=== PATIENT | female | born 1960 | race American Indian/Alaskan Native ===

== ENCOUNTER 2018-05-06 21:07 | Emergency (ER) | payer MEDICARE, OTHER ==
[2018-05-06 21:39] VITALS: BP 133/97
--- NOTE | 2018-05-06 21:40 | Emergency Department Report ---
Blank Doc - Documentation Documentation: 57 y.o. female presents with flu like symptoms for 3 days. She reports cough, fever, an myalgia. She was unable to work x 3 days and requesting a doctor note. Fast Track for evaluation
[2018-05-07] MEDS ORDERED: TORADOL IM ONE (00:35)
--- NOTE | 2018-05-07 00:35 | Emergency Department Report ---
Minor Respiratory - HPI Chief Complaint: Upper Respiratory Infection Stated Complaint: BODY PAIN/HEADACHE Time Seen by Provider: 05/06/18 21:36 Duration: 3 Days Pain Location: Nose Severity: mild Minor Respiratory: Yes Rhinorrhea, Yes Able to Tolerate Fluids, Yes Cough, Yes Sick Contacts, Yes Fever, No Sore Throat, No Ear Pain, No Hemoptysis, No Chest Pain, No Shortness of Breath Other History: This is a 57-year-old female presents with flulike symptoms for the past 3 days. Patient reports fever, chills, headache, and myalgia. States several people at work are sick. She is currently taken DayQuil, NyQuil, and NSAIDs with no improvement of symptoms. Patient states she feel like this before. She denies chest pain, shortness of breath, wheezing, sore throat. ED Review of Systems ROS: Stated complaint: BODY PAIN/HEADACHE Other details as noted in HPI Constitutional: chills, fever ENT: throat pain, congestion. denies: ear pain, dental pain, hearing loss, epistaxis Respiratory: cough. denies: shortness of breath, wheezing Cardiovascular: denies: chest pain, palpitations Gastrointestinal: denies: abdominal pain, nausea, diarrhea Musculoskeletal: myalgia. denies: back pain, joint swelling, arthralgia Skin: denies: rash, lesions Neurological: headache. denies: weakness, paresthesias Psychiatric: denies: anxiety, depression ED Past Medical Hx - Past Medical History Additional medical history: double mastectomy 2006 - Surgical History Hx Cholecystectomy: Yes Additional Surgical History: 3 - Social History Smoking Status: Never Smoker Substance Use Type: None - Medications Home Medications: Home Medications Medication Instructions Recorded Confirmed Last Taken Type Benzonatate [Tessalon Perles] 100 mg PO Q8HR PRN #30 capsule 05/07/18 Unknown Rx Cetirizine HCl [Zyrtec] 10 mg PO DAILY #30 tablet 05/07/18 Unknown Rx Fluticasone [Flonase] 1 spray NS QDAY #1 bottle 05/07/18 Unknown Rx Ibuprofen [Motrin 800 MG tab] 800 mg PO Q8HR PRN #15 tablet 05/07/18 Unknown Rx Minor Respiratory Exam - Exam General: Vital signs noted. No distress. Alert and acting appropriately. HEENT: Yes Pharyngeal Erythema (erythematous posterior flare names, uvula midline), Yes Moist Mucous Membranes, Yes Rhinorrhea (extremities mildly congested with clear discharge), No Pharyngeal Exudates, No Conjuctival Injecti on, No Frontal Tenderness, No Maxillary Tenderness Ear: Neither TM Bulge, Neither TM Erythema, Neither EAC Pain, Neither EAC Discharge Neck: Yes Supple, No Adenopathy Lungs: Yes Good Air Exchange, Yes Cough, No Wheezes, No Ronchi, No Stridor, No Labored Respirations, No Retractions, No Use of Accessory Muscles, No Other Abn ormal Lung Sounds Heart: Yes Regular, No Murmur Abdomen: Yes Normal Bowel Sounds, No Tenderness, No Peritoneal Signs Skin: No Rash, No Edema Neurologic: Alert and oriented, no deficits. Musculoskeletal: Unremarkable. ED Course Vital Signs 05/06/18 21:19 Temperature 99.7 F H Pulse Rate 102 H Respiratory 18 Rate Blood Pressure 133/97 O2 Sat by Pulse 96 Oximetry ED Medical Decision Making - Medical Decision Making 57 y.o. female that presents with flu-like symptoms. Patient examined by me and stable. No distress noted. Vitals normal. Given Toradol 30 mg IM while in ER for headache. Discharged home stable. Educated on care for viral syndrome. Symptoms are susceptible of viral syndrome. Start flonase, Tessalon Perles, cetirizine, and ibuprofen. She is instructed to take Tylenol or ibuprofen for aches and pains, to drink a lot of liquids to stay home and wrists. She was given a note to return to work in 3 days. Follow up with Primary Care Provider in 2-3 days. She will return to the emergency room if she does not get better as discussed. Critical care attestation.: If time is entered above; I have spent that time in minutes in the direct care of this critically ill patient, excluding procedure time. ED Disposition Clinical Impression: Acute viral syndrome, Flu-like symptoms Disposition: DC-01 TO HOME OR SELFCARE Is pt being admited?: No Does the pt Need Aspirin: No Condition: Stable Instructions: Viral Syndrome (ED), Upper Respiratory Infection (ED) Additional Instructions: Symptoms are most likely coming from for infection. These infections typically do not give antibiotics. He is to take ibuprofen every 6 hours alternated with saline intravenously over 4 hours pain. You may not feel like eating which is to be expected. Try eating a bland diet as tolerated. Wash hands frequently. F/U with Primary Care Provider. Return to ER if fever, SOB, or difficulty breathing after 48 hours of supportive care. Prescriptions: Benzonatate [Tessalon Perles] 100 mg PO Q8HR PRN #30 capsule PRN Reason: Cough Cetirizine HCl [Zyrtec] 10 mg PO DAILY #30 tablet Fluticasone [Flonase] 1 spray NS QDAY #1 bottle Ibuprofen [Motrin 800 MG tab] 800 mg PO Q8HR PRN #15 tablet PRN Reason: Pain , Severe (7-10) Referrals: ELI PARRISH MD [Primary Care Provider] - 3-5 Days [facility] [Outside] - 3-5 Days [facility] [Outside] - 3-5 Days [facility] [Outside] - 3-5 Days Forms: Work/School Release Form(ED) Time of Disposition: 00:51
== END 2018-05-07 01:15 | disposition home or self-care (01) ==
LOC: ED 21:07
DX: B34.9 Viral infection, unspecified (principal); Z90.49 Acquired absence of other specified parts of digestive tract
CPT/HCPCS: 96372; 99282; J1885

== ENCOUNTER 2019-05-12 10:59 | Emergency (ER) | payer SELFPAY ==
[2019-05-12] MEDS ORDERED: dexAMETHasone 20 MG/5 ML VIAL IM ONE (11:32)
[2019-05-12] MEDS ORDERED: ACETAMINOPHEN 325 MG TAB PO ONE (11:33)
[2019-05-12] MEDS ORDERED: KETOROLAC 30 MG/1 ML INJ IM ONE (11:33)
--- NOTE | 2019-05-12 11:34 | Emergency Department Report ---
- General Chief Complaint: Upper Respiratory Infection Stated Complaint: CHILLS/SWEATS/FLU SYM Time Seen by Provider: 05/12/19 11:25 Source: patient Mode of arrival: Ambulatory Limitations: No Limitations - History of Present Illness Initial Comments: 58-year-old female with no significant past medical history presents to the ER today complaining of flulike symptoms. Patient reports generalized body aches, productive cough, subjective fever intermittently, chills, and sore throat for the past 5 days. She denies any wheezing, chest pain or shortness of breath. She denies any GI or symptoms. [place] but nothing obvious. She has been taking NyQuil and DayQuil with not much relief of her symptoms. MD Complaint: fever, cough, other ("I think I have the flu") -: days(s) (5) - Related Data Previous Rx's Medication Instructions Recorded Last Taken Type Benzonatate [Tessalon Perles] 100 mg PO Q8HR PRN #30 capsule 05/07/18 Unknown Rx Cetirizine HCl [Zyrtec 10mg tab] 10 mg PO DAILY #30 tablet 05/12/19 Unknown Rx Fluticasone [Flonase] 1 spray NS QDAY #1 bottle 05/12/19 Unknown Rx Ibuprofen [Motrin 800 MG tab] 800 mg PO Q8HR PRN #15 tablet 05/12/19 Unknown Rx guaiFENesin/CODEINE [Robitussin AC] 5 ml PO Q6HR PRN #120 ml 05/12/19 Unknown Rx Allergies Allergy/AdvReac Type Severity Reaction Status Date / Time No Known Allergies Allergy Unverified 05/06/18 21:38 ED Review of Systems ROS: Stated complaint: CHILLS/SWEATS/FLU SYM Other details as noted in HPI Constitutional: chills, fever Respiratory: cough. denies: shortness of breath, SOB with exertion, SOB at rest, stridor, wheezing Cardiovascular: denies: chest pain Gastrointestinal: denies: nausea, vomiting, diarrhea Musculoskeletal: arthralgia, myalgia. denies: back pain Skin: denies: rash Neurological: headache ED Past Medical Hx - Past Medical History Previous Medical History?: Yes Additional medical history: Breast CA - Surgical History Past Surgical History?: Yes Hx Cholecystectomy: Yes Additional Surgical History: 3 , double mastectomy, parathyroidectomy - Social History Smoking Status: Never Smoker Substance Use Type: None - Medications Home Medications: Home Medications Medication Instructions Recorded Confirmed Last Taken Type Benzonatate [Tessalon Perles] 100 mg PO Q8HR PRN #30 capsule 05/07/18 Unknown Rx Cetirizine HCl [Zyrtec 10mg tab] 10 mg PO DAILY #30 tablet 05/12/19 Unknown Rx Fluticasone [Flonase] 1 spray NS QDAY #1 bottle 05/12/19 Unknown Rx Ibuprofen [Motrin 800 MG tab] 800 mg PO Q8HR PRN #15 tablet 05/12/19 Unknown Rx guaiFENesin/CODEINE [Robitussin AC] 5 ml PO Q6HR PRN #120 ml 05/12/19 Unknown Rx ED Physical Exam - General Limitations: No Limitations General appearance: alert, in no apparent distress, other (mildly ill appearing but not toxic ) - Head Head exam: Present: atraumatic, normocephalic, normal inspection - Eye Eye exam: Present: normal appearance, PERRL, EOMI Pupils: Present: normal accommodation - ENT ENT exam: Present: normal exam, normal orophraynx, mucous membranes moist - Expanded ENT Exam Expanded TM/Canal exam: Effusion: Right TM, Left TM - Neck Neck exam: Present: normal inspection, full ROM. Absent: meningismus - Respiratory Respiratory exam: Present: normal lung sounds bilaterally - Cardiovascular Cardiovascular Exam: Present: regular rate, normal rhythm, normal heart sounds - GI/Abdominal GI/Abdominal exam: Present: soft. Absent: distended, tenderness - Neurological Exam Neurological exam: Present: alert, oriented X3, CN II-XII intact - Psychiatric Psychiatric exam: Present: normal affect, normal mood - Skin Skin exam: Present: intact ED Course Vital Signs 05/12/19 11:03 Temperature 97.7 F Pulse Rate 73 Respiratory 18 Rate Blood Pressure 190/115 O2 Sat by Pulse 97 Oximetry ED Medical Decision Making - Radiology Data Ordering Physician: MORGAN GALICIA Date of Service: 05/12/19 Procedure(s): XR chest routine 2V Accession Number(s): [id number] cc: MORGAN GALICIA Fluoro Time In Minutes: CHEST 2 VIEWS INDICATION: cough. COMPARISON: None FINDINGS: Support devices: None. Heart: Within normal limits. Pulmonary vasculature:Normal Lungs/pleura: No acute air space or interstitial disease. No pneumothorax. Additional findings: Degenerative changes in the spine. Numerous surgical sutures in the anterior chest wall and upper abdomen. IMPRESSION: 1. No acute findings. Signer Name: Pablo Madsen MD Signed: 05/12/2019 11:59 AM Workstation Name: [id number] Transcribed By: REF Dictated By: PABLO MADSEN MD Electronically Authenticated By: PABLO MADSEN MD Signed Date/Time: 05/12/19 1159 DD/ 1157 TD/TT: - Medical Decision Making 58 year old female presents c/o 5 days hx of flu like symptoms. Patient mildly ill appearing but overall not toxic, well hydrated and no acute pain nor respiratory distress. She is afebrile, not hypoxic nor tachpneic nor tachycardic. I suspect clinically has flu but informed patient that at this point it will have to run its course but we will give meds to help with symptomatic relief and recommend that she drinks lots of fluids and rest. Her history, exam, diagnostic testing and current condition does not demonstrate an infectious process such has meningitis, severe pneumonia, retropharyngeal abscess, epiglottis, sepsis or other serious bacterial infection requiring further testing, treatment, consultation or admission at this time. Discusses suspected dx and treatment plan with patient. Recommend close f/u with PCP. Pt stable at time of discharge. Critical care attestation.: If time is entered above; I have spent that time in minutes in the direct care of this critically ill patient, excluding procedure time. ED Disposition Clinical Impression: Flu-like symptoms, Viral syndrome Disposition: DC-01 TO HOME OR SELFCARE Is pt being admited?: No Does the pt Need Aspirin: No Condition: Stable Instructions: Viral Syndrome (ED), Influenza (ED) Additional Instructions: Recommend rest, and lots of fluids. Take medications as prescribed. Recommend close follow up with PCP. Return to ED if worse. Prescriptions: Fluticasone [Flonase] 1 spray NS QDAY #1 bottle Ibuprofen [Motrin 800 MG tab] 800 mg PO Q8HR PRN #15 tablet PRN Reason: Pain , Severe (7-10) guaiFENesin/CODEINE [Robitussin AC] 5 ml PO Q6HR PRN #120 ml PRN Reason: Cough Cetirizine HCl [Zyrtec 10mg tab] 10 mg PO DAILY #30 tablet Referrals: BROOKLYN BECERRA MD [Staff Physician] - 3-5 Days Forms: Work/School Release Form(ED) Time of Disposition: 12:12
--- NOTE | 2019-05-12 12:03 | XRay Report ---
CHEST 2 VIEWS INDICATION: cough. COMPARISON: None FINDINGS: Support devices: None. Heart: Within normal limits. Pulmonary vasculature:Normal Lungs/pleura: No acute air space or interstitial disease. No pneumothorax. Additional findings: Degenerative changes in the spine. Numerous surgical sutures in the anterior chest wall and upper abdomen. IMPRESSION: 1. No acute findings. Signer Name: Pablo Amaya MD Signed: 05/12/2019 11:59 AM Workstation Name: [id number]
[2019-05-12 12:27] VITALS: BP 174/106
== END 2019-05-12 12:26 | disposition home or self-care (01) ==
LOC: ED 10:59
DX: J11.1 Influenza due to unidentified influenza virus with other respiratory manifestations (principal); B34.9 Viral infection, unspecified; Z90.49 Acquired absence of other specified parts of digestive tract; Z90.89 Acquired absence of other organs; Z79.899 Other long term (current) drug therapy
CPT/HCPCS: 71046; 96372; 99283; J1100; J1885

== ENCOUNTER 2020-02-12 16:27 | Inpatient (IN) | payer OTHER ==
[2020-02-12] MEDS ORDERED: ONDANSETRON 4 MG/2 ML INJ IV ONE ×2 (16:35→18:49)
[2020-02-12] MEDS ORDERED: SODIUM CHLORIDE 0.9% 1000 ML 1,000 ML IV ONE (16:35)
[2020-02-12] MEDS ORDERED: HYDROmorphone 1 MG/1 ML INJ IV ONE (16:35)
--- NOTE | 2020-02-12 16:39 | Emergency Department Report ---
ED Abdominal Pain HPI - General Stated Complaint: ABD PAIN PUI?: No Time Seen by Provider: 02/12/20 16:35 Source: patient, EMS, old records reviewed Mode of arrival: Stretcher Limitations: No Limitations - History of Present Illness Initial Comments: Chief complaint: Abdominal pain HPI: This is a 59-year-old female with history of hypertension, breast cancer and kidney stones who presents via EMS with severe left lower quadrant dull abdominal pain for the past 3 days. She feels a dull pain. She has vomiting. She denies diarrhea. She denies hematuria. She denies fever or chills. She recently started vaginal bleeding. She has been menopausal. Gradual onset of symptoms. The pain is intermittent. Pain is worse when she eats. No radiation . MD Complaint: abdominal pain -: Gradual, days(s) (3) Location: LLQ Radiation: none Severity: severe Severity scale (0 -10): 8 Quality: dull Consistency: intermittent Improves With: nothing Worsens With: eating Context: other (History of kidney stones, new onset vaginal bleeding) Associated Symptoms: nausea, vomiting, other (Vaginal bleeding) - Related Data Previous Rx's Medication Instructions Recorded Last Taken Type Benzonatate [Tessalon Perles] 100 mg PO Q8HR PRN #30 capsule 05/07/18 Unknown Rx Cetirizine HCl [Zyrtec 10mg tab] 10 mg PO DAILY #30 tablet 05/12/19 Unknown Rx Fluticasone [Flonase] 1 spray NS QDAY #1 bottle 05/12/19 Unknown Rx Ibuprofen [Motrin 800 MG tab] 800 mg PO Q8HR PRN #15 tablet 05/12/19 Unknown Rx guaiFENesin/CODEINE [Robitussin AC] 5 ml PO Q6HR PRN #120 ml 05/12/19 Unknown Rx Allergies Allergy/AdvReac Type Severity Reaction Status Date / Time acetaminophen [From Percocet] AdvReac Headache Verified 02/12/20 18:28 hydromorphone [From Dilaudid] AdvReac Headache Verified 02/12/20 18:28 oxycodone [From Percocet] AdvReac Headache Verified 02/12/20 18:28 ED Review of Systems ROS: Stated complaint: ABD PAIN Other details as noted in HPI Comment: All other systems reviewed and negative Constitutional: denies: fever, malaise Respiratory: denies: cough, shortness of breath Gastrointestinal: abdominal pain, nausea, vomiting Genitourinary: abnormal menses ED Past Medical Hx - Past Medical History Previous Medical History?: Yes Hx Hypertension: Yes Hx Kidney Stones: Yes Additional medical history: Breast CA - Surgical History Hx Cholecystectomy: Yes Additional Surgical History: 3 , double mastectomy, parathyroidectomy - Social History Smoking Status: Never Smoker Substance Use Type: None - Medications Home Medications: Home Medications Medication Instructions Recorded Confirmed Last Taken Type Benzonatate [Tessalon Perles] 100 mg PO Q8HR PRN #30 capsule 05/07/18 Unknown Rx Cetirizine HCl [Zyrtec 10mg tab] 10 mg PO DAILY #30 tablet 05/12/19 Unknown Rx Fluticasone [Flonase] 1 spray NS QDAY #1 bottle 05/12/19 Unknown Rx Ibuprofen [Motrin 800 MG tab] 800 mg PO Q8HR PRN #15 tablet 05/12/19 Unknown Rx guaiFENesin/CODEINE [Robitussin AC] 5 ml PO Q6HR PRN #120 ml 05/12/19 Unknown Rx ED Physical Exam - General General appearance: alert, in no apparent distress, other (Tearful, rubbing abdomen, appears uncomfortable) - Head Head exam: Present: atraumatic, normocephalic - Eye Eye exam: Present: normal appearance - ENT ENT exam: Present: mucous membranes moist - Neck Neck exam: Present: normal inspection - Respiratory Respiratory exam: Present: normal lung sounds bilaterally. Absent: respiratory distress, wheezes, rales, rhonchi - Cardiovascular Cardiovascular Exam: Present: regular rate, normal rhythm, normal heart sounds. Absent: systolic murmur, diastolic murmur, rubs, gallop - GI/Abdominal GI/Abdominal exam: Present: soft, normal bowel sounds. Absent: distended, tenderness, guarding - Extremities Exam Extremities exam: Present: normal inspection - Neurological Exam Neurological exam: Present: alert, oriented X3 - Psychiatric Psychiatric exam: Present: normal affect - Skin Skin exam: Present: warm, dry, intact, normal color. Absent: rash ED Course Vital Signs 02/12/20 02/12/20 16:30 18:49 Temperature 97.7 F Pulse Rate 72 Respiratory 14 Rate Blood Pressure 180/96 200/110 O2 Sat by Pulse 98 99 Oximetry - Reevaluation(s) Reevaluation #1: 02/12/20 17:04 I came to the bedside. Patient was anxious and restless. I suspect that she had an adverse effect to hydromorphone. Patient received Benadryl for anxiolysis. ED Medical Decision Making - Lab Data Result diagrams: 02/12/20 16:43 02/12/20 16:43 - Radiology Data Radiology results: report reviewed CT ABDOMEN AND PELVIS WITHOUT CONTRAST INDICATION / CLINICAL INFORMATION: MAIN. TECHNIQUE: Axial CT images were obtained through the abdomen and pelvis without IV contrast. All CT scans at this location are performed using CT dose reduction for ALARA by means of automated exposure control. COMPARISON: None available. FINDINGS: LOWER CHEST: 5 mm pulmonary nodule adjacent to the pleural margin in the left lower lobe (axial series 2 image 18). HEPATOBILIARY: No significant abnormality. PANCREAS: No significant abnormality. SPLEEN: No significant abnormality. ADRENALS: No significant abnormality. GENITOURINARY: 9 mm nonobstructing nephrolith in the right kidney and 8 mm nonobstructing nephrolith in the left kidney few additional punctate nonobstructing nephroliths. No evidence of obstructive uropathy. GASTROINTESTINAL/MESENTERY: Postoperative change of bowel resection and gastric bypass. There is a 5 x 3 centimeter mass in the proximal sigmoid colon. No evidence of obstruction. There is metastatic lymphadenopathy versus direct extension from the posterior wall of this lesion. Small amount of associated inflammatory change. RETROPERITONEUM: No significant adenopathy. REPRODUCTIVE ORGANS: No significant abnormality. VASCULAR: Mild atherosclerotic calcification without acute abnormality. SKELETAL SYSTEM: No significant abnormality. ADDITIONAL FINDINGS: No significant abnormality. IMPRESSION: 1. 5 cm mass in the proximal sigmoid colon with direct peritoneal extension versus adjacent localized static lymphadenopathy. Small amount of associated inflammatory change in this region. 2. 5 mm pulmonary nodule can be further evaluated on expected staging scan versus oncologic surveillance. 3. Bilateral nonobstructing nephrolithiasis. - Medical Decision Making 1. LLQ pain: 5 cm sigmoid colon mass with lymphadenopathy, suspect malignancy. Dr. Gonzalez, Gastroenterology consult recommended admission for further investigation 2. Hypertensive Urgency without end organcy damage Admitted to hospitalist service Critical care attestation.: If time is entered above; I have spent that time in minutes in the direct care of this critically ill patient, excluding procedure time. ED Disposition Clinical Impression: Colonic mass, Hypertensive urgency Disposition: DC-09 OP ADMIT IP TO THIS HOSP Is pt being admited?: Yes Does the pt Need Aspirin: No Condition: Stable
[2020-02-12] MEDS: KETOROLAC 30 MG/1 ML INJ IV ONE ×2 (16:52→17:06)
[2020-02-12] MEDS ORDERED: diphenhydrAMINE 50 MG/ML VIAL ONE (16:58)
[2020-02-12 17:00] LABS: Basophils % (Auto) 0.2 % (0.0-1.8); Eosinophils # (Auto) 0.1 K/mm3 (0.0-0.4); Eosinophils % (Auto) 1.9 % (0.0-4.3); Hematocrit 39.1 % (30.3-42.9); Hemoglobin 13.3 gm/dl (10.1-14.3); Lymphocytes # (Auto) 2.1 K/mm3 (1.2-5.4); Lymphocytes % (Auto) 26.5 % (13.4-35.0); Mean Corpuscular HGB Conc 34 % (30-34); Mean Corpuscular Volume 87 fl (79-97); Monocytes # (Auto) 0.5 K/mm3 (0.0-0.8); Monocytes % (Auto) 6.9 % (0.0-7.3); Platelet Count 313 K/mm3 (140-440); Red Blood Count 4.47 M/mm3 (3.65-5.03); Red Cell Distribution Width 12.6 % (13.2-15.2)
[2020-02-12] MEDS ORDERED: diphenhydrAMINE 50 MG/ML VIAL IV ONE (17:04)
[2020-02-12 17:14] LABS: BUN/Creatinine Ratio 20; Blood Urea Nitrogen 18 mg/dL (7-17); Calcium 8.4 mg/dL (8.4-10.2); Hemolysis Index 13
[2020-02-12] MEDS ORDERED: KETOROLAC 30 MG/1 ML INJ IV ONE (18:49)
[2020-02-12] MEDS ORDERED: KETOROLAC 30 MG/1 ML INJ IM ONE (18:49)
--- NOTE | 2020-02-12 19:00 | Cat Scan Report ---
CT ABDOMEN AND PELVIS WITHOUT CONTRAST INDICATION / CLINICAL INFORMATION: MAIN. TECHNIQUE: Axial CT images were obtained through the abdomen and pelvis without IV contrast. All CT scans at [facility] location are performed using CT dose reduction for ALARA by means of automated exposure control. COMPARISON: None available. FINDINGS: LOWER CHEST: 5 mm pulmonary nodule adjacent to the pleural margin in the left lower lobe (axial serie s 2 image 18). HEPATOBILIARY: No significant abnormality. PANCREAS: No significant abnormality. SPLEEN: No significant abnormality. ADRENALS: No significant abnormality. GENITOURINARY: 9 mm nonobstructing nephrolith in the right kidney and 8 mm nonobstructing nephrolith in the left kidney few additional punctate nonobstructing nephroliths. No evidence of obstructive uro laith. GASTROINTESTINAL/MESENTERY: Postoperative change of bowel resection and gastric bypass. There is a 5 x 3 centimeter mass in the proximal sigmoid colon. No evidence of obstruction. There is metastatic ly mphadenopathy versus direct extension from the posterior wall of this lesion. Small amount of associa bigg inflammatory change. RETROPERITONEUM: No significant adenopathy. REPRODUCTIVE ORGANS: No significant abnormality. VASCULAR: Mild atherosclerotic calcification without acute abnormality. SKELETAL SYSTEM: No significant abnormality. ADDITIONAL FINDINGS: No significant abnormality. IMPRESSION: 1. 5 cm mass in the proximal sigmoid colon with direct peritoneal extension versus adjacent localized static lymphadenopathy. Small amount of associated inflammatory change in this region. 2. 5 mm pulmonary nodule can be further evaluated on expected staging scan versus oncologic surveilla nce. 3. Bilateral nonobstructing nephrolithiasis. Signer Name: Morgan Felder MD Signed: 02/12/2020 6:55 PM Workstation Name: [id number]
[2020-02-12 19:22] LABS: Bilirubin,Urine NEG (Negative); Blood,Urine NEG (Negative); Color,Urine Colorless (Yellow); Protein,Urine <15 mg/dL mg/dL (Negative); Urobilinogen,Urine < 2.0 mg/dL (<2.0); WBC,Urine < 1.0 /HPF (0.0-6.0)
--- NOTE | 2020-02-12 19:42 | History and Physical Report ---
History of Present Illness Chief complaint: My stomach hurts, and I cannot keep anything down History of present illness: 59 YO Female with HTN, BrCA presents to ED for evaluation. Patient states that she has experienced abdominal pain over the past 3 days with persistent symptoms over the same timeframe. Patient also acknowledges nausea, multiple episodes of vomiting, as well as inability to tolerate oral intake. Patient states that pain is 810/10, the pain was initially intermittent but has become more const ant. Patient also acknowledges new onset vaginal bleeding over the past 3 days. Pain is worse with movement and eating. And relieved somewhat with nonmovement. EMS was notified and upon arrival the patient was found to be in distress and subsequently transported to [facility] for further care and evaluation. Patient seen and evaluated in the emergency department. All lab and imaging studies reviewed. Patient underwent CT scan of the abdomen and pelvis and was found to have a sigmoid colonic mass suspicious for malignancy with direct peritoneal extension. Patient placed in observation status and admitted to surgical floor due to increased risk of worsening symptoms, colonic complications, as well as bowel perforation. Patient denies fever, chills, chest pain, palpitation, productive cough, skin rash, recent ill contacts, or known exposure to COVID-19. No prior admission for review. All medication listed at time of admission has been reconciled. GI team consulted in ED. HUMAN RESOURCES SUPPORT SPECIALIST service consulted in ED for vaginal bleeding. Advanced care planning conducted in ED. Past History Past Medical History: cancer, hypertension Past Surgical History: cholecystectomy, , mastectomy (Thus the plan), bowel surgery Social history: single. denies: smoking, alcohol abuse Family history: hypertension Medications and Allergies Allergies Allergy/AdvReac Type Severity Reaction Status Date / Time acetaminophen [From Percocet] AdvReac Headache Verified 02/12/20 18:28 hydromorphone [From Dilaudid] AdvReac Headache Verified 02/12/20 18:28 oxycodone [From Percocet] AdvReac Headache Verified 02/12/20 18:28 Home Medications Medication Instructions Recorded Confirmed Last Taken Type Ascorbic Acid [Vitamin C] 1,000 mg PO DAILY 02/12/20 02/12/20 02/12/20 History Cholecalciferol (Vitamin D3) 5,000 unit PO DAILY 02/12/20 02/12/20 02/12/20 History [Vitamin D3] Cyanocobalamin (Vitamin B-12) 1,000 mcg PO DAILY 02/12/20 02/12/20 02/12/20 History [Vitamin B-12] Magnesium Amino Acid Chelate 100 mg PO DAILY 02/12/20 02/12/20 02/12/20 History [Magnesium] Pyridoxine HCl (Vitamin B6) 250 mg PO DAILY 02/12/20 02/12/20 02/12/20 History [Vitamin B-6] Review of Systems Constitutional: no weight loss, no weight gain, no fever, no chills Ears, nose, mouth and throat: no ear pain, no ear discharge, no tinnitis, no decreased hearing, no nose pain Breasts: no change in shape, no swelling, no mass Cardiovascular: no chest pain, no orthopnea, no rapid/irregular heart beat, no edema, no syncope Respiratory: no cough, no cough with sputum, no excessive sputum, no hemoptysis Gastrointestinal: abdominal pain, nausea, vomiting, no BRBPR, no melena, no hematochezia Genitourinary Female: other (vaginal bleeding), no post void dribbling, no incomplete emptying, no urge incontinence Rectal: no pain, no incontinence Musculoskeletal: no neck stiffness, no neck pain, no arm numbness/tingling, no shooting leg pain, no leg numbness/tingling Integumentary: no rash, no pruritis, no redness, no sores, no wounds Neurological: no transient paralysis, no weakness, no parathesias, no syncope Psychiatric: no anxiety, no sleep disturbances, no hypersomnia, no change in appetite, no suicidal ideation Endocrine: no cold intolerance, no heat intolerance, no excessive thirst, no polyuria Hematologic/Lymphatic: no easy bruising, no easy bleeding Allergic/Immunologic: no urticaria, no allergic rhinitis, no persistent infections, no anaphylaxis Exam - Constitutional Vitals: Temp Pulse Resp BP Pulse Ox 97.7 F 72 14 200/110 99 02/12/20 16:30 02/12/20 16:30 02/12/20 16:30 02/12/20 18:49 02/12/20 18:49 General appearance: Present: mild distress - EENT Eyes: Present: PERRL ENT: hearing intact, clear oral mucosa - Neck Neck: Present: supple, normal ROM - Respiratory Respiratory effort: normal Respiratory: bilateral: CTA - Cardiovascular Heart Sounds: Present: S1 & S2. Absent: rub, click - Extremities Extremities: pulses symmetrical, No edema Peripheral Pulses: within normal limits - Abdominal General gastrointestinal: Present: soft, tender, non-distended, normal bowel sounds Female genitourinary: Present: normal - Integumentary Integumentary: Present: clear, warm, dry - Musculoskeletal Musculoskeletal: gait normal, strength equal bilaterally - Psychiatric Psychiatric: appropriate mood/affect, intact judgment & insight - Neurologic Neurologic: CNII-XII intact, moves all extremities Results - Labs CBC & Chem 7: 02/12/20 16:43 02/12/20 16:43 Labs: Abnormal lab results 02/12/20 02/12/20 Range/Units 16:43 16:43 RDW 12.6 L (13.2-15.2) % Potassium 3.2 L (3.6-5.0) mmol/L BUN 18 H (7-17) mg/dL Glucose 116 H (65-100) mg/dL Assessment and Plan - Patient Problems (1) Intractable nausea and vomiting Current Visit: Yes Status: Acute Plan to address problem: Bowel rest, IV fluid resuscitation therapy, supportive care. Antiemetic therapy. (2) Abnormal vaginal bleeding in postmenopausal patient Current Visit: Yes Status: Acute Plan to address problem: HUMAN RESOURCES SUPPORT SPECIALIST consulted for postmenopausal bleeding, supportive care. No transfusion indicated at this time. (3) Colonic mass Current Visit: Yes Status: Acute Plan to address problem: Suspicious for malignancy with peritoneal extension. GI team consulted in ED. Patient pending endoscopy in a.m. as per GI team. (4) Hypertensive urgency Current Visit: Yes Status: Acute Plan to address problem: Monitor blood pressure every shift, IV hydralazine every 6 hours as needed for systolic blood pressure greater than 155 mmHg. (5) DVT prophylaxis Current Visit: Yes Status: Acute Plan to address problem: SCD to bilateral lower extremities while in bed, hold anticoagulation due to active bleeding.
[2020-02-12] MEDS ORDERED: ONDANSETRON 4 MG/2 ML INJ IV PRN (19:43)
[2020-02-12] MEDS ORDERED: hydrALAZINE 20 MG/1 ML INJ ONE (20:12)
[2020-02-12] MEDS: hydrALAZINE 20 MG/1 ML INJ IV PRN (20:13)
[2020-02-12] MEDS ORDERED: SODIUM CHLORIDE 0.9% 1000 ML 1,000 ML ONE (22:05)
[2020-02-12] MEDS: SODIUM CHLORIDE 0.9% 1000 ML 1,000 ML IV SCH (22:07)
[2020-02-13] MEDS: ACETAMINOPHEN 325 MG TAB PO PRN ×3 (01:10→22:12)
[2020-02-13] MEDS ORDERED: HYDROmorphone 1 MG/1 ML INJ IV PRN (08:57)
[2020-02-13] MEDS: SODIUM CHLORIDE 0.9% 1000 ML 1,000 ML IV SCH ×2 (09:14→17:55)
--- NOTE | 2020-02-13 12:26 | Ultrasound Report ---
US transvaginal, US pelvic complete INDICATION / CLINICAL INFORMATION: AUB. TECHNIQUE: Transabdominal and Transvaginal. Duplex Color Doppler used: Yes. COMPARISON: None available FINDINGS: UTERUS: Retroverted uterus measures 6.2 x 3.1 x 1.5 cm. Uterus is slightly heterogeneous. -Endometrial stripe but it does appear slightly thickened and heterogeneous. - Mass lesions: None. RIGHT ADNEXA: No significant ovarian cyst or mass. Normal color Doppler blood flow. LEFT ADNEXA: Left ovary is not visualized secondary to patient's positioning. URINARY BLADDER: No significant abnormality. FREE FLUID: None. ADDITIONAL FINDINGS: None. IMPRESSION: 1. Examination was suboptimal secondary to patient's sedation and positioning. The uterus appears het erogeneous. The endometrial stripe was not well visualized but does appear slightly thickened. Gyneco logical ultrasound is recommended. Reference: The Society for Vascular Surgery practice guidelines on the care of patients with an abdom inal aortic aneurysm. SVS guidelines on AAA can be found online: [email or web address]/fulltext p vahid Signer Name: Jimmy Trevizo MD Signed: 02/13/2020 12:21 PM Workstation Name: [id number]
--- NOTE | 2020-02-13 12:26 | Ultrasound Report ---
US transvaginal, US pelvic complete INDICATION / CLINICAL INFORMATION: AUB. TECHNIQUE: Transabdominal and Transvaginal. Duplex Color Doppler used: Yes. COMPARISON: None available FINDINGS: UTERUS: Retroverted uterus measures 6.2 x 3.1 x 1.5 cm. Uterus is slightly heterogeneous. -Endometrial stripe but it does appear slightly thickened and heterogeneous. - Mass lesions: None. RIGHT ADNEXA: No significant ovarian cyst or mass. Normal color Doppler blood flow. LEFT ADNEXA: Left ovary is not visualized secondary to patient's positioning. URINARY BLADDER: No significant abnormality. FREE FLUID: None. ADDITIONAL FINDINGS: None. IMPRESSION: 1. Examination was suboptimal secondary to patient's sedation and positioning. The uterus appears het erogeneous. The endometrial stripe was not well visualized but does appear slightly thickened. Gyneco logical ultrasound is recommended. Reference: The Society for Vascular Surgery practice guidelines on the care of patients with an abdom inal aortic aneurysm. SVS guidelines on AAA can be found online: [email or web address]/fulltext p vahid Signer Name: Jimmy Trevizo MD Signed: 02/13/2020 12:21 PM Workstation Name: [id number]
--- NOTE | 2020-02-13 13:24 | Progress Note ---
Assessment and Plan Assessment and plan: 59 YO Female with HTN, BrCA presents to ED for evaluation. Patient states that she has experienced abdominal pain over the past 3 days with persistent symptoms over the same timeframe. Patient also acknowledges nausea, multiple episodes of vomiting, as well as inability to tolerate oral intake. Patient states that pain is 810/10, the pain was initially intermittent but has become more constant. Patient also acknowledges new onset vaginal bleeding over the past 3 days. Pain is worse with movement and eating. And relieved somewhat with nonmovement. Patient denies fever, chills, chest pain, palpitation, productive cough, skin rash, recent ill contacts, or known exposure to COVID-19. EMS was notified and upon arrival the patient was found to be in distress and subsequently transported to [facility] for further care and evaluation. Patient seen and evaluated in the emergency department. CT scan of the abdomen and pelvis; a sigmoid colonic mass suspicious for malignancy with direct peritoneal extension. Patient placed in observation status and admitted to surgical floor due to increased risk of worsening symptoms, colonic complications, as well as bowel perforation. Intractable nausea and vomiting Colonic mass Hypertensive Urgency Hypokalemia ? Abnormal uterine bleed in a postmenopausal woman Plan Replace electrolyte Supportive care Pelvic ultrasound and transvaginal ultrasound Patient received a dose of Dilaudid and had reaction almost like of zoning out but no syncope or loss of consciousness. Will discontinue Dilaudid to use Toradol. Monitor renal function Antiemetic medications Clear liquid diet today until seen by surgeon. [employer] and GI also consulted DVT and GI prophylaxis Plan of care discussed with nursing staff and patient at bedside History Interval history: Patient seen and examined, reports symptoms bleeding-vaginal bleeding for a few months now but did not have insurance Hospitalist Physical - Physical exam Narrative exam: VITAL SIGNS: Reviewed. GENERAL: The patient appears normally developed, Vital signs as documented. HEAD: No signs of head trauma. EYES: Pupils are equal. Extraocular motions intact. EARS: Hearing grossly intact. MOUTH: Oropharynx is normal. NECK: No adenopathy, no JVD. CHEST: Chest with clear breath sounds bilaterally. No wheezes, rales, or rhonchi. CARDIAC: Regular rate and rhythm. S1 and S2, without murmurs, gallops, or rubs. VASCULAR: No Edema. Peripheral pulses normal and equal in all extremities. ABDOMEN: Soft, uncomfortable on palpation but multifocal tenderness and non distended. Surgical healed lesion from from noted. No rebound or guarding, and no masses palpated. Bowel Sounds normal. MUSCULOSKELETAL: Good range of motion of all major joints. Extremities without clubbing, cyanosis or edema. NEUROLOGIC EXAM: Alert and oriented x 3 No focal sensory or strength deficits. Speech normal. Follows commands. PSYCHIATRIC: Mood normal. SKIN: detail exam as documented in skin assessment - Constitutional Vitals: Temp Pulse Resp BP Pulse Ox 98.2 F 68 18 153/91 94 02/13/20 10:52 02/13/20 10:52 02/13/20 10:52 02/13/20 10:52 02/13/20 10:52 General appearance: Present: mild distress Results - Labs CBC & Chem 7: 02/12/20 16:43 02/12/20 16:43 Labs: Laboratory Last Values WBC 7.8 K/mm3 (4.5-11.0) 02/12/20 16:43 RBC 4.47 M/mm3 (3.65-5.03) 02/12/20 16:43 Hgb 13.3 gm/dl (10.1-14.3) 02/12/20 16:43 Hct 39.1 % (30.3-42.9) 02/12/20 16:43 MCV 87 fl (79-97) 02/12/20 16:43 MCH 30 pg (28-32) 02/12/20 16:43 MCHC 34 % (30-34) 02/12/20 16:43 RDW 12.6 % (13.2-15.2) L 02/12/20 16:43 Plt Count 313 K/mm3 (140-440) 02/12/20 16:43 Lymph % (Auto) 26.5 % (13.4-35.0) 02/12/20 16:43 [place] % (Auto) 6.9 % (0.0-7.3) 02/12/20 16:43 Eos % (Auto) 1.9 % (0.0-4.3) 02/12/20 16:43 Baso % (Auto) 0.2 % (0.0-1.8) 02/12/20 16:43 Lymph # (Auto) 2.1 K/mm3 (1.2-5.4) 02/12/20 16:43 [place] # (Auto) 0.5 K/mm3 (0.0-0.8) 02/12/20 16:43 Eos # (Auto) 0.1 K/mm3 (0.0-0.4) 02/12/20 16:43 Baso # (Auto) 0.0 K/mm3 (0.0-0.1) 02/12/20 16:43 Seg Neutrophils % 64.5 % (40.0-70.0) 02/12/20 16:43 Seg Neutrophils # 5.0 K/mm3 (1.8-7.7) 02/12/20 16:43 Sodium 138 mmol/L (137-145) 02/12/20 16:43 Potassium 3.2 mmol/L (3.6-5.0) L 02/12/20 16:43 Chloride 104.3 mmol/L (98-107) 02/12/20 16:43 Carbon Dioxide 23 mmol/L (22-30) 02/12/20 16:43 Anion Gap 14 mmol/L 02/12/20 16:43 BUN 18 mg/dL (7-17) H 02/12/20 16:43 Creatinine 0.9 mg/dL (0.6-1.2) 02/12/20 16:43 Estimated GFR > 60 ml/min 02/12/20 16:43 BUN/Creatinine Ratio 20 % 02/12/20 16:43 Glucose 116 mg/dL (65-100) H 02/12/20 16:43 Calcium 8.4 mg/dL (8.4-10.2) 02/12/20 16:43 Lipase 16 units/L (13-60) 02/12/20 16:43 Urine Color Colorless (Yellow) 02/12/20 18:40 Urine Turbidity Clear (Clear) 02/12/20 18:40 Urine pH 6.0 (5.0-7.0) 02/12/20 18:40 Ur Specific [place] 1.006 (1.003-1.030) 02/12/20 18:40 Urine Protein <15 mg/dl mg/dL (Negative) 02/12/20 18:40 Urine Glucose (UA) Neg mg/dL (Negative) 02/12/20 18:40 Urine Ketones Neg mg/dL (Negative) 02/12/20 18:40 Urine Blood Neg (Negative) 02/12/20 18:40 Urine Nitrite Neg (Negative) 02/12/20 18:40 Urine Bilirubin Neg (Negative) 02/12/20 18:40 Urine Urobilinogen < 2.0 mg/dL (<2.0) 02/12/20 18:40 Ur Leukocyte Esterase Neg (Negative) 02/12/20 18:40 Urine WBC (Auto) < 1.0 /HPF (0.0-6.0) 02/12/20 18:40 Urine RBC (Auto) 1.0 /HPF (0.0-6.0) 02/12/20 18:40 U Epithel Cells (Auto) < 1.0 /HPF (0-13.0) 02/12/20 18:40 Brown/IV: Voiding Method Toilet IV Catheter Type [Left Hand] Peripheral IV Active Medications - Current Medications Current Medications: Generic Name Dose Route Start Last Admin Trade Name Freq PRN Reason Stop Dose Admin Acetaminophen 650 mg 02/12/20 19:43 02/13/20 05:08 Tylenol PO 650 mg Q4H PRN Administration Pain MILD(1-3)/Fever >100.5/PETE Hydralazine HCl 10 mg 02/12/20 19:48 02/12/20 20:13 Apresoline IV 10 mg Q6HR PRN Administration Hypertension Sodium Chloride 1,000 mls @ 125 mls/hr 02/12/20 19:45 02/13/20 09:14 Nacl 0.9% 1000 Ml IV 125 mls/hr DIRECT NATALIO Administration Ketorolac Tromethamine 30 mg 02/13/20 09:07 Toradol IV 02/18/20 09:06 Q6H PRN Pain, Moderate (4-6) Ondansetron HCl 4 mg 02/12/20 19:43 Zofran IV Q8H PRN Nausea And Vomiting Sodium Chloride 10 ml 02/12/20 22:00 02/13/20 10:33 Sodium Chloride Flush Syringe 10 Ml IV Not Given BID NATALIO Sodium Chloride 10 ml 02/12/20 19:43 Sodium Chloride Flush Syringe 10 Ml IV PRN PRN LINE FLUSH
[2020-02-13] MEDS: KETOROLAC 30 MG/1 ML INJ IV PRN ×2 (13:26→19:12)
--- NOTE | 2020-02-13 14:46 | Consultation ---
History of Present Illness Consult date: 02/13/20 Reason for consult: other (Postmenopausal bleeding) History of present illness: This is a 59-year-old female G3, P3 LMP 2007 who presented to the emergency department by EMS complaining of severe abdominal pain for the last 3 days associated with vomiting. Her evaluation for the abdominal pain revealed a sigmoid mass. Patient states she has experienced vaginal bleeding for the last 2 months mostly noted when she wipes after exertion or lifting something heavy. She denies heavy vaginal bleeding or saturating a pad an hour. Patient states she had her last Pap smear and pelvic exam approximately 11 years ago. Consult requested to evaluate patient with postmenopausal bleeding. Assessment/plan: Postmenopausal bleeding. She will require cervical cancer screening as well as an endometrial biopsy to evaluate the endometrial cavity for malignancy. Will consider D&C if she goes to surgery for resection of the sigmoid mass that is present. Otherwise we will have her follow-up in the office for the evaluation. Plan of care discussed with patient. She voiced she voiced understanding and agreed with plan of care. 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 denies: smoking, alcohol abuse, prescription drug abuse, IV drug use Medications and Allergies Allergies Allergy/AdvReac Type Severity Reaction Status Date / Time acetaminophen [From Percocet] AdvReac Headache Verified 02/12/20 18:28 hydromorphone [From Dilaudid] AdvReac Headache Verified 02/12/20 18:28 oxycodone [From Percocet] AdvReac Headache Verified 02/12/20 18:28 Home Medications Medication Instructions Recorded Confirmed Last Taken Type Ascorbic Acid [Vitamin C] 1,000 mg PO DAILY 02/12/20 02/12/20 02/12/20 History Cholecalciferol (Vitamin D3) 5,000 unit PO DAILY 02/12/20 02/12/20 02/12/20 History [Vitamin D3] Cyanocobalamin (Vitamin B-12) 1,000 mcg PO DAILY 02/12/20 02/12/20 02/12/20 History [Vitamin B-12] Magnesium Amino Acid Chelate 100 mg PO DAILY 02/12/20 02/12/20 02/12/20 History [Magnesium] Pyridoxine HCl (Vitamin B6) 250 mg PO DAILY 02/12/20 02/12/20 02/12/20 History [Vitamin B-6] Active Meds: Active Medications Acetaminophen (Tylenol) 650 mg PO Q4H PRN PRN Reason: Pain MILD(1-3)/Fever >100.5/PETE Last Admin: 02/13/20 05:08 Dose: 650 mg Documented by: Hydralazine HCl (Apresoline) 10 mg IV Q6HR PRN PRN Reason: Hypertension Last Admin: 02/12/20 20:13 Dose: 10 mg Documented by: Sodium Chloride (Nacl 0.9% 1000 Ml) 1,000 mls @ 125 mls/hr IV DIRECT NATALIO Last Admin: 02/13/20 09:14 Dose: 125 mls/hr Documented by: Ketorolac Tromethamine (Toradol) 30 mg IV Q6H PRN PRN Reason: Pain, Moderate (4-6) Stop: 02/18/20 09:06 Last Admin: 02/13/20 13:26 Dose: 30 mg Documented by: Ondansetron HCl (Zofran) 4 mg IV Q4H PRN PRN Reason: Nausea And Vomiting Sodium Chloride (Sodium Chloride Flush Syringe 10 Ml) 10 ml IV BID NATALIO Last Admin: 02/13/20 10:33 Dose: Not Given Documented by: Sodium Chloride (Sodium Chloride Flush Syringe 10 Ml) 10 ml IV PRN PRN PRN Reason: LINE FLUSH - Vital Signs Vital signs: Vital Signs Temp Pulse Resp BP Pulse Ox 97.7 F 72 14 180/96 98 02/12/20 16:30 02/12/20 16:30 02/12/20 16:30 02/12/20 16:30 02/12/20 16:30 Temp Pulse Resp BP Pulse Ox 98.2 F 68 18 153/91 94 02/13/20 10:52 02/13/20 10:52 02/13/20 10:52 02/13/20 10:52 02/13/20 10:52 - Physical Exam Breasts: Positive: deferred Abdomen: Positive: soft, other (Multiple healed incisions.) Genitourinary (Female): Positive: normal external genitalia, normal perenium Vulva: both: normal Vagina: Positive: other (Small amount of dark blood noted in the vagina. Patient was unable to tolerate speculum exam.) Cervix: Positive: other (Unable to visualize patient was unable to tolerate exam) Uterus: Positive: other (Unable to palpate due to guarding.) Anus/Rectum: Positive: normal perianal skin Results Result Diagrams: 02/12/20 16:43 02/12/20 16:43 Abnormal lab results 02/12/20 02/12/20 Range/Units 16:43 16:43 RDW 12.6 L (13.2-15.2) % Potassium 3.2 L (3.6-5.0) mmol/L BUN 18 H (7-17) mg/dL Glucose 116 H (65-100) mg/dL All other labs normal. Ultrasound: report reviewed, image reviewed CT scan - abdomen: report reviewed CT scan - pelvis: report reviewed Assessment and Plan We will continue to follow with you. - Patient Problems (1) Abnormal vaginal bleeding in postmenopausal patient Current Visit: Yes Status: Acute (2) Colonic mass Current Visit: Yes Status: Acute (3) Hypertensive urgency Current Visit: Yes Status: Chronic (4) Intractable nausea and vomiting Current Visit: Yes Status: Acute (5) Hypokalemia Current Visit: Yes Status: Acute
[2020-02-13] MEDS ORDERED: POLYETHYLENE GLYCOL/ELECT SOLN 4000 ML PO SCH (15:02)
--- NOTE | 2020-02-13 15:10 | Gastroenterology Consultation ---
History of Present Illness - Reason for Consult Consult date: 02/13/20 sigmoid mass Requesting physician: ALEX PORTILLO - History of Present Illness This is a 59 yo female with pmh of HTN, diverticulitis admitted overnight with symptoms of LLQ abdominal pain, nausea/vomiting, and constipation. Found to have a 5 cm sigmoid mass on CT. GI consulted for evaluation of colon mass. Patient reports having LLQ pain for past 3 months or so. Thought it was due to constipation or diverticulitis and changed her diet but no relief. She recently took mag citrate and developed nausea/vomiting and severe diffuse abdominal pain. EMS called and brought to the ED. CT a/p without IV contrast showed a 5 cm sigmoid mass with possible metastatic lymphadenopathy vs direct peritoneal extension and no signs of obstruction. Reports having diverticulitis in 2017 in [place]. Last colonoscopy [place] [address] [place] and normal per patient. H/o gastric bypass for weight loss in 2008. She also has been having postmenopausal vaginal bleeding and RIDING INSTRUCTOR has been consulted. Medication list reviewed. Past History Past Medical History: cancer, hypertension Past Surgical History: cholecystectomy, , mastectomy (Thus the plan), bowel surgery Social history: single. denies: smoking, alcohol abuse, prescription drug abuse, IV drug use Family history: hypertension Medications and Allergies Allergies Allergy/AdvReac Type Severity Reaction Status Date / Time acetaminophen [From Percocet] AdvReac Headache Verified 02/12/20 18:28 hydromorphone [From Dilaudid] AdvReac Headache Verified 02/12/20 18:28 oxycodone [From Percocet] AdvReac Headache Verified 02/12/20 18:28 Home Medications Medication Instructions Recorded Confirmed Last Taken Type Ascorbic Acid [Vitamin C] 1,000 mg PO DAILY 02/12/20 02/12/20 02/12/20 History Cholecalciferol (Vitamin D3) 5,000 unit PO DAILY 02/12/20 02/12/20 02/12/20 History [Vitamin D3] Cyanocobalamin (Vitamin B-12) 1,000 mcg PO DAILY 02/12/20 02/12/20 02/12/20 History [Vitamin B-12] Magnesium Amino Acid Chelate 100 mg PO DAILY 02/12/20 02/12/20 02/12/20 History [Magnesium] Pyridoxine HCl (Vitamin B6) 250 mg PO DAILY 11/02/12/20 02/12/20 History [Vitamin B-6] Active Meds: Active Medications Acetaminophen (Tylenol) 650 mg PO Q4H PRN PRN Reason: Pain MILD(1-3)/Fever >100.5/PETE Last Admin: 02/13/20 05:08 Dose: 650 mg Documented by: Hydralazine HCl (Apresoline) 10 mg IV Q6HR PRN PRN Reason: Hypertension Last Admin: 02/12/20 20:13 Dose: 10 mg Documented by: Sodium Chloride (Nacl 0.9% 1000 Ml) 1,000 mls @ 125 mls/hr IV DIRECT NATALIO Last Admin: 02/13/20 09:14 Dose: 125 mls/hr Documented by: Ketorolac Tromethamine (Toradol) 30 mg IV Q6H PRN PRN Reason: Pain, Moderate (4-6) Stop: 02/18/20 09:06 Last Admin: 02/13/20 13:26 Dose: 30 mg Documented by: Ondansetron HCl (Zofran) 4 mg IV Q4H PRN PRN Reason: Nausea And Vomiting Polyethylene Glycol/Electrolytes (Golytely) 4,000 ml PO ONCE NATALIO Stop: 02/13/20 23:00 Sodium Chloride (Sodium Chloride Flush Syringe 10 Ml) 10 ml IV BID [facility] Last Admin: 02/13/20 10:33 Dose: Not Given Documented by: Sodium Chloride (Sodium Chloride Flush Syringe 10 Ml) 10 ml IV PRN PRN PRN Reason: LINE FLUSH Review of Systems - Review of Systems All systems: negative Constitutional: no weight loss, no weight gain Cardiovascular: no chest pain Respiratory: no shortness of breath Gastrointestinal: abdominal pain, nausea, vomiting, constipation, no BRBPR, no melena Female Genitourinary: other (vaginal bleeding) Integumentary: no rash Psychiatric: anxiety Exam - Constitutional Vital Signs: Temp Pulse Resp BP Pulse Ox 98.2 F 68 18 153/91 94 02/13/20 10:52 02/13/20 10:52 02/13/20 10:52 02/13/20 10:52 02/13/20 10:52 General appearance: no acute distress - EENT Eyes: EOM intact ENT: hearing intact - Neck Neck: supple - Respiratory Respiratory effort: normal - Cardiovascular Rhythm: regular Heart Sounds: Present: S1 & S2 - Gastrointestinal General gastrointestinal: Present: soft, tender, non-distended, normal bowel sounds - Integumentary Integumentary: Present: clear, warm - Neurologic Neurological: alert and oriented x3 - Psychiatric Psychiatric: appropriate mood/affect - Labs CBC & Chem 7: 02/12/20 16:43 02/12/20 16:43 Lab Results: Laboratory Results - last 24 hr 02/12/20 02/12/20 02/12/20 16:43 16:43 18:40 WBC 7.8 RBC 4.47 Hgb 13.3 Hct 39.1 MCV 87 MCH 30 MCHC 34 RDW 12.6 L Plt Count 313 Lymph % (Auto) 26.5 [place] % (Auto) 6.9 Eos % (Auto) 1.9 Baso % (Auto) 0.2 Lymph # (Auto) 2.1 [place] # (Auto) 0.5 Eos # (Auto) 0.1 Baso # (Auto) 0.0 Seg Neutrophils % 64.5 Seg Neutrophils # 5.0 Sodium 138 Potassium 3.2 L Chloride 104.3 Carbon Dioxide 23 Anion Gap 14 BUN 18 H Creatinine 0.9 Estimated GFR > 60 BUN/Creatinine Ratio 20 Glucose 116 H Calcium 8.4 Lipase 16 Urine Color Colorless Urine Turbidity Clear Urine pH 6.0 Ur Specific [place] 1.006 Urine Protein <15 mg/dl Urine Glucose (UA) Neg Urine Ketones Neg Urine Blood Neg Urine Nitrite Neg Urine Bilirubin Neg Urine Urobilinogen < 2.0 Ur Leukocyte Esterase Neg Urine WBC (Auto) < 1.0 Urine RBC (Auto) 1.0 U Epithel Cells (Auto) < 1.0 - Imaging CT Scan: report reviewed Assessment and Plan # Sigmoid mass - CT a/p without IV contrast showing 5 cm sigmoid colon mass with peritoneal extension. no signs of obstruction. - [place]. Rec - will plan for colonoscopy tomorrow - clear liquids and NPO MN. - Golytely prep. - discussed case with surgery, Dr. Hinds.
--- NOTE | 2020-02-13 17:11 | Consultation ---
History of Present Illness Consult date: 02/13/20 Reason for consult: abdominal pain Chief complaint: abdominal pain - History of present illness History of present illness: 59 yo F with hx of breast ca s/p b/l mastectomy with reconstruction with TRAM fl ap (R) and lat dorsi flap (L) and chemo/rads who presents to hospital with LLQ abdominal pain. Pain has been ongoing for the last 2-3 months but has become more severe. It started off dull and now is sharp. It does not radiate. She has had pain like this in the past and she was told it was likely diverticulitis. She states during that episode, she was told to take OTC laxative and this resolved the pain. This time, she tried mag citrate and started to vomit and pain became worse. No f/c, cp, sob. She does not know if her BMs have changed. She is having intermittent vaginal bleeding especially after lifting heavy objects. Patient's last cscope was >5 years ago. She states she had genetic test ing when she was undergoing treatment for breast cancer and was not found to have a gene mutation. Past History Past Medical History: cancer (Breast), hypertension Past Surgical History: cholecystectomy, , mastectomy (Thus the plan), bowel surgery (Gastric bypass), Other (Panniculectomy, breast reconstruction with TRAM flap on right and latissimus dorsi flap on left) Social history: single. denies: smoking, alcohol abuse, prescription drug abuse, IV drug use Family history: hypertension Medications and Allergies Allergies Allergy/AdvReac Type Severity Reaction Status Date / Time acetaminophen [From Percocet] AdvReac Headache Verified 02/12/20 18:28 hydromorphone [From Dilaudid] AdvReac Headache Verified 02/12/20 18:28 oxycodone [From Percocet] AdvReac Headache Verified 02/12/20 18:28 Home Medications Medication Instructions Recorded Confirmed Last Taken Type Ascorbic Acid [Vitamin C] 1,000 mg PO DAILY 02/12/20 02/12/20 02/12/20 History Cholecalciferol (Vitamin D3) 5,000 unit PO DAILY 02/12/20 02/12/20 02/12/20 History [Vitamin D3] Cyanocobalamin (Vitamin B-12) 1,000 mcg PO DAILY 02/12/20 02/12/20 02/12/20 History [Vitamin B-12] Magnesium Amino Acid Chelate 100 mg PO DAILY 02/12/20 02/12/20 02/12/20 History [Magnesium] Pyridoxine HCl (Vitamin B6) 250 mg PO DAILY 02/12/20 02/12/20 02/12/20 History [Vitamin B-6] Active Meds: Active Medications Acetaminophen (Tylenol) 650 mg PO Q4H PRN PRN Reason: Pain MILD(1-3)/Fever >100.5/PETE Last Admin: 02/13/20 05:08 Dose: 650 mg Documented by: Hydralazine HCl (Apresoline) 10 mg IV Q6HR PRN PRN Reason: Hypertension Last Admin: 02/12/20 20:13 Dose: 10 mg Documented by: Sodium Chloride (Nacl 0.9% 1000 Ml) 1,000 mls @ 125 mls/hr IV DIRECT NATALIO Last Admin: 02/13/20 09:14 Dose: 125 mls/hr Documented by: Ketorolac Tromethamine (Toradol) 30 mg IV Q6H PRN PRN Reason: Pain, Moderate (4-6) Stop: 02/18/20 09:06 Last Admin: 02/13/20 13:26 Dose: 30 mg Documented by: Ondansetron HCl (Zofran) 4 mg IV Q4H PRN PRN Reason: Nausea And Vomiting Polyethylene Glycol/Electrolytes (Golytely) 4,000 ml PO ONCE NATALIO Stop: 02/13/20 23:00 Sodium Chloride (Sodium Chloride Flush Syringe 10 Ml) 10 ml IV BID NATALIO Last Admin: 02/13/20 10:33 Dose: Not Given Documented by: Sodium Chloride (Sodium Chloride Flush Syringe 10 Ml) 10 ml IV PRN PRN PRN Reason: LINE FLUSH Review of Systems All systems: negative (10 point ROS performed and negative except for that listed in HPI) Exam Vital Signs Temp Pulse Resp BP Pulse Ox 97.7 F 72 14 180/96 98 02/12/20 16:30 02/12/20 16:30 02/12/20 16:30 02/12/20 16:30 02/12/20 16:30 Narrative exam: Gen.: Awake, alert, oriented 3. No apparent distress ENT: Trachea midline. No lymphadenopathy. No scleral icterus or conjunctival pallor CV: S1, S2 present Respiratory: No audible wheezes Abdomen: Soft, nondistended, point tenderness to palpation in left lower quadrant with fullness in this region. Positive voluntary guarding. No rebound, rigidity. Well-healed surgical scars Extremities: No clubbing, cyanosis, edema Results - Labs 02/12/20 16:43 02/12/20 16:43 Abnormal lab results 02/12/20 Range/Units 16:43 Potassium 3.2 L (3.6-5.0) mmol/L BUN 18 H (7-17) mg/dL Glucose 116 H (65-100) mg/dL Diabetes panel 02/12/20 Range/Units 16:43 Sodium 138 (137-145) mmol/L Potassium 3.2 L (3.6-5.0) mmol/L Chloride 104.3 (98-107) mmol/L Carbon Dioxide 23 (22-30) mmol/L BUN 18 H (7-17) mg/dL Creatinine 0.9 (0.6-1.2) mg/dL Glucose 116 H (65-100) mg/dL Calcium 8.4 (8.4-10.2) mg/dL Calcium panel 02/12/20 Range/Units 16:43 Calcium 8.4 (8.4-10.2) mg/dL Pituitary panel 02/12/20 Range/Units 16:43 Sodium 138 (137-145) mmol/L Potassium 3.2 L (3.6-5.0) mmol/L Chloride 104.3 (98-107) mmol/L Carbon Dioxide 23 (22-30) mmol/L BUN 18 H (7-17) mg/dL Creatinine 0.9 (0.6-1.2) mg/dL Glucose 116 H (65-100) mg/dL Calcium 8.4 (8.4-10.2) mg/dL Adrenal panel 02/12/20 Range/Units 16:43 Sodium 138 (137-145) mmol/L Potassium 3.2 L (3.6-5.0) mmol/L Chloride 104.3 (98-107) mmol/L Carbon Dioxide 23 (22-30) mmol/L BUN 18 H (7-17) mg/dL Creatinine 0.9 (0.6-1.2) mg/dL Glucose 116 H (65-100) mg/dL Calcium 8.4 (8.4-10.2) mg/dL - Imaging CT scan - abdomen: report reviewed, image reviewed CT scan - pelvis: report reviewed, image reviewed Assessment and Plan 59 yo F with 1. sigmoid colon mass 2. hx of breast cancer Plan: 1. NPO p MN, IVF 2. cscope planned for tomorrow - discussed with Dr. Gonzalez 3. obtain CXR 4. CEA 5. prn pain control 6. COVID testing ordered 7. DVT ppx 8. Further surgical recs pending cscope results Thank you, please call with questions. Patient asked me to call her friend Rowena [phone] who is to be her point of contact and gave me permission to discuss all details of her medical care. Rowena updated. Evaluation and treatment of this patient was during the time of the national and state emergency arising from COVID19 coronavirus pandemic. Treatment and procedures performed meet the current and available best practice and guidelines for patient during the COVID pandemic.
[2020-02-13] MEDS: hydrALAZINE 20 MG/1 ML INJ IV PRN (18:00)
--- NOTE | 2020-02-13 21:03 | Cat Scan Report ---
CT HEAD WITHOUT CONTRAST INDICATION / CLINICAL INFORMATION: severe headache. TECHNIQUE: All CT scans at this location are performed using CT dose reduction for ALARA by means of automated e xposure control. COMPARISON: None available. FINDINGS: HEMORRHAGE: No evidence of intracranial hemorrhage or extra-axial fluid collection. EXTRA-AXIAL SPACES: Cortical sulci, sylvian fissures and basilar cisterns have an unremarkable appear ance. VENTRICULAR SYSTEM: The ventricular system is of normal size and configuration. CEREBRAL PARENCHYMA: White matter lucencies noted in a bilateral periventricular distribution with fr ontal lobe predominance. This is likely a manifestation of microvascular ischemic change. No addition al of abnormal brain parenchymal attenuation are identified. There is no indication of recent infarct ion. MIDLINE SHIFT OR HERNIATION: There is no mass effect. CEREBELLUM / BRAINSTEM: Brainstem and cerebellum have an unremarkable appearance. MIDLINE STRUCTURES:No abnormalities of the pituitary gland or pineal region are identified. INTRACRANIAL VESSELS:No abnormalities are identified on this noncontrast head CT. ORBITS: visualized portions of the orbits have an unremarkable appearance. SOFT TISSUES of HEAD: No significant abnormality. CALVARIUM: Evaluation of bone windows reveals no abnormalities. PARANASAL SINUSES / MASTOID AIR CELLS: Paranasal sinuses are free from inflammatory mucosal disease. Mastoid air cells are normally pneumatized. IMPRESSION: 1. No acute intracranial abnormality. Signer Name: Americo Gill MD Signed: 02/13/2020 8:58 PM Workstation Name: [id number][id number]
[2020-02-13] MEDS: HEPARIN 5,000 UNIT/1 ML VIAL SUB-Q SCH (22:14)
[2020-02-14] MEDS: HEPARIN 5,000 UNIT/1 ML VIAL SUB-Q SCH ×4 (06:30→23:27)
[2020-02-14] MEDS: ACETAMINOPHEN 325 MG TAB PO PRN (06:43)
[2020-02-14] MEDS: hydrALAZINE 20 MG/1 ML INJ IV PRN ×2 (07:46→16:00)
[2020-02-14] MEDS: KETOROLAC 30 MG/1 ML INJ IV PRN ×3 (08:05→22:50)
--- NOTE | 2020-02-14 09:29 | XRay Report ---
CHEST 1 VIEW INDICATION: colon mass, r/o mets. COMPARISON: 05/12/2019 FINDINGS: Support devices: None. Heart: Within normal limits. Lungs/Pleura: No acute air space or interstitial disease. No pulmonary mass is detected. Additional findings: None. IMPRESSION: Unremarkable AP chest. No acute process or evidence for metastatic disease. Signer Name: Rickie Torres Jr, MD Signed: 02/14/2020 9:24 AM Workstation Name: [id number]
[2020-02-14] MEDS ORDERED: SODIUM CHLORIDE 0.9% 1000 ML 1,000 ML ONE (10:42)
[2020-02-14] MEDS ORDERED: WATER FOR IRRIG STERILE 250 ML BOTTLE IR ONE (10:42)
[2020-02-14] MEDS ORDERED: WATER FOR IRRIG STERILE 1,000 ML BOTTLE ONE (10:42)
--- NOTE | 2020-02-14 10:51 | Anesthesia Consultation ---
Anesthesia Consult and Med Hx Date of service: 02/14/20 - Airway Anesthetic Teeth Evaluation: Good ROM Head & Neck: Adequate Mental/Hyoid Distance: Adequate Mallampati Class: Class II Intubation Access Assessment: Probably Good - Pre-Operative Health Status ASA Pre-Surgery Classification: ASA3 Proposed Anesthetic Plan: MAC - Pulmonary Hx Asthma: No COPD: No Hx Pneumonia: No - Cardiovascular System Hx Hypertension: Yes - Central Nervous System Hx Seizures: No (headaches) - Gastrointestinal Hx Gastroesophageal Reflux Disease: Yes (newly diagnozed colon mass, N/V, abdominal pain) - Other Systems Hx Alcohol Use: No Hx Cancer: Yes (h/o breast CA, s/p bilateral mastectomy with reconstruction)
--- NOTE | 2020-02-14 10:51 | Anesthesia Day of Surgery ---
Anesthesia Day of Surgery - Day of Surgery Patient Examined: Yes Patient H&P Reviewed: Yes Patient is NPO: Yes
[2020-02-14] MEDS ORDERED: fentaNYL 100 MCG/2 ML INJ ONE (10:52)
[2020-02-14] MEDS ORDERED: propofoL 200 MG/20 ML VIAL IV ONE ×2 (10:57→11:12)
--- NOTE | 2020-02-14 11:08 | Progress Note ---
Assessment and Plan Assessment and plan: 59 YO Female with HTN, BrCA presents to ED for evaluation. Patient states that she has experienced abdominal pain over the past 3 days with persistent symptoms over the same timeframe. Patient also acknowledges nausea, multiple episodes of vomiting, as well as inability to tolerate oral intake. Patient states that pain is 810/10, the pain was initially intermittent but has become more constant. Patient also acknowledges new onset vaginal bleeding over the past 3 days. Pain is worse with movement and eating. And relieved somewhat with nonmovement. Patient denies fever, chills, chest pain, palpitation, productive cough, skin rash, recent ill contacts, or known exposure to COVID-19. EMS was notified and upon arrival the patient was found to be in distress and subsequently transported to [facility] for further care and evaluation. Patient seen and evaluated in the emergency department. CT scan of the abdomen and pelvis; a sigmoid colonic mass suspicious for malignancy with direct peritoneal extension. Patient placed in observation status and admitted to surgical floor due to increased risk of worsening symptoms, colonic complications, as well as bowel perforation. Intractable nausea and vomiting Headache Colonic mass Hypertensive Urgency Hypokalemia Abnormal uterine bleed in a postmenopausal woman- Post menupausaal bleeding Hx of breast cancer Syncope-VASOVEGAL Plan Replace electrolyte We will obtain cardiology evaluation for perioperative assessment secondary to syncopal episode. Patient is for colonoscopy today. Surgery input is noted. We will start the patient on valsartan in addition to the as needed hydralazine. If blood pressure is not resolving patient will benefit from clonidine PER WATCH BAND ASSEMBLER "Postmenopausal bleeding. She will require cervical cancer screening as well as an endometrial biopsy to evaluate the endometrial cavity for malignancy. Will consider D&C if she goes to surgery for resection of the sigmoid mass that is present. Otherwise we will have her follow-up in the office for the evaluation. Plan of care discussed with patient. She voiced she voiced understanding and agreed with plan of care." Supportive care Pelvic ultrasound and transvaginal ultrasound Patient received a dose of Dilaudid and had reaction almost like of zoning out but no syncope or loss of consciousness. Will discontinue Dilaudid to use Toradol. Monitor renal function Antiemetic medications Clear liquid diet today until seen by surgeon. WATCH BAND ASSEMBLER and GI also consulted DVT and GI prophylaxis Plan of care discussed with nursing staff and patient at bedside History Interval history: Patient seen and examined, patient experienced a syncopal episode while using the rest room last night, reports symptoms bleeding-vaginal bleeding for a few months now but did not have insurance Hospitalist Physical - Physical exam Narrative exam: VITAL SIGNS: Reviewed. GENERAL: The patient appears normally developed, Vital signs as documented. HEAD: No signs of head trauma. EYES: Pupils are equal. Extraocular motions intact. EARS: Hearing grossly intact. MOUTH: Oropharynx is normal. NECK: No adenopathy, no JVD. CHEST: Chest with clear breath sounds bilaterally. No wheezes, rales, or rhonchi. CARDIAC: Regular rate and rhythm. S1 and S2, without murmurs, gallops, or rubs. VASCULAR: No Edema. Peripheral pulses normal and equal in all extremities. ABDOMEN: Soft, uncomfortable on palpation but multifocal tenderness and non distended. Surgical healed lesion from from noted. No rebound or guarding, and no masses palpated. Bowel Sounds normal. MUSCULOSKELETAL: Good range of motion of all major joints. Extremities without clubbing, cyanosis or edema. NEUROLOGIC EXAM: Alert and oriented x 3 No focal sensory or strength deficits. Speech normal. Follows commands. PSYCHIATRIC: Mood normal. SKIN: detail exam as documented in skin assessment - Constitutional Vitals: Temp Pulse Resp BP Pulse Ox 98.3 F 109 H 16 177/103 98 02/14/20 07:32 02/14/20 09:58 02/14/20 07:32 02/14/20 09:58 02/14/20 09:58 General appearance: Present: mild distress Results - Labs CBC & Chem 7: 02/12/20 16:43 02/12/20 16:43 Labs: Laboratory Last Values WBC 7.8 K/mm3 (4.5-11.0) 02/12/20 16:43 RBC 4.47 M/mm3 (3.65-5.03) 02/12/20 16:43 Hgb 13.3 gm/dl (10.1-14.3) 02/12/20 16:43 Hct 39.1 % (30.3-42.9) 02/12/20 16:43 MCV 87 fl (79-97) 02/12/20 16:43 MCH 30 pg (28-32) 02/12/20 16:43 MCHC 34 % (30-34) 02/12/20 16:43 RDW 12.6 % (13.2-15.2) L 02/12/20 16:43 Plt Count 313 K/mm3 (140-440) 02/12/20 16:43 Lymph % (Auto) 26.5 % (13.4-35.0) 02/12/20 16:43 [place] % (Auto) 6.9 % (0.0-7.3) 02/12/20 16:43 Eos % (Auto) 1.9 % (0.0-4.3) 02/12/20 16:43 Baso % (Auto) 0.2 % (0.0-1.8) 02/12/20 16:43 Lymph # (Auto) 2.1 K/mm3 (1.2-5.4) 02/12/20 16:43 [place] # (Auto) 0.5 K/mm3 (0.0-0.8) 02/12/20 16:43 Eos # (Auto) 0.1 K/mm3 (0.0-0.4) 02/12/20 16:43 Baso # (Auto) 0.0 K/mm3 (0.0-0.1) 02/12/20 16:43 Seg Neutrophils % 64.5 % (40.0-70.0) 02/12/20 16:43 Seg Neutrophils # 5.0 K/mm3 (1.8-7.7) 02/12/20 16:43 Sodium 138 mmol/L (137-145) 02/12/20 16:43 Potassium 3.2 mmol/L (3.6-5.0) L 02/12/20 16:43 Chloride 104.3 mmol/L (98-107) 02/12/20 16:43 Carbon Dioxide 23 mmol/L (22-30) 02/12/20 16:43 Anion Gap 14 mmol/L 02/12/20 16:43 BUN 18 mg/dL (7-17) H 02/12/20 16:43 Creatinine 0.9 mg/dL (0.6-1.2) 02/12/20 16:43 Estimated GFR > 60 ml/min 02/12/20 16:43 BUN/Creatinine Ratio 20 % 02/12/20 16:43 Glucose 116 mg/dL (65-100) H 02/12/20 16:43 Calcium 8.4 mg/dL (8.4-10.2) 02/12/20 16:43 Lipase 16 units/L (13-60) 02/12/20 16:43 Urine Color Colorless (Yellow) 02/12/20 18:40 Urine Turbidity Clear (Clear) 02/12/20 18:40 Urine pH 6.0 (5.0-7.0) 02/12/20 18:40 Ur Specific [place] 1.006 (1.003-1.030) 02/12/20 18:40 Urine Protein <15 mg/dl mg/dL (Negative) 02/12/20 18:40 Urine Glucose (UA) Neg mg/dL (Negative) 02/12/20 18:40 Urine Ketones Neg mg/dL (Negative) 02/12/20 18:40 Urine Blood Neg (Negative) 02/12/20 18:40 Urine Nitrite Neg (Negative) 02/12/20 18:40 Urine Bilirubin Neg (Negative) 02/12/20 18:40 Urine Urobilinogen < 2.0 mg/dL (<2.0) 02/12/20 18:40 Ur Leukocyte Esterase Neg (Negative) 02/12/20 18:40 Urine WBC (Auto) < 1.0 /HPF (0.0-6.0) 02/12/20 18:40 Urine RBC (Auto) 1.0 /HPF (0.0-6.0) 02/12/20 18:40 U Epithel Cells (Auto) < 1.0 /HPF (0-13.0) 02/12/20 18:40 Brown/IV: Voiding Method Toilet IV Catheter Type [Left Hand] Peripheral IV Active Medications - Current Medications Current Medications: Generic Name Dose Route Start Last Admin Trade Name Freq PRN Reason Stop Dose Admin Acetaminophen 650 mg 02/12/20 19:43 02/14/20 06:43 Tylenol PO 650 mg Q4H PRN Administration Pain MILD(1-3)/Fever >100.5/PETE Cholecalciferol 5,000 unit 02/15/20 10:00 Vitamin D3 PO DAILY [facility] Cyanocobalamin 1,000 mcg 02/15/20 10:00 Vitamin B-12 PO DAILY [facility] Heparin Sodium (Porcine) 5,000 unit 02/13/20 22:00 02/14/20 06:30 Heparin SUB-Q 5,000 unit Q8HR NATALIO Administration Hydralazine HCl 10 mg 02/12/20 19:48 02/14/20 07:46 Apresoline IV 10 mg Q6HR PRN Administration Hypertension Sodium Chloride 1,000 mls @ 125 mls/hr 02/12/20 19:45 02/13/20 17:55 Nacl 0.9% 1000 Ml IV 125 mls/hr DIRECT NATALIO Administration Ketorolac Tromethamine 30 mg 02/13/20 09:07 02/14/20 08:05 Toradol IV 02/18/20 09:06 30 mg Q6H PRN Administration Pain, Moderate (4-6) Miscellaneous Medication 250 mg 02/15/20 10:00 Pyridoxine Hcl (Vitamin B6) [Vitamin B-6] PO DAILY [facility] Miscellaneous Medication 100 mg 02/15/20 10:00 Magnesium Amino Acid Chelate [Magnesium] PO DAILY [facility] Miscellaneous Medication 1,000 mg 02/15/20 10:00 Ascorbic Acid [Vitamin C] PO DAILY [facility] Ondansetron HCl 4 mg 02/13/20 13:25 Zofran IV Q4H PRN Nausea And Vomiting Sodium Chloride 10 ml 02/12/20 22:00 02/13/20 22:14 Sodium Chloride Flush Syringe 10 Ml IV 10 ml BID NATALIO Administration Sodium Chloride 10 ml 02/12/20 19:43 Sodium Chloride Flush Syringe 10 Ml IV PRN PRN LINE FLUSH Valsartan 160 mg 02/14/20 12:00 Diovan PO BID NATALIO
--- NOTE | 2020-02-14 11:36 | Operative Report ---
Operative Report Operative Report: Colonoscopy: Procedure: Colonoscopy Endoscopist: Dileep Gonzalez MD Pre-operative Diagnosis/Indications:sigmoid colon mass seen on CT, abdominal pain Post-operative Diagnosis:sigmoid colon mass, fair prep History:See consult note Sedation:MAC Procedure Details: Indications, risks, and benefits were explained and consent was obtained. Pt was placed in the left lateral decubitus position and sedated. Video colonoscope was inserted thru the anus after digital exam, and advanced to the cecum withoutdifficulty. Scope was then gradually withdrawn with close inspection of the mucosa. Prep was fair. Findings: 1. There was a large about 5 cm friable ulcerated mass in the sigmoid colon without obstruction. Multiple biopsies obtained. Tattooed proximal and distal to the mass. 2. No other large lesions noted but small lesions may have been missed due to fair prep quality. Specimens:sigmoid colon mass Complications:None; patient tolerated the procedure well. Disposition:Recover in GI unit and transfer to the floor. Impression: 1. Fair prep quality. 2. A large sigmoid colon mass, malignant appearing. Bx obtained and tattooed proximal and distal to the mass. 3. No other large lesions noted but small lesions may have been missed. Recommendations: 1. Resume diet. 2. Follow up pathology. 3. Surgical management per surgery service. Spoke with Dr. Hinds. 4. Will sign off. Dileep Gonzalez MD (Jenny) [facility]
--- NOTE | 2020-02-14 11:40 | Post Anesthesia Evaluation ---
- Post Anesthesia Evaluation Patient Participated: Yes Airway Patent: Yes Stable Respiratory Function: Yes Nausea/Vomiting: No Temp > 96.8F: Yes Pain Manageable: Yes Adequeate Hydration: Yes Anesthesia Complications: No Block Receding Appropriately: Not Applicable Patient on Ventilator: No
--- NOTE | 2020-02-14 13:04 | Consultation ---
History of Present Illness Consult date: 02/14/20 Consult reason: syncope History of present illness: This is a 59-year old woman with a history of hypertension, breast cancer and prior gastric bypass surgery. No prior cardiac history and she had no prior cardiac workup. Patient was admitted 2 days ago with abdominal pain. Workup with an abdominal CT scan revealed a colon mass. She is currently undergoing further evaluation by GI. Yesterday, a CODE was called for syncope. It is reported the patient was sitting in the toilet when she suddenly pass out. Patient describes feeling weak and overwhelmed when she came to herself. She denies chest pain, denies unusual shortness of breath and denies palpitations. Head CT scan showed no acute intracranial abnormality and a chest x-ray was negative. ECG is pending for review. Past History Past Medical History: cancer (Breast), hypertension Past Surgical History: cholecystectomy, , mastectomy, bowel surgery (Gastric bypass), Other (Panniculectomy, breast reconstruction with TRAM flap on right and latissimus dorsi flap on left) Social history: single. denies: smoking, alcohol abuse, prescription drug abuse, IV drug use Family history: hypertension Medications and Allergies Allergies Allergy/AdvReac Type Severity Reaction Status Date / Time acetaminophen [From Percocet] AdvReac Headache Verified 02/12/20 18:28 hydromorphone [From Dilaudid] AdvReac Headache Verified 02/12/20 18:28 oxycodone [From Percocet] AdvReac Headache Verified 02/12/20 18:28 Home Medications Medication Instructions Recorded Confirmed Last Taken Type Ascorbic Acid [Vitamin C] 1,000 mg PO DAILY 02/12/20 02/12/20 02/12/20 History Cholecalciferol (Vitamin D3) 5,000 unit PO DAILY 02/12/20 02/12/20 02/12/20 History [Vitamin D3] Cyanocobalamin (Vitamin B-12) 1,000 mcg PO DAILY 02/12/20 02/12/20 02/12/20 History [Vitamin B-12] Magnesium Amino Acid Chelate 100 mg PO DAILY 02/12/20 02/12/20 02/12/20 History [Magnesium] Pyridoxine HCl (Vitamin B6) 250 mg PO DAILY 02/12/20 02/12/20 02/12/20 History [Vitamin B-6] Active Meds: Active Medications Acetaminophen (Tylenol) 650 mg PO Q4H PRN PRN Reason: Pain MILD(1-3)/Fever >100.5/PETE Last Admin: 02/14/20 06:43 Dose: 650 mg Documented by: Cholecalciferol (Vitamin D3) 5,000 unit PO DAILY [facility] Cyanocobalamin (Vitamin B-12) 1,000 mcg PO DAILY [facility] Heparin Sodium (Porcine) (Heparin) 5,000 unit SUB-Q Q8HR [facility] Last Admin: 02/14/20 06:30 Dose: 5,000 unit Documented by: Hydralazine HCl (Apresoline) 10 mg IV Q6HR PRN PRN Reason: Hypertension Last Admin: 02/14/20 07:46 Dose: 10 mg Documented by: Sodium Chloride (Nacl 0.9% 1000 Ml) 1,000 mls @ 125 mls/hr IV DIRECT [facility] Last Admin: 02/13/20 17:55 Dose: 125 mls/hr Documented by: Ketorolac Tromethamine (Toradol) 30 mg IV Q6H PRN PRN Reason: Pain, Moderate (4-6) Stop: 02/18/20 09:06 Last Admin: 02/14/20 08:05 Dose: 30 mg Documented by: Miscellaneous Medication (Pyridoxine Hcl (Vitamin B6) [Vitamin B-6]) 250 mg PO DAILY [facility] Miscellaneous Medication (Magnesium Amino Acid Chelate [Magnesium]) 100 mg PO DAILY [facility] Miscellaneous Medication (Ascorbic Acid [Vitamin C]) 1,000 mg PO DAILY [facility] Ondansetron HCl (Zofran) 4 mg IV Q4H PRN PRN Reason: Nausea And Vomiting Sodium Chloride (Sodium Chloride Flush Syringe 10 Ml) 10 ml IV BID [facility] Last Admin: 02/13/20 22:14 Dose: 10 ml Documented by: Sodium Chloride (Sodium Chloride Flush Syringe 10 Ml) 10 ml IV PRN PRN PRN Reason: LINE FLUSH Valsartan (Diovan) 160 mg PO BID [facility] Physical Examination Vital Signs Temp Pulse Resp BP Pulse Ox 97.7 F 72 14 180/96 98 02/12/20 16:30 02/12/20 16:30 02/12/20 16:30 02/12/20 16:30 02/12/20 16:30 General appearance: no acute distress HEENT: Positive: PERRL Neck: Positive: trachea midline Cardiac: Positive: Reg Rate and Rhythm Lungs: Positive: Decreased Breath Sounds Neuro: Positive: Grossly Intact Extremities: Absent: edema Results 02/12/20 16:43 02/12/20 16:43 Assessment and Plan Syncope, likely vasovagal Abdominal pain Abdominal CT reports a sigmoid mass GI workup is in progress Hypertension Gastric bypass surgery in 2008 Hx of breast cancer Obtain a 12 lead ECG for cardiac review.
[2020-02-14] MEDS: VALSARTAN 160MG TAB PO SCH ×2 (14:28→23:29)
[2020-02-14] MEDS: CYANOCOBALAMIN (VIT B-12) 1000 MCG TAB PO SCH (14:29)
[2020-02-14] MEDS: ONDANSETRON 4 MG/2 ML INJ IV PRN (14:36)
[2020-02-14 14:38] LABS: Hematocrit 45.1 % (30.3-42.9); Hemoglobin 15.4 gm/dl (10.1-14.3); Mean Corpuscular HGB Conc 34 % (30-34); Mean Corpuscular Volume 86 fl (79-97); Platelet Count 357 K/mm3 (140-440); Red Blood Count 5.23 M/mm3 (3.65-5.03); Red Cell Distribution Width 12.4 % (13.2-15.2)
[2020-02-14] MEDS ORDERED: D5W/0.45% NACL 1,000 ML IV SCH (16:00)
--- NOTE | 2020-02-14 16:11 | Progress Note ---
Assessment and Plan 59 yo F with 1. sigmoid colon mass 2. hx of breast cancer cscope 02/14/20 - large, 5 cm friable ulcerated mass in the sigmoid colon with out obstruction. Biopsied. Tattooed proximal and distal to the mass. - discussed results with Dr. Gonzalez CXR - no evidence of metastatic disease Plan: 1. NPO p MN tonight, IVF 2. CEA pending 3. Milk of mag x2 tonight 4. prn pain control 5. DVT ppx 6. obtain type and screen 7. cards recs appreciated 8. Recommend sigmoidectomy. Discussed findings of cscope with patient and explained that she will need a resection of the area of colon containing mass. Discussed all risks, benefits, alternatives to surgery with patient and questions answered. Consent obtained for lap sigmoidectomy, possible open, p ossible ostomy. Thank you, please call with questions. Patient asked me to call her friend Rowena [phone] who is to be her point of contact and gave me permission to discuss all details of her medical care. Rowena updated. Evaluation and treatment of this patient was during the time of the national and state emergency arising from COVID19 coronavirus pandemic. Treatment and proce dures performed meet the current and available best practice and guidelines for patient during the COVID pandemic. Subjective Date of service: 02/14/20 Narrative: Pt seen and examined. c/o nausea and LLQ pain after drinking half of colonoscopy prep yesterday. Also c/o headache. No f/c, cp, sob. Objective Vital Signs - 12hr 02/14/20 02/14/20 02/14/20 05:27 07:32 07:34 Temperature 98.4 F 98.3 F Pulse Rate 77 90 89 Respiratory 18 16 Rate Blood Pressure Blood Pressure 156/98 169/106 192/113 [Right] O2 Sat by Pulse 95 98 Oximetry 02/14/20 02/14/20 02/14/20 07:46 09:58 10:52 Temperature 98.3 F Pulse Rate 89 109 H 111 H Respiratory 15 Rate Blood Pressure 192/113 177/103 193/118 Blood Pressure [Right] O2 Sat by Pulse 98 98 Oximetry 02/14/20 02/14/20 02/14/20 11:23 11:38 11:52 Temperature Pulse Rate 94 H 93 H 98 H Respiratory 16 24 23 Rate Blood Pressure 125/79 128/89 142/94 Blood Pressure [Right] O2 Sat by Pulse 98 98 99 Oximetry 02/14/20 02/14/20 14:28 16:00 Temperature Pulse Rate 102 H 112 H Respiratory Rate Blood Pressure 175/97 176/100 Blood Pressure [Right] O2 Sat by Pulse Oximetry - General physical appearance Narrative Exam: Gen: AAOx3. NAD CV: s1, S2+ Resp: even and unlabored Abd: soft, ND, LLQ TTP. no r/r/g Ext: no c/c/e - Labs 02/14/20 14:15 02/12/20 16:43
[2020-02-14 16:30] LABS: BUN/Creatinine Ratio 10; Blood Urea Nitrogen 7 mg/dL (7-17); Calcium 8.7 mg/dL (8.4-10.2); Hemolysis Index 38
[2020-02-14] MEDS: MAGNESIUM HYDROXIDE (MOM) ORAL LIQD UDC PO SCH ×2 (22:44→23:39)
[2020-02-14] MEDS ORDERED: MAGNESIUM HYDROXIDE (MOM) ORAL LIQD UDC ONE (23:32)
[2020-02-15] MEDS: HEPARIN 5,000 UNIT/1 ML VIAL SUB-Q SCH (06:37)
[2020-02-15] MEDS: KETOROLAC 30 MG/1 ML INJ IV PRN ×3 (06:42→22:58)
--- NOTE | 2020-02-15 08:06 | Progress Note ---
Assessment and Plan - Patient Problems (1) Abnormal vaginal bleeding in postmenopausal patient Current Visit: Yes Status: Acute Plan to address problem: She desires to proceed with h'scopy D&C. Questions encouraged and answered. Consents reviewed and signed. (2) Colonic mass Current Visit: Yes Status: Acute (3) Hypertensive urgency Current Visit: Yes Status: Chronic (4) Intractable nausea and vomiting Current Visit: Yes Status: Acute (5) Hypokalemia Current Visit: Yes Status: Acute Subjective - Subjective Date of service: 02/15/20 Principal diagnosis: Postmenopausal bleeding, colon mass Objective - Vital Signs Latest vital signs: Vital Signs Temp Pulse Resp BP Pulse Ox 02/15/20 07:30 98.3 F 79 18 136/94 97 02/15/20 05:58 98.4 F 89 18 122/77 97 02/14/20 23:29 99 H 132/79 02/14/20 22:50 97.7 F 96 H 18 134/77 96 02/14/20 19:31 98.4 F 99 H 18 132/79 93 02/14/20 16:00 112 H 176/100 02/14/20 15:52 98.7 F 114 H 20 176/100 94 02/14/20 14:28 102 H 175/97 02/14/20 12:14 100 H 18 175/97 96 02/14/20 12:00 96 02/14/20 11:52 98 H 23 142/94 99 02/14/20 11:38 93 H 24 128/89 98 02/14/20 11:23 94 H 16 125/79 98 02/14/20 10:52 98.3 F 111 H 15 193/118 98 02/14/20 09:58 109 H 177/103 98 Intake and Output 02/14/20 02/15/20 02/15/20 22:59 06:59 14:59 Intake Total 10 1050 Output Total 350 Balance 10 700 Intake: IV 10 Left Hand 10 Oral 400 Other 650 Output: Urine 350 Void 350 Other: Total, Intake Amount 1050 Total, Output Amount 350 Voiding Method Toilet # Voids Void 1 Weight 79.5 kg Patient Weight 02/16/20 06:59 Weight 79.5 kg - Labs Labs: Abnormal lab results 02/14/20 02/14/20 Range/Units 14:15 14:15 RBC 5.23 H (3.65-5.03) M/mm3 Hgb 15.4 H (10.1-14.3) gm/dl Hct 45.1 H D (30.3-42.9) % RDW 12.4 L (13.2-15.2) % Carbon Dioxide 13 L D (22-30) mmol/L
--- NOTE | 2020-02-15 09:59 | Progress Note ---
Assessment and Plan Syncope, likely vasovagal Pre-operative cardiac assessment Abdominal pain Abdominal CT reports a sigmoid mass Hypertension Gastric bypass surgery in 2008 Hx of breast cancer Subjective Date of service: 02/15/20 Principal diagnosis: Postmenopausal bleeding, colon mass Interval history: Patient is resting in bed comfortably. No cardiac complaints. ECG done today has been reviewed. 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 No prior ECG available for comparison. Objective Vital Signs Temp Pulse Resp BP Pulse Ox 02/15/20 08:37 95 02/15/20 07:30 98.3 F 79 18 136/94 97 02/15/20 05:58 98.4 F 89 18 122/77 97 02/14/20 23:29 99 H 132/79 02/14/20 22:50 97.7 F 96 H 18 134/77 96 02/14/20 19:31 98.4 F 99 H 18 132/79 93 02/14/20 16:00 112 H 176/100 02/14/20 15:52 98.7 F 114 H 20 176/100 94 02/14/20 14:28 102 H 175/97 02/14/20 12:14 100 H 18 175/97 96 02/14/20 12:00 96 02/14/20 11:52 98 H 23 142/94 99 02/14/20 11:38 93 H 24 128/89 98 02/14/20 11:23 94 H 16 125/79 98 02/14/20 10:52 98.3 F 111 H 15 193/118 98 - Physical Examination HEENT: Positive: PERRL Neck: Positive: trachea midline Neuro: Positive: Grossly Intact Extremities: Absent: edema - Labs and Meds CBC 02/14/20 Range/Units 14:15 WBC 7.2 (4.5-11.0) K/mm3 RBC 5.23 H (3.65-5.03) M/mm3 Hgb 15.4 H (10.1-14.3) gm/dl Hct 45.1 H D (30.3-42.9) % Plt Count 357 (140-440) K/mm3 Comprehensive Metabolic Panel 02/14/20 Range/Units 14:15 Sodium 139 (137-145) mmol/L Potassium 3.8 (3.6-5.0) mmol/L Chloride 104.4 (98-107) mmol/L Carbon Dioxide 13 L D (22-30) mmol/L BUN 7 (7-17) mg/dL Creatinine 0.7 (0.6-1.2) mg/dL Glucose 93 (65-100) mg/dL Calcium 8.7 (8.4-10.2) mg/dL
[2020-02-15] MEDS ORDERED: MAGNESIUM AMINO ACID CHELATE PO SCH (10:00)
[2020-02-15] MEDS ORDERED: NON-FORMULARY EACH (Ascorbic Acid [Vitamin C] 1,000 MG) PO SCH (10:00)
[2020-02-15] MEDS: CYANOCOBALAMIN (VIT B-12) 1000 MCG TAB PO SCH (10:32)
[2020-02-15] MEDS: PYRIDOXINE 50 MG TAB PO SCH (10:32)
[2020-02-15] MEDS: ASCORBIC ACID 500 MG TAB PO SCH (10:32)
[2020-02-15] MEDS: VALSARTAN 160MG TAB PO SCH (10:45)
[2020-02-15] MEDS ORDERED: HYDROmorphone 1 MG/1 ML INJ IV PRN ×2 (11:15)
[2020-02-15] MEDS ORDERED: ONDANSETRON 4 MG/2 ML INJ IV PRN (11:15)
[2020-02-15] MEDS ORDERED: MAGNESIUM OXIDE 400 MG TAB PO ONE (11:16)
[2020-02-15] MEDS ORDERED: ACETAMINOPHEN 500 MG TAB PO ONE (11:17)
[2020-02-15] MEDS ORDERED: MORPHINE 2 MG/1 ML INJ IV PRN (11:19)
[2020-02-15] MEDS ORDERED: fentaNYL 100 MCG/2 ML INJ ONE (11:41)
[2020-02-15] MEDS ORDERED: ROCURONIUM 50 MG/5 ML INJ IV ONE ×3 (11:41→14:45)
[2020-02-15] MEDS ORDERED: propofoL 200 MG/20 ML VIAL IV ONE (11:42)
[2020-02-15] MEDS ORDERED: metroNIDAZOLE/NS 500 MG/100 ML 500 MG/100 ML BAG IV NR (12:00)
[2020-02-15] MEDS ORDERED: GABAPENTIN 300 MG CAP PO NR (12:00)
[2020-02-15] MEDS ORDERED: ceFAZolin/Water 2 GM/20 ML 2 GM/20 ML SYRINGE IV NR (12:00)
[2020-02-15] MEDS ORDERED: CELECOXIB 200 MG CAP PO NR (12:00)
[2020-02-15] MEDS ORDERED: MIDAZOLAM 2 MG/2 ML INJ IV NR (12:00)
[2020-02-15] MEDS ORDERED: LACTATED RINGERS 1,000 ML IV SCH (12:00)
[2020-02-15] MEDS ORDERED: LIDOCAINE MPF (2%) 20 MG/1 ML VIAL 5 ML ONE (12:54)
[2020-02-15] MEDS ORDERED: dexAMETHasone 20 MG/5 ML VIAL ONE (12:54)
[2020-02-15] MEDS ORDERED: ePHEDrine SULFATE 50 MG/1 ML INJ ONE (12:54)
[2020-02-15] MEDS ORDERED: BUPIVACAINE/PF (0.5%) 5 MG/1 ML 30 ML VIAL INFILTRATI ONE ×2 (13:08→13:56)
[2020-02-15] MEDS ORDERED: LIDOCAINE (1%) 10 MG/1 ML VIAL 20 ML MDV ONE (13:08)
--- NOTE | 2020-02-15 13:09 | Progress Note ---
Assessment and Plan Assessment and plan: 59 YO Female with HTN, BrCA presents to ED for evaluation. Patient states that she has experienced abdominal pain over the past 3 days with persistent symptoms over the same timeframe. Patient also acknowledges nausea, multiple episodes of vomiting, as well as inability to tolerate oral intake. Patient states that pain is 810/10, the pain was initially intermittent but has become more constant. Patient also acknowledges new onset vaginal bleeding over the past 3 days. Pain is worse with movement and eating. And relieved somewhat with nonmovement. Patient denies fever, chills, chest pain, palpitation, productive cough, skin rash, recent ill contacts, or known exposure to COVID-19. EMS was notified and upon arrival the patient was found to be in distress and subsequently transported to [facility] for further care and evaluation. Patient seen and evaluated in the emergency department. CT scan of the abdomen and pelvis; a sigmoid colonic mass suspicious for malignancy with direct peritoneal extension. Patient placed in observation status and admitted to surgical floor due to increased risk of worsening symptoms, colonic complications, as well as bowel perforation. Intractable nausea and vomiting Headache Colonic mass Hypertensive Urgency Hypokalemia Abnormal uterine bleed in a postmenopausal woman- Post menupausaal bleeding Hx of breast cancer Syncope-VASOVEGAL Plan Replace electrolyte We will obtain cardiology evaluation for perioperative assessment secondary to syncopal episode. Patient is for colonoscopy today. Surgery input is noted. We will start the patient on valsartan in addition to the as needed hydralazine. If blood pressure is not resolving patient will benefit from clonidine PER PROGRESSIVE DIE MAKER "Postmenopausal bleeding. She will require cervical cancer screening as well as an endometrial biopsy to evaluate the endometrial cavity for malignancy. Will consider D&C if she goes to surgery for resection of the sigmoid mass that is present. Otherwise we will have her follow-up in the office for the evaluation. Plan of care discussed with patient. She voiced she voiced understanding and agreed with plan of care." Supportive care Pelvic ultrasound and transvaginal ultrasound Patient received a dose of Dilaudid and had reaction almost like of zoning out but no syncope or loss of consciousness. Will discontinue Dilaudid to use Toradol. Monitor renal function Antiemetic medications Clear liquid diet today until seen by surgeon. PROGRESSIVE DIE MAKER and GI also consulted DVT and GI prophylaxis Plan of care discussed with nursing staff and patient at bedside History Interval history: Patient is scheduled for laparoscopic lysis of adhesions, sigmoidectomy with 1' anastamosis Patient is in the OR Hospitalist Physical - Physical exam Narrative exam: Patient is in OR - Constitutional Vitals: Temp Pulse Resp BP Pulse Ox 98.9 F 85 16 156/92 99 02/15/20 11:20 02/15/20 11:20 02/15/20 11:25 02/15/20 11:20 02/15/20 11:20 General appearance: Present: no acute distress Results - Labs CBC & Chem 7: 02/14/20 14:15 02/14/20 14:15 Labs: Laboratory Last Values WBC 7.2 K/mm3 (4.5-11.0) 02/14/20 14:15 RBC 5.23 M/mm3 (3.65-5.03) H 02/14/20 14:15 Hgb 15.4 gm/dl (10.1-14.3) H 02/14/20 14:15 Hct 45.1 % (30.3-42.9) H D 02/14/20 14:15 MCV 86 fl (79-97) 02/14/20 14:15 MCH 30 pg (28-32) 02/14/20 14:15 MCHC 34 % (30-34) 02/14/20 14:15 RDW 12.4 % (13.2-15.2) L 02/14/20 14:15 Plt Count 357 K/mm3 (140-440) 02/14/20 14:15 Lymph % (Auto) 26.5 % (13.4-35.0) 02/12/20 16:43 [place] % (Auto) 6.9 % (0.0-7.3) 02/12/20 16:43 Eos % (Auto) 1.9 % (0.0-4.3) 02/12/20 16:43 Baso % (Auto) 0.2 % (0.0-1.8) 02/12/20 16:43 Lymph # (Auto) 2.1 K/mm3 (1.2-5.4) 02/12/20 16:43 [place] # (Auto) 0.5 K/mm3 (0.0-0.8) 02/12/20 16:43 Eos # (Auto) 0.1 K/mm3 (0.0-0.4) 02/12/20 16:43 Baso # (Auto) 0.0 K/mm3 (0.0-0.1) 02/12/20 16:43 Seg Neutrophils % 64.5 % (40.0-70.0) 02/12/20 16:43 Seg Neutrophils # 5.0 K/mm3 (1.8-7.7) 02/12/20 16:43 Sodium 139 mmol/L (137-145) 02/14/20 14:15 Potassium 3.8 mmol/L (3.6-5.0) 02/14/20 14:15 Chloride 104.4 mmol/L (98-107) 02/14/20 14:15 Carbon Dioxide 13 mmol/L (22-30) L D 02/14/20 14:15 Anion Gap 25 mmol/L 02/14/20 14:15 BUN 7 mg/dL (7-17) 02/14/20 14:15 Creatinine 0.7 mg/dL (0.6-1.2) 02/14/20 14:15 Estimated GFR > 60 ml/min 02/14/20 14:15 BUN/Creatinine Ratio 10 % 02/14/20 14:15 Glucose 93 mg/dL (65-100) 02/14/20 14:15 Calcium 8.7 mg/dL (8.4-10.2) 02/14/20 14:15 Lipase 16 units/L (13-60) 02/12/20 16:43 Urine Color Colorless (Yellow) 02/12/20 18:40 Urine Turbidity Clear (Clear) 02/12/20 18:40 Urine pH 6.0 (5.0-7.0) 02/12/20 18:40 Ur Specific [place] 1.006 (1.003-1.030) 02/12/20 18:40 Urine Protein <15 mg/dl mg/dL (Negative) 02/12/20 18:40 Urine Glucose (UA) Neg mg/dL (Negative) 02/12/20 18:40 Urine Ketones Neg mg/dL (Negative) 02/12/20 18:40 Urine Blood Neg (Negative) 02/12/20 18:40 Urine Nitrite Neg (Negative) 02/12/20 18:40 Urine Bilirubin Neg (Negative) 02/12/20 18:40 Urine Urobilinogen < 2.0 mg/dL (<2.0) 02/12/20 18:40 Ur Leukocyte Esterase Neg (Negative) 02/12/20 18:40 Urine WBC (Auto) < 1.0 /HPF (0.0-6.0) 02/12/20 18:40 Urine RBC (Auto) 1.0 /HPF (0.0-6.0) 02/12/20 18:40 U Epithel Cells (Auto) < 1.0 /HPF (0-13.0) 02/12/20 18:40 Coronavirus (PCR) Negative (Negative) 02/14/20 Unknown Blood Type A POSITIVE 02/15/20 06:08 Antibody Screen Negative 02/15/20 06:08 Brown/IV: Voiding Method Toilet IV Catheter Type [Left Hand] Peripheral IV Active Medications - Current Medications Current Medications: Generic Name Dose Route Start Last Admin Trade Name Freq PRN Reason Stop Dose Admin Acetaminophen 650 mg 02/12/20 19:43 02/14/20 06:43 Tylenol PO 650 mg Q4H PRN Administration Pain MILD(1-3)/Fever >100.5/PETE Ascorbic Acid 1,000 mg 02/15/20 10:00 Vitamin C PO QDAY NATALIO Celecoxib 400 mg 02/15/20 12:00 02/15/20 11:25 Celebrex PO 02/15/20 23:59 400 mg PREOP NR Administration Cholecalciferol 5,000 unit 02/14/20 13:00 Vitamin D3 PO DAILY NATALIO Cyanocobalamin 1,000 mcg 02/14/20 13:00 02/14/20 14:29 Vitamin B-12 PO 1,000 mcg DAILY NATALIO Administration Gabapentin 300 mg 02/15/20 12:00 02/15/20 11:25 Gabapentin PO 02/15/20 23:59 300 mg PREOP NR Administration Heparin Sodium (Porcine) 5,000 unit 02/13/20 22:00 02/15/20 06:37 Heparin SUB-Q Not Given Q8HR NATALIO Hydralazine HCl 10 mg 02/12/20 19:48 02/14/20 16:00 Apresoline IV 10 mg Q6HR PRN Administration Hypertension Dextrose/Sodium Chloride 1,000 mls @ 75 mls/hr 02/14/20 16:00 02/15/20 06:38 D5/0.45ns IV 75 mls/hr DIRECT NATALIO Administration Lactated Ringer's 1,000 mls @ 125 mls/hr 02/15/20 12:00 02/15/20 11:25 Lactated Ringers IV 125 mls/hr DIRECT NATALIO Administration Metronidazole 500 mg in 100 mls @ 200 mls/hr 02/15/20 12:00 02/15/20 11:59 Flagyl 500 Mg/100 Ml IV 02/15/20 23:59 200 mls/hr PREOP NR Administration Protocol Cefazolin Sodium 2 gm in 20 mls @ 120 mls/hr 02/15/20 12:00 Ancef/Sterile Water 2 Gm/20 Ml IV 02/15/20 23:59 PREOP NR Ketorolac Tromethamine 30 mg 02/13/20 09:07 02/15/20 06:42 Toradol IV 02/18/20 09:06 30 mg Q6H PRN Administration Pain, Moderate (4-6) Magnesium Chloride 64 mg 02/16/20 10:00 Slow-Mag PO QDAY NATALIO Midazolam HCl 2 mg 02/15/20 12:00 Versed IV 02/15/20 23:59 PREOP NR Morphine Sulfate 2 mg 02/15/20 11:19 Morphine IV 02/15/20 23:59 Q10MIN PRN Pain, Moderate (4-6) Morphine Sulfate 4 mg 02/15/20 11:19 Morphine IV 02/15/20 23:59 Q10MIN PRN Pain , Severe (7-10) Ondansetron HCl 4 mg 02/13/20 13:25 02/14/20 14:36 Zofran IV 4 mg Q4H PRN Administration Nausea And Vomiting Ondansetron HCl 4 mg 02/15/20 11:15 Zofran IV 02/15/20 23:59 ONCE PRN Nausea And Vomiting Pyridoxine HCl 250 mg 02/15/20 10:00 Vitamin B-6 PO DAILY NATALIO Sodium Chloride 10 ml 02/12/20 22:00 02/14/20 23:28 Sodium Chloride Flush Syringe 10 Ml IV 10 ml BID NATALIO Administration Sodium Chloride 10 ml 02/12/20 19:43 Sodium Chloride Flush Syringe 10 Ml IV PRN PRN LINE FLUSH Valsartan 160 mg 02/14/20 12:00 02/15/20 10:45 Diovan PO 160 mg BID NATALIO Administration
[2020-02-15] MEDS ORDERED: SODIUM CHLORIDE 0.9% IRRIG SOLN 2000 ML IR ONE (13:55)
--- NOTE | 2020-02-15 13:55 | Operative Report ---
Operative Report Operative Report: Date: 02/15/2020 PREOPERATIVE DIAGNOSES: 1. Postmenopausal bleeding POSTOPERATIVE DIAGNOSES: 1. Postmenopausal bleed 2. Severe vaginal narrowing at the apex of the vagina 3. Vaginal atrophy 4. Cervix retracted into the vagina 5. Severe cervical stenosis PROCEDURE PERFORMED: 1. Dilation and curettage (D&C). 2. Hysteroscopy. ANESTHESIA: General ESTIMATED BLOOD LOSS: Less than minimal cc. INDICATIONS: This is a 59-year-old female that presents postmenopausal bleed. PROCEDURE: The patient was seen in the preoperative suite. Expected procedure and postoperative course discussed with her. She was taken to the operative suite where general anesthesia was performed. She was placed in a dorsal lithotomy position. . A bimanual exam was done, the uterus was unable to be palpated. She was prepped and draped in the normal sterile fashion. Timeout was performed. A Brown catheter was introduced into her bladder with drainage of clear yellow urine. The above findings were noted. . It was very difficult to palpate, visualized and grasped the cervix. The medium sized speculum could not be opened within the vagina. A weighted speculum was introduced to the posterior aspect of the uterus the Mt was placed on the anterior aspect in order to attempt to visualize the cervix and with manipulation she noted to have bleeding from vaginal sidewalls. The anterior of the cervix was able to be grasped with an Allis clamp. The cervix was dilated and the hysteroscope was introduced carefully following the cervical opening. The cavity appeared to be small. The lining appeared to be thickened. The hysteroscope was removed and a small sharp curette was placed intrauterine very carefully using anterior wall for guidance. Endometrial curettings were obtained. Minimal tissue was obtained. The endometrial sampling was placed on Telfa pad and sent to Pathology for evaluation, permanent. The hysteroscope was introduced again, no evidence of perforation was noted. At this point procedure was ended. The single-tooth tenaculum and speculum were removed. The cervix was found to be hemostatic. The procedure was ended and patient was prepped for the second part of her surgery by Dr. Hinds Counts were correct. Distention fluid: Normal saline Deficit: 100 mL
[2020-02-15] MEDS ORDERED: LIDOCAINE (1%) 10 MG/1 ML VIAL 20 ML MDV INFILTRATI ONE (13:56)
[2020-02-15] MEDS ORDERED: WATER FOR IRRIG STERILE 1,500 ML BOTTLE IR ONE (13:57)
[2020-02-15] MEDS ORDERED: MORPHINE 2 MG/1 ML INJ ONE (14:20)
[2020-02-15] MEDS ORDERED: SODIUM CHLORIDE 0.9% 1000 ML 1,000 ML ONE ×2 (14:46→16:48)
[2020-02-15] MEDS ORDERED: ceFAZolin 1 GM VIAL ONE (16:31)
[2020-02-15] MEDS ORDERED: NEOSTIGMINE 10MG/10 ML INJ MDV ONE (16:34)
[2020-02-15] MEDS ORDERED: GLYCOPYRROLATE 0.4 MG/2 ML INJ ONE (16:34)
[2020-02-15] MEDS ORDERED: ONDANSETRON 4 MG/2 ML INJ ONE (16:35)
--- NOTE | 2020-02-15 17:05 | Post Operative Note ---
Pre-op diagnosis: sigmoid colon mass Post-op diagnosis: same Findings: 6cm mid sigmoid colon mass No obvious lymphadenopathy No liver lesions Procedure: laparoscopic lysis of adhesions, sigmoidectomy with 1' anastamosis Anesthesia: CONCHITAA, local Surgeon: CHRIS SANTACRUZ Dinkey Engine Operator: DOMONIQUE TAYLOR Estimated blood loss: 50-100ml Pathology: list (sigmoid colon) Specimen disposition: to lab Condition: stable Disposition: PACU
[2020-02-15] MEDS ORDERED: ESMOLOL 100 MG/10 ML INJ IV ONE (17:16)
[2020-02-15] MEDS: MORPHINE 4 MG/1 ML INJ IV PRN ×2 (17:30→18:50)
[2020-02-15] MEDS ORDERED: METOPROLOL TARTRATE 5 MG/5 ML INJ IV ONE (17:30)
--- NOTE | 2020-02-15 17:45 | Operative Report ---
Operative Report Operative Report: Pre-op diagnosis: sigmoid colon mass Post-op diagnosis: same Findings: 6cm mid sigmoid colon mass No obvious lymphadenopathy No liver lesions Procedure: laparoscopic lysis of adhesions, sigmoidectomy with 1' anastamosis Anesthesia: NICOLE local Surgeon: CHRIS SANTACRUZ [employer] Reporter: DOMONIQUE TAYLOR Estimated blood loss: 50-100ml Pathology: list (sigmoid colon) Specimen disposition: to lab Condition: stable Disposition: PACU HPI and indication: 59-year-old female with past medical history of breast cancer who presented to the emergency room with left lower quadrant abdominal pain for the past 2 to 3 months. Patient was found to have a mass in the sigmoid colon. Colonoscopy was performed which showed a 5 cm nonobstructing mass in the sigmoid colon and no additional obvious lesions. It was recommended that the patient undergo sigmoidectomy. All risk, benefits, alternatives surgery discussed with patient questions answered. Consent obtained for laparoscopic possible open sigmoidectomy, possible ostomy. The patient was also having postmenopausal vaginal bleeding and was seen by [facility]. It was recommended that she undergo hysteroscopy with D&C. Procedure in detail: The patient was identified in the preoperative area, taken back to the operating room and placed on the operating room table in supine position. Anesthesia was induced and the patient was positioned in lithotomy. Dr. Jung performed her portion of the procedure first. Please see separate procedure note. After Dr. Jung was finished with her portion of the procedure the drapes were taken down. The abdomen and perineum were prepped and draped in standard fashion. A timeout was performed. Local anesthetic was infiltrated into the skin at the intended incision sites prior to incision. A chichi incision was made in the left upper quadrant at Diez's point through which a Veress needle was inserted. The Veress needle position was confirmed using the saline drop test and the abdomen insufflated to 15 mmHg without incident. A 5 mm Optiview trocar was placed through the supraumbilical incision under direct visualization. The abdomen was inspected and there was no underlying injury to any of the abdominal structures. The Veress needle was withdrawn. An additional right mid abdominal and right lower quadrant abdominal 5 mm trochars were placed under direct visualization. An additional 5 mm LUQ funeral assistant trocar was placed under direct visualization. The patient was placed in Trendelenburg and tilted to the left. There were omental adhesions to the anterior abdominal wall which were dissected using the LigaSure. Once the omentum was freed it was placed in the upper abdomen. The small bowel was retracted away from the left colon. The colon was examined and the sigmoid mass was identified. The patient had a long redundant sigmoid colon. The area of the mass was adhesed to the lateral abdominal wall. These adhesions were taken down very carefully using LigaSure. The colon was then mobilized in a medial to lateral fashion. The sigmoid colon was tented upwards towards the abdominal wall and the ROXY pedicle identified. The mesentery was carefully dissected using the LigaSure and the ROXY and IMV were skeletonized close to the takeoff of the vessels. I then performed a lateral dissection and the white line of Toldt was taken down using the LigaSure. The colon is mobilized medially using sweeping motions. Gerota's fascia was left intact. The ROXY and IMV were then clipped using a medium/large clip tire buster and transected in between the clips using ligasure. I then turned my attention to placing the gelport. A 4cm transverse low midline incision was made through the patient's old scar. The dissection was carried down through the subcutaneous tissue using electrocautery until the fascia was encountered. The fascia was then incised with bovie. The gelport was placed in usual fashion. A gloved hand was inserted into the abdomen and the any flimsy adhesions remaining on the sigmoid colon were broken up with finger fracture. The ureter was palpated and was covered by retroperitoneum. The colon was felt to be mobilized adequately in order to perform the resection. The colon was brought out through the wound protector and proximal and distal margins were marked at least 5 cm from the mass. Windows were created in the mesentery using electrocautery and the proximal and distal colon was transected using SANDRA 75 mm blue load stapler x 2 loads. The mesentery was ligated using the ligasure. The specimen was passed off the table. The epiploic fat was trimmed and the proximal and distal colon aligned along the antimesenteric borders. A crotch stitch was placed using 3-0 silk. Colotomies were made using electrocautery and a [id number] functional end-to-end anastomosis created using a SANDRA 75 mm blue load stapler. The anastomosis was checked for bleeding and hemostasis was ensured. The common channel was closed in a 2 layer fashion with a full-thickness 2-0 Vicryl running stitch and 3-0 silk seromuscular Lembert stitches. The anastomosis was palpated and widely patent. The colon was then placed back into the abdomen in anatomic position. The abdomen was reinsufflated and irrigated. Hemostasis was carefully ensured. A leak test was then performed. The funeral assistant surgeon, using an anoscope insufflated air through the rectum. The pelvis was filled with fluid and the proximal colon compressed. The distal colon was seen to distend and there was no bubbling of the anastamosis. Leak test was negative. The distal colon was then decompressed and anoscope removed. The patient was placed into neutral position and the abdomen desufflated. The GelPort and all laparoscopic ports were removed. The skin was infiltrated with local anesthetic at all incision sites. The fascia at the lower transverse incision was closed using a running #1 PDS. The subcutaneous tissue was irrigated and the deep dermal layer approximated using 3-0 Vicryl interrupted stitches. All skin incisions were closed with 4 Monocryl subcuticular stitches and skin glue. At the end of the case all sponge, instrument, sharp counts were correct x2. The patient remained stable throughout the procedure. The Brown catheter was removed. The patient was awoken from anesthesia extubated and taken to PACU in stable condition.
--- NOTE | 2020-02-15 18:06 | Event Note ---
Date: 02/15/20 The patient underwent a laparoscopic colectomy, and postprocedure while in the recovery unit was reported with narrow complex tachycardia. The telemetry strips were not captured. The patient reported no symptoms and was given intravenous esmolol, with a prompt return to a stable sinus rhythm. We will initiate metoprolol 5 mg IV every 6 hours, and recommend patient observed on telemetry or the stepdown unit overnight. Twelve-lead ECG in the a.m.
--- NOTE | 2020-02-15 20:46 | Progress Note ---
Assessment and Plan Assessment and plan: --CT scan of the abdomen and pelvis; a sigmoid colonic mass suspicious for malignancy with direct peritoneal extension. --Sigmoid colon mass; s/p sigmoidectomy with anastomosis, laparoscopic lysis of adhesions --Intractable nausea vomiting and abdominal pain; Secondary to colonic mass, antiemetics and pain medications Symptoms slightly improved --Hypertensive urgency; present on admission Blood pressures well controlled Continue current antihypertensives --Postmenopausal vaginal bleeding; s/p Dilation and curettage (D&C).And hysteroscopy. BAND CUTTER following --History of syncope/vasovagal/autonomic imbalance Fall precautions, supportive care --Obesity; BMI 31.1 Patient needs weight reduction when medically stable --History of breast cancer; supportive care DVT prophylaxis; SCDs We will closely monitor the patient and adjust management as needed Postoperative management per surgery 02/15/20; patient had sigmoid colon mass, status post sigmoidectomy and anastomosis today per surgery Patient also has postmenopausal bleeding, BAND CUTTER evaluated the patient underwent D&C and hysteroscopy Continue postop care, IV fluids, n.p.o. status, pain medications and supportive care Brief history; 59 YO Female with HTN, BrCA presents to ED for evaluation. Patient states that she has experienced abdominal pain over the past 3 days with persistent symptoms over the same timeframe. Patient also acknowledges nausea, multiple episodes of vomiting, as well as inability to tolerate oral intake. Patient states that pain is 810/10, the pain was initially intermittent but has become more constant. Patient also acknowledges new onset vaginal bleeding over the past 3 days. Pain is worse with movement and eating. And relieved somewhat with nonmovement. Patient denies fever, chills, chest pain, palpitation, productive cough, skin rash, recent ill contacts, or known exposure to COVID-19. EMS was notified and upon arrival the patient was found to be in distress and subsequently transported to [facility] for further care and evaluation. Patient seen and evaluated in the emergency department. History Interval history: I have seen and examined the patient Patient underwent a surgical procedure Sedated, in mild distress Vital signs noted Hospitalist Physical - Constitutional Vitals: Temp Pulse Resp BP Pulse Ox 98.4 F 87 20 136/86 93 02/15/20 19:50 02/15/20 19:50 02/15/20 19:50 02/15/20 19:50 02/15/20 19:50 General appearance: Present: mild distress, well-nourished, obese - EENT Eyes: Present: PERRL, EOM intact - Neck Neck: Present: supple, normal ROM - Respiratory Respiratory effort: normal Respiratory: bilateral: diminished, negative: rales, rhonchi, wheezing - Cardiovascular Rhythm: regular Heart Sounds: Present: S1 & S2 - Extremities Extremities: no ischemia, No edema - Abdominal General gastrointestinal: soft, tender (No guarding no rigidity), non-distended - Integumentary Integumentary: Present: clear - Psychiatric Psychiatric: other (Sedated sleeping) - Neurologic Neurologic: moves all extremities Results - Labs CBC & Chem 7: 02/16/20 05:16 02/16/20 05:16 Labs: Laboratory Last Values WBC 7.2 K/mm3 (4.5-11.0) 02/14/20 14:15 RBC 5.23 M/mm3 (3.65-5.03) H 02/14/20 14:15 Hgb 15.4 gm/dl (10.1-14.3) H 02/14/20 14:15 Hct 45.1 % (30.3-42.9) H D 02/14/20 14:15 MCV 86 fl (79-97) 02/14/20 14:15 MCH 30 pg (28-32) 02/14/20 14:15 MCHC 34 % (30-34) 02/14/20 14:15 RDW 12.4 % (13.2-15.2) L 02/14/20 14:15 Plt Count 357 K/mm3 (140-440) 02/14/20 14:15 Lymph % (Auto) 26.5 % (13.4-35.0) 02/12/20 16:43 [place] % (Auto) 6.9 % (0.0-7.3) 02/12/20 16:43 Eos % (Auto) 1.9 % (0.0-4.3) 02/12/20 16:43 Baso % (Auto) 0.2 % (0.0-1.8) 02/12/20 16:43 Lymph # (Auto) 2.1 K/mm3 (1.2-5.4) 02/12/20 16:43 [place] # (Auto) 0.5 K/mm3 (0.0-0.8) 02/12/20 16:43 Eos # (Auto) 0.1 K/mm3 (0.0-0.4) 02/12/20 16:43 Baso # (Auto) 0.0 K/mm3 (0.0-0.1) 02/12/20 16:43 Seg Neutrophils % 64.5 % (40.0-70.0) 02/12/20 16:43 Seg Neutrophils # 5.0 K/mm3 (1.8-7.7) 02/12/20 16:43 Sodium 139 mmol/L (137-145) 02/14/20 14:15 Potassium 3.8 mmol/L (3.6-5.0) 02/14/20 14:15 Chloride 104.4 mmol/L (98-107) 02/14/20 14:15 Carbon Dioxide 13 mmol/L (22-30) L D 02/14/20 14:15 Anion Gap 25 mmol/L 02/14/20 14:15 BUN 7 mg/dL (7-17) 02/14/20 14:15 Creatinine 0.7 mg/dL (0.6-1.2) 02/14/20 14:15 Estimated GFR > 60 ml/min 02/14/20 14:15 BUN/Creatinine Ratio 10 % 02/14/20 14:15 Glucose 93 mg/dL (65-100) 02/14/20 14:15 Calcium 8.7 mg/dL (8.4-10.2) 02/14/20 14:15 Lipase 16 units/L (13-60) 02/12/20 16:43 Urine Color Colorless (Yellow) 02/12/20 18:40 Urine Turbidity Clear (Clear) 02/12/20 18:40 Urine pH 6.0 (5.0-7.0) 02/12/20 18:40 Ur Specific [place] 1.006 (1.003-1.030) 02/12/20 18:40 Urine Protein <15 mg/dl mg/dL (Negative) 02/12/20 18:40 Urine Glucose (UA) Neg mg/dL (Negative) 02/12/20 18:40 Urine Ketones Neg mg/dL (Negative) 02/12/20 18:40 Urine Blood Neg (Negative) 02/12/20 18:40 Urine Nitrite Neg (Negative) 02/12/20 18:40 Urine Bilirubin Neg (Negative) 02/12/20 18:40 Urine Urobilinogen < 2.0 mg/dL (<2.0) 02/12/20 18:40 Ur Leukocyte Esterase Neg (Negative) 02/12/20 18:40 Urine WBC (Auto) < 1.0 /HPF (0.0-6.0) 02/12/20 18:40 Urine RBC (Auto) 1.0 /HPF (0.0-6.0) 02/12/20 18:40 U Epithel Cells (Auto) < 1.0 /HPF (0-13.0) 02/12/20 18:40 Coronavirus (PCR) Negative (Negative) 02/14/20 Unknown Blood Type A POSITIVE 02/15/20 06:08 Antibody Screen Negative 02/15/20 06:08 Brown/IV: Voiding Method Toilet IV Catheter Type [Left Hand] Peripheral IV Active Medications - Current Medications Current Medications: Generic Name Dose Route Start Last Admin Trade Name Freq PRN Reason Stop Dose Admin Acetaminophen 650 mg 02/12/20 19:43 02/14/20 06:43 Tylenol PO 650 mg Q4H PRN Administration Pain MILD(1-3)/Fever >100.5/PETE Ascorbic Acid 1,000 mg 02/15/20 10:00 Vitamin C PO QDAY NATALIO Celecoxib 400 mg 02/15/20 12:00 02/15/20 11:25 Celebrex PO 02/15/20 23:59 400 mg PREOP NR Administration Cholecalciferol 5,000 unit 02/14/20 13:00 Vitamin D3 PO DAILY NATALIO Cyanocobalamin 1,000 mcg 02/14/20 13:00 02/14/20 14:29 Vitamin B-12 PO 1,000 mcg DAILY NATALIO Administration Gabapentin 300 mg 02/15/20 12:00 02/15/20 11:25 Gabapentin PO 02/15/20 23:59 300 mg PREOP NR Administration Heparin Sodium (Porcine) 5,000 unit 02/13/20 22:00 02/15/20 06:37 Heparin SUB-Q Not Given Q8HR NATALIO Hydralazine HCl 10 mg 02/12/20 19:48 02/14/20 16:00 Apresoline IV 10 mg Q6HR PRN Administration Hypertension Dextrose/Sodium Chloride 1,000 mls @ 75 mls/hr 11/16/20 16:00 02/15/20 06:38 D5/0.45ns IV 75 mls/hr DIRECT NATALIO Administration Lactated Ringer's 1,000 mls @ 125 mls/hr 02/15/20 12:00 02/15/20 11:25 Lactated Ringers IV 125 mls/hr DIRECT NATALIO Administration Metronidazole 500 mg in 100 mls @ 200 mls/hr 02/15/20 12:00 02/15/20 11:59 Flagyl 500 Mg/100 Ml IV 02/15/20 23:59 200 mls/hr PREOP NR Administration Protocol Cefazolin Sodium 2 gm in 20 mls @ 120 mls/hr 02/15/20 12:00 Ancef/Sterile Water 2 Gm/20 Ml IV 02/15/20 23:59 PREOP NR Cefazolin Sodium 2 gm/ Sodium 100 mls @ 200 mls/hr 02/15/20 22:00 Chloride IV 02/16/20 06:29 Q8HR NATALIO Protocol Metronidazole 500 mg in 100 mls @ 100 mls/hr 02/15/20 22:00 Flagyl 500 Mg/100 Ml IV 02/16/20 06:59 Q8HR [facility] Protocol Ketorolac Tromethamine 30 mg 02/13/20 09:07 02/15/20 17:40 Toradol IV 02/18/20 09:06 30 mg Q6H PRN Administration Pain, Moderate (4-6) Magnesium Chloride 64 mg 02/16/20 10:00 Slow-Mag PO QDAY NATALIO Metoprolol Tartrate 5 mg 02/15/20 19:00 Metoprolol IV 02/17/20 00:01 Q6HR NATALIO Midazolam HCl 2 mg 02/15/20 12:00 Versed IV 02/15/20 23:59 PREOP NR Morphine Sulfate 2 mg 02/15/20 11:19 Morphine IV 02/15/20 23:59 Q10MIN PRN Pain, Moderate (4-6) Morphine Sulfate 4 mg 02/15/20 11:19 02/15/20 18:50 Morphine IV 02/15/20 23:59 4 mg Q10MIN PRN Administration Pain , Severe (7-10) Ondansetron HCl 4 mg 02/13/20 13:25 02/14/20 14:36 Zofran IV 4 mg Q4H PRN Administration Nausea And Vomiting Ondansetron HCl 4 mg 02/15/20 11:15 Zofran IV 02/15/20 23:59 ONCE PRN Nausea And Vomiting Pyridoxine HCl 250 mg 02/15/20 10:00 Vitamin B-6 PO DAILY NATALIO Sodium Chloride 10 ml 02/12/20 22:00 02/14/20 23:28 Sodium Chloride Flush Syringe 10 Ml IV 10 ml BID NATALIO Administration Sodium Chloride 10 ml 02/12/20 19:43 Sodium Chloride Flush Syringe 10 Ml IV PRN PRN LINE FLUSH Valsartan 160 mg 02/14/20 12:00 02/15/20 10:45 Diovan PO 160 mg BID NATALIO Administration
[2020-02-15 21:14] LABS: BUN/Creatinine Ratio 16; Blood Urea Nitrogen 14 mg/dL (7-17); Calcium 7.3 mg/dL (8.4-10.2); Hemolysis Index 15
[2020-02-16] MEDS: metroNIDAZOLE/NS 500 MG/100 ML 500 MG/100 ML BAG IV SCH ×4 (03:41→16:20)
[2020-02-16] MEDS: METOPROLOL TARTRATE 5 MG/5 ML INJ IV SCH ×3 (05:48→23:35)
[2020-02-16] MEDS: HEPARIN 5,000 UNIT/1 ML VIAL SUB-Q SCH ×3 (05:48→23:35)
[2020-02-16] MEDS: KETOROLAC 30 MG/1 ML INJ IV PRN ×2 (05:56→10:59)
[2020-02-16 06:04] LABS: Hematocrit 35.3 % (30.3-42.9); Hemoglobin 12.2 gm/dl (10.1-14.3); Mean Corpuscular HGB Conc 35 % (30-34); Mean Corpuscular Volume 88 fl (79-97); Platelet Count 296 K/mm3 (140-440); Red Blood Count 4.02 M/mm3 (3.65-5.03); Red Cell Distribution Width 12.8 % (13.2-15.2)
[2020-02-16 06:26] LABS: BUN/Creatinine Ratio 13; Blood Urea Nitrogen 14 mg/dL (7-17); Calcium 7.6 mg/dL (8.4-10.2); Hemolysis Index 6
--- NOTE | 2020-02-16 09:37 | Progress Note ---
Assessment and Plan Assessment and plan: --Sigmoid colon mass; s/p sigmoidectomy with anastomosis, laparoscopic lysis of adhesions Postop care per surgery, n.p.o. status ice chips Out of bed to chair as tolerated, pain medications --Intractable nausea vomiting and abdominal pain; Symptoms slightly improved --Hypertensive urgency; present on admission Blood pressures well controlled Continue current antihypertensives --Postmenopausal vaginal bleeding; s/p Dilation and curettage (D&C).And hysteroscopy. FURNACE ERECTOR following --History of syncope/vasovagal/autonomic imbalance Fall precautions, supportive care --Obesity; BMI 31.1 Patient needs weight reduction when medically stable --History of breast cancer; stable --DVT prophylaxis; SCDs Ambulate as tolerated Surgery and FURNACE ERECTOR recommendations noted and appreciated 02/15/20; patient had sigmoid colon mass, status post sigmoidectomy and anastomosis today per surgery Patient also has postmenopausal bleeding, FURNACE ERECTOR evaluated the patient underwent D&C and hysteroscopy Continue postop care, IV fluids, n.p.o. status, pain medications and supportive care 02/16/20; postoperative day 1; postop care per surgery, patient remains n.p.o. status except for ice chips IV fluids, patient is hesitant to get out of the bed and walk recommended by surgery, continue supportive care Brief history; 59 YO Female with HTN, BrCA presents to ED for evaluation. Patient states that she has experienced abdominal pain over the past 3 days with persistent symptoms over the same timeframe. Patient also acknowledges nausea, multiple episodes of vomiting, as well as inability to tolerate oral intake. Patient states that pain is 810/10, the pain was initially intermittent but has become more constant. Patient also acknowledges new onset vaginal bleeding over the past 3 days. Pain is worse with movement and eating. And relieved somewhat with nonmovement. Patient denies fever, chills, chest pain, palpitation, productive cough, skin rash, recent ill contacts, or known exposure to COVID-19. EMS was notified and upon arrival the patient was found to be in distress and subsequently transported to [facility] for further care and evaluation. Patient seen and evaluated in the emergency department. History Interval history: 59-year-old female patient was admitted with hypertensive urgency, colonic mass as well as postmenopausal bleeding Patient was evaluated by surgery, underwent colectomy and anastomosis and repair of adhesions Also underwent hysteroscopy and D&C. Patient feels slightly better today No new complaints except for some pain Vital signs noted Hospitalist Physical - Constitutional Vitals: Temp Pulse Resp BP Pulse Ox 98.1 F 86 18 124/72 95 02/16/20 03:23 02/16/20 05:48 02/16/20 03:23 02/16/20 05:48 02/16/20 03:23 General appearance: Present: no acute distress, well-nourished - EENT Eyes: Present: PERRL, EOM intact - Neck Neck: Present: supple, normal ROM - Respiratory Respiratory effort: normal Respiratory: bilateral: diminished, rales, negative: rhonchi, wheezing - Cardiovascular Rhythm: regular Heart Sounds: Present: S1 & S2 - Extremities Extremities: no ischemia, No edema - Abdominal General gastrointestinal: soft, tender (No guarding no rigidity), non-distended - Integumentary Integumentary: Present: clear, warm - Psychiatric Psychiatric: appropriate mood/affect, cooperative - Neurologic Neurologic: moves all extremities Results - Labs CBC & Chem 7: 02/16/20 05:16 02/16/20 05:16 Labs: Laboratory Last Values WBC 9.8 K/mm3 (4.5-11.0) 02/16/20 05:16 RBC 4.02 M/mm3 (3.65-5.03) 02/16/20 05:16 Hgb 12.2 gm/dl (10.1-14.3) D 02/16/20 05:16 Hct 35.3 % (30.3-42.9) D 02/16/20 05:16 MCV 88 fl (79-97) 02/16/20 05:16 MCH 30 pg (28-32) 02/16/20 05:16 MCHC 35 % (30-34) H 02/16/20 05:16 RDW 12.8 % (13.2-15.2) L 02/16/20 05:16 Plt Count 296 K/mm3 (140-440) 02/16/20 05:16 Lymph % (Auto) 26.5 % (13.4-35.0) 02/12/20 16:43 [place] % (Auto) 6.9 % (0.0-7.3) 02/12/20 16:43 Eos % (Auto) 1.9 % (0.0-4.3) 02/12/20 16:43 Baso % (Auto) 0.2 % (0.0-1.8) 02/12/20 16:43 Lymph # (Auto) 2.1 K/mm3 (1.2-5.4) 02/12/20 16:43 [place] # (Auto) 0.5 K/mm3 (0.0-0.8) 02/12/20 16:43 Eos # (Auto) 0.1 K/mm3 (0.0-0.4) 02/12/20 16:43 Baso # (Auto) 0.0 K/mm3 (0.0-0.1) 02/12/20 16:43 Seg Neutrophils % 64.5 % (40.0-70.0) 02/12/20 16:43 Seg Neutrophils # 5.0 K/mm3 (1.8-7.7) 02/12/20 16:43 Sodium 141 mmol/L (137-145) 02/16/20 05:16 Potassium 3.7 mmol/L (3.6-5.0) 02/16/20 05:16 Chloride 107.8 mmol/L (98-107) H 02/16/20 05:16 Carbon Dioxide 24 mmol/L (22-30) 02/16/20 05:16 Anion Gap 13 mmol/L 02/16/20 05:16 BUN 14 mg/dL (7-17) 02/16/20 05:16 Creatinine 1.1 mg/dL (0.6-1.2) 02/16/20 05:16 Estimated GFR > 60 ml/min 02/16/20 05:16 BUN/Creatinine Ratio 13 % 02/16/20 05:16 Glucose 110 mg/dL (65-100) H 02/16/20 05:16 Calcium 7.6 mg/dL (8.4-10.2) L 02/16/20 05:16 Lipase 16 units/L (13-60) 02/12/20 16:43 Urine Color Colorless (Yellow) 02/12/20 18:40 Urine Turbidity Clear (Clear) 02/12/20 18:40 Urine pH 6.0 (5.0-7.0) 02/12/20 18:40 Ur Specific [place] 1.006 (1.003-1.030) 02/12/20 18:40 Urine Protein <15 mg/dl mg/dL (Negative) 02/12/20 18:40 Urine Glucose (UA) Neg mg/dL (Negative) 02/12/20 18:40 Urine Ketones Neg mg/dL (Negative) 02/12/20 18:40 Urine Blood Neg (Negative) 02/12/20 18:40 Urine Nitrite Neg (Negative) 02/12/20 18:40 Urine Bilirubin Neg (Negative) 02/12/20 18:40 Urine Urobilinogen < 2.0 mg/dL (<2.0) 02/12/20 18:40 Ur Leukocyte Esterase Neg (Negative) 02/12/20 18:40 Urine WBC (Auto) < 1.0 /HPF (0.0-6.0) 02/12/20 18:40 Urine RBC (Auto) 1.0 /HPF (0.0-6.0) 02/12/20 18:40 U Epithel Cells (Auto) < 1.0 /HPF (0-13.0) 02/12/20 18:40 Coronavirus (PCR) Negative (Negative) 02/14/20 Unknown Blood Type A POSITIVE 02/15/20 06:08 Antibody Screen Negative 02/15/20 06:08 Brown/IV: Voiding Method External Female Catheter IV Catheter Type [Left Forearm Peripheral IV ] IV Catheter Type [Left Hand] Peripheral IV Active Medications - Current Medications Current Medications: Generic Name Dose Route Start Last Admin Trade Name Freq PRN Reason Stop Dose Admin Acetaminophen 650 mg 02/12/20 19:43 02/14/20 06:43 Tylenol PO 650 mg Q4H PRN Administration Pain MILD(1-3)/Fever >100.5/PETE Ascorbic Acid 1,000 mg 02/15/20 10:00 02/15/20 10:32 Vitamin C PO Not Given QDAY [facility] Cholecalciferol 5,000 unit 02/14/20 13:00 Vitamin D3 PO DAILY [facility] Cyanocobalamin 1,000 mcg 02/14/20 13:00 02/15/20 10:32 Vitamin B-12 PO Not Given DAILY [facility] Heparin Sodium (Porcine) 5,000 unit 02/13/20 22:00 02/16/20 05:48 Heparin SUB-Q 5,000 unit Q8HR NATALIO Administration Hydralazine HCl 10 mg 02/12/20 19:48 02/14/20 16:00 Apresoline IV 10 mg Q6HR PRN Administration Hypertension Dextrose/Sodium Chloride 1,000 mls @ 75 mls/hr 02/14/20 16:00 02/15/20 06:38 D5/0.45ns IV 75 mls/hr DIRECT NATALIO Administration Lactated Ringer's 1,000 mls @ 125 mls/hr 02/15/20 12:00 02/15/20 11:25 Lactated Ringers IV 125 mls/hr DIRECT NATALIO Administration Cefazolin Sodium 2 gm/ Sodium 100 mls @ 200 mls/hr 02/15/20 22:00 02/16/20 03:06 Chloride IV 02/16/20 14:45 200 mls/hr Q8HR NATALIO Administration Protocol Metronidazole 500 mg in 100 mls @ 100 mls/hr 02/15/20 22:00 02/16/20 03:41 Flagyl 500 Mg/100 Ml IV 02/16/20 14:45 100 mls/hr Q8HR NATALIO Administration Protocol Ketorolac Tromethamine 30 mg 02/13/20 09:07 02/16/20 05:56 Toradol IV 02/18/20 09:06 30 mg Q6H PRN Administration Pain, Moderate (4-6) Magnesium Chloride 64 mg 02/16/20 10:00 Slow-Mag PO QDAY NATALIO Metoprolol Tartrate 5 mg 02/15/20 19:00 02/16/20 05:48 Metoprolol IV 02/17/20 00:01 5 mg Q6HR NATALIO Administration Ondansetron HCl 4 mg 02/13/20 13:25 02/14/20 14:36 Zofran IV 4 mg Q4H PRN Administration Nausea And Vomiting Pyridoxine HCl 250 mg 02/15/20 10:00 02/15/20 10:32 Vitamin B-6 PO Not Given DAILY NATALIO Sodium Chloride 10 ml 02/12/20 22:00 02/15/20 21:32 Sodium Chloride Flush Syringe 10 Ml IV Not Given BID NATALIO Sodium Chloride 10 ml 02/12/20 19:43 Sodium Chloride Flush Syringe 10 Ml IV PRN PRN LINE FLUSH Valsartan 160 mg 02/14/20 12:00 02/15/20 10:45 Diovan PO 160 mg BID NATALIO Administration
[2020-02-16] MEDS: CYANOCOBALAMIN (VIT B-12) 1000 MCG TAB PO SCH (10:58)
[2020-02-16] MEDS: CHOLECALCIFEROL (VIT D3) 5,000 UNIT TAB PO SCH (10:58)
[2020-02-16] MEDS: VALSARTAN 160MG TAB PO SCH ×2 (10:58→23:34)
[2020-02-16] MEDS: ASCORBIC ACID 500 MG TAB PO SCH (10:59)
[2020-02-16] MEDS: PYRIDOXINE 50 MG TAB PO SCH (11:00)
--- NOTE | 2020-02-16 11:03 | Progress Note ---
Assessment and Plan Syncope while on the toilet, likely vasovagal There was no chest pain, no shortness of breath, or no palpitations. Abnormal ECG sinus rhythm with poor R wave progression across the precordium, suggestive of a possible old anterior myocardial infarction. There are no acute ST or T wave abnormalities. There is no old ECG for comparison. Patient denies prior cardiac history. Post-procedure laparoscopic colectomy, while in the recovery unit was reported with narrow complex tachycardia. The telemetry strips were not captured. The patient reported no symptoms and was given intravenous esmolol, with a prompt return to a stable sinus rhythm. on metoprolol 5 mg IV every 6 hours Abdominal pain Abdominal CT reports a sigmoid mass s/p laparoscopic colectomy 02/15/2020 Hypertension Gastric bypass surgery in 2008 Hx of breast cancer Plan: Obtain a post-operative 12 lead ECG. Will also try to obtain a prior ECG for comparison. An echocardiogram will be done for cardiac assessment. Subjective Date of service: 02/16/20 Principal diagnosis: Postmenopausal bleeding, colon mass Interval history: Patient is resting in bed comfortably. She denies chest pain and denies SOB. No events seen on telemetry monitoring overnight. Objective Vital Signs Temp Pulse Resp BP Pulse Ox 02/16/20 05:48 86 124/72 02/16/20 03:23 98.1 F 86 18 124/72 95 02/16/20 00:00 20 02/15/20 23:24 97.3 F L 83 18 146/85 92 02/15/20 21:01 96 02/15/20 19:50 98.4 F 87 20 136/86 93 02/15/20 19:00 97.8 F 89 16 148/89 97 02/15/20 18:50 16 02/15/20 18:45 74 14 129/80 100 02/15/20 18:30 73 16 133/77 100 02/15/20 18:15 72 1 L 142/80 100 02/15/20 18:00 97.4 F L 74 15 130/81 100 02/15/20 17:55 79 18 136/83 100 02/15/20 17:45 84 16 135/82 98 02/15/20 17:35 83 17 135/87 98 02/15/20 17:30 79 17 116/83 99 02/15/20 17:25 78 15 118/82 98 02/15/20 17:20 143 H 13 115/80 98 02/15/20 17:15 151 H 19 134/87 100 02/15/20 17:10 140 H 20 125/84 100 02/15/20 17:06 98.9 F 97 H 16 144/86 100 02/15/20 11:25 16 02/15/20 11:20 98.9 F 85 22 156/92 99 02/15/20 11:02 98.9 F 85 22 156/92 99 - Physical Examination General: No Apparent Distress HEENT: Positive: PERRL Neck: Positive: trachea midline Cardiac: Positive: Reg Rate and Rhythm Lungs: Positive: Decreased Breath Sounds Neuro: Positive: Grossly Intact Extremities: Absent: edema - Labs and Meds CBC 02/16/20 Range/Units 05:16 WBC 9.8 (4.5-11.0) K/mm3 RBC 4.02 (3.65-5.03) M/mm3 Hgb 12.2 D (10.1-14.3) gm/dl Hct 35.3 D (30.3-42.9) % Plt Count 296 (140-440) K/mm3 Comprehensive Metabolic Panel 02/15/20 02/16/20 Range/Units 20:33 05:16 Sodium 137 141 (137-145) mmol/L Potassium 3.3 L 3.7 (3.6-5.0) mmol/L Chloride 107.6 H 107.8 H (98-107) mmol/L Carbon Dioxide 18 L 24 (22-30) mmol/L BUN 14 14 (7-17) mg/dL Creatinine 0.9 1.1 (0.6-1.2) mg/dL Glucose 168 H 110 H (65-100) mg/dL Calcium 7.3 L D 7.6 L (8.4-10.2) mg/dL
[2020-02-16] MEDS: MAGNESIUM CHLORIDE ER 64 MG TAB PO SCH (13:38)
[2020-02-16] MEDS: oxyCODONE /ACETAMINOPHEN 5-325MG TAB PO PRN ×2 (13:38→23:33)
[2020-02-16] MEDS: ONDANSETRON 4 MG/2 ML INJ IV PRN (15:32)
[2020-02-16] MEDS ORDERED: metroNIDAZOLE/NS 500 MG/100 ML 500 MG/100 ML BAG IV SCH (16:00)
--- NOTE | 2020-02-16 17:45 | Progress Note ---
Assessment and Plan 59-year-old female status post laparoscopic lysis of adhesions, sigmoidectomy with primary anastomosis, POD 1 Pt doing well. Plan: 1. start clear liquid diet 2. IVF - change to maintenance 3. SCIP abx 4. prn pain control - PO percocet and IV toradol 5. repeat BMP in am 6. DVT ppx 7. IS/pulm toilet 8. ambulate/OOB 9. CEA pending 10. path pending 11. ABF Thank you for this consultation. Please call with any questions or concerns. Evaluation and treatment of this patient was during the time of the national and state emergency arising from COVID19 coronavirus pandemic. Treatment and procedures performed meet the current and available best practice and guidelines for patient during the COVID pandemic. Subjective Date of service: 02/16/20 Narrative: Patient seen and examined. She complains of abdominal pain at the site of the incisions which is being controlled by Percocet and Toradol IV. She has been out of bed and walking to and from the bathroom on her own. She feels like she has to pass flatus but has not been able to yet. No nausea or vomiting. No fevers or chills. Objective Vital Signs - 12hr 02/16/20 02/16/20 02/16/20 05:48 10:00 11:08 Temperature 98.4 F Pulse Rate 86 81 Respiratory 18 Rate Blood Pressure 124/72 159/92 O2 Sat by Pulse 94 95 Oximetry 02/16/20 12:00 Temperature Pulse Rate Respiratory 20 Rate Blood Pressure O2 Sat by Pulse Oximetry - General physical appearance Narrative Exam: Gen.: Awake, alert, oriented 3. No apparent distress ENT: Trachea midline. No lymphadenopathy. No scleral icterus or conjunctival pallor CV: S1, S2 present Respiratory: No audible wheezes Abdomen: Soft, nontender, incisional tenderness to palpation. Incisions are clean, dry, intact. No rebound, rigidity, guarding. Abdominal binder applied. Extremities: No clubbing, cyanosis, edema - Labs 02/16/20 05:16 02/16/20 05:16 Diabetes panel 02/15/20 02/16/20 Range/Units 20:33 05:16 Sodium 137 141 (137-145) mmol/L Potassium 3.3 L 3.7 (3.6-5.0) mmol/L Chloride 107.6 H 107.8 H (98-107) mmol/L Carbon Dioxide 18 L 24 (22-30) mmol/L BUN 14 14 (7-17) mg/dL Creatinine 0.9 1.1 (0.6-1.2) mg/dL Glucose 168 H 110 H (65-100) mg/dL Calcium 7.3 L D 7.6 L (8.4-10.2) mg/dL Calcium panel 02/15/20 02/16/20 Range/Units 20:33 05:16 Calcium 7.3 L D 7.6 L (8.4-10.2) mg/dL Pituitary panel 02/15/20 02/16/20 Range/Units 20:33 05:16 Sodium 137 141 (137-145) mmol/L Potassium 3.3 L 3.7 (3.6-5.0) mmol/L Chloride 107.6 H 107.8 H (98-107) mmol/L Carbon Dioxide 18 L 24 (22-30) mmol/L BUN 14 14 (7-17) mg/dL Creatinine 0.9 1.1 (0.6-1.2) mg/dL Glucose 168 H 110 H (65-100) mg/dL Calcium 7.3 L D 7.6 L (8.4-10.2) mg/dL Adrenal panel 02/15/20 02/16/20 Range/Units 20:33 05:16 Sodium 137 141 (137-145) mmol/L Potassium 3.3 L 3.7 (3.6-5.0) mmol/L Chloride 107.6 H 107.8 H (98-107) mmol/L Carbon Dioxide 18 L 24 (22-30) mmol/L BUN 14 14 (7-17) mg/dL Creatinine 0.9 1.1 (0.6-1.2) mg/dL Glucose 168 H 110 H (65-100) mg/dL Calcium 7.3 L D 7.6 L (8.4-10.2) mg/dL
[2020-02-17] MEDS: HEPARIN 5,000 UNIT/1 ML VIAL SUB-Q SCH ×3 (06:17→17:01)
[2020-02-17 06:45] LABS: BUN/Creatinine Ratio 11; Blood Urea Nitrogen 10 mg/dL (7-17); Calcium 7.7 mg/dL (8.4-10.2); Hemolysis Index 3
[2020-02-17] MEDS ORDERED: POTASSIUM CHLORIDE ER 20 MEQ TAB PO NR (08:00)
--- NOTE | 2020-02-17 09:23 | Progress Note ---
Assessment and Plan Syncope while on the toilet, likely vasovagal There was no chest pain, no shortness of breath, or no palpitations. Echocardiogram reports a normal LVEF, 55-60%. Abnormal ECG sinus rhythm with poor R wave progression across the precordium, suggestive of a possible old anterior myocardial infarction. There are no acute ST or T wave ab normalities. There is no old ECG for comparison. Patient denies prior cardiac history. Post-procedure laparoscopic colectomy, while in the recovery unit was reported with narrow complex tachycardia. The telemetry strips were not captured. The patient reported no symptoms and was given intravenous esmolol, with a prompt return to a stable sinus rhythm. on metoprolol 5 mg IV every 6 hours Abdominal pain Abdominal CT reports a sigmoid mass s/p laparoscopic colectomy 02/15/2020 Hypertension Gastric bypass surgery in 2008 Hx of breast cancer Continue routine post operative care. Otherwise, conservative cardiac management. Subjective Date of service: 02/17/20 Principal diagnosis: Postmenopausal bleeding, colon mass Interval history: Patient is resting in bed comfortably. She denies chest pain and denies SOB. No cardiac events reported overnight. Objective Vital Signs Temp Pulse Resp BP Pulse Ox 02/17/20 03:34 98.8 F 71 16 152/81 96 02/17/20 00:00 16 96 02/16/20 23:35 75 150/70 02/16/20 23:34 75 150/70 02/16/20 23:00 98.1 F 76 16 180/93 96 02/16/20 20:33 96 02/16/20 19:24 75 94 02/16/20 19:23 97.9 F 16 150/70 02/16/20 16:47 98.5 F 79 18 189/111 97 02/16/20 12:00 20 02/16/20 11:08 98.4 F 81 18 159/92 95 02/16/20 10:00 94 - Physical Examination General: No Apparent Distress HEENT: Positive: PERRL Neck: Positive: trachea midline Cardiac: Positive: Reg Rate and Rhythm Lungs: Positive: Decreased Breath Sounds Neuro: Positive: Grossly Intact Extremities: Absent: edema - Labs and Meds Comprehensive Metabolic Panel 02/17/20 Range/Units 05:39 Sodium 143 (137-145) mmol/L Potassium 3.2 L (3.6-5.0) mmol/L Chloride 109.3 H (98-107) mmol/L Carbon Dioxide 23 (22-30) mmol/L BUN 10 (7-17) mg/dL Creatinine 0.9 (0.6-1.2) mg/dL Glucose 103 H (65-100) mg/dL Calcium 7.7 L (8.4-10.2) mg/dL
[2020-02-17] MEDS: KETOROLAC 30 MG/1 ML INJ IV PRN (09:25)
[2020-02-17] MEDS: PYRIDOXINE 50 MG TAB PO SCH (09:29)
[2020-02-17] MEDS: MAGNESIUM CHLORIDE ER 64 MG TAB PO SCH (09:30)
[2020-02-17] MEDS: CYANOCOBALAMIN (VIT B-12) 1000 MCG TAB PO SCH (09:31)
[2020-02-17] MEDS: VALSARTAN 160MG TAB PO SCH ×2 (09:32→16:53)
[2020-02-17] MEDS: ASCORBIC ACID 500 MG TAB PO SCH (09:33)
[2020-02-17] MEDS: ONDANSETRON 4 MG/2 ML INJ IV PRN (09:41)
[2020-02-17] MEDS ORDERED: METOPROLOL TARTRATE 25 MG TAB PO SCH (15:00)
--- NOTE | 2020-02-17 16:28 | Progress Note ---
Assessment and Plan 59-year-old female status post laparoscopic lysis of adhesions, sigmoidectomy with primary anastomosis, POD 2 Pt progressing very well. Having bowel function. Plan: 1. Advance diet as tolerated 2. IVF - maintenance 3. prn pain control - PO percocet 4. DVT ppx 5. IS/pulm toilet 6. ambulate/OOB 7. CEA pending 8. path pending Okay to discharge from surgical standpoint. Patient will follow up in the surgery clinic on March 01 at 10 AM. Verbal and written discharge instructions given to patient. Discussed with Dr. Machuca Thank you, please call with any questions or concerns. Evaluation and treatment of this patient was during the time of the national and state emergency arising from COVID19 coronavirus pandemic. Treatment and procedures performed meet the current and available best practice and guidelines for patient during the COVID pandemic. Subjective Date of service: 02/17/20 Narrative: Pt seen and examined. Pain well controlled. Patient is having loose bowel movements and passing flatus. No fevers or chills. She is ambulating on her own. No nausea or vomiting. Objective Vital Signs - 12hr 02/17/20 02/17/20 09:32 10:15 Pulse Rate 102 H Blood Pressure 178/104 O2 Sat by Pulse 97 Oximetry - General physical appearance Narrative Exam: Gen.: Awake, alert, oriented 3. No apparent distress ENT: Trachea midline. No lymphadenopathy. No scleral icterus or conjunctival pallor CV: S1, S2 present Respiratory: No audible wheezes Abdomen: Soft, nondistended, nontender. Incisions are clean, dry, intact. Abdominal binder is in place. No rebound, rigidity, guarding Extremities: No clubbing, cyanosis, edema - Labs 02/16/20 05:16 02/17/20 05:39 Diabetes panel 02/17/20 Range/Units 05:39 Sodium 143 (137-145) mmol/L Potassium 3.2 L (3.6-5.0) mmol/L Chloride 109.3 H (98-107) mmol/L Carbon Dioxide 23 (22-30) mmol/L BUN 10 (7-17) mg/dL Creatinine 0.9 (0.6-1.2) mg/dL Glucose 103 H (65-100) mg/dL Calcium 7.7 L (8.4-10.2) mg/dL Calcium panel 02/17/20 Range/Units 05:39 Calcium 7.7 L (8.4-10.2) mg/dL Pituitary panel 02/17/20 Range/Units 05:39 Sodium 143 (137-145) mmol/L Potassium 3.2 L (3.6-5.0) mmol/L Chloride 109.3 H (98-107) mmol/L Carbon Dioxide 23 (22-30) mmol/L BUN 10 (7-17) mg/dL Creatinine 0.9 (0.6-1.2) mg/dL Glucose 103 H (65-100) mg/dL Calcium 7.7 L (8.4-10.2) mg/dL Adrenal panel 02/17/20 Range/Units 05:39 Sodium 143 (137-145) mmol/L Potassium 3.2 L (3.6-5.0) mmol/L Chloride 109.3 H (98-107) mmol/L Carbon Dioxide 23 (22-30) mmol/L BUN 10 (7-17) mg/dL Creatinine 0.9 (0.6-1.2) mg/dL Glucose 103 H (65-100) mg/dL Calcium 7.7 L (8.4-10.2) mg/dL
--- NOTE | 2020-02-17 16:40 | Discharge Summary ---
Providers - Providers Date of Admission: 02/13/20 13:39 Date of discharge: 02/17/20 Attending physician: SHANNAN HALL 02/12/20 19:43 Consult to Physician [CONS] Stat Comment: Consulting Provider: DEJAH HUYNH Physician Instructions: Reason For Exam: colonic mass 02/12/20 20:08 Consult to Physician [CONS] Routine Comment: Consulting Provider: JAMARCUS ROCK Physician Instructions: Reason For Exam: vaginal bleeding with colon mass 02/13/20 07:26 Consult to Physician [CONS] Routine Comment: Consulting Provider: CHRIS SANTACRUZ Physician Instructions: Reason For Exam: SIGMOID COLON MASS 02/14/20 08:49 Consult to Physician [CONS] Routine Comment: Consulting Provider: ADDISON MORALES Physician Instructions: Reason For Exam: preoperative assessment/syncope 02/16/20 14:27 Midline [Consult to PICC Line RN] [CONS] Routine Reason For Exam: unable to obtain IV access. Pt's on IV antibiotics Type Line:: Midline Primary care physician: TORCH BURNER Hospitalization Condition: Stable Disposition: DC-01 TO HOME OR SELFCARE Time spent for discharge: 35 min Core Measure Documentation - Palliative Care Palliative Care/ Comfort Measures: Not Applicable - Core Measures Any of the following diagnoses?: none Exam - Constitutional Vitals: Temp Pulse Resp BP Pulse Ox 98.8 F 102 H 16 178/104 97 02/17/20 03:34 02/17/20 09:32 02/17/20 03:34 02/17/20 09:32 02/17/20 10:15 General appearance: Present: no acute distress, well-nourished - EENT Eyes: Present: PERRL, EOM intact - Neck Neck: Present: supple, normal ROM - Respiratory Respiratory effort: normal Respiratory: bilateral: diminished, negative: rales, rhonchi, wheezing - Cardiovascular Rhythm: regular Heart Sounds: Present: S1 & S2 - Extremities Extremities: no ischemia, No edema - Abdominal General gastrointestinal: Present: soft, non-tender, non-distended, normal bowel sounds - Integumentary Integumentary: Present: clear, warm - Musculoskeletal Musculoskeletal: strength equal bilaterally - Psychiatric Psychiatric: appropriate mood/affect, cooperative - Neurologic Neurologic: moves all extremities Plan Activity: advance as tolerated, fall precautions Diet: other (Full liquids advance to soft diet as tolerated) Additional Instructions: If you have worsening symptoms contact MD or go to emergency room. Advised to follow with surgeon and RECEIVING OPERATOR per schedule. Full liquid diet advance to soft diet as tolerated Follow up with: JAMARCUS ROCK MD [Staff Physician] - 7 Days CHRIS SANTACRUZ DO [Staff Physician] - 03/01/20 10:00 am PRIMARY CARE, [Primary Care Provider] - 7 Days Prescriptions: oxyCODONE /ACETAMINOPHEN [Percocet 5/325 mg] 1 tab PO Q6H PRN #20 tablet PRN Reason: Pain, Moderate (4-6)
[2020-02-17] MEDS: oxyCODONE /ACETAMINOPHEN 5-325MG TAB PO PRN (16:54)
[2020-02-17] MEDS: CHOLECALCIFEROL (VIT D3) 5,000 UNIT TAB PO SCH ×3 (17:01→17:16)
[2020-02-17 19:04] VITALS: BP 168/91
== END 2020-02-17 18:00 | disposition home or self-care (01) | DRG 744 ==
LOC: ED 16:27 → 3B-SURG 19:43 → OBSVTOIN 02-13 13:39 → 4A 02-15 19:15
PROVIDERS: ADMIT Internal Medicine; ATTEND Internal Medicine
PROC: 0DBN8ZX Excision of Sigmoid Colon, Via Natural or Artificial Opening Endoscopic, Diagnostic (ICD-10-PCS; principal; 2020-02-14)
PROC: 0UDB8ZX Extraction of Endometrium, Via Natural or Artificial Opening Endoscopic, Diagnostic (ICD-10-PCS; 2020-02-15)
PROC: 0DTN0ZZ Resection of Sigmoid Colon, Open Approach (ICD-10-PCS; 2020-02-15)
DX: N95.0 Postmenopausal bleeding (principal); K63.3 Ulcer of intestine; I16.0 Hypertensive urgency; E87.6 Hypokalemia; I10 Essential (primary) hypertension; Z85.3 Personal history of malignant neoplasm of breast; Z88.6 Allergy status to analgesic agent; Z88.5 Allergy status to narcotic agent; Z90.49 Acquired absence of other specified parts of digestive tract; Z20.828 Contact with and (suspected) exposure to other viral communicable diseases; Z82.49 Family history of ischemic heart disease and other diseases of the circulatory system; K21.9 Gastro-esophageal reflux disease without esophagitis; N88.2 Stricture and stenosis of cervix uteri; N95.2 Postmenopausal atrophic vaginitis; E66.9 Obesity, unspecified; Z68.31 Body mass index [BMI] 31.0-31.9, adult
CPT/HCPCS: 36415; 70450; 71045; 74176; 76830; 76856; 80048; 81001; 82378; 83690; 85025; 85027; 86850; 86900; 86901; 88305; 88309; 88342; 93005; 93306; 96374; 96375; G0378; A4217; J0360; J0690; J1100; J1170; J1200; J1644; J1885; J2270; J2405; J2704; J2710; J3010; J7030; J7120; U0003

== ENCOUNTER 2020-06-14 06:08 | Emergency (ER) | payer SELFPAY ==
--- NOTE | 2020-06-14 06:54 | Emergency Department Report ---
ED Abdominal Pain HPI - General Chief Complaint: Abdominal Pain Stated Complaint: LOWER ABDOMINAL PAIN Time Seen by Provider: 06/14/20 06:52 Source: patient Mode of arrival: Stretcher Limitations: No Limitations - History of Present Illness Initial Comments: This is a 59-year-old female who had a sigmoidectomy at this facility in January 2020 for a 5 cm mass. Her surgical pathology indicated the following: PRELIMINARY REPORT: A. Sigmoid colon mass, segmental resection: High grade B cell lymphoma The case sent out for hematopathology expert consultation to [facility] for further characterization of the tumor B. Endometrium, biopsy: The case sent out for hematopathology expert consultation to [facility] Note: Dr. Hinds notified n Alicia Strauss MD 02/21/20 Electronic Signature Patient relates to me that she has had abdominal pain since yesterday in the suprapubic/lower abdominal area without radiation. She states that she has taken Ultram for chronic pain but was too nauseated to do so this morning. She is not providing a lot of spontaneous history but she does answer questions. Apparently she has received her last chemotherapy with Dr. Arteaga/[facility] in [place] on Friday. 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 She states that she has not been to a hospital for complications of her cancer other than a work-up at [facility] for DVT which was negative. She states that she is not pending bone marrow transplant. She seems to be stating that she has a PET scan pending. She states that she always feels cold but does not take her temperature. She appears to have a depressed affect which would be certainly understandable. Dicharge Summary 02/17: Hospitalization Reason for admission: Lower abdominal pain with nausea vomiting/postmenopausal bleeding Condition: Stable Pertinent studies: CT abdomen and pelvis; 5 cm mass in the proximal sigmoid with lymphadenopathy Transvaginal ultrasound Pelvic ultrasound Procedures: s/p sigmoidectomy with anastomosis, laparoscopic lysis of adhesions s/p Dilation and curettage (D&C).And hysteroscopy. Hospital course: 59 YO Female with HTN, BrCA is admitted through emergency room with history of postmenopausal bleeding and lower abdominal pain associated with nausea vomiting, unable to tolerate oral nutrition Patient had CT abdomen and pelvis which revealed a 5 cm mass in the proximal sigmoid with surrounding lymphadenopathy, Patient was admitted appropriately managed and subsequently evaluated by surgeon underwent sigmoidectomy with anastomosis laparoscopic lysis of adhesions. Evaluated by [employer] OPERATIONS MANAGER patient underwent dilation and curettage and hysteroscopy fo llow-up in the office for further evaluation and management Patient's blood pressures blood sugars closely monitored medications optimized optimized, patient also had syncope probably vasovagal versus adenomatous imbalance. Patient has history of breast cancer will follow with her private oncologist per schedule as needed Today patient is comfortable no new complaints vital signs stable physical examinations unremarkable Cleared by consultants for discharge and follow-up in the office for further evaluation and management and to check with her biopsy reports Patient is stable at discharge Final diagnosis --Sigmoid colon mass; s/p sigmoidectomy with anastomosis, laparoscopic lysis of adhesions Surgery advised full liquids as tolerated follow-up with upon discharge --Intractable unable to tolerate oral fluids Resolved --Hypertensive urgency; present on admission Moderate control --Postmenopausal vaginal bleeding; s/p Dilation and curettage (D&C).And hysteroscopy. Follow-up with [employer]PER[employer] MANAGER --History of syncope/vasovagal/autonomic imbalance Fall precautions, improved --Obesity; BMI 31.1 Patient needs weight reduction when medically stable --History of breast cancer; stable follow-up private oncology as needed Cleared by surgery and [employer] OPERATIONS MANAGER for discharge and follow-up outpatient per schedule Disposition: [id number] TO HOME OR SELFCARE Time spent for discharge: 35 min MD Complaint: abdominal pain -: Gradual, days(s) Location: suprapubic Radiation: none Migration to: no migration Severity scale (0 -10): 10 Quality: aching Consistency: constant Improves With: nothing Worsens With: nothing Context: other (B-cell lymphoma, status post sigmoidectomy) Associated Symptoms: nausea - Related Data Home Medications Medication Instructions Recorded Confirmed Last Taken Ascorbic Acid [Vitamin C] 1,000 mg PO DAILY 02/12/20 02/12/20 02/12/20 Cholecalciferol (Vitamin D3) 5,000 unit PO DAILY 02/12/20 02/12/20 02/12/20 [Vitamin D3] Cyanocobalamin (Vitamin B-12) 1,000 mcg PO DAILY 02/12/20 02/12/20 02/12/20 [Vitamin B-12] Magnesium Amino Acid Chelate 100 mg PO DAILY 02/12/20 02/12/20 02/12/20 [Magnesium] Pyridoxine HCl (Vitamin B6) 250 mg PO DAILY 02/12/20 02/12/20 02/12/20 [Vitamin B-6] Previous Rx's Medication Instructions Recorded Last Taken Type Metoprolol [Lopressor TAB] 25 mg PO BID #60 tablet 02/17/20 Unknown Rx Ondansetron HCl [Zofran] 4 mg PO TID PRN #20 tablet 02/17/20 Unknown Rx Valsartan [Diovan] 160 mg PO BID #60 tablet 02/17/20 Unknown Rx oxyCODONE /ACETAMINOPHEN [Percocet 1 tab PO Q6H PRN #20 tablet 02/17/20 Unknown Rx 5/325 mg] Allergies Allergy/AdvReac Type Severity Reaction Status Date / Time hydromorphone [From Dilaudid] AdvReac Headache Verified 02/12/20 18:28 ED Review of Systems ROS: Stated complaint: LOWER ABDOMINAL PAIN Other details as noted in HPI Constitutional: weakness. denies: chills, fever Eyes: denies: eye pain, vision change ENT: denies: ear pain, throat pain Respiratory: denies: cough, shortness of breath Cardiovascular: denies: chest pain, palpitations Endocrine: no symptoms reported Gastrointestinal: abdominal pain, nausea. denies: diarrhea Genitourinary: denies: urgency, dysuria Musculoskeletal: denies: back pain, myalgia Skin: denies: rash, lesions Neurological: denies: headache, weakness, paresthesias Psychiatric: as per HPI. denies: anxiety Hematological/Lymphatic: denies: easy bleeding, easy bruising ED Past Medical Hx - Past Medical History Previous Medical History?: Yes Hx Hypertension: Yes Hx Congestive Heart Failure: No Hx Diabetes: No Hx Deep Vein Thrombosis: (UNKNOWN) Hx Seizures: No (headaches) Hx Kidney Stones: Yes Hx Asthma: No Hx COPD: No Additional medical history: Breast CA, Stage 4 non hodgkin's lymphoma - Surgical History Past Surgical History?: Yes Hx Pacemaker: No Hx Internal Defibrillator: No Hx Cholecystectomy: Yes Additional Surgical History: 3 , double mastectomy, parathyroidectomy, sigmoidectomy - Social History Smoking Status: Never Smoker Substance Use Type: None - Medications Home Medications: Home Medications Medication Instructions Recorded Confirmed Last Taken Type Ascorbic Acid [Vitamin C] 1,000 mg PO DAILY 02/12/20 02/12/20 02/12/20 History Cholecalciferol (Vitamin D3) 5,000 unit PO DAILY 02/12/20 02/12/20 02/12/20 History [Vitamin D3] Cyanocobalamin (Vitamin B-12) 1,000 mcg PO DAILY 02/12/20 02/12/20 02/12/20 History [Vitamin B-12] Magnesium Amino Acid Chelate 100 mg PO DAILY 02/12/20 02/12/20 02/12/20 History [Magnesium] Pyridoxine HCl (Vitamin B6) 250 mg PO DAILY 02/12/20 02/12/20 02/12/20 History [Vitamin B-6] Metoprolol [Lopressor TAB] 25 mg PO BID #60 tablet 02/17/20 Unknown Rx Ondansetron HCl [Zofran] 4 mg PO TID PRN #20 tablet 02/17/20 Unknown Rx Valsartan [Diovan] 160 mg PO BID #60 tablet 02/17/20 Unknown Rx oxyCODONE /ACETAMINOPHEN [Percocet 1 tab PO Q6H PRN #20 tablet 02/17/20 Unknown Rx 5/325 mg] ED Physical Exam - General Limitations: Physical Limitation, Other (Poor cooperation) General appearance: alert, in no apparent distress - Head Head exam: Present: atraumatic, normocephalic - Eye Eye exam: Present: normal appearance. Absent: scleral icterus - ENT ENT exam: Present: mucous membranes moist - Neck Neck exam: Present: normal inspection - Respiratory Respiratory exam: Present: normal lung sounds bilaterally. Absent: respiratory distress - Cardiovascular Cardiovascular Exam: Present: regular rate, normal rhythm. Absent: systolic murmur, diastolic murmur, rubs, gallop - GI/Abdominal GI/Abdominal exam: Present: soft, normal bowel sounds. Absent: distended, tenderness, guarding, rebound, rigid - Extremities Exam Extremities exam: Present: normal inspection. Absent: calf tenderness - Back Exam Back exam: Present: other (Not evaluated) - Neurological Exam Neurological exam: Present: alert, oriented X3, other (Do not believe the patient has any acute focal deficits. However, she does not want to cooperate with neurological examination at this point.) - Psychiatric Psychiatric exam: Present: depressed, flat affect - Skin Skin exam: Present: warm, dry, intact, normal color. Absent: rash ED Course Vital Signs 06/14/20 06/14/20 06/14/20 06:19 06:23 06:31 Temperature 98.1 F Pulse Rate 62 66 Respiratory 14 20 Rate Blood Pressure 215/110 Blood Pressure 215/110 [Left] O2 Sat by Pulse 100 100 100 Oximetry 06/14/20 06/14/20 06/14/20 06:46 07:01 07:15 Temperature Pulse Rate 56 L 57 L 56 L Respiratory 20 14 11 L Rate Blood Pressure 215/110 215/110 228/111 Blood Pressure [Left] O2 Sat by Pulse 99 100 100 Oximetry 06/14/20 06/14/20 06/14/20 07:26 07:31 07:45 Temperature 98.1 F Pulse Rate 54 L 55 L 56 L Respiratory 15 17 16 Rate Blood Pressure 228/111 228/111 Blood Pressure 228/111 [Left] O2 Sat by Pulse 100 99 99 Oximetry 06/14/20 06/14/20 06/14/20 08:01 08:13 08:15 Temperature Pulse Rate 52 L 54 L 54 L Respiratory 17 11 L 13 Rate Blood Pressure 228/111 171/95 Blood Pressure 171/95 [Left] O2 Sat by Pulse 99 96 96 Oximetry 06/14/20 06/14/20 06/14/20 08:31 08:45 09:00 Temperature Pulse Rate 53 L 52 L 53 L Respiratory 11 L 16 18 Rate Blood Pressure 164/97 164/93 169/98 Blood Pressure [Left] O2 Sat by Pulse 97 98 100 Oximetry 06/14/20 06/14/20 06/14/20 10:01 10:43 11:01 Temperature Pulse Rate 52 L 56 L 56 L Respiratory 10 L 15 16 Rate Blood Pressure 171/96 144/88 Blood Pressure 144/88 [Left] O2 Sat by Pulse 100 98 99 Oximetry 06/14/20 11:16 Temperature Pulse Rate Respiratory Rate Blood Pressure Blood Pressure 133/89 [Left] O2 Sat by Pulse Oximetry - Reevaluation(s) Reevaluation #1: I spoke with Dr. Arteaga due to the patient's oncologist. She gave me additional information. Patient has recently been given Cytoxan, DEICER REPAIRER-16 and prednisone. She was not a candidate for Adriamycin because she had this in the past. She stated that the patient has actually been to the ER on several occasions for a variety of complaints but not this emergency department. She had a syncopal episode in the office. She has been noted to have a labile blood pressure. She is perhaps suffering from depression. Dr. Arteaga did verify that we should indeed be using the patient's port for fluids medication blood draw and contrast administration as appropriate. She stated that there is no contraindication to using this port and that we should do so. The patient's primary nurse did express to me hesitancy and using the port that already had been accessed. She stated that the patient told her that her oncologist directed her not to use the port. Again her oncologist stated that this is not the case clearly. 06/14/20 07:50 Reevaluation #2: Patient symptoms resolved. Given p.o. and tolerated. Supplemental potassium. 06/14/20 11:31 ED Medical Decision Making - Lab Data Result diagrams: 06/14/20 07:13 06/14/20 07:13 Laboratory Results - last 24 hr 06/14/20 06/14/20 06/14/20 07:13 07:13 07:13 WBC 5.6 RBC 4.02 Hgb 12.0 Hct 34.9 MCV 87 MCH 30 MCHC 34 RDW 19.8 H Plt Count 208 Lymph % (Auto) 19.4 Rabun % (Auto) 2.1 Eos % (Auto) 3.4 Baso % (Auto) 0.7 Lymph # (Auto) 1.1 L Rabun # (Auto) 0.1 Eos # (Auto) 0.2 Baso # (Auto) 0.0 Seg Neutrophils % 74.4 H Seg Neutrophils # 4.2 PT 12.6 INR 0.95 APTT 31.3 Sodium 139 Potassium 3.2 L Chloride 105.0 Carbon Dioxide 22 Anion Gap 15 BUN 22 H Glucose 91 Lactic Acid Calcium 7.8 L Magnesium 2.20 Total Bilirubin 0.50 AST 17 ALT 16 Alkaline Phosphatase 82 Total Creatine Kinase 37 CK-MB (CK-2) 3.9 CK-MB (CK-2) Rel Index 10.5 H Troponin T < 0.010 NT-Pro-B Natriuret Pep 163.8 Total Protein 6.5 Albumin 3.9 Albumin/Globulin Ratio 1.5 Lipase 42 Urine Color Urine Turbidity Urine pH Ur Specific Archbald Urine Protein Urine Glucose (UA) Urine Ketones Urine Blood Urine Nitrite Urine Bilirubin Urine Urobilinogen Ur Leukocyte Esterase Urine WBC (Auto) Urine RBC (Auto) U Epithel Cells (Auto) 06/14/20 06/14/20 07:13 Unknown WBC RBC Hgb Hct MCV MCH MCHC RDW Plt Count Lymph % (Auto) Rabun % (Auto) Eos % (Auto) Baso % (Auto) Lymph # (Auto) Rabun # (Auto) Eos # (Auto) Baso # (Auto) Seg Neutrophils % Seg Neutrophils # PT INR APTT Sodium Potassium Chloride Carbon Dioxide Anion Gap BUN Glucose Lactic Acid 1.10 Calcium Magnesium Total Bilirubin AST ALT Alkaline Phosphatase Total Creatine Kinase CK-MB (CK-2) CK-MB (CK-2) Rel Index Troponin T NT-Pro-B Natriuret Pep Total Protein Albumin Albumin/Globulin Ratio Lipase Urine Color Colorless Urine Turbidity Clear Urine pH 7.0 Ur Specific Archbald 1.006 Urine Protein <15 mg/dl Urine Glucose (UA) Neg Urine Ketones Neg Urine Blood Neg Urine Nitrite Neg Urine Bilirubin Neg Urine Urobilinogen < 2.0 Ur Leukocyte Esterase Neg Urine WBC (Auto) < 1.0 Urine RBC (Auto) < 1.0 U Epithel Cells (Auto) < 1.0 - Radiology Data Radiology results: report reviewed FINDINGS: LOWER CHEST: Stable tiny subpleural nodule in the left lower lobe. Lung bases are otherwise clear. LIVER: No significant abnormality GALLBLADDER/BILIARY TREE: Cholecystectomy. PANCREAS: No significant abnormality SPLEEN: No significant abnormality ADRENALS: No significant abnormality KIDNEYS / URETER: Bilateral nephrolithiasis. No urolithiasis or hydronephrosis. URINARY BLADDER: No significant abnormality REPRODUCTIVE ORGANS: Uterus is absent. No significant adnexal abnormality. STOMACH / SMALL BOWEL: Postoperative changes of gastric bypass again noted. No bowel obstruction or inflammation. COLON: Interval postsurgical changes related to partial sigmoidectomy and primary anastomosis. Moderate amount of stool seen throughout the colon. No colonic wall thickening or pericolonic inflammatory stranding. No discrete recurrent colonic mass identified. The appendix is normal in caliber. LYMPH NODES: No significant adenopathy. VASCULATURE: Mild atherosclerotic calcification without acute abnormality. OTHER: No free air, free fluid, or focal fluid collection is identified. Postoperative changes of the abdominal wall without evidence of hernia. SKELETAL SYSTEM: Mild scattered degenerative changes of the spine. No acute osseous findings. IMPRESSION: 1. Postoperative changes of partial sigmoid resection. No evidence of local recurrence or metastatic disease. 2. No acute process of the abdomen or pelvis. 3. Stable tiny subpleural nodule in the left lower lobe, favored to be benign. 4. Other stable chronic and incidental findings as above. Critical care attestation.: If time is entered above; I have spent that time in minutes in the direct care of this critically ill patient, excluding procedure time. ED Disposition Clinical Impression: History of lymphoma, Hypokalemia, Hypocalcemia Abdominal pain Qualifiers: Abdominal location: unspecified location Qualified Code(s): R10.9 - Unspecified abdominal pain Disposition: TO HOME OR SELFCARE Is pt being admited?: No Does the pt Need Aspirin: No Condition: Stable Instructions: Abdominal Pain (ED), Hypokalemia, Abdominal Pain, Adult, [id number] Additional Instructions: Return any acute change or problem. Follow-up with your oncologist and primary care. I would recommend a calcium magnesium zinc type supplement and monitoring of your blood potassium which has been low in the past as well as a higher content potassium diet. Referrals: PRIMARY CARE, [Primary Care Provider] - 3-5 Days TOÑITO ARTEAGA MD [Staff Physician] - 2-3 Days Time of Disposition: 11:30
[2020-06-14 07:04] LABS: Bilirubin,Urine NEG (Negative); Blood,Urine NEG (Negative); Color,Urine Colorless (Yellow); Protein,Urine <15 mg/dL mg/dL (Negative); RBC,Urine < 1.0 /HPF (0.0-6.0); Urobilinogen,Urine < 2.0 mg/dL (<2.0); WBC,Urine < 1.0 /HPF (0.0-6.0)
[2020-06-14] MEDS ORDERED: fentaNYL 100 MCG/2 ML INJ IV ONE (07:07)
[2020-06-14] MEDS ORDERED: ONDANSETRON 4 MG/2 ML INJ IV ONE (07:07)
[2020-06-14 07:40] LABS: Basophils % (Auto) 0.7 % (0.0-1.8); Eosinophils # (Auto) 0.2 K/mm3 (0.0-0.4); Eosinophils % (Auto) 3.4 % (0.0-4.3); Hematocrit 34.9 % (30.3-42.9); Lymphocytes # (Auto) 1.1 K/mm3 (1.2-5.4); Lymphocytes % (Auto) 19.4 % (13.4-35.0); Mean Corpuscular HGB Conc 34 % (30-34); Mean Corpuscular Volume 87 fl (79-97); Monocytes # (Auto) 0.1 K/mm3 (0.0-0.8); Monocytes % (Auto) 2.1 % (0.0-7.3); Platelet Count 208 K/mm3 (140-440); Red Blood Count 4.02 M/mm3 (3.65-5.03); Red Cell Distribution Width 19.8 % (13.2-15.2)
[2020-06-14 07:54] LABS: INR 0.95 (0.87-1.13)
[2020-06-14 07:55] LABS: Partial Thromboplastin Time 31.3 Sec. (24.2-36.6)
--- NOTE | 2020-06-14 07:56 | XRay Report ---
CHEST 1 VIEW INDICATION: hypertension. COMPARISON: 02/14/2020 FINDINGS: Support devices: A right jugular [id number] has been inserted since the previous exam which termin ates near the cavoatrial junction Heart: Within normal limits. Lungs/Pleura: No acute air space or interstitial disease. Additional findings: Stable surgical clips overlying the left breast region. IMPRESSION: No acute findings. Signer Name: Rickie Torres Jr, MD Signed: 06/14/2020 7:51 AM Workstation Name: [id number]
[2020-06-14 08:07] LABS: Creatine Kinase MB 3.9 ng/mL (0.0-4.0)
[2020-06-14 08:11] LABS: Alanine Aminotransferase 16 units/L (7-56); Albumin 3.9 g/dL (3.9-5); Blood Urea Nitrogen 22 mg/dL (7-17); Calcium 7.8 mg/dL (8.4-10.2); Hemolysis Index 11
[2020-06-14 08:28] LABS: BUN/Creatinine Ratio 31; Bilirubin,Direct < 0.2 mg/dL (0-0.2)
--- NOTE | 2020-06-14 09:43 | Cat Scan Report ---
CT ABDOMEN AND PELVIS WITH CONTRAST INDICATION / CLINICAL INFORMATION: History of sigmoid mass TECHNIQUE: Axial CT images were obtained through the abdomen and pelvis after IV contrast. All CT sc ans at this location are performed using CT dose reduction for ALARA by means of automated exposure c ontrol. COMPARISON: CT dated 02/12/2020. FINDINGS: LOWER CHEST: Stable tiny subpleural nodule in the left lower lobe. Lung bases are otherwise clear. LIVER: No significant abnormality GALLBLADDER/BILIARY TREE: Cholecystectomy. PANCREAS: No significant abnormality SPLEEN: No significant abnormality ADRENALS: No significant abnormality KIDNEYS / URETER: Bilateral nephrolithiasis. No urolithiasis or hydronephrosis. URINARY BLADDER: No significant abnormality REPRODUCTIVE ORGANS: Uterus is absent. No significant adnexal abnormality. STOMACH / SMALL BOWEL: Postoperative changes of gastric bypass again noted. No bowel obstruction or i nflammation. COLON: Interval postsurgical changes related to partial sigmoidectomy and primary anastomosis. Modera te amount of stool seen throughout the colon. No colonic wall thickening or pericolonic inflammatory stranding. No discrete recurrent colonic mass identified. The appendix is normal in caliber. LYMPH NODES: No significant adenopathy. VASCULATURE: Mild atherosclerotic calcification without acute abnormality. OTHER: No free air, free fluid, or focal fluid collection is identified. Postoperative changes of the abdominal wall without evidence of hernia. SKELETAL SYSTEM: Mild scattered degenerative changes of the spine. No acute osseous findings. IMPRESSION: 1. Postoperative changes of partial sigmoid resection. No evidence of local recurrence or metastatic disease. 2. No acute process of the abdomen or pelvis. 3. Stable tiny subpleural nodule in the left lower lobe, favored to be benign. 4. Other stable chronic and incidental findings as above. Signer Name: Bakari Puri MD Signed: 06/14/2020 9:38 AM Workstation Name: [id number]
[2020-06-14] MEDS ORDERED: POTASSIUM CHLORIDE ER 20 MEQ TAB PO ONE (11:16)
[2020-06-14 11:17] VITALS: BP 133/89
== END 2020-06-14 12:00 | disposition home or self-care (01) ==
LOC: ED 06:08
DX: E83.51 Hypocalcemia (principal); E87.6 Hypokalemia; R10.30 Lower abdominal pain, unspecified; I10 Essential (primary) hypertension; Z79.899 Other long term (current) drug therapy; Z88.8 Allergy status to other drugs, medicaments and biological substances; Z98.890 Other specified postprocedural states; Z85.79 Personal history of other malignant neoplasms of lymphoid, hematopoietic and related tissues
CPT/HCPCS: 36415; 71045; 74177; 80048; 80076; 81001; 82140; 82550; 82553; 83690; 83735; 83880; 84484; 85025; 85610; 85730; 86850; 86900; 86901; 87040; 87086; 96374; 96375; 99285; J1642; J2405; J3010; Q9967

== ENCOUNTER 2020-06-26 17:07 | Emergency (ER) | payer SELFPAY ==
[2020-06-26] MEDS ORDERED: SODIUM CHLORIDE 0.9% 1000 ML 1,000 ML IV ONE (18:15)
[2020-06-26] MEDS ORDERED: methylPREDNISolone Sod Succinate 125 MG/2 ML INJ IV ONE (18:15)
[2020-06-26] MEDS ORDERED: KETOROLAC 30 MG/1 ML INJ IV ONE (18:15)
[2020-06-26] MEDS ORDERED: diphenhydrAMINE 50 MG/ML VIAL IV ONE (18:15)
[2020-06-26] MEDS ORDERED: METOCLOPRAMIDE 10 MG/2 ML INJ IV ONE (18:15)
--- NOTE | 2020-06-26 18:22 | Emergency Department Report ---
ED Headache HPI - General Chief Complaint: Headache Stated Complaint: HEADACHE Time Seen by Provider: 06/26/20 18:00 Source: patient - History of Present Illness Initial Comments: 59-year-old female, history of hypertension, breast cancer status post double mastectomy, stage IV lymphoma, presents to ED with complaint of headache since yesterday. Patient states pain came on gradually throughout the day yesterday. She states that the pain is located in bilateral retro-orbital areas and also in the bridge of her nose. She describes pain as constant and dull. She denies any nausea or vomiting, fever, congestion, sneezing, runny nose, neck pain, extremity numbness or weakness. Patient denies history of headaches. States pain is worse with light. Patient denies any vision changes. Patient reports taking ibuprofen and oxycodone for pain at home. Patient is currently undergoing chemotherapy for her lymphoma. States her last treatment was 20 days ago. Patient is due to have chemo again tomorrow. Timing/Duration: 24 hours Quality: severe Modifying Factors: worse with: exposure to light Associated Symptoms: facial pain. denies: fever/chills, loss of consciousness, nausea/vomiting, nasal congestion, nasal drainage, numbness in legs/feet, sinus infection, stiff neck, vision changes Allergies/Adverse Reactions: Allergies hydromorphone [From Dilaudid] Adverse Reaction (Verified 02/12/20 18:28) Headache hallucinations Home Medications: Ambulatory Orders Ascorbic Acid [Vitamin C] 1,000 mg PO DAILY 02/12/20 Cholecalciferol (Vitamin D3) [Vitamin D3] 5,000 unit PO DAILY 02/12/20 Cyanocobalamin (Vitamin B-12) [Vitamin B-12] 1,000 mcg PO DAILY 02/12/20 Magnesium Amino Acid Chelate [Magnesium] 100 mg PO DAILY 02/12/20 Pyridoxine HCl (Vitamin B6) [Vitamin B-6] 250 mg PO DAILY 02/12/20 Metoprolol [Lopressor TAB] 25 mg PO BID #60 tablet 02/17/20 Ondansetron HCl [Zofran] 4 mg PO TID PRN #20 tablet 02/17/20 Valsartan [Diovan] 160 mg PO BID #60 tablet 02/17/20 oxyCODONE /ACETAMINOPHEN [Percocet 5/325 mg] 1 tab PO Q6H PRN #20 tablet 02/17/20 Butalb/Acetamin/Caff 50-325-40 [Fioricet] 1 tab PO Q6HR PRN #10 tab 06/26/20 ED Review of Systems ROS: Stated complaint: HEADACHE Other details as noted in HPI Comment: All other systems reviewed and negative Constitutional: denies: chills, fever Eyes: eye pain. denies: vision change ENT: denies: congestion Gastrointestinal: denies: nausea, vomiting Neurological: headache. denies: weakness, numbness, paresthesias ED Past Medical Hx - Past Medical History Previous Medical History?: Yes Hx Hypertension: Yes Hx Congestive Heart Failure: No Hx Diabetes: No Hx Deep Vein Thrombosis: (UNKNOWN) Hx of Cancer: Yes Hx Seizures: No (headaches) Hx Kidney Stones: Yes Hx Asthma: No Hx COPD: No Additional medical history: Breast CA, Stage 4 non hodgkin's lymphoma, headaches - Surgical History Hx Pacemaker: No Hx Internal Defibrillator: No Hx Cholecystectomy: Yes Additional Surgical History: 3 , double mastectomy, parathyroidectomy, sigmoidectomy, mediport right chest wall - Social History Smoking Status: Never Smoker Substance Use Type: None - Medications Home Medications: Home Medications Medication Instructions Recorded Confirmed Last Taken Type Ascorbic Acid [Vitamin C] 1,000 mg PO DAILY 02/12/20 02/12/20 02/12/20 History Cholecalciferol (Vitamin D3) 5,000 unit PO DAILY 02/12/20 02/12/20 02/12/20 History [Vitamin D3] Cyanocobalamin (Vitamin B-12) 1,000 mcg PO DAILY 02/12/20 02/12/20 02/12/20 History [Vitamin B-12] Magnesium Amino Acid Chelate 100 mg PO DAILY 02/12/20 02/12/20 02/12/20 History [Magnesium] Pyridoxine HCl (Vitamin B6) 250 mg PO DAILY 02/12/20 02/12/20 02/12/20 History [Vitamin B-6] Metoprolol [Lopressor TAB] 25 mg PO BID #60 tablet 02/17/20 Unknown Rx Ondansetron HCl [Zofran] 4 mg PO TID PRN #20 tablet 02/17/20 Unknown Rx Valsartan [Diovan] 160 mg PO BID #60 tablet 02/17/20 Unknown Rx oxyCODONE /ACETAMINOPHEN [Percocet 1 tab PO Q6H PRN #20 tablet 02/17/20 Unknown Rx 5/325 mg] Butalb/Acetamin/Caff 50-325-40 1 tab PO Q6HR PRN #10 tab 06/26/20 Unknown Rx [Fioricet] ED Physical Exam - General Limitations: No Limitations General appearance: alert, in no apparent distress - Head Head exam: Present: atraumatic, normocephalic - Eye Eye exam: Present: normal appearance, PERRL, EOMI - ENT ENT exam: Present: mucous membranes moist - Neck Neck exam: Present: normal inspection. Absent: meningismus - Respiratory Respiratory exam: Present: normal lung sounds bilaterally. Absent: respiratory distress - Cardiovascular Cardiovascular Exam: Present: regular rate, normal rhythm - GI/Abdominal GI/Abdominal exam: Present: soft. Absent: distended, tenderness - Extremities Exam Extremities exam: Present: normal inspection - Neurological Exam Neurological exam: Present: alert, oriented X3, CN II-XII intact. Absent: motor sensory deficit - Psychiatric Psychiatric exam: Present: normal affect, normal mood - Skin Skin exam: Present: warm, dry, intact, normal color ED Course Vital Signs 06/26/20 06/26/20 06/26/20 18:01 18:02 18:33 Temperature 97.5 F L Pulse Rate 63 65 Respiratory 18 18 18 Rate Blood Pressure Blood Pressure 144/87 189/106 [Left] O2 Sat by Pulse 99 99 97 Oximetry 06/26/20 06/26/20 06/26/20 19:03 19:23 19:36 Temperature 97.8 F Pulse Rate 60 58 L Respiratory 16 19 Rate Blood Pressure 203/103 Blood Pressure 204/103 [Left] O2 Sat by Pulse 97 Oximetry 06/26/20 06/26/20 06/26/20 20:00 20:24 21:51 Temperature Pulse Rate 57 L 56 L Respiratory 21 Rate Blood Pressure 203/103 181/102 Blood Pressure 190/97 [Left] O2 Sat by Pulse 98 100 Oximetry 06/26/20 22:23 Temperature Pulse Rate 56 L Respiratory 18 Rate Blood Pressure Blood Pressure 170/100 [Left] O2 Sat by Pulse 100 Oximetry - Reevaluation(s) Reevaluation #1: 06/26/20 19:27 IV fluids and meds given. States pain is improved. Reevaluation #2: 06/26/20 20:25 Patient states headache has resolved. He was feeling much better. Nighttime dose of metoprolol given due to elevated blood pressure. Patient reports she did take her metoprolol this morning. Patient reports her blood pressure has been running high lately. ED Medical Decision Making - Lab Data Result diagrams: 06/26/20 18:30 06/26/20 18:30 - Radiology Data Radiology results: report reviewed, image reviewed - Medical Decision Making 59-year-old female, history of hypertension, breast cancer status post double mastectomy, stage IV lymphoma, presents to ED with complaint of headache since yesterday. Initial blood pressure was borderline high, however subsequent blood pressures since then have been elevated. Remainder of vitals normal. I suspect the initial blood pressure was incorrect. Patient with normal neuro exam. CT head negative for any acute findings. Patient was given fluids, Reglan, Benadryl, Toradol. She reported relief of her headache following admin istration of these medications. Blood pressure remained elevated. She was given her usual p.o. metoprolol which did not improve her blood pressure significantly. Patient was then given clonidine, after which she shows mild improvement of her blood pressure. Patient will be discharged at this time. She has been patient advised to follow-up with her physician for BP management. Patient will be given prescription for Fioricet. Return precautions given. - Differential Diagnosis Intracranial mass, hypertensive headache, migraine headache Critical care attestation.: If time is entered above; I have spent that time in minutes in the direct care of this critically ill patient, excluding procedure time. ED Disposition Clinical Impression: Acute headache, Uncontrolled hypertension Disposition: TO HOME OR SELFCARE Is pt being admited?: No Condition: Stable Instructions: General Headache Without Cause, [id number], Managing Your Hypertension, Hypertension (ED) Prescriptions: Butalb/Acetamin/Caff 50-325-40 [Fioricet] 1 tab PO Q6HR PRN #10 tab PRN Reason: Headache Referrals: PRIMARY CARE, [Primary Care Provider] - 2-3 Days Time of Disposition: 22:30
--- NOTE | 2020-06-26 19:05 | Cat Scan Report ---
CT HEAD WITHOUT CONTRAST INDICATION / CLINICAL INFORMATION: Headache; hx stage 4 lymphoma; hx breast CA. TECHNIQUE: All CT scans at this location are performed using CT dose reduction for ALARA by means of automated e xposure control. COMPARISON: Head CT 08/13/2019 FINDINGS: HEMORRHAGE: No evidence of intracranial hemorrhage or extra-axial fluid collection. EXTRA-AXIAL SPACES: Cortical sulci, sylvian fissures and basilar cisterns have an unremarkable appear ance. VENTRICULAR SYSTEM: The third and lateral ventricles are of normal size and configuration. CEREBRAL PARENCHYMA: An area of decreased brain parenchymal attenuation deep to the right insular cor nora likely represents a sequelae of remote small deep infarction. A similar finding was present on pr evious study. MIDLINE SHIFT OR HERNIATION: There is no mass effect. CEREBELLUM / BRAINSTEM: Brainstem and cerebellum have an unremarkable appearance. MIDLINE STRUCTURES:No abnormalities of the pituitary gland or pineal region are identified. INTRACRANIAL VESSELS:No abnormalities are identified on this noncontrast head CT. ORBITS: visualized portions of the orbits have an unremarkable appearance. SOFT TISSUES of HEAD: No significant abnormality. CALVARIUM: Evaluation of bone windows reveals no abnormalities. PARANASAL SINUSES / MASTOID AIR CELLS: Visualized portions of the paranasal sinuses are free from inf lammatory mucosal disease. Mastoid air cells are normally pneumatized. IMPRESSION: 1. No acute intracranial abnormality. No significant interval change. Signer Name: Americo Gill MD Signed: 06/26/2020 7:01 PM Workstation Name: [id number]
[2020-06-26 19:21] LABS: Hematocrit 40.4 % (30.3-42.9); Hemoglobin 13.8 gm/dl (10.1-14.3); Mean Corpuscular HGB Conc 34 % (30-34); Mean Corpuscular Volume 89 fl (79-97); Platelet Count 231 K/mm3 (140-440); Red Blood Count 4.56 M/mm3 (3.65-5.03); Red Cell Distribution Width 17.4 % (13.2-15.2)
[2020-06-26] MEDS ORDERED: METOPROLOL TARTRATE 50 MG TAB PO ONE (19:28)
[2020-06-26 19:34] LABS: BUN/Creatinine Ratio 19; Blood Urea Nitrogen 17 mg/dL (7-17); Calcium 8.6 mg/dL (8.4-10.2); Hemolysis Index 7
[2020-06-26] MEDS ORDERED: cloNIDine 0.2 MG TAB PO ONE (21:25)
[2020-06-26 22:04] LABS: Band Neutrophils # (Manual) 0.1 K/mm3; Ovalocytes Few; Total Cells Counted 100
[2020-06-26 22:05] LABS: Platelet Estimate Consistent w Auto
[2020-06-26 22:23] VITALS: BP 170/100
== END 2020-06-26 22:54 | disposition home or self-care (01) ==
LOC: ED 17:07
DX: I10 Essential (primary) hypertension (principal); R51.9 Headache, unspecified; Z98.890 Other specified postprocedural states; Z88.0 Allergy status to penicillin; Z90.49 Acquired absence of other specified parts of digestive tract; Z79.899 Other long term (current) drug therapy
CPT/HCPCS: 36415; 70450; 80048; 85007; 85025; 96361; 96374; 96375; 99284; J1200; J1885; J2765; J2930; J7030

== ENCOUNTER 2020-07-15 05:02 | Emergency (ER) | payer SELFPAY ==
[2020-07-15 06:15] LABS: Hematocrit 39.2 % (30.3-42.9); Hemoglobin 13.5 gm/dl (10.1-14.3); Mean Corpuscular HGB Conc 35 % (30-34); Mean Corpuscular Volume 90 fl (79-97); Platelet Count 262 K/mm3 (140-440); Red Blood Count 4.37 M/mm3 (3.65-5.03); Red Cell Distribution Width 15.2 % (13.2-15.2)
[2020-07-15 06:38] LABS: Albumin 4.5 g/dL (3.9-5); Calcium 8.6 mg/dL (8.4-10.2)
[2020-07-15 07:03] LABS: Total Cells Counted 50
[2020-07-15 07:04] LABS: Anisocytosis 1+; Ovalocytes Few; Platelet Estimate Consistent w Auto; Poikilocytosis 1+
[2020-07-15] MEDS ORDERED: MORPHINE 4 MG/1 ML INJ IV ONE (10:50)
[2020-07-15] MEDS ORDERED: ONDANSETRON 4 MG/2 ML INJ IV ONE ×2 (10:50→14:14)
[2020-07-15] MEDS ORDERED: SODIUM CHLORIDE 0.9% 1000 ML 1,000 ML IV ONE ×2 (10:50→14:14)
--- NOTE | 2020-07-15 10:54 | Emergency Department Report ---
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 Patient presented to the ER complaining of generalized weakness, nausea and vomiting for the last 2 days. Patient stated that she is currently on chemotherapy last dose was 3 weeks ago. Patient is followed by Dr. Arteaga. Patient denied any fever or chills. She denied any cough, shortness of breath or chest pain. Patient is also complaining of headache however stating that this is similar headache that she has been seen for be before. She is also complaining of generalized body ache. MD Complaint: generalized weakness -: days(s) (2) Location: generalized Associated Symptoms: denies other symptoms - Related Data Home Medications Medication Instructions Recorded Confirmed Last Taken Ascorbic Acid [Vitamin C] 1,000 mg PO DAILY 02/12/20 02/12/20 02/12/20 Cholecalciferol (Vitamin D3) 5,000 unit PO DAILY 02/12/20 02/12/20 02/12/20 [Vitamin D3] Cyanocobalamin (Vitamin B-12) 1,000 mcg PO DAILY 02/12/20 02/12/20 02/12/20 [Vitamin B-12] Magnesium Amino Acid Chelate 100 mg PO DAILY 02/12/20 02/12/20 02/12/20 [Magnesium] Pyridoxine HCl (Vitamin B6) 250 mg PO DAILY 02/12/20 02/12/20 02/12/20 [Vitamin B-6] Previous Rx's Medication Instructions Recorded Last Taken Type Metoprolol [Lopressor TAB] 25 mg PO BID #60 tablet 02/17/20 Unknown Rx Ondansetron HCl [Zofran] 4 mg PO TID PRN #20 tablet 02/17/20 Unknown Rx Valsartan [Diovan] 160 mg PO BID #60 tablet 02/17/20 Unknown Rx oxyCODONE /ACETAMINOPHEN [Percocet 1 tab PO Q6H PRN #20 tablet 02/17/20 Unknown Rx 5/325 mg] Butalb/Acetamin/Caff 50-325-40 1 tab PO Q6HR PRN #10 tab 03/29/21 Unknown Rx [Fioricet] Allergies Allergy/AdvReac Type Severity Reaction Status Date / Time hydromorphone [From Dilaudid] AdvReac Headache Verified 02/12/20 18:28 ED Review of Systems ROS: Stated complaint: WEAKNESS Other details as noted in HPI Comment: All other systems reviewed and negative Constitutional: denies: chills, fever Respiratory: denies: cough, orthopnea, shortness of breath, SOB with exertion, SOB at rest, wheezing Cardiovascular: denies: chest pain, palpitations Gastrointestinal: nausea, vomiting. denies: abdominal pain, diarrhea, constipation, hematemesis, melena, hematochezia Genitourinary: denies: urgency, dysuria Neurological: headache, weakness. denies: numbness, paresthesias, confusion, abnormal gait ED Past Medical Hx - Past Medical History Hx Hypertension: Yes Hx Congestive Heart Failure: No Hx Diabetes: No Hx Deep Vein Thrombosis: (UNKNOWN) Hx of Cancer: Yes (breast, non-hodgkins lymphoma) Hx Seizures: No (headaches) Hx Kidney Stones: Yes Hx Asthma: No Hx COPD: No Additional medical history: Breast CA, Stage 4 non hodgkin's lymphoma, headaches - Surgical History Hx Pacemaker: No Hx Internal Defibrillator: No Hx Cholecystectomy: Yes Additional Surgical History: 3 , double mastectomy, parathyroidectomy, sigmoidectomy, mediport right chest wall - Social History Smoking Status: Never Smoker - Medications Home Medications: Home Medications Medication Instructions Recorded Confirmed Last Taken Type Ascorbic Acid [Vitamin C] 1,000 mg PO DAILY 02/12/20 02/12/20 02/12/20 History Cholecalciferol (Vitamin D3) 5,000 unit PO DAILY 02/12/20 02/12/20 02/12/20 History [Vitamin D3] Cyanocobalamin (Vitamin B-12) 1,000 mcg PO DAILY 02/12/20 02/12/20 02/12/20 History [Vitamin B-12] Magnesium Amino Acid Chelate 100 mg PO DAILY 02/12/20 02/12/20 02/12/20 History [Magnesium] Pyridoxine HCl (Vitamin B6) 250 mg PO DAILY 02/12/20 02/12/20 02/12/20 History [Vitamin B-6] Metoprolol [Lopressor TAB] 25 mg PO BID #60 tablet 02/17/20 Unknown Rx Ondansetron HCl [Zofran] 4 mg PO TID PRN #20 tablet 02/17/20 Unknown Rx Valsartan [Diovan] 160 mg PO BID #60 tablet 02/17/20 Unknown Rx oxyCODONE /ACETAMINOPHEN [Percocet 1 tab PO Q6H PRN #20 tablet 02/17/20 Unknown Rx 5/325 mg] Butalb/Acetamin/Caff 50-325-40 1 tab PO Q6HR PRN #10 tab 06/26/20 Unknown Rx [Fioricet] ED Physical Exam - General Limitations: No Limitations General appearance: alert, in no apparent distress - ENT ENT exam: Present: mucous membranes dry - Neck Neck exam: Present: normal inspection, full ROM. Absent: tenderness, meningismus - Respiratory Respiratory exam: Present: normal lung sounds bilaterally - Cardiovascular Cardiovascular Exam: Present: regular rate, normal rhythm, normal heart sounds - GI/Abdominal GI/Abdominal exam: Present: soft, normal bowel sounds. Absent: distended, tenderness, guarding, rebound, rigid, organomegaly, mass, bruit, pulsatile mass - Extremities Exam Extremities exam: Present: normal inspection, full ROM, normal capillary refill. Absent: calf tenderness - Back Exam Back exam: Present: normal inspection, full ROM. Absent: CVA tenderness (R), CVA tenderness (L) - Neurological Exam Neurological exam: Present: alert, oriented X3, CN II-XII intact - Psychiatric Psychiatric exam: Present: normal mood - Skin Skin exam: Present: warm, dry, intact, normal color ED Course Vital Signs 07/15/20 05:27 Temperature 97.9 F Pulse Rate 73 Respiratory 18 Rate Blood Pressure 134/90 O2 Sat by Pulse 97 Oximetry - Consultations Consultation #1: 07/15/20 11:42 I discussed the patient with Dr. Wheatley, oncologist on-call for Dr. Arteaga. She advised that patient does not need to be admitted to the hospital and she can follow-up in the office as an outpatient. 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 Patient presented to the ER complaining of generalized weakness, nausea and vomiting for the last 2 days. Patient stated that she is currently on chemotherapy last dose was 3 weeks ago. Patient is followed by Dr. Arteaga. Patient denied any fever or chills. She denied any cough, shortness of breath or chest pain. Patient is also complaining of headache however stating that this is similar headache that she has been seen for be before. She is also complaining of generalized body ache. Patient found to be slightly dehydrated. Patient received normal saline. Patient received multiple nausea and pain medication including morphine, Zofran and fentanyl. Labs reviewed and showed a white blood cells of 1.6, I discussed this finding with patient oncologist and she advised that this is not a criteria for admission if the patient symptoms improved with antiemetic medication patient can be discharged to follow-up as an outpatient. Patient stated that she is feeling much better and her symptoms significantly improved. Patient remained afebrile in the ER. Patient found to have a mild UTI. Patient received Rocephin 1 g IV. Patient given prescription for ciprofloxacin, Zofran and oxycodone and advised to follow-up with her primary doctor in the next 2 to 3 days and with her oncologist in the next 2 to 3 days and to return to the ER if she develop any new symptoms. Critical care attestation.: If time is entered above; I have spent that time in minutes in the direct care of this critically ill patient, excluding procedure time. ED Disposition Clinical Impression: Intractable nausea and vomiting, Headache, Total body pain, Lymphoma, UTI (urinary tract infection) Disposition: DC-01 TO HOME OR SELFCARE Is pt being admited?: No Condition: Stable Instructions: Nausea, Adult, Chemotherapy, Acute Pain, Adult Referrals: PRIMARY CAREMD [Primary Care Provider] - 3-5 Days TOÑITO ARTEAGA MD [Staff Physician] - 3-5 Days
--- NOTE | 2020-07-15 11:18 | XRay Report ---
CHEST 1 VIEW INDICATION / CLINICAL INFORMATION: leukopenia. COMPARISON: 06/14/2020 FINDINGS: SUPPORT DEVICES: Right central venous line HEART / MEDIASTINUM: No significant abnormality. LUNGS / PLEURA: No significant pulmonary or pleural abnormality. No pneumothorax. ADDITIONAL FINDINGS: No significant additional findings. IMPRESSION: No acute disease or interval change from 06/14/2020 Signer Name: Kulwant Nguyen MD FACIbeth Signed: 07/15/2020 11:13 AM Workstation Name: [id number]
[2020-07-15] MEDS ORDERED: MORPHINE 2 MG/1 ML INJ IV ONE (14:14)
[2020-07-15 14:56] LABS: Bilirubin,Urine NEG (Negative); Blood,Urine NEG (Negative); Color,Urine Yellow (Yellow); Hyaline Casts,Urine 1 /LPF; Mucus,Urine FEW /HPF; Protein,Urine <15 mg/dL mg/dL (Negative); Urobilinogen,Urine < 2.0 mg/dL (<2.0)
[2020-07-15] MEDS ORDERED: fentaNYL 100 MCG/2 ML INJ IV ONE ×2 (15:47→16:25)
[2020-07-15] MEDS ORDERED: cefTRIAXone/NS 1 GM/50 ML 1 GM/50 ML BAG IV ONE (16:25)
--- NOTE | 2020-07-15 16:31 | Cat Scan Report ---
. CT head/brain wo con INDICATION / CLINICAL INFORMATION: 59 years Female; General weakness with nausea and vomiting x 2 days.. TECHNIQUE: Routine CT head without contrast. All CT scans at this location are performed using CT dos e reduction for ALARA by means of automated exposure control. COMPARISON: 06/26/2020 FINDINGS: BRAIN / INTRACRANIAL CONTENTS: Small, presumed lacunar infarcts seen in the anterior gangliocapsular regions-not significantly changed from prior. Otherwise, no acute hemorrhage, mass effect, midline shift, hydrocephalus, or acute, large territori al infarct. No signs of significant atrophy or chronic infarct. No significant white matter abnormali ty seen. CRANIOCERVICAL JUNCTION: No significant abnormality. ORBITS: No significant abnormality of visualized orbits. SINUSES / MASTOIDS: Visualized paranasal sinuses and mastoid air cells are essentially clear. ADDITIONAL FINDINGS: Minimal atherosclerotic disease seen in the anterior circulation. IMPRESSION: 1. No focal mass, hemorrhage, hydrocephalus, or acute, large territorial infarct. Signer Name: John Diaz MD, III Signed: 07/15/2020 4:27 PM Workstation Name: [id number] [email or web address]
[2020-07-15 23:39] VITALS: BP 157/103
== END 2020-07-15 19:00 | disposition home or self-care (01) ==
LOC: ED 05:02
DX: N39.0 Urinary tract infection, site not specified (principal); C85.90 Non-Hodgkin lymphoma, unspecified, unspecified site; R11.2 Nausea with vomiting, unspecified; R51.9 Headache, unspecified; I10 Essential (primary) hypertension; Z79.899 Other long term (current) drug therapy; Z88.8 Allergy status to other drugs, medicaments and biological substances; Z98.890 Other specified postprocedural states; Z90.49 Acquired absence of other specified parts of digestive tract
CPT/HCPCS: 36415; 70450; 71045; 80053; 81001; 85007; 85025; 96361; 96365; 96375; 96376; 99285; J0696; J2270; J2405; J3010; J7030

== ENCOUNTER 2020-08-07 13:57 | Inpatient (IN) | payer OTHER ==
[2020-08-07] MEDS ORDERED: ONDANSETRON 4 MG/2 ML INJ IV ONE (14:09)
[2020-08-07] MEDS ORDERED: LACTATED RINGERS 1,000 ML IV ONE (14:09)
--- NOTE | 2020-08-07 14:15 | Emergency Department Report ---
ED General Adult HPI - General Chief complaint: Weakness Stated complaint: weak PUI?: No Time Seen by Provider: 08/07/20 14:05 Source: patient, EMS ( EMS documentation not available at time of chart dictation . Verbal report received from emergency medical services), RN notes reviewed, old records reviewed Mode of arrival: Stretcher Limitations: Altered Mental Status, Physical Limitation - History of Present Illness Initial comments: The patient was evaluated in the emergency department for symptoms described in the history of present illness. He/she was evaluated in the context of the global COVID-19 pandemic, which necessitated consideration that the patient might be at risk for infection with the virus that causes COVID-19. Institutional protocols and algorithms that pertain to the evaluation of patients at risk for COVID-19 are in a state of rapid change based on information released by regulatory bodies including the CDC and federal and state organizations. These policies and algorithms were followed during the patient's care in the emergency department. Please note that these policies, procedures and recommendations changed on a rapid basis. This is a 59-year-old female. She is not known to myself previously. Past medical history complicated, including obesity, previous body mass index of 31, history of breast cancer, history of syncope/vasovagal/autonomic imbalance, history of dilatation and curettage for post vaginal bleeding, hypertensive urgency, intractable nausea and vomiting, history of presumed colonic cancer, status post sigmoidectomy, with anastomosis, laparoscopic lysis of adhesions. The patient is brought to the hospital today by emergency medical services with a complaint of weakness, altered mental status, nausea and vomiting. EMS tells me that they are familiar with the patient, and that they responded to a call for weakness, and nausea and vomiting. They report that the patient was awake but confused in the field, then appeared to lose consciousness and pass out. They report no loss of pulses, and unremarkable vital signs. Initially upon arrival to the emergency room, the patient is awake, not responsive and confused. She had a normal Accu-Chek as per EMS. When her lower extremities were pinched, she became very awake, moves 4 extremities, and complained of weakness, fatigue, nausea and vomiting. The patient denies physical pain. The patient reports that she is nauseous and vomiting. The patient is not currently accompanied by friends or family at this time for additional information and/or collateral information. The patient is confused, thinks that it is August, believes that it is 2019, she therefore has difficulty describing the qualitative nature of her symptoms, exacerbating factors, relieving factors, or aggravating factors. -: unknown Consistency: intermittent Improves with: other Worsens with: other Associated Symptoms: other - Related Data Home Medications Medication Instructions Recorded Confirmed Last Taken Ascorbic Acid [Vitamin C] 1,000 mg PO DAILY 02/12/20 02/12/20 02/12/20 Cholecalciferol (Vitamin D3) 5,000 unit PO DAILY 02/12/20 02/12/20 02/12/20 [Vitamin D3] Cyanocobalamin (Vitamin B-12) 1,000 mcg PO DAILY 02/12/20 02/12/20 02/12/20 [Vitamin B-12] Magnesium Amino Acid Chelate 100 mg PO DAILY 02/12/20 02/12/20 02/12/20 [Magnesium] Pyridoxine HCl (Vitamin B6) 250 mg PO DAILY 02/12/20 02/12/20 02/12/20 [Vitamin B-6] Previous Rx's Medication Instructions Recorded Last Taken Type Metoprolol [Lopressor TAB] 25 mg PO BID #60 tablet 02/17/20 Unknown Rx Ondansetron HCl [Zofran] 4 mg PO TID PRN #20 tablet 02/17/20 Unknown Rx Valsartan [Diovan] 160 mg PO BID #60 tablet 02/17/20 Unknown Rx oxyCODONE /ACETAMINOPHEN [Percocet 1 tab PO Q6H PRN #20 tablet 02/17/20 Unknown Rx 5/325 mg] Butalb/Acetamin/Caff 50-325-40 1 tab PO Q6HR PRN #10 tab 06/26/20 Unknown Rx [Fioricet] Ciprofloxacin HCl 500 mg PO BID #14 tablet 07/15/20 Unknown Rx Ondansetron [Zofran Odt] 4 mg PO Q8HR PRN #14 tab.rapdis 07/15/20 Unknown Rx oxyCODONE /ACETAMINOPHEN [Percocet 1 tab PO Q6HR PRN #14 tablet 07/15/20 Unknown Rx 5/325] Allergies Allergy/AdvReac Type Severity Reaction Status Date / Time hydromorphone [From Dilaudid] AdvReac Headache Verified 02/12/20 18:28 ED Review of Systems ROS: Stated complaint: AMS/WEAKNESS Other details as noted in HPI Comment: Unobtainable due to pts medical conditions (Patient confused. Review of systems as per EMS) Constitutional: malaise, weakness Cardiovascular: syncope Gastrointestinal: nausea, vomiting Neurological: confusion ED Past Medical Hx - Past Medical History Hx Hypertension: Yes Hx Congestive Heart Failure: No Hx Diabetes: No Hx Deep Vein Thrombosis: (UNKNOWN) Hx Seizures: No (headaches) Hx Kidney Stones: Yes Hx Asthma: No Hx COPD: No Additional medical history: Breast CA, Stage 4 non hodgkin's lymphoma, headaches - Surgical History Hx Pacemaker: No Hx Internal Defibrillator: No Hx Cholecystectomy: Yes Additional Surgical History: 3 , double mastectomy, parathyroidectomy, sigmoidectomy, mediport right chest wall - Social History Smoking Status: Never Smoker - Medications Home Medications: Home Medications Medication Instructions Recorded Confirmed Last Taken Type Ascorbic Acid [Vitamin C] 1,000 mg PO DAILY 02/12/20 02/12/20 02/12/20 History Cholecalciferol (Vitamin D3) 5,000 unit PO DAILY 02/12/20 02/12/20 02/12/20 History [Vitamin D3] Cyanocobalamin (Vitamin B-12) 1,000 mcg PO DAILY 02/12/20 02/12/20 02/12/20 History [Vitamin B-12] Magnesium Amino Acid Chelate 100 mg PO DAILY 02/12/20 02/12/20 02/12/20 History [Magnesium] Pyridoxine HCl (Vitamin B6) 250 mg PO DAILY 02/12/20 02/12/20 02/12/20 History [Vitamin B-6] Metoprolol [Lopressor TAB] 25 mg PO BID #60 tablet 02/17/20 Unknown Rx Ondansetron HCl [Zofran] 4 mg PO TID PRN #20 tablet 02/17/20 Unknown Rx Valsartan [Diovan] 160 mg PO BID #60 tablet 02/17/20 Unknown Rx oxyCODONE /ACETAMINOPHEN [Percocet 1 tab PO Q6H PRN #20 tablet 02/17/20 Unknown Rx 5/325 mg] Butalb/Acetamin/Caff 50-325-40 1 tab PO Q6HR PRN #10 tab 06/26/20 Unknown Rx [Fioricet] Ciprofloxacin HCl 500 mg PO BID #14 tablet 07/15/20 Unknown Rx Ondansetron [Zofran Odt] 4 mg PO Q8HR PRN #14 tab.rapdis 07/15/20 Unknown Rx oxyCODONE /ACETAMINOPHEN [Percocet 1 tab PO Q6HR PRN #14 tablet 07/15/20 Unknown Rx 5/325] ED Physical Exam - General Limitations: Altered Mental Status General appearance: alert, in no apparent distress - Head Head exam: Present: atraumatic, normocephalic - Eye Eye exam: Present: normal appearance, PERRL - ENT ENT exam: Present: mucous membranes dry - Neck Neck exam: Present: normal inspection, full ROM. Absent: tenderness, meningismus - Respiratory Respiratory exam: Present: normal lung sounds bilaterally. Absent: respiratory distress, wheezes, rales, rhonchi, stridor, decreased breath sounds - Cardiovascular Cardiovascular Exam: Present: regular rate, normal rhythm, normal heart sounds. Absent: bradycardia, irregular rhythm, systolic murmur, diastolic murmur, rubs, gallop - GI/Abdominal GI/Abdominal exam: Present: soft. Absent: distended, tenderness, guarding, rebound, rigid, pulsatile mass - Extremities Exam Extremities exam: Present: normal inspection, full ROM, other (2+ pulses noted in the bilateral upper and lower extremities. There is no palpable cord. negative Homans sign. Muscular compartments are soft. The pelvis is stable.). Absent: pedal edema, calf tenderness - Back Exam Back exam: Present: normal inspection, full ROM. Absent: tenderness, CVA tenderness (R), CVA tenderness (L), paraspinal tenderness, vertebral tenderness - Neurological Exam Neurological exam: Present: altered, other (The patient is sleepy but arousable. There is no facial droop. Tongue is midline. Patient withdraws 4 extremities to painful stimuli. Sensation is intact to pinch in 4 extremities.) - Psychiatric Psychiatric exam: Present: flat affect - Skin Skin exam: Present: warm, dry, intact, normal color. Absent: rash ED Course Vital Signs 08/07/20 08/07/20 14:09 15:10 Temperature 97.5 F L Pulse Rate 80 Respiratory 13 16 Rate Blood Pressure 182/117 [Left] O2 Sat by Pulse 99 95 Oximetry - Reevaluation(s) Reevaluation #1: 08/07/20 14:20 Differential diagnosis, including but not limited to: Orthostasis, vagal event, structural cardiac disease, dehydration, electrolyte derangement, toxic encephalopathy, metabolic encephalopathy, pneumonia, urinary tract infection, obstruction, colitis, diverticulitis, perforated viscus Assessment and plan: 59-year-old female who is listless, weak, confused, but protecting her airway, arousable, moves 4 extremities in response to painful stimuli, who is hemodynamically acceptable at this time. Maintain broad differential diagnosis, obtain appropriate laboratory studies, x-ray the chest, urinalysis, CT scan of the brain, chest, abdomen and pelvis. Patient did wake up and told me that she had received care at the cancer center of [facility]. We have requested patient's medical records from the aforementioned facility for continuity of care, and to ascertain additional history. At the moment, the patient is not currently accompanied by friends or family at this time for collateral information. Of note, while I am speaking to the patient, she is noted to be fluttering her eyes, and appears to be twisting contorting her face to the left. However, with distraction, these findings resolved. The patient is listless but arousable, protecting her airway. Her main complaint was weakness, nausea and vomiting. 08/07/20 15:59 Patient resting comfortably. She is in no acute distress. D-dimer negative. CT scan of the chest will be canceled. Lungs are clear 08/07/20 17:13 Patient not able to stand or ambulate, even with a 2 person assist 08/07/20 17:36 08/07/20 17:55 CT scan of the brain negative for acute findings. CT scan of the abdomen pelvis negative for acute findings. Resting comfortably at this time. No active vomiting. Suspect that the patient is likely deconditioned is likely secondary to her chronic illnesses. However, given her confusion, inability to ambulate, complex past medical history, we have recommended admission for further diagnostic evaluation and supportive care. Dr Pina Quintana to admit to [facility] ED Medical Decision Making - Lab Data Result diagrams: 08/07/20 14:19 08/07/20 14:19 Vital Signs 08/07/20 14:09 Temperature 97.5 F L Pulse Rate 80 Respiratory 13 Rate Blood Pressure 182/117 [Left] O2 Sat by Pulse 99 Oximetry Lab Results 08/07/20 08/07/20 08/07/20 Range/Units 14:19 14:19 14:19 WBC 2.3 L (4.5-11.0) K/mm3 RBC 4.04 (3.65-5.03) M/mm3 Hgb 12.4 (10.1-14.3) gm/dl Hct 37.1 (30.3-42.9) % MCV 92 (79-97) fl MCH 31 (28-32) pg MCHC 34 (30-34) % RDW 13.5 (13.2-15.2) % Plt Count 315 (140-440) K/mm3 D-Dimer (0-234) ng/mlDDU Sodium 143 (137-145) mmol/L Potassium 3.6 (3.6-5.0) mmol/L Chloride 104.6 (98-107) mmol/L Carbon Dioxide 25 (22-30) mmol/L Anion Gap 17 mmol/L BUN 16 (7-17) mg/dL Creatinine 1.0 (0.6-1.2) mg/dL Estimated GFR > 60 ml/min BUN/Creatinine Ratio 16 % Glucose 96 (65-100) mg/dL Lactic Acid 1.30 (0.7-2.0) mmol/L Calcium 8.4 (8.4-10.2) mg/dL Phosphorus 3.90 (2.5-4.5) mg/dL Magnesium 2.30 (1.7-2.3) mg/dL Total Bilirubin 0.70 (0.1-1.2) mg/dL AST 17 (5-40) units/L ALT 12 (7-56) units/L Alkaline Phosphatase 85 (35-129) units/L Total Creatine Kinase 27 L (30-135) units/L Troponin T (0.00-0.029) ng/mL Total Protein 6.8 (6.3-8.2) g/dL Albumin 4.1 (3.9-5) g/dL Albumin/Globulin Ratio 1.5 % TSH (0.270-4.200) mlU/mL Salicylates (2.8-20.0) mg/dL Acetaminophen (10.0-30.0) ug/mL 08/07/20 08/07/20 08/07/20 Range/Units 14:19 14:19 14:19 WBC (4.5-11.0) K/mm3 RBC (3.65-5.03) M/mm3 Hgb (10.1-14.3) gm/dl Hct (30.3-42.9) % MCV (79-97) fl MCH (28-32) pg MCHC (30-34) % RDW (13.2-15.2) % Plt Count (140-440) K/mm3 D-Dimer (0-234) ng/mlDDU Sodium (137-145) mmol/L Potassium (3.6-5.0) mmol/L Chloride (98-107) mmol/L Carbon Dioxide (22-30) mmol/L Anion Gap mmol/L BUN (7-17) mg/dL Creatinine (0.6-1.2) mg/dL Estimated GFR ml/min BUN/Creatinine Ratio % Glucose (65-100) mg/dL Lactic Acid (0.7-2.0) mmol/L Calcium (8.4-10.2) mg/dL Phosphorus (2.5-4.5) mg/dL Magnesium (1.7-2.3) mg/dL Total Bilirubin (0.1-1.2) mg/dL AST (5-40) units/L ALT (7-56) units/L Alkaline Phosphatase (35-129) units/L Total Creatine Kinase (30-135) units/L Troponin T (0.00-0.029) ng/mL Total Protein (6.3-8.2) g/dL Albumin (3.9-5) g/dL Albumin/Globulin Ratio % TSH 0.435 (0.270-4.200) mlU/mL Salicylates 0.6 L (2.8-20.0) mg/dL Acetaminophen 5.0 L (10.0-30.0) ug/mL 08/07/20 08/07/20 Range/Units 14:19 14:28 WBC (4.5-11.0) K/mm3 RBC (3.65-5.03) M/mm3 Hgb (10.1-14.3) gm/dl Hct (30.3-42.9) % MCV (79-97) fl MCH (28-32) pg MCHC (30-34) % RDW (13.2-15.2) % Plt Count (140-440) K/mm3 D-Dimer 165.37 (0-234) ng/mlDDU Sodium (137-145) mmol/L Potassium (3.6-5.0) mmol/L Chloride (98-107) mmol/L Carbon Dioxide (22-30) mmol/L Anion Gap mmol/L BUN (7-17) mg/dL Creatinine (0.6-1.2) mg/dL Estimated GFR ml/min BUN/Creatinine Ratio % Glucose (65-100) mg/dL Lactic Acid (0.7-2.0) mmol/L Calcium (8.4-10.2) mg/dL Phosphorus (2.5-4.5) mg/dL Magnesium (1.7-2.3) mg/dL Total Bilirubin (0.1-1.2) mg/dL AST (5-40) units/L ALT (7-56) units/L Alkaline Phosphatase (35-129) units/L Total Creatine Kinase (30-135) units/L Troponin T < 0.010 (0.00-0.029) ng/mL Total Protein (6.3-8.2) g/dL Albumin (3.9-5) g/dL Albumin/Globulin Ratio % TSH (0.270-4.200) mlU/mL Salicylates (2.8-20.0) mg/dL Acetaminophen (10.0-30.0) ug/mL - EKG Data -: EKG Interpreted by [facility] EKG shows normal: sinus rhythm Rate: normal - EKG Data 08/07/20 14:42 EKG interpreted at 14: 35 Sinus rhythm, 74 bpm. Left axis deviation. Q waves in inferior leads. Poor R wave progression. Low voltage in the lateral leads. This is an abnormal EKG. This is not a STEMI. The EKG appears to be unchanged compared to prior EKG from January 2020 - Radiology Data Radiology results: pending, report reviewed, image reviewed [facility] [address] [place] [address] XRay Report Signed Patient: KOKO HARRINGTON MR#: [id number] : 1960 Acct:[id number] Age/Sex: 59 / F ADM Date: 08/07/20 Loc: ED Attending Dr: Ordering Physician: MILKA TORRES MD Date of Service: 08/07/20 Procedure(s): XR chest 1V ap Accession Number(s): [id number] cc: MILKA TORRES MD Fluoro Time In Minutes: CHEST 1 VIEW 1600 INDICATION / CLINICAL INFORMATION: n/v weak syncope COMPARISON: 07/15/2020 FINDINGS: SUPPORT DEVICES: Port-A-Cath is again seen HEART / MEDIASTINUM: Stable LUNGS / PLEURA: No significant pulmonary or pleural abnormality. No pneumothorax. ADDITIONAL FINDINGS: No significant additional findings. Signer Name: Del Wise MD Signed: 08/07/2020 4:32 PM Workstation Name: [id number] Transcribed By: GJ Dictated By: Del Wise MD Electronically Authenticated By: Del Wise MD Signed Date/Time: 08/07/201631 DD/ 30 TD/TT: Noncontrast CT scan of the brain: [address] [address] Cat Scan Report Signed Patient: KOKO HARRINGTON MR#: [id number] : 1960 Acct:[id number] Age/Sex: 59 / F ADM Date: 08/07/20 Loc: ED Attending Dr: Ordering Physician: MILKA TORRES MD Date of Service: 08/07/20 Procedure(s): CT head/brain wo con Accession Number(s): [id number] cc: MILKA TORRES MD CT head/brain wo con INDICATION: Altered mental status. Nausea and vomiting.. TECHNIQUE: Routine CT head. All CT scans at this location are perfo rmed using CT dose reduction for ALARA by means of automated exposure control. COMPARISON: 07/15/2020. 06/26/2020 FINDINGS: Intracranial: Park-white matter differentiation is maintained. No intracranial hemorrhage. No extra axial collection. No hydrocephalus. No herniation. Periventricular and centrum semiovale white matter hypoattenuation most consistent with sequela of chronic microvascular disease which is similar to prior exam. Sinuses: Paranasal sinuses and mastoid air cells are essentially clear. Orbits: Globes are intact. Calvarium: No acute fracture. IMPRESSION: 1. No acute intracranial abnormality. Signer Name: Jimmy Trevizo MD Signed: 08/07/2020 5:29 PM Workstation Name: Mobile Event [id number] Transcribed By: CS Dictated By: Jimmy Trevizo MD Electronically Authenticated By: Jimmy Trevizo MD Signed Date/Time: 08/07/201728 DD/ 25 TD/TT: CT scan abdomen pelvis: [facility] [address] [place] [address] Cat Scan Report Signed Patient: KOKO HARRINGTON MR#: [id number] : 1960 Acct:[id number] Age/Sex: 59 / F ADM Date: 08/07/20 Loc: ED Attending Dr: Ordering Physician: MILKA TORRES MD Date of Service: 08/07/20 Procedure(s): CT abdomen pelvis w con Accession Number(s): [id number] cc: MILKA TORRES MD CT ABDOMEN AND PELVIS WITHOUT AND WITH CONTRAST INDICATION / CLINICAL INFORMATION: Nausea and vomiting. Weakness. Syncope. TECHNIQUE: Axial CT images were obtained through the abdomen and pelvis before and after 100 mL Omnipaque [address] scans at this location are performed using CT dose reduction for ALARA by means of automated exposure control. COMPARISON: CT dated 06/14/20 FINDINGS: LOWER CHEST: No significant abnormality. LIVER: Diffusely hypodense characteristic of fatty infiltration. GALLBLADDER: Cholecystectomy. BILE DUCTS: No significant abnormality. PANCREAS: No significant abnormality. SPLEEN: No significant abnormality. ADRENALS: No significant abnormality. RIGHT KIDNEY / URETER: Nonobstructing stone in the upper pole. No ureteral stone or hydronephrosis. LEFT KIDNEY / URETER: Nonobstructing stone in the lower pole. No ureteral stone or hydronephrosis. STOMACH / SMALL BOWEL: Postoperative findings related to gastric bypass with gastrojejunostomy. No dilated small bowel. COLON: No acute abnormality. Previous partial sigmoid resection appears unchanged. APPENDIX: No significant abnormality. PERITONEUM: No free fluid. No free air. No fluid collection. LYMPH NODES: No significant adenopathy. AORTA / ARTERIES: No significant abnormality. IVC / VEINS: No significant abnormality. URINARY BLADDER: No significant abnormality. REPRODUCTIVE ORGANS: No significant abnormality. ADDITIONAL FINDINGS: None. SKELETAL SYSTEM: No significant abnormality. IMPRESSION: 1. Bilateral nephrolithiasis but no ureteral stone or hydronephrosis. 2. No inflammatory process or bowel obstruction. 3. Postoperative findings related to partial sigmoid resection. No recurrent mass. 4. Hepatic steatosis. Signer Name: Criss Saha MD Signed: 08/07/2020 5:38 PM Workstation Name: [email or web address] Transcribed By: DT Dictated By: Sascha Saha MD Electronically Authenticated By: Sascha Saha MD Signed Date/Time: 08/07/201737 DD/ 29 Critical care attestation.: If time is entered above; I have spent that time in minutes in the direct care of this critically ill patient, excluding procedure time. ED Disposition Clinical Impression: Debility, Unable to ambulate Nausea and vomiting Qualifiers: Vomiting type: unspecified Vomiting Intractability: non-intractable Qualified Code(s): R11.2 - Nausea with vomiting, unspecified Syncope Qualifiers: Syncope type: unspecified Qualified Code(s): R55 - Syncope and collapse Altered mental status Qualifiers: Altered mental status type: unspecified Qualified Code(s): R41.82 - Altered mental status, unspecified Disposition: DC-09 OP ADMIT IP TO THIS HOSP Is pt being admited?: Yes Does the pt Need Aspirin: No Condition: Fair Instructions: Syncope (ED) Referrals: PRIMARY CARE, [Primary Care Provider] - 3-5 Days
[2020-08-07 14:48] LABS: Hematocrit 37.1 % (30.3-42.9); Hemoglobin 12.4 gm/dl (10.1-14.3); Mean Corpuscular HGB Conc 34 % (30-34); Mean Corpuscular Volume 92 fl (79-97); Platelet Count 315 K/mm3 (140-440); Red Blood Count 4.04 M/mm3 (3.65-5.03); Red Cell Distribution Width 13.5 % (13.2-15.2)
[2020-08-07 15:04] LABS: Alanine Aminotransferase 12 units/L (7-56); Albumin 4.1 g/dL (3.9-5); BUN/Creatinine Ratio 16; Blood Urea Nitrogen 16 mg/dL (7-17); Calcium 8.4 mg/dL (8.4-10.2); Hemolysis Index 6
--- NOTE | 2020-08-07 16:37 | XRay Report ---
CHEST 1 VIEW 1600 INDICATION / CLINICAL INFORMATION: n/v weak syncope COMPARISON: 07/15/2020 FINDINGS: SUPPORT DEVICES: Port-A-Cath is again seen HEART / MEDIASTINUM: Stable LUNGS / PLEURA: No significant pulmonary or pleural abnormality. No pneumothorax. ADDITIONAL FINDINGS: No significant additional findings. Signer Name: Del Wise MD Signed: 08/07/2020 4:32 PM Workstation Name: [id number]
[2020-08-07 16:41] LABS: Total Cells Counted 100
[2020-08-07 16:42] LABS: Platelet Estimate Consistent w Auto; RBC Morphology Normal
--- NOTE | 2020-08-07 17:33 | Cat Scan Report ---
CT head/brain wo con INDICATION: Altered mental status. Nausea and vomiting.. TECHNIQUE: Routine CT head. All CT scans at this location are performed using CT dose reduction for A ALEXANDR by means of automated exposure control. COMPARISON: 07/15/2020. 06/26/2020 FINDINGS: Intracranial: Park-white matter differentiation is maintained. No intracranial hemorrhage. No extra a xial collection. No hydrocephalus. No herniation. Periventricular and centrum semiovale white matter hypoattenuation most consistent with sequela of chronic microvascular disease which is similar to sveta or exam. Sinuses: Paranasal sinuses and mastoid air cells are essentially clear. Orbits: Globes are intact. Calvarium: No acute fracture. IMPRESSION: 1. No acute intracranial abnormality. Signer Name: Jimmy Trevizo MD Signed: 08/07/2020 5:29 PM Workstation Name: [id number]
[2020-08-07 17:39] LABS: Bacteria,Urine 1+ /HPF (Negative); Bilirubin,Urine NEG (Negative); Blood,Urine NEG (Negative); Color,Urine Colorless (Yellow); Protein,Urine <15 mg/dL mg/dL (Negative); RBC,Urine < 1.0 /HPF (0.0-6.0); Urobilinogen,Urine < 2.0 mg/dL (<2.0)
--- NOTE | 2020-08-07 17:43 | Cat Scan Report ---
CT ABDOMEN AND PELVIS WITHOUT AND WITH CONTRAST INDICATION / CLINICAL INFORMATION: Nausea and vomiting. Weakness. Syncope. TECHNIQUE: Axial CT images were obtained through the abdomen and pelvis before and after 100 mL Omnip aque [address] scans at this location are performed using CT dose reduction for ALARA by means of automated exposure control. COMPARISON: CT dated 06/14/20 FINDINGS: LOWER CHEST: No significant abnormality. LIVER: Diffusely hypodense characteristic of fatty infiltration. GALLBLADDER: Cholecystectomy. BILE DUCTS: No significant abnormality. PANCREAS: No significant abnormality. SPLEEN: No significant abnormality. ADRENALS: No significant abnormality. RIGHT KIDNEY / URETER: Nonobstructing stone in the upper pole. No ureteral stone or hydronephrosis. LEFT KIDNEY / URETER: Nonobstructing stone in the lower pole. No ureteral stone or hydronephrosis. STOMACH / SMALL BOWEL: Postoperative findings related to gastric bypass with gastrojejunostomy. No di lated small bowel. COLON: No acute abnormality. Previous partial sigmoid resection appears unchanged. APPENDIX: No significant abnormality. PERITONEUM: No free fluid. No free air. No fluid collection. LYMPH NODES: No significant adenopathy. AORTA / ARTERIES: No significant abnormality. IVC / VEINS: No significant abnormality. URINARY BLADDER: No significant abnormality. REPRODUCTIVE ORGANS: No significant abnormality. ADDITIONAL FINDINGS: None. SKELETAL SYSTEM: No significant abnormality. IMPRESSION: 1. Bilateral nephrolithiasis but no ureteral stone or hydronephrosis. 2. No inflammatory process or bowel obstruction. 3. Postoperative findings related to partial sigmoid resection. No recurrent mass. 4. Hepatic steatosis. Signer Name: Criss Saha MD Signed: 08/07/2020 5:38 PM Workstation Name: [id number]
[2020-08-07] MEDS ORDERED: ASPIRIN 81 MG TAB CHEW PO ONE (18:23)
[2020-08-07] MEDS ORDERED: MORPHINE 2 MG/1 ML INJ IV ONE (19:27)
[2020-08-07] MEDS ORDERED: MORPHINE 2 MG/1 ML INJ IV PRN (22:23)
[2020-08-08] MEDS ORDERED: BUTALB/ACETAMINOPHEN/CAFFEINE TAB PO PRN (00:38)
[2020-08-08] MEDS ORDERED: METOCLOPRAMIDE 10 MG/2 ML INJ IV PRN (00:41)
[2020-08-08] MEDS ORDERED: ONDANSETRON 4 MG/2 ML INJ IV PRN (00:41)
[2020-08-08] MEDS ORDERED: ACETAMINOPHEN 325 MG TAB PO PRN (00:41)
[2020-08-08] MEDS: VALSARTAN 160MG TAB PO SCH ×3 (06:49→21:03)
[2020-08-08] MEDS: MORPHINE 2 MG/1 ML INJ IV PRN ×2 (09:34→21:04)
[2020-08-08] MEDS ORDERED: NON-FORMULARY EACH (Ascorbic Acid [Vitamin C] 1,000 MG Tablet) PO SCH (10:00)
[2020-08-08] MEDS ORDERED: PYRIDOXINE HCL 250 MG PO SCH (10:00)
--- NOTE | 2020-08-08 10:39 | History and Physical Report ---
History of Present Illness Date of examination: 08/07/20 Date of admission: 08/07/20 18:23 Chief complaint: Passed out couple of hours ago History of present illness: 59-year-old with multiple medical problems brought in by EMS for passing out, altered sensorium and nausea and vomiting. Patient has a complicated medical history including history of breast cancer, r ecurrent syncope hypertensive urgency and history of presumed colon cancer, s/p sigmoidectomy with anastomosis laparoscopic lysis of adhesions. Patient is with altered sensorium. Very poor historian. Patient states that her right side is weak and especially right facial weakness which is making it difficult to eat. During my examination patient has right facial weakness but able to move all 4 extremities. Last few admissions were reviewed Patient has complex medical history. 02/15/2020 patient was diagnosed with sigmoid mass and had a sigmoidectomy and primary anastomosis. Prior to that patient had multiple surgeries including breast cancer with bilateral mastectomy and TRAM flap for the right breast and the lateral dorsalis for the left breast and followed by panniculectomy. 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 Patient is on chemotherapy. Patient has port. Because of the chemotherapy patient has been having leukopenia. Patient has poor appetite and severe weakness. - Past Medical History Hypertension: Yes Deep Vein Thrombosis: (UNKNOWN) Kidney Stones: Yes --Breast CA, Stage 4 non hodgkin's lymphoma, headaches - Surgical History --Cholecystectomy: Yes --Additional Surgical History: 3 , double mastectomy, parathyroidectomy, sigmoidectomy, mediport right chest wall - Social History Smoking Status: Never Smoker --Family history Htn - Medications Home Medications: Home Medications Medication Instructions Recorded Confirmed Last Taken Type Ascorbic Acid [Vitamin C] 1,000 mg PO DAILY 02/12/20 02/12/20 02/12/20 History Cholecalciferol (Vitamin D3) 5,000 unit PO DAILY 02/12/20 02/12/20 02/12/20 History [Vitamin D3] Cyanocobalamin (Vitamin B-12) 1,000 mcg PO DAILY 02/12/20 02/12/20 02/12/20 History [Vitamin B-12] Magnesium Amino Acid Chelate 100 mg PO DAILY 02/12/20 02/12/20 02/12/20 History [Magnesium] Pyridoxine HCl (Vitamin B6) 250 mg PO DAILY 1102/12/20 02/12/20 History [Vitamin B-6] Metoprolol [Lopressor TAB] 25 mg PO BID #60 tablet 02/17/20 Unknown Rx Ondansetron HCl [Zofran] 4 mg PO TID PRN #20 tablet 02/17/20 Unknown Rx Valsartan [Diovan] 160 mg PO BID #60 tablet 02/17/20 Unknown Rx oxyCODONE /ACETAMINOPHEN [Percocet 1 tab PO Q6H PRN #20 tablet 02/17/20 Unknown Rx 5/325 mg] Butalb/Acetamin/Caff 50-325-40 1 tab PO Q6HR PRN #10 tab 06/26/20 Unknown Rx [Fioricet] Ciprofloxacin HCl 500 mg PO BID #14 tablet 07/15/20 Unknown Rx Ondansetron [Zofran Odt] 4 mg PO Q8HR PRN #14 tab.rapdis 07/15/20 Unknown Rx oxyCODONE /ACETAMINOPHEN [Percocet 1 tab PO Q6HR PRN #14 tablet 07/15/20 Unknown Rx 5/325] Review of Systems ROS: Constitutional --very poor appetite HEENT no sore throat no post nasal drip no diplopia Neck no neck stiffness no lymph gland enlargement Chest and lungs no shortness of breath cough or wheezing CVS no chest pain no diaphoresis no palpitations GI no nausea no vomiting no diarrhea Genitourinary system no dysuria no flank pain Musculoskeletal system no muscle pains no joint pains ANESTHESIA TECH severe debility and difficulty walking Skin no rash no itching Psychiatric no depression no homicidal or suicidal tendencies Hematologic no lymphedema or bruising Endocrine no polydipsia no polyuria no cold intolerance no heat intolerance Medications and Allergies Allergies Allergy/AdvReac Type Severity Reaction Status Date / Time hydromorphone [From Dilaudid] AdvReac Headache Verified 02/12/20 18:28 Home Medications Medication Instructions Recorded Confirmed Last Taken Type Ascorbic Acid [Vitamin C] 1,000 mg PO DAILY 02/12/20 02/12/20 02/12/20 History Cholecalciferol (Vitamin D3) 5,000 unit PO DAILY 02/12/20 02/12/20 02/12/20 History [Vitamin D3] Cyanocobalamin (Vitamin B-12) 1,000 mcg PO DAILY 02/12/20 02/12/20 02/12/20 History [Vitamin B-12] Magnesium Amino Acid Chelate 100 mg PO DAILY 02/12/20 02/12/20 02/12/20 History [Magnesium] Pyridoxine HCl (Vitamin B6) 250 mg PO DAILY 02/12/20 02/12/20 02/12/20 History [Vitamin B-6] Metoprolol [Lopressor TAB] 25 mg PO BID #60 tablet 02/17/20 Unknown Rx Ondansetron HCl [Zofran] 4 mg PO TID PRN #20 tablet 02/17/20 Unknown Rx Valsartan [Diovan] 160 mg PO BID #60 tablet 02/17/20 Unknown Rx oxyCODONE /ACETAMINOPHEN [Percocet 1 tab PO Q6H PRN #20 tablet 02/17/20 Unknown Rx 5/325 mg] Butalb/Acetamin/Caff 50-325-40 1 tab PO Q6HR PRN #10 tab 06/26/20 Unknown Rx [Fioricet] Ciprofloxacin HCl 500 mg PO BID #14 tablet 07/15/20 Unknown Rx Ondansetron [Zofran Odt] 4 mg PO Q8HR PRN #14 tab.rapdis 07/15/20 Unknown Rx oxyCODONE /ACETAMINOPHEN [Percocet 1 tab PO Q6HR PRN #14 tablet 07/15/20 Unknown Rx 5/325] Active Meds: Active Medications Acetaminophen (Acetaminophen 325 Mg Tab) 650 mg PO Q4H PRN PRN Reason: Pain MILD(1-3)/Fever >100.5/PETE Acetaminophen/Butalbital/Caffeine (Butalb/Acetaminophen/Caffeine Tab) 1 tab PO Q6HR PRN PRN Reason: Headache Ascorbic Acid (Ascorbic Acid 500 Mg Tab) 1,000 mg PO DAILY [facility] Cholecalciferol (Cholecalciferol (Vit D3) 5,000 Unit Tab) 5,000 unit PO DAILY [facility] Cyanocobalamin (Cyanocobalamin (Vit B-12) 1000 Mcg Tab) 1,000 mcg PO DAILY [facility] Famotidine (Famotidine 20 Mg Tab) 20 mg PO BID [facility] Metoclopramide HCl (Metoclopramide 10 Mg/2 Ml Inj) 10 mg IV Q6H PRN PRN Reason: Nausea And Vomiting Metoprolol Tartrate (Metoprolol Tartrate 25 Mg Tab) 25 mg PO BID [facility] Morphine Sulfate (Morphine 2 Mg/1 Ml Inj) 2 mg IV Q4H PRN PRN Reason: Pain, Moderate (4-6) Last Admin: 08/08/20 09:34 Dose: 2 mg Documented by: Ondansetron HCl (Ondansetron 4 Mg/2 Ml Inj) 4 mg IV Q8H PRN PRN Reason: Nausea And Vomiting Oxycodone/Acetaminophen (Oxycodone /Acetaminophen 5-325mg Tab) 1 tab PO Q6H PRN PRN Reason: Pain, Moderate (4-6) Pyridoxine HCl (Pyridoxine 50 Mg Tab) 250 mg PO DAILY [facility] Sodium Chloride (Sodium Chloride 0.9% 10 Ml Flush Syringe) 10 ml IV BID [facility] Sodium Chloride (Sodium Chloride 0.9% 10 Ml Flush Syringe) 10 ml IV PRN PRN PRN Reason: LINE FLUSH Valsartan (Valsartan 160mg Tab) 160 mg PO BID [facility] Last Admin: 08/08/20 06:49 Dose: Not Given Documented by: Exam - Constitutional Vitals: Temp Pulse Resp BP Pulse Ox 98.0 F 89 18 140/106 98 08/08/20 07:37 08/08/20 07:37 08/08/20 07:37 08/08/20 07:37 08/08/20 07:37 General appearance: Present: no acute distress, well-nourished - EENT Eyes: Present: PERRL ENT: hearing intact, clear oral mucosa, other (Right facial paralysis) - Neck Neck: Present: supple, normal ROM - Respiratory Respiratory effort: normal Respiratory: bilateral: CTA - Cardiovascular Heart rate: 78 Rhythm: regular Heart Sounds: Present: S1 & S2. Absent: rub, click - Extremities Extremities: no ischemia, pulses intact, pulses symmetrical, No edema Peripheral Pulses: within normal limits - Abdominal General gastrointestinal: Present: soft, non-tender, non-distended, normal bowel sounds Female genitourinary: Present: normal - Rectal Rectal Exam: deferred - Integumentary Integumentary: Present: clear, warm, dry - Musculoskeletal Musculoskeletal: gait normal, strength equal bilaterally - Psychiatric Psychiatric: appropriate mood/affect, intact judgment & insight - Neurologic Neurologic: CNII-XII intact, moves all extremities - Allied Health Allied health notes reviewed: nursing, case management HEART Score - HEART Score History: Slightly suspicious Risk factors: 1-2 risk factors Troponin: Troponin T < 0.010 ng/mL (0.00-0.029) 08/07/20 14:28 Troponin: < normal limit - Critical Actions Critical Actions: 0-3 pts:0.9-1.7%risk of adverse cardiac event.Candidate for discharge Results - Labs CBC & Chem 7: 08/09/20 04:28 08/09/20 04:28 Labs: Laboratory Last Values WBC 2.3 K/mm3 (4.5-11.0) L 08/07/20 14:19 RBC 4.04 M/mm3 (3.65-5.03) 08/07/20 14:19 Hgb 12.4 gm/dl (10.1-14.3) 08/07/20 14:19 Hct 37.1 % (30.3-42.9) 08/07/20 14:19 MCV 92 fl (79-97) 08/07/20 14:19 MCH 31 pg (28-32) 08/07/20 14:19 MCHC 34 % (30-34) 08/07/20 14:19 RDW 13.5 % (13.2-15.2) 08/07/20 14:19 Plt Count 315 K/mm3 (140-440) 08/07/20 14:19 Add Manual Diff Complete 08/07/20 14:19 Total Counted 100 08/07/20 14:19 Seg Neuts % (Manual) 58.0 % (40.0-70.0) 08/07/20 14:19 Lymphocytes % (Manual) 30.0 % (13.4-35.0) 08/07/20 14:19 Monocytes % (Manual) 6.0 % (0.0-7.3) 08/07/20 14:19 Eosinophils % (Manual) 3.0 % (0.0-4.3) 08/07/20 14:19 Basophils % (Manual) 2.0 % (0.0-1.8) H 08/07/20 14:19 Metamyelocytes % 1.0 % 08/07/20 14:19 Nucleated RBC % Not Reportable 08/07/20 14:19 Seg Neutrophils # Man 1.3 K/mm3 (1.8-7.7) L 08/07/20 14:19 Band Neutrophils # 0.0 K/mm3 08/07/20 14:19 Lymphocytes # (Manual) 0.7 K/mm3 (1.2-5.4) L 08/07/20 14:19 Abs React Lymphs (Man) 0.0 K/mm3 08/07/20 14:19 Monocytes # (Manual) 0.1 K/mm3 (0.0-0.8) 08/07/20 14:19 Eosinophils # (Manual) 0.1 K/mm3 (0.0-0.4) 08/07/20 14:19 Basophils # (Manual) 0.0 K/mm3 (0.0-0.1) 08/07/20 14:19 Metamyelocytes # 0.0 K/mm3 08/07/20 14:19 Myelocytes # 0.0 K/mm3 08/07/20 14:19 Promyelocytes # 0.0 K/mm3 08/07/20 14:19 Blast Cells # 0.0 K/mm3 08/07/20 14:19 WBC Morphology Not Reportable 08/07/20 14:19 Hypersegmented Neuts Not Reportable 08/07/20 14:19 Hyposegmented Neuts Not Reportable 08/07/20 14:19 Hypogranular Neuts Not Reportable 08/07/20 14:19 Smudge Cells Not Reportable 08/07/20 14:19 Toxic Granulation Not Reportable 08/07/20 14:19 Toxic Vacuolation Not Reportable 08/07/20 14:19 Dohle Bodies Not Reportable 08/07/20 14:19 Pelger-Huet Anomaly Not Reportable 08/07/20 14:19 [place] Rods Not Reportable 08/07/20 14:19 Platelet Estimate Consistent w auto 08/07/20 14:19 Clumped Platelets Not Reportable 08/07/20 14:19 Plt Clumps, EDTA Not Reportable 08/07/20 14:19 Large Platelets Not Reportable 08/07/20 14:19 Giant Platelets Not Reportable 08/07/20 14:19 Platelet Satelliting Not Reportable 08/07/20 14:19 Plt Morphology Comment Not Reportable 08/07/20 14:19 RBC Morphology Normal 08/07/20 14:19 Dimorphic RBCs Not Reportable 08/07/20 14:19 Polychromasia Not Reportable 08/07/20 14:19 Hypochromasia Not Reportable 08/07/20 14:19 Poikilocytosis Not Reportable 08/07/20 14:19 Anisocytosis Not Reportable 08/07/20 14:19 Microcytosis Not Reportable 08/07/20 14:19 Macrocytosis Not Reportable 08/07/20 14:19 Spherocytes Not Reportable 08/07/20 14:19 Pappenheimer Bodies Not Reportable 08/07/20 14:19 Sickle Cells Not Reportable 08/07/20 14:19 Target Cells Not Reportable 08/07/20 14:19 Tear Drop Cells Not Reportable 08/07/20 14:19 Ovalocytes Not Reportable 08/07/20 14:19 Helmet Cells Not Reportable 08/07/20 14:19 Singh-Ambrose Bodies Not Reportable 08/07/20 14:19 [place] Rings Not Reportable 08/07/20 14:19 Jimena Cells Not Reportable 08/07/20 14:19 Bite Cells Not Reportable 08/07/20 14:19 Crenated Cell Not Reportable 08/07/20 14:19 Elliptocytes Not Reportable 08/07/20 14:19 Acanthocytes (Spur) Not Reportable 08/07/20 14:19 Rouleaux Not Reportable 08/07/20 14:19 Hemoglobin C Crystals Not Reportable 08/07/20 14:19 Schistocytes Not Reportable 08/07/20 14:19 Malaria parasites Not Reportable 08/07/20 14:19 [place] Bodies Not Reportable 08/07/20 14:19 Hem Pathologist Commnt No 08/07/20 14:19 D-Dimer 165.37 ng/mlDDU (0-234) 08/07/20 14:19 Sodium 143 mmol/L (137-145) 08/07/20 14:19 Potassium 3.6 mmol/L (3.6-5.0) 08/07/20 14:19 Chloride 104.6 mmol/L (98-107) 08/07/20 14:19 Carbon Dioxide 25 mmol/L (22-30) 08/07/20 14:19 Anion Gap 17 mmol/L 08/07/20 14:19 BUN 16 mg/dL (7-17) 08/07/20 14:19 Creatinine 1.0 mg/dL (0.6-1.2) 08/07/20 14:19 Estimated GFR > 60 ml/min 08/07/20 14:19 BUN/Creatinine Ratio 16 % 08/07/20 14:19 Glucose 96 mg/dL (65-100) 08/07/20 14:19 Lactic Acid 1.30 mmol/L (0.7-2.0) 08/07/20 14:19 Calcium 8.4 mg/dL (8.4-10.2) 08/07/20 14:19 Phosphorus 3.90 mg/dL (2.5-4.5) 08/07/20 14:19 Magnesium 2.30 mg/dL (1.7-2.3) 08/07/20 14: Total Bilirubin 0.70 mg/dL (0.1-1.2) 08/07/20 14:19 AST 17 units/L (5-40) 08/07/20 14:19 ALT 12 units/L (7-56) 08/07/20 14:19 Alkaline Phosphatase 85 units/L (35-129) 08/07/20 14:19 Total Creatine Kinase 27 units/L (30-135) L 08/07/20 14:19 Troponin T < 0.010 ng/mL (0.00-0.029) 08/07/20 14:28 Total Protein 6.8 g/dL (6.3-8.2) 08/07/20 14:19 Albumin 4.1 g/dL (3.9-5) 08/07/20 14:19 Albumin/Globulin Ratio 1.5 % 08/07/20 14:19 TSH 0.435 mlU/mL (0.270-4.200) 08/07/20 14:19 Urine Color Colorless (Yellow) 08/07/20 14:27 Urine Turbidity Clear (Clear) 08/07/20 14: Urine pH 8.0 (5.0-7.0) H 08/07/20 14:27 Ur Specific [place] 1.004 (1.003-1.030) 08/07/20 14:27 Urine Protein <15 mg/dl mg/dL (Negative) 08/07/20 14:27 Urine Glucose (UA) Neg mg/dL (Negative) 08/07/20 14:27 Urine Ketones Tr mg/dL (Negative) 08/07/20 14:27 Urine Blood Neg (Negative) 08/07/20 14:27 Urine Nitrite Neg (Negative) 08/07/20 14:27 Urine Bilirubin Neg (Negative) 08/07/20 14:27 Urine Urobilinogen < 2.0 mg/dL (<2.0) 08/07/20 14:27 Ur Leukocyte Esterase Neg (Negative) 08/07/20 14:27 Urine WBC (Auto) 1.0 /HPF (0.0-6.0) 08/07/20 14:27 Urine RBC (Auto) < 1.0 /HPF (0.0-6.0) 08/07/20 14:27 Urine Bacteria (Auto) 1+ /HPF (Negative) 08/07/20 14:27 Salicylates 0.6 mg/dL (2.8-20.0) L 08/07/20 14: Acetaminophen 5.0 ug/mL (10.0-30.0) L 08/07/20 14:19 Microbiology: Microbiology 08/07/20 14:19 Peripheral/Venous Blood Culture - Preliminary Culture in Progress 08/07/20 14:28 Peripheral/Venous Blood Culture - Preliminary Culture in Progress - Imaging and Cardiology EKG: report reviewed (Sinus rhythm no acute ST-T wave changes) Chest x-ray: report reviewed CT scan - abdomen: report reviewed CT Scan - head: report reviewed Imaging and Cardiology: CT abdomen Bilateral nephrolithiasis but no ureteral stone or hydronephrosis No inflammatory process or bowel obstruction Postoperative findings related to partial sigmoid resection no recurrent mass. Hepatic steatosis. Head CT no acute intracranial abnormality. Chest x-ray No acute findings Brown/IV: Voiding Method External Female Catheter Assessment and Plan Advance Directives: Yes (Full code) VTE prophylaxis?: Chemical Plan of care discussed with patient/family: Yes - Patient Problems (1) Syncope Current Visit: Yes Status: Acute Qualifiers: Syncope type: unspecified Qualified Code(s): R55 - Syncope and collapse Plan to address problem: Syncope work-up Patient is stage IV lymphoma with bone mets and poor intake This may be causing her syncopal episodes (2) HTN (hypertension) Current Visit: Yes Status: Chronic Qualifiers: Hypertension type: essential hypertension Qualified Code(s): I10 - Essential (primary) hypertension Plan to address problem: Continue antihypertensives as tolerated (3) Monroy's palsy Current Visit: Yes Status: Acute Plan to address problem: Prednisone 20 mg daily MRI of the brain ordered (4) Unable to ambulate Current Visit: Yes Status: Acute Plan to address problem: Patient has severe debility and unable to walk Is weakness in both lower extremities PT and OT requested (5) Lymphoma Current Visit: Yes Status: Acute Qualifiers: Lymphoma type: unspecified type Plan to address problem: 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 Arteaga To follow-up with Dr. Arteaga after discharge (6) Counseling regarding advance directives and goals of care Current Visit: Yes Status: Acute Plan to address problem: Patient unable to discuss goals of advance care directive. We will discuss with the children. Their phone number is Luc plata [phone] [address] is Ashley Schuster [phone] (7) Suspected cerebrovascular accident (CVA) Current Visit: Yes Status: Acute Plan to address problem: Able to move all 4 extremities but not full power We will get MRI of the brain (8) DVT prophylaxis Current Visit: No Status: Acute Plan to address problem: On heparin and GI prophylaxis
[2020-08-08] MEDS: METOPROLOL TARTRATE 25 MG TAB PO SCH ×2 (15:05→21:03)
[2020-08-08] MEDS: CYANOCOBALAMIN (VIT B-12) 1000 MCG TAB PO SCH (15:06)
[2020-08-08] MEDS: CHOLECALCIFEROL (VIT D3) 5,000 UNIT TAB PO SCH (15:06)
[2020-08-08] MEDS: FAMOTIDINE 20 MG TAB PO SCH ×2 (15:06→21:03)
[2020-08-08] MEDS: ASCORBIC ACID 500 MG TAB PO SCH (15:06)
[2020-08-08] MEDS: PYRIDOXINE 50 MG TAB PO SCH (15:07)
--- NOTE | 2020-08-08 17:26 | Vascular Lab Report ---
"DUPLEX DOPPLER ULTRASOUND CAROTID, BILATERAL INDICATION: Syncope. COMPARISON: None available. FINDINGS: RIGHT CAROTID: No significant atherosclerotic plaque. CCA velocity: 35 cm/sec. ICA peak systolic velocity: 50 cm/sec. ICA/CCA PSV Ratio: 1.4. Right Vertebral Artery: Antegrade flow. LEFT CAROTID: No significant atherosclerotic plaque. CCA velocity: 49 cm/sec. ICA peak systolic velocity: 82 cm/sec. ICA/CCA PSV Ratio: 1.7. Left Vertebral Artery: Antegrade flow. IMPRESSION: 1. Right Internal Carotid Artery: Less than 50% diameter stenosis. 2. Left Internal Carotid Artery: Less than 50% diameter stenosis. Velocity criteria are extrapolated from diameter data as defined by the Society of Radiologists in Ul trasound Consensus Conference, Radiology 2003; 229;340-346. Degree of || ICA PSV || Plaque || ICA/CCA Stenosis (%) || (cm/sec) || estimate (%) || PSV Ratio - Normal...............<125..............None.................<2.0 - <50....................<125..............<50....................<2.0 - 50-69................125-230.........>50....................2.0-4.0 - >70 but <100....>230..............>50....................>4.0 - Near...................High, low, .....visible................variable occlusion or none - Total...................None.............visible;................N/A occlusion no lumen Signer Name: Paulie Bundy MD Signed: 08/08/2020 5:21 PM Workstation Name: [email or web address]"
[2020-08-09] MEDS: oxyCODONE /ACETAMINOPHEN 5-325MG TAB PO PRN ×2 (00:21→06:35)
--- NOTE | 2020-08-09 01:23 | Progress Note ---
Assessment and Plan - Patient Problems (1) Syncope Current Visit: Yes Status: Acute Qualifiers: Syncope type: unspecified Qualified Code(s): R55 - Syncope and collapse Plan to address problem: Syncope work-up Patient is stage IV lymphoma with bone mets and poor intake This may be causing her syncopal episodes (2) Lymphoma Current Visit: Yes Status: Acute Qualifiers: Lymphoma type: unspecified type Plan to address problem: 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 Arteaga To follow-up with Dr. Arteaga after discharge (3) HTN (hypertension) Current Visit: Yes Status: Chronic Qualifiers: Hypertension type: essential hypertension Qualified Code(s): I10 - Essential (primary) hypertension Plan to address problem: Continue antihypertensives as tolerated (4) Monroy's palsy Current Visit: Yes Status: Acute Plan to address problem: Prednisone 20 mg daily MRI of the brain ordered (5) Suspected cerebrovascular accident (CVA) Current Visit: Yes Status: Acute Plan to address problem: Able to move all 4 extremities but not full power We will get MRI of the brain (6) Unable to ambulate Current Visit: Yes Status: Acute Plan to address problem: Patient has severe debility and unable to walk Is weakness in both lower extremities PT and OT (7) DVT prophylaxis Current Visit: No Status: Acute Plan to address problem: On heparin and GI prophylaxis Subjective Date of service: 08/08/20 Principal diagnosis: Syncope and altered sensorium Interval history: 59-year-old with multiple medical problems brought in by EMS for passing out, altered sensorium and nausea and vomiting. Patient has a complicated medical history including history of breast cancer, recurrent syncope hypertensive urgency and history of presumed colon cancer, s/p sigmoidectomy with anastomosis laparoscopic lysis of adhesions. Patient is with altered sensorium. Very poor historian. Patient states that her right side is weak and especially right facial weakness which is making it difficult to eat. During my examination patient has right facial weakness but able to move all 4 extremities. Last few admissions were reviewed Patient has complex medical history. 02/15/2020 patient was diagnosed with sigm oid mass and had a sigmoidectomy and primary anastomosis. Prior to that patient had multiple surgeries including breast cancer with bilateral mastectomy and TRAM flap for the right breast and the lateral dorsalis for the left breast and followed by panniculectomy. 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 Patient is on chemotherapy. Patient has port. Because of the chemotherapy patient has been having leukopenia. Patient has poor appetite and severe weakness. 08/08/2020 Poor p.o. intake Altered sensorium Severe weakness Objective - Constitutional Vitals: Vital Signs - 12hr 08/08/20 08/08/20 08/08/20 16:00 19:05 23:40 Temperature 97.6 F 97.4 F L 97.7 F Pulse Rate 70 72 72 Respiratory 18 18 17 Rate Blood Pressure 144/104 148/104 144/102 O2 Sat by Pulse 100 98 98 Oximetry General appearance: Present: no acute distress, well-nourished - EENT Eyes: PERRL, EOM intact ENT: hearing intact, clear oral mucosa, other (Right facial patency) Ears: bilateral: normal - Neck Neck: supple, normal ROM - Respiratory Respiratory effort: normal Respiratory: bilateral: CTA - Breasts Breasts: normal - Cardiovascular Rhythm: regular Heart Sounds: Present: S1 & S2. Absent: gallop, rub Extremities: pulses intact, No edema, normal color, Full ROM - Gastrointestinal General gastrointestinal: Present: soft, non-tender, non-distended, normal bowel sounds - Genitourinary Female genitourinary: normal - Integumentary Integumentary: clear, warm, dry - Musculoskeletal Musculoskeletal: 1, strength equal bilaterally - Neurologic Neurologic: moves all extremities - Psychiatric Psychiatric: memory intact, appropriate mood/affect, intact judgment & insight - Labs CBC & Chem 7: 08/09/20 04:28 08/09/20 04:28 Labs: Carotid duplex scan Right internal carotid artery less than 50% diameter stenosis Left internal carotid artery-less than 50% diameter stenosis syncope and HEART Score - HEART Score Troponin: Troponin T < 0.010 ng/mL (0.00-0.029) 08/07/20 14:28
[2020-08-09 05:35] LABS: Hematocrit 39.2 % (30.3-42.9); Hemoglobin 13.2 gm/dl (10.1-14.3); Mean Corpuscular HGB Conc 34 % (30-34); Mean Corpuscular Volume 92 fl (79-97); Platelet Count 370 K/mm3 (140-440); Red Blood Count 4.28 M/mm3 (3.65-5.03); Red Cell Distribution Width 13.6 % (13.2-15.2)
[2020-08-09 05:58] LABS: Alanine Aminotransferase 10 units/L (7-56); Albumin 4.1 g/dL (3.9-5); BUN/Creatinine Ratio 20; Blood Urea Nitrogen 22 mg/dL (7-17); Calcium 9.1 mg/dL (8.4-10.2); Hemolysis Index 12
[2020-08-09 07:04] LABS: Total Cells Counted 100
[2020-08-09 07:05] LABS: Anisocytosis 1+; Ovalocytes Few; Platelet Estimate Consistent w Auto; Poikilocytosis 1+
[2020-08-09] MEDS: ASCORBIC ACID 500 MG TAB PO SCH (10:56)
[2020-08-09] MEDS: METOPROLOL TARTRATE 25 MG TAB PO SCH ×2 (10:56→21:10)
[2020-08-09] MEDS: FAMOTIDINE 20 MG TAB PO SCH ×2 (10:56→21:11)
[2020-08-09] MEDS: VALSARTAN 160MG TAB PO SCH ×2 (10:56→21:10)
[2020-08-09] MEDS: CHOLECALCIFEROL (VIT D3) 5,000 UNIT TAB PO SCH (10:57)
[2020-08-09] MEDS: PYRIDOXINE 50 MG TAB PO SCH (10:57)
[2020-08-09] MEDS: CYANOCOBALAMIN (VIT B-12) 1000 MCG TAB PO SCH (11:00)
--- NOTE | 2020-08-09 17:20 | Magnetic Resonance Report ---
MR brain wo con INDICATION / CLINICAL INFORMATION: CVA. TECHNIQUE: Multiplanar, multisequence MR images of the brain were obtained. COMPARISON: CT head august 07, 2020 FINDINGS: INTRACRANIAL: No restricted diffusion. No hemorrhage. Ventricular caliber is normal. No extra-axial c ollection. No mass. No herniation. Major intracranial vascular flow voids are preserved. Remote basa l ganglia lacunar infarctions. Periventricular and centrum semiovale T2 white matter hyperintensities most consistent with sequela of chronic microvascular disease. ORBITS: No significant abnormality of visualized orbits. SINUSES / MASTOIDS: No significant abnormality of visualized sinuses and mastoid air cells. ADDITIONAL FINDINGS: None. IMPRESSION: 1. No acute infarction. No acute intracranial abnormality. Signer Name: Jimmy Trevizo MD Signed: 08/09/2020 5:16 PM Workstation Name: [email or web address]
--- NOTE | 2020-08-10 01:04 | Progress Note ---
Assessment and Plan - Patient Problems (1) Suspected cerebrovascular accident (CVA) Current Visit: Yes Status: Acute Plan to address problem: Able to move all 4 extremities but not full power MRI of the brain negative We will get neurology consult (2) Syncope Current Visit: Yes Status: Acute Qualifiers: Syncope type: unspecified Qualified Code(s): R55 - Syncope and collapse Plan to address problem: Syncope work-up Patient is stage IV lymphoma with bone mets and poor intake This may be causing her syncopal episodes (3) HTN (hypertension) Current Visit: Yes Status: Chronic Qualifiers: Hypertension type: essential hypertension Qualified Code(s): I10 - Essential (primary) hypertension Plan to address problem: Continue antihypertensives as tolerated (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 Arteaga To follow-up with Dr. Arteaga after discharge (6) Colonic mass Current Visit: No Status: Resolved Plan to address problem: Patient had sigmoid resection with primary anastomosis on on February 17 of last 2019 (7) DVT prophylaxis Current Visit: No Status: Acute Plan to address problem: On heparin and GI prophylaxis (8) Discharge planning issues Current Visit: Yes Status: Acute Plan to address problem: Patient needs a residential facility versus hospice Patient has severe debility and unable to walk Patient also has poor p.o. intake May be a candidate for PEG tube Subjective Date of service: 08/09/20 Principal diagnosis: Severe debility and difficulty walking Interval history: 59-year-old with multiple medical problems brought in by EMS for passing out, altered sensorium and nausea and vomiting. Patient has a complicated medical history including history of breast cancer, recurrent syncope hypertensive urgency and history of presumed colon cancer, s/p sigmoidectomy with anastomosis laparoscopic lysis of adhesions. Patient is with altered sensorium. Very poor historian. Patient states that her right side is weak and especially right facial weakness which is making it difficult to eat. During my examination patient has right facial weakness but able to move all 4 extremities. Last few admissions were reviewed Patient has complex medical history. 02/15/2020 patient was diagnosed with sigmoid mass and had a sigmoidectomy and primary anastomosis. Prior to that patient had multiple surgeries including breast cancer with bilateral mastectomy and TRAM flap for the right breast and the lateral dorsalis for the left breast and followed by panniculectomy. 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 Patient is on chemotherapy. Patient has port. Because of the chemotherapy patient has been having leukopenia. Patient has poor appetite and severe weakness. 08/08/2020 Poor p.o. intake Altered sensorium Severe weakness 08/09/2020 MRI negative for stroke Severe debility Patient confused but alert Poor p.o. intake Unable to ambulate Objective - Constitutional Vitals: Vital Signs - 12hr 08/09/20 08/09/20 08/09/20 19:27 21:00 21:10 Temperature 97.3 F L Pulse Rate 87 85 87 Respiratory 16 Rate Blood Pressure 142/90 142/90 O2 Sat by Pulse 97 Oximetry 08/09/20 22:53 Temperature 97.4 F L Pulse Rate 74 Respiratory 16 Rate Blood Pressure 159/111 O2 Sat by Pulse 97 Oximetry General appearance: Present: no acute distress, well-nourished - EENT Eyes: PERRL, EOM intact ENT: hearing intact, clear oral mucosa, other (Right facial paralysis) Ears: bilateral: normal - Neck Neck: supple, normal ROM - Respiratory Respiratory effort: normal Respiratory: bilateral: CTA - Breasts Breasts: normal - Cardiovascular Heart rate: 78 Rhythm: regular Heart Sounds: Present: S1 & S2. Absent: gallop, rub Extremities: no ischemia, pulses intact, No edema, normal color, Full ROM - Gastrointestinal General gastrointestinal: Present: soft, non-tender, non-distended, normal bowel sounds - Genitourinary Female genitourinary: normal - Integumentary Integumentary: clear, warm, dry - Musculoskeletal Musculoskeletal: generalized weakness, other (Unable to walk) - Neurologic Neurologic: moves all extremities - Psychiatric Psychiatric: depressed, other (Alert but does not give any information) - Labs CBC & Chem 7: 08/09/20 04:28 08/09/20 04:28 Labs: Abnormal lab results 08/09/20 08/09/20 Range/Units 04:28 04:28 WBC 4.2 L (4.5-11.0) K/mm3 Eosinophils % (Manual) 5.0 H (0.0-4.3) % Lymphocytes # (Manual) 0.9 L (1.2-5.4) K/mm3 BUN 22 H (7-17) mg/dL HEART Score - HEART Score Troponin: Troponin T < 0.010 ng/mL (0.00-0.029) 08/07/20 14:28
[2020-08-10] MEDS: MORPHINE 2 MG/1 ML INJ IV PRN ×2 (06:45→21:10)
[2020-08-10] MEDS: FAMOTIDINE 20 MG TAB PO SCH ×2 (10:01→21:08)
[2020-08-10] MEDS: CYANOCOBALAMIN (VIT B-12) 1000 MCG TAB PO SCH (10:01)
[2020-08-10] MEDS: METOPROLOL TARTRATE 25 MG TAB PO SCH ×2 (10:01→21:08)
[2020-08-10] MEDS: VALSARTAN 160MG TAB PO SCH ×2 (10:02→21:08)
[2020-08-10] MEDS: oxyCODONE /ACETAMINOPHEN 5-325MG TAB PO PRN (10:02)
[2020-08-10] MEDS: ASCORBIC ACID 500 MG TAB PO SCH (10:03)
--- NOTE | 2020-08-10 11:38 | Electrocardiograph Report ---
[facility] Test Date: 2020-08-07 Test Time: 14:34:00 Pat Name: KOKO HARRINGTON Department: Room: A468 Gender: F Contract Administration Manager: FRANCISCO : 1960 Requested By: MILKA TORRES Order Number: [id number] Reading MD: Sheryl Hernandez Measurements Intervals [place] Rate: 74 P: 33 KS: 185 QRS: -27 QRSD: 83 T: 52 QT: 418 QTc: 464 Interpretive Statements Sinus rhythm Inferior infarct, old Anterior infarct, old No previous ECG available for comparison Electronically Signed On 08-10-2020 11:37:52 EDT by Sheryl Hernandez
[2020-08-10] MEDS ORDERED: D5W/0.9% NACL 1,000 ML IV SCH (17:00)
--- NOTE | 2020-08-10 17:09 | Progress Note ---
Assessment and Plan - Patient Problems (1) Syncope Current Visit: Yes Status: Acute Qualifiers: Syncope type: unspecified Qualified Code(s): R55 - Syncope and collapse Plan to address problem: Syncope work-up Patient is stage IV lymphoma with bone mets and poor intake This may be causing her syncopal episodes (2) Suspected cerebrovascular accident (CVA) Current Visit: Yes Status: Acute Plan to address problem: Able to move all 4 extremities but not full power MRI of the brain negative We will get neurology consult (3) HTN (hypertension) Current Visit: Yes Status: Chronic Qualifiers: Hypertension type: essential hypertension Qualified Code(s): I10 - Essential (primary) hypertension Plan to address problem: Continue antihypertensives as tolerated (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 Arteaga To follow-up with Dr. Arteaga after discharge Patient may need hospice Tried contacting the son at [phone] Second son is Vicky sue [phone] (6) Colonic mass Current Visit: No Status: Resolved Plan to address problem: Patient had sigmoid resection with primary anastomosis on on February 17 of last 2019 (7) DVT prophylaxis Current Visit: No Status: Acute Plan to address problem: On heparin and GI prophylaxis (8) Discharge planning issues Current Visit: Yes Status: Acute Plan to address problem: Patient needs a jail facility versus hospice Patient has severe debility and unable to walk Patient also has poor p.o. intake May be a candidate for PEG tube Subjective Date of service: 08/10/20 Principal diagnosis: Severe debility and difficulty walking Interval history: 59-year-old with multiple medical problems brought in by EMS for passing out, altered sensorium and nausea and vomiting. Patient has a complicated medical history including history of breast cancer, recurrent syncope hypertensive urgency and history of presumed colon cancer, s/p sigmoidectomy with anastomosis laparoscopic lysis of adhesions. Patient is with altered sensorium. Very poor historian. Patient states that her right side is weak and especially right facial weakness which is making it difficult to eat. During my examination patient has right facial weakness but able to move all 4 extremities. Last few admissions were reviewed Patient has complex medical history. 02/15/2020 patient was diagnosed with sigmoid mass and had a sigmoidectomy and primary anastomosis. Prior to that patient had multiple surgeries including breast cancer with bilateral mastectomy and TRAM flap for the right breast and the lateral dorsalis for the left breast and followed by panniculectomy. 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 Patient is on chemotherapy. Patient has port. Because of the chemotherapy patient has been having leukopenia. Patient has poor appetite and severe weakness. 08/08/2020 Poor p.o. intake Altered sensorium Severe weakness 08/09/2020 MRI negative for stroke Severe debility Patient confused but alert Poor p.o. intake Unable to ambulate 08/10/2020 MRI negative for stroke Severe debility Patient alert but confused Poor p.o. intake Unable to ambulate Objective - Constitutional Vitals: Vital Signs - 12hr 08/10/20 08/10/20 08/10/20 08:15 10:01 10:02 Temperature 98.2 F Pulse Rate 82 80 89 Respiratory 18 Rate Blood Pressure 146/104 O2 Sat by Pulse 99 Oximetry 08/10/20 08/10/20 08/10/20 11:42 11:44 13:00 Temperature 98.6 F Pulse Rate 74 81 Respiratory 18 Rate Blood Pressure 144/104 141/105 O2 Sat by Pulse 96 Oximetry General appearance: Present: no acute distress, well-nourished - EENT Eyes: PERRL, EOM intact ENT: hearing intact, clear oral mucosa, other (Right Monroy's palsy) Ears: bilateral: normal - Neck Neck: supple, normal ROM - Respiratory Respiratory effort: normal Respiratory: bilateral: CTA - Breasts Breasts: normal - Cardiovascular Heart rate: 78 Rhythm: regular Heart Sounds: Present: S1 & S2. Absent: gallop, rub Extremities: pulses intact, No edema, normal color, Full ROM - Gastrointestinal General gastrointestinal: Present: soft, non-tender, non-distended, normal bowel sounds - Genitourinary Female genitourinary: normal - Integumentary Integumentary: clear, warm, dry - Musculoskeletal Musculoskeletal: generalized weakness - Neurologic Neurologic: moves all extremities - Psychiatric Psychiatric: memory intact, appropriate mood/affect, intact judgment & insight - Labs CBC & Chem 7: 08/09/20 04:28 08/09/20 04:28 HEART Score - HEART Score Risk factors: 1-2 risk factors Troponin: Troponin T < 0.010 ng/mL (0.00-0.029) 08/07/20 14:28 Troponin: < normal limit - Critical Actions Critical Actions: 0-3 pts:0.9-1.7%risk of adverse cardiac event.Candidate for discharge
[2020-08-10] MEDS: PYRIDOXINE 50 MG TAB PO SCH (17:16)
[2020-08-10] MEDS: CHOLECALCIFEROL (VIT D3) 5,000 UNIT TAB PO SCH (17:17)
[2020-08-11] MEDS: hydrALAZINE 20 MG/1 ML INJ IV PRN ×2 (00:13→12:18)
--- NOTE | 2020-08-11 08:22 | Consultation ---
History of Present Illness Consult date: 08/11/20 Reason for Consult: recurrent syncopy History of present illness: Chief complaint: change in mentation History of present illness: 59-year-old with multiple medical problems brought in by EMS for passing out, altered sensorium and nausea and vomiting. Patient has a complicated medical history including history of breast cancer, recurrent syncope hypertensive urgency and history of presumed colon cancer, s/p sigmoidectomy with anastomosis laparoscopic lysis of adhesions. Patient is with altered sensorium. Very poor historian. Patient is with cahnge in mentation unable to get any history from Last few admissions were reviewed Patient has complex medical history. 02/15/2020 patient was diagnosed with sigmoid mass and had a sigmoidectomy and primary anastomosis. Prior to that patient had multiple surgeries including breast cancer with bilateral mastectomy and TRAM flap for the right breast and the lateral dorsalis for the left breast and followed by panniculectomy. 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 Patient is on chemotherapy. Patient has port. Because of the chemotherapy patient has been having leukopenia. Patient has poor appetite and severe weakness. she is on Morphine for pain prn now and Oxycodon prn MRI brain done without qd is unremarkable. - Past Medical History Hypertension: Yes Deep Vein Thrombosis: (UNKNOWN) Kidney Stones: Yes --Breast CA, Stage 4 non hodgkin's lymphoma, headaches - Surgical History --Cholecystectomy: Yes --Additional Surgical History: 3 , double mastectomy, parathyroidectomy, sigmoidectomy, mediport right chest wall - Social History Smoking Status: Never Smoker --Family history Htn - Medications Home Medications: Home Medications Medication Instructions Recorded Confirmed Last Taken Type Ascorbic Acid [Vitamin C] 1,000 mg PO DAILY 02/12/20 02/12/20 02/12/20 History Cholecalciferol (Vitamin D3) 5,000 unit PO DAILY 02/12/20 02/12/20 02/12/20 History [Vitamin D3] Cyanocobalamin (Vitamin B-12) 1,000 mcg PO DAILY 02/12/20 02/12/20 02/12/20 History [Vitamin B-12] Magnesium Amino Acid Chelate 100 mg PO DAILY 02/12/20 02/12/20 02/12/20 History [Magnesium] Pyridoxine HCl (Vitamin B6) 250 mg PO DAILY 02/12/20 02/12/2020 History [Vitamin B-6] Metoprolol [Lopressor TAB] 25 mg PO BID #60 tablet 02/17/20 Unknown Rx Ondansetron HCl [Zofran] 4 mg PO TID PRN #20 tablet 02/17/20 Unknown Rx Valsartan [Diovan] 160 mg PO BID #60 tablet 02/17/20 Unknown Rx oxyCODONE /ACETAMINOPHEN [Percocet 1 tab PO Q6H PRN #20 tablet 02/17/20 Unknown Rx 5/325 mg] Butalb/Acetamin/Caff 50-325-40 1 tab PO Q6HR PRN #10 tab 06/26/20 Unknown Rx [Fioricet] Ciprofloxacin HCl 500 mg PO BID #14 tablet 07/15/20 Unknown Rx Ondansetron [Zofran Odt] 4 mg PO Q8HR PRN #14 tab.rapdis 07/15/20 Unknown Rx oxyCODONE /ACETAMINOPHEN [Percocet 1 tab PO Q6HR PRN #14 tablet 07/15/20 Unkno wn Rx 5/325] Review of Systems ROS: Constitutional --very poor appetite HEENT no sore throat no post nasal drip no diplopia Neck no neck stiffness no lymph gland enlargement Chest and lungs no shortness of breath cough or wheezing CVS no chest pain no diaphoresis no palpitations GI no nausea no vomiting no diarrhea Genitourinary system no dysuria no flank pain Musculoskeletal system no muscle pains no joint pains [employer] severe debility and difficulty walking Skin no rash no itching Psychiatric no depression no homicidal or suicidal tendencies Hematologic no lymphedema or bruising Endocrine no polydipsia no polyuria no cold intolerance no heat intolerance Medications and Allergies Allergies Allergy/AdvReac Type Severity Reaction Status Date / Time hydromorphone [From Dilaudid] AdvReac Headache Verified 02/12/20 18:28 Home Medications Medication Instructions Recorded Confirmed Last Taken Type Ascorbic Acid [Vitamin C] 1,000 mg PO DAILY 02/12/20 02/12/20 02/12/20 History Cholecalciferol (Vitamin D3) 5,000 unit PO DAILY 02/12/20 02/12/20 02/12/20 History [Vitamin D3] Cyanocobalamin (Vitamin B-12) 1,000 mcg PO DAILY 02/12/20 02/12/20 02/12/20 History [Vitamin B-12] Magnesium Amino Acid Chelate 100 mg PO DAILY 02/12/20 02/12/20 02/12/20 History [Magnesium] Pyridoxine HCl (Vitamin B6) 250 mg PO DAILY 02/12/20 02/12/20 02/12/20 History [Vitamin B-6] Metoprolol [Lopressor TAB] 25 mg PO BID #60 tablet 02/17/20 Unknown Rx Ondansetron HCl [Zofran] 4 mg PO TID PRN #20 tablet 02/17/20 Unknown Rx Valsartan [Diovan] 160 mg PO BID #60 tablet 02/17/20 Unknown Rx oxyCODONE /ACETAMINOPHEN [Percocet 1 tab PO Q6H PRN #20 tablet 02/17/20 Unknown Rx 5/325 mg] Butalb/Acetamin/Caff 50-325-40 1 tab PO Q6HR PRN #10 tab 06/26/20 Unknown Rx [Fioricet] Ciprofloxacin HCl 500 mg PO BID #14 tablet 07/15/20 Unknown Rx Ondansetron [Zofran Odt] 4 mg PO Q8HR PRN #14 tab.rapdis 07/15/20 Unknown Rx oxyCODONE /ACETAMINOPHEN [Percocet 1 tab PO Q6HR PRN #14 tablet 07/15/20 Unknown Rx 5/325] Active Meds: Active Medications Acetaminophen (Acetaminophen 325 Mg Tab) 650 mg PO Q4H PRN PRN Reason: Pain MILD(1-3)/Fever >100.5/PETE Acetaminophen/Butalbital/Caffeine (Butalb/Acetaminophen/Caffeine Tab) 1 tab PO Q6HR PRN PRN Reason: Headache Ascorbic Acid (Ascorbic Acid 500 Mg Tab) 1,000 mg PO DAILY REPLACED BY [facility] Cholecalciferol (Cholecalciferol (Vit D3) 5,000 Unit Tab) 5,000 unit PO DAILY REPLACED BY [facility] Cyanocobalamin (Cyanocobalamin (Vit B-12) 1000 Mcg Tab) 1,000 mcg PO DAILY REPLACED BY [facility] Famotidine (Famotidine 20 Mg Tab) 20 mg PO BID REPLACED BY [facility] Metoclopramide HCl (Metoclopramide 10 Mg/2 Ml Inj) 10 mg IV Q6H PRN PRN Reason: Nausea And Vomiting Metoprolol Tartrate (Metoprolol Tartrate 25 Mg Tab) 25 mg PO BID REPLACED BY [facility] Morphine Sulfate (Morphine 2 Mg/1 Ml Inj) 2 mg IV Q4H PRN PRN Reason: Pain, Moderate (4-6) Last Admin: 08/08/20 09:34 Dose: 2 mg Documented by: Ondansetron HCl (Ondansetron 4 Mg/2 Ml Inj) 4 mg IV Q8H PRN PRN Reason: Nausea And Vomiting Oxycodone/Acetaminophen (Oxycodone /Acetaminophen 5-325mg Tab) 1 tab PO Q6H PRN PRN Reason: Pain, Moderate (4-6) Pyridoxine HCl (Pyridoxine 50 Mg Tab) 250 mg PO DAILY REPLACED BY [facility] Sodium Chloride (Sodium Chloride 0.9% 10 Ml Flush Syringe) 10 ml IV BID REPLACED BY [facility] Sodium Chloride (Sodium Chloride 0.9% 10 Ml Flush Syringe) 10 ml IV PRN PRN PRN Reason: LINE FLUSH Valsartan (Valsartan 160mg Tab) 160 mg PO BID REPLACED BY [facility] Last Admin: 08/08/20 06:49 Dose: Not Given Documented by: Medications and Allergies Allergies Allergy/AdvReac Type Severity Reaction Status Date / Time hydromorphone [From Dilaudid] AdvReac Headache Verified 02/12/20 18:28 Home Medications Medication Instructions Recorded Confirmed Last Taken Type Ascorbic Acid [Vitamin C] 1,000 mg PO DAILY 02/12/20 02/12/20 02/12/20 History Cholecalciferol (Vitamin D3) 5,000 unit PO DAILY 02/12/20 02/12/20 02/12/20 History [Vitamin D3] Cyanocobalamin (Vitamin B-12) 1,000 mcg PO DAILY 02/12/20 02/12/20 02/12/20 History [Vitamin B-12] Magnesium Amino Acid Chelate 100 mg PO DAILY 02/12/20 02/12/20 02/12/20 History [Magnesium] Pyridoxine HCl (Vitamin B6) 250 mg PO DAILY 02/12/20 02/12/20 02/12/20 History [Vitamin B-6] Metoprolol [Lopressor TAB] 25 mg PO BID #60 tablet 02/17/20 Unknown Rx Ondansetron HCl [Zofran] 4 mg PO TID PRN #20 tablet 02/17/20 Unknown Rx Valsartan [Diovan] 160 mg PO BID #60 tablet 02/17/20 Unknown Rx oxyCODONE /ACETAMINOPHEN [Percocet 1 tab PO Q6H PRN #20 tablet 02/17/20 Unknown Rx 5/325 mg] Butalb/Acetamin/Caff 50-325-40 1 tab PO Q6HR PRN #10 tab 06/26/20 Unknown Rx [Fioricet] Ciprofloxacin HCl 500 mg PO BID #14 tablet 07/15/20 Unknown Rx Ondansetron [Zofran Odt] 4 mg PO Q8HR PRN #14 tab.rapdis 07/15/20 Unknown Rx oxyCODONE /ACETAMINOPHEN [Percocet 1 tab PO Q6HR PRN #14 tablet 07/15/20 Unknown Rx 5/325] Active Meds: Active Medications Acetaminophen (Acetaminophen 325 Mg Tab) 650 mg PO Q4H PRN PRN Reason: Pain MILD(1-3)/Fever >100.5/PETE Acetaminophen/Butalbital/Caffeine (Butalb/Acetaminophen/Caffeine Tab) 1 tab PO Q6HR PRN PRN Reason: Headache Ascorbic Acid (Ascorbic Acid 500 Mg Tab) 1,000 mg PO DAILY REPLACED BY [facility] Last Admin: 08/10/20 10:03 Dose: 1,000 mg Documented by: Cholecalciferol (Cholecalciferol (Vit D3) 5,000 Unit Tab) 5,000 unit PO DAILY REPLACED BY [facility] Last Admin: 08/10/20 17:17 Dose: 5,000 unit Documented by: Cyanocobalamin (Cyanocobalamin (Vit B-12) 1000 Mcg Tab) 1,000 mcg PO DAILY REPLACED BY [facility] Last Admin: 08/10/20 10:01 Dose: 1,000 mcg Documented by: Famotidine (Famotidine 20 Mg Tab) 20 mg PO BID REPLACED BY [facility] Last Admin: 08/10/20 21:08 Dose: 20 mg Documented by: Hydralazine HCl (Hydralazine 20 Mg/1 Ml Inj) 5 mg IV Q4H PRN PRN Reason: Hypertension Last Admin: 08/11/20 00:13 Dose: 5 mg Documented by: Dextrose/Sodium Chloride (D5ns) 1,000 mls @ 100 mls/hr IV DIRECT REPLACED BY [facility] Last Admin: 08/10/20 20:04 Dose: 100 mls/hr Documented by: Metoclopramide HCl (Metoclopramide 10 Mg/2 Ml Inj) 10 mg IV Q6H PRN PRN Reason: Nausea And Vomiting Metoprolol Tartrate (Metoprolol Tartrate 25 Mg Tab) 25 mg PO BID REPLACED BY [facility] Last Admin: 08/10/20 21:08 Dose: 25 mg Documented by: Morphine Sulfate (Morphine 2 Mg/1 Ml Inj) 2 mg IV Q4H PRN PRN Reason: Pain, Moderate (4-6) Last Admin: 08/10/20 21:10 Dose: 2 mg Documented by: Ondansetron HCl (Ondansetron 4 Mg/2 Ml Inj) 4 mg IV Q8H PRN PRN Reason: Nausea And Vomiting Last Admin: 08/08/20 15:16 Dose: 4 mg Documented by: Oxycodone/Acetaminophen (Oxycodone /Acetaminophen 5-325mg Tab) 1 tab PO Q6H PRN PRN Reason: Pain, Moderate (4-6) Last Admin: 08/10/20 10:02 Dose: 1 tab Documented by: Pyridoxine HCl (Pyridoxine 50 Mg Tab) 250 mg PO DAILY REPLACED BY [facility] Last Admin: 08/10/20 17:16 Dose: 250 mg Documented by: Sodium Chloride (Sodium Chloride 0.9% 10 Ml Flush Syringe) 10 ml IV BID REPLACED BY [facility] Last Admin: 08/10/20 21:09 Dose: 10 ml Documented by: Sodium Chloride (Sodium Chloride 0.9% 10 Ml Flush Syringe) 10 ml IV PRN PRN PRN Reason: LINE FLUSH Valsartan (Valsartan 160mg Tab) 160 mg PO BID REPLACED BY [facility] Last Admin: 08/10/20 21:08 Dose: 160 mg Documented by: Physical Examination - Vital Signs Vital Signs: Vital Signs Temp Pulse Resp BP Pulse Ox 97.5 F L 80 13 182/117 99 08/07/20 14:09 08/07/20 14:09 08/07/20 14:09 08/07/20 14:09 08/07/20 14:09 - Constitutional General appearance: other (lethargic not follow command open eyes at time when called her name then drift to unresponsivness ) - EENT EENT: Present: PERRL, mucous membranes moist - Respiratory Respiratory: Present: lungs clear, crackles - Cardiovascular Cardiovascular: Present: normal S1, normal S2 Extremities: Present: no peripheral edema bilatateraly, no clubbing, cyanosis - Gastrointestinal Gastrointestinal: Present: normoactive bowel sounds - Integumentary Integumentary: Present: normal - Neurologic Cranial nerve examination: PERRL, EOMI, intact Speech examination: other (slurred not follow command) Detailed motor examination: full strength in all nessa Detailed sensory examination: other (withdraw to pain stimuli ) Results - Laboratory Findings CBC and BMP: 08/11/20 08:41 08/11/20 08:41 Abnormal Lab Findings: Abnormal Labs 08/07/20 08/07/20 08/07/20 14:19 14:19 14:19 WBC 2.3 L Eosinophils % (Manual) Basophils % (Manual) 2.0 H Seg Neutrophils # Man 1.3 L Lymphocytes # (Manual) 0.7 L BUN Total Creatine Kinase 27 L Urine pH Salicylates 0.6 L Acetaminophen 08/07/20 08/07/20 08/09/20 14:19 14:27 04:28 WBC 4.2 L Eosinophils % (Manual) 5.0 H Basophils % (Manual) Seg Neutrophils # Man Lymphocytes # (Manual) 0.9 L BUN Total Creatine Kinase Urine pH 8.0 H Salicylates Acetaminophen 5.0 L 08/09/20 04:28 WBC Eosinophils % (Manual) Basophils % (Manual) Seg Neutrophils # Man Lymphocytes # (Manual) BUN 22 H Total Creatine Kinase Urine pH Salicylates Acetaminophen Assessment and Plan Assessment and Plan - Patient Problems #Encephalopathy - pt. is not following command lethergic -neck rigidity -MRI brain is unremarkable -findings is suggestive toximetabolic ,infectious and or carcinomotous meningitis, drug effect can not be exclueded -Patient is stage IV lymphoma with bone mets and poor intake -Suggest [facility] spectrum ABs cover -MRI brain with QD -Hold sedation -seizure can not be excluded -EEG -start keppra 500 mg Iv BID -LP when possible -PT/ST evaluate swallow # HTN (hypertension) -Continue antihypertensives as tolerated -No Po medications -need [place] tube # Monroy's palsy ? 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 Arteaga -To follow-up with Dr. Arteaga after discharge # DVT prophylaxis -On heparin and GI prophylaxis PLAN 1- Consider LP 2- Broad spectrum ABs cover 3- Hold Po and sedation for now 4- EEG ? seizure 5- Ammonia level 6- MRI brain with QD ? carcinomatous meningitis 7- keppra 500 mgIv bid will follow
[2020-08-11] MEDS: METOPROLOL TARTRATE 25 MG TAB PO SCH ×2 (09:15→20:41)
[2020-08-11] MEDS: FAMOTIDINE 20 MG TAB PO SCH ×2 (09:15→20:40)
[2020-08-11] MEDS: ASCORBIC ACID 500 MG TAB PO SCH (09:15)
[2020-08-11] MEDS: VALSARTAN 160MG TAB PO SCH ×2 (09:15→20:40)
[2020-08-11] MEDS: PYRIDOXINE 50 MG TAB PO SCH (09:15)
[2020-08-11] MEDS: CHOLECALCIFEROL (VIT D3) 5,000 UNIT TAB PO SCH (09:16)
[2020-08-11] MEDS: CYANOCOBALAMIN (VIT B-12) 1000 MCG TAB PO SCH (09:16)
[2020-08-11 09:54] LABS: Basophils % (Auto) 0.1 % (0.0-1.8); Eosinophils # (Auto) 0.1 K/mm3 (0.0-0.4); Eosinophils % (Auto) 0.9 % (0.0-4.3); Hematocrit 43.7 % (30.3-42.9); Hemoglobin 15.1 gm/dl (10.1-14.3); Lymphocytes # (Auto) 0.6 K/mm3 (1.2-5.4); Lymphocytes % (Auto) 7.3 % (13.4-35.0); Mean Corpuscular HGB Conc 35 % (30-34); Mean Corpuscular Volume 91 fl (79-97); Monocytes # (Auto) 0.4 K/mm3 (0.0-0.8); Monocytes % (Auto) 5.2 % (0.0-7.3); Platelet Count 377 K/mm3 (140-440); Red Blood Count 4.82 M/mm3 (3.65-5.03)
[2020-08-11 10:23] LABS: Alanine Aminotransferase 11 units/L (7-56); BUN/Creatinine Ratio 23; Blood Urea Nitrogen 21 mg/dL (7-17); Hemolysis Index 28
--- NOTE | 2020-08-11 10:45 | Progress Note ---
Assessment and Plan Assessment and plan: #Altered mental status Worsening altered mental status compared with admission note. Etiology is unclear. UA showed no UTI. Chest x-ray negative for pneumonia Started on broad-spectrum antibiotics Lumbar puncture has been ordered to rule out any meningitis MRI brain with and without contrast ordered-result pending Need to also rule out underlying seizures. Neurology consulted-patient started on Keppra #Hypertensive emergency DBP more than 120. Not controlled currently as patient is p.o. Started on nicardipine drip Patient will be transferred to the critical care unit for close monitoring #Syncopal episode Reason for admission-this could be as a result of poor intake/dehydration Started on IV hydration Patient is not tolerating p.o. due to altered mental status Maintain n.p.o. 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 Tried contacting the son at [phone] Second son is Vicky sue [phone] #History of colonic mass Status post sigmoid resection with primary anastomosis 12/2019 Stable #DVT prophylaxis-Heparin #Discharge planning Not stable for discharge at this time. Need to address worsening altered mental status We will discuss hospice with patient's family. Called Luc (son) at [phone] but no response Second son is Vicky sue [phone] but no response Patient may ultimately need PEG placement if patient's family wants aggressive measures History Interval history: 59-year-old with multiple medical problems brought in by EMS for passing out, altered sensorium and nausea and vomiting. Patient has a complicated medical history including history of breast cancer, recurrent syncope hypertensive urgency and history of presumed colon cancer, s/p sigmoidectomy with anastomosis laparoscopic lysis of adhesions. Patient is with altered sensorium. Very poor historian. Patient states that her right side is weak and especially right facial weakness which is making it difficult to eat. During my examination patient has right facial weakness but able to move all 4 extremities. Last few admissions were reviewed Patient has complex medical history. 02/15/2020 patient was diagnosed with sigmoid mass and had a sigmoidectomy and primary anastomosis. Prior to that patient had multiple surgeries including breast cancer with bilateral mastectomy and TRAM flap for the right breast and the lateral dorsalis for the left breast and followed by panniculectomy. 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 Patient is on chemotherapy. Patient has port. Because of the chemotherapy patient has been having leukopenia. Patient has poor appetite and severe weakness. 08/08/2020 Poor p.o. intake Altered sensorium Severe weakness 08/09/2020 MRI negative for stroke Severe debility Patient confused but alert Poor p.o. intake Unable to ambulate 08/10/2020 MRI negative for stroke Severe debility Patient alert but confused Poor p.o. intake Unable to ambulate 08/11. Patient seen and examined at bedside this morning. She is awake and responds yes occasionally to questions. Looks weak. MRI brain showed no stroke. Neurology has been consulted. Reviewed notes from previous. Patient is having worsening mental status. She has not been eating. Patient sodium is elevated-150. Started on hypotonic solution for now. May need lumbar puncture to rule out any meningitis or encephalitis. Lumbar puncture ordered. Started o n broad-spectrum antibiotics. Tried to call son today but voicemail is full. Hospitalist Physical - Physical exam Narrative exam: At 11 (today VITAL SIGNS: Reviewed. GENERAL: Awake HEAD: No signs of head trauma. EYES: Pupils are equal. Extraocular motions intact. MOUTH: Oropharynx is normal. NECK: No adenopathy, no JVD. CHEST: Chest with diminished breath sounds bilaterally. No wheezes, rales, or rhonchi. CARDIAC: normal S1 and S2, without murmurs, gallops, or rubs. ABDOMEN: Soft, non tender and non distended. No rebound or guarding, and no masses palpated. Bowel Sounds normal. MUSCULOSKELETAL: No edema NEUROLOGIC EXAM: Lethargic SKIN: No obvious lesions - Constitutional Vitals: Temp Pulse Resp BP Pulse Ox 97.4 F L 92 H 16 191/125 97 08/11/20 05:31 08/11/20 09:15 08/11/20 05:31 08/11/20 09:15 08/11/20 05:31 HEART Score - HEART Score Risk factors: 1-2 risk factors Troponin: WBC 8.7 K/mm3 (4.5-11.0) 08/11/20 08:41 RBC 4.82 M/mm3 (3.65-5.03) 08/11/20 08:41 Hgb 15.1 gm/dl (10.1-14.3) H 08/11/20 08:41 Hct 43.7 % (30.3-42.9) H 08/11/20 08:41 MCV 91 fl (79-97) 08/11/20 08:41 MCH 31 pg (28-32) 08/11/20 08:41 MCHC 35 % (30-34) H 08/11/20 08:41 RDW 14.0 % (13.2-15.2) 08/11/20 08:41 Plt Count 377 K/mm3 (140-440) 08/11/20 08:41 Lymph % (Auto) 7.3 % (13.4-35.0) L 08/11/20 08:41 Saunders % (Auto) 5.2 % (0.0-7.3) 08/11/20 08:41 Eos % (Auto) 0.9 % (0.0-4.3) 08/11/20 08:41 Baso % (Auto) 0.1 % (0.0-1.8) 08/11/20 08:41 Lymph # (Auto) 0.6 K/mm3 (1.2-5.4) L 08/11/20 08:41 Saunders # (Auto) 0.4 K/mm3 (0.0-0.8) 08/11/20 08:41 Eos # (Auto) 0.1 K/mm3 (0.0-0.4) 08/11/20 08:41 Baso # (Auto) 0.0 K/mm3 (0.0-0.1) 08/11/20 08:41 Add Manual Diff Complete 08/09/20 04:28 Total Counted 100 08/09/20 04:28 Seg Neutrophils % 86.5 % (40.0-70.0) H 08/11/20 08:41 Seg Neuts % (Manual) 66.0 % (40.0-70.0) 08/09/20 04:28 Lymphocytes % (Manual) 22.0 % (13.4-35.0) 08/09/20 04:28 Monocytes % (Manual) 7.0 % (0.0-7.3) 08/09/20 04:28 Eosinophils % (Manual) 5.0 % (0.0-4.3) H 08/09/20 04:28 Basophils % (Manual) 2.0 % (0.0-1.8) H 08/07/20 14:19 Metamyelocytes % 1.0 % 08/07/20 14:19 Nucleated RBC % Not Reportable 08/09/20 04:28 Seg Neutrophils # 7.5 K/mm3 (1.8-7.7) 08/11/20 08:41 Seg Neutrophils # Man 2.8 K/mm3 (1.8-7.7) 08/09/20 04:28 Band Neutrophils # 0.0 K/mm3 08/09/20 04:28 Lymphocytes # (Manual) 0.9 K/mm3 (1.2-5.4) L 08/09/20 04:28 Abs React Lymphs (Man) 0.0 K/mm3 08/09/20 04:28 Monocytes # (Manual) 0.3 K/mm3 (0.0-0.8) 08/09/20 04:28 Eosinophils # (Manual) 0.2 K/mm3 (0.0-0.4) 08/09/20 04:28 Basophils # (Manual) 0.0 K/mm3 (0.0-0.1) 08/09/20 04:28 Metamyelocytes # 0.0 K/mm3 08/09/20 04:28 Myelocytes # 0.0 K/mm3 08/09/20 04:28 Promyelocytes # 0.0 K/mm3 08/09/20 04:28 Blast Cells # 0.0 K/mm3 08/09/20 04:28 WBC Morphology Not Reportable 08/09/20 04:28 Hypersegmented Neuts Not Reportable 08/09/20 04:28 Hyposegmented Neuts Not Reportable 08/09/20 04:28 Hypogranular Neuts Not Reportable 08/09/20 04:28 Smudge Cells Not Reportable 08/09/20 04:28 Toxic Granulation Not Reportable 08/09/20 04:28 Toxic Vacuolation Not Reportable 08/09/20 04:28 Dohle Bodies Not Reportable 08/09/20 04:28 Pelger-Huet Anomaly Not Reportable 08/09/20 04:28 Carmel Rods Not Reportable 08/09/20 04:28 Platelet Estimate Consistent w auto 08/09/20 04:28 Clumped Platelets Not Reportable 08/09/20 04:28 Plt Clumps, EDTA Not Reportable 08/09/20 04:28 Large Platelets Not Reportable 08/09/20 04:28 Giant Platelets Not Reportable 08/09/20 04:28 Platelet Satelliting Not Reportable 08/09/20 04:28 Plt Morphology Comment Not Reportable 08/09/20 04:28 RBC Morphology Not Reportable 08/09/20 04:28 Dimorphic RBCs Not Reportable 08/09/20 04:28 Polychromasia Not Reportable 08/09/20 04:28 Hypochromasia Not Reportable 08/09/20 04:28 Poikilocytosis 1+ 08/09/20 04:28 Anisocytosis 1+ 08/09/20 04:28 Microcytosis Not Reportable 08/09/20 04:28 Macrocytosis Not Reportable 08/09/20 04:28 Spherocytes Not Reportable 08/09/20 04:28 Pappenheimer Bodies Not Reportable 08/09/20 04:28 Sickle Cells Not Reportable 08/09/20 04:28 Target Cells Not Reportable 08/09/20 04:28 Tear Drop Cells Not Reportable 08/09/20 04:28 Ovalocytes Few 08/09/20 04:28 Helmet Cells Not Reportable 08/09/20 04:28 [place] Bodies Not Reportable 08/09/20 04:28 [place] Rings Not Reportable 08/09/20 04:28 [place] Cells Not Reportable 08/09/20 04:28 Bite Cells Not Reportable 08/09/20 04:28 Crenated Cell Not Reportable 08/09/20 04:28 Elliptocytes Few 08/09/20 04:28 Acanthocytes (Spur) Not Reportable 08/09/20 04:28 Rouleaux Not Reportable 08/09/20 04:28 Hemoglobin C Crystals Not Reportable 08/09/20 04:28 Schistocytes Not Reportable 08/09/20 04:28 Malaria parasites Not Reportable 08/09/20 04:28 [place] Bodies Not Reportable 08/09/20 04:28 Hem Pathologist Commnt No 08/09/20 04:28 D-Dimer 165.37 ng/mlDDU (0-234) 08/07/20 14: Troponin T < 0.010 ng/mL (0.00-0.029) 08/07/20 14: Urine Color Colorless (Yellow) 08/07/20 14: Urine Turbidity Clear (Clear) 08/07/20 14: Urine pH 8.0 (5.0-7.0) H 08/07/20 14: Ur Specific Means 1.004 (1.003-1.030) 08/07/20 14: Urine Protein <15 mg/dl mg/dL (Negative) 08/07/20 14: Urine Glucose (UA) Neg mg/dL (Negative) 08/07/20 14: Urine Ketones Tr mg/dL (Negative) 08/07/20 14: Urine Blood Neg (Negative) 08/07/20 14: Urine Nitrite Neg (Negative) 08/07/20 14: Urine Bilirubin Neg (Negative) 08/07/20 14: Urine Urobilinogen < 2.0 mg/dL (<2.0) 08/07/20 14: Ur Leukocyte Esterase Neg (Negative) 08/07/20 14: Urine WBC (Auto) 1.0 /HPF (0.0-6.0) 08/07/20 14: Urine RBC (Auto) < 1.0 /HPF (0.0-6.0) 08/07/20 14: Urine Bacteria (Auto) 1+ /HPF (Negative) 08/07/20 14: Salicylates 0.6 mg/dL (2.8-20.0) L 08/07/20 14: Acetaminophen 5.0 ug/mL (10.0-30.0) L 08/07/20 14: Troponin: < normal limit - Critical Actions Critical Actions: 0-3 pts:0.9-1.7%risk of adverse cardiac event.Candidate for discharge Results - Labs CBC & Chem 7: 08/11/20 08:41 08/11/20 08:41 Labs: Laboratory Last Values WBC 8.7 K/mm3 (4.5-11.0) 08/11/20 08:41 RBC 4.82 M/mm3 (3.65-5.03) 08/11/20 08:41 Hgb 15.1 gm/dl (10.1-14.3) H 08/11/20 08:41 Hct 43.7 % (30.3-42.9) H 08/11/20 08:41 MCV 91 fl (79-97) 08/11/20 08:41 MCH 31 pg (28-32) 08/11/20 08:41 MCHC 35 % (30-34) H 08/11/20 08:41 RDW 14.0 % (13.2-15.2) 08/11/20 08:41 Plt Count 377 K/mm3 (140-440) 08/11/20 08:41 Lymph % (Auto) 7.3 % (13.4-35.0) L 08/11/20 08:41 Saunders % (Auto) 5.2 % (0.0-7.3) 08/11/20 08:41 Eos % (Auto) 0.9 % (0.0-4.3) 08/11/20 08:41 Baso % (Auto) 0.1 % (0.0-1.8) 08/11/20 08:41 Lymph # (Auto) 0.6 K/mm3 (1.2-5.4) L 08/11/20 08:41 Saunders # (Auto) 0.4 K/mm3 (0.0-0.8) 08/11/20 08:41 Eos # (Auto) 0.1 K/mm3 (0.0-0.4) 08/11/20 08:41 Baso # (Auto) 0.0 K/mm3 (0.0-0.1) 08/11/20 08:41 Add Manual Diff Complete 08/09/20 04:28 Total Counted 100 08/09/20 04:28 Seg Neutrophils % 86.5 % (40.0-70.0) H 08/11/20 08:41 Seg Neuts % (Manual) 66.0 % (40.0-70.0) 08/09/20 04:28 Lymphocytes % (Manual) 22.0 % (13.4-35.0) 08/09/20 04:28 Monocytes % (Manual) 7.0 % (0.0-7.3) 08/09/20 04:28 Eosinophils % (Manual) 5.0 % (0.0-4.3) H 08/09/20 04:28 Basophils % (Manual) 2.0 % (0.0-1.8) H 08/07/20 14:19 Metamyelocytes % 1.0 % 08/07/20 14:19 Nucleated RBC % Not Reportable 08/09/20 04:28 Seg Neutrophils # 7.5 K/mm3 (1.8-7.7) 08/11/20 08:41 Seg Neutrophils # Man 2.8 K/mm3 (1.8-7.7) 08/09/20 04:28 Band Neutrophils # 0.0 K/mm3 08/09/20 04:28 Lymphocytes # (Manual) 0.9 K/mm3 (1.2-5.4) L 08/09/20 04:28 Abs React Lymphs (Man) 0.0 K/mm3 08/09/20 04:28 Monocytes # (Manual) 0.3 K/mm3 (0.0-0.8) 08/09/20 04:28 Eosinophils # (Manual) 0.2 K/mm3 (0.0-0.4) 08/09/20 04:28 Basophils # (Manual) 0.0 K/mm3 (0.0-0.1) 08/09/20 04:28 Metamyelocytes # 0.0 K/mm3 08/09/20 04:28 Myelocytes # 0.0 K/mm3 08/09/20 04:28 Promyelocytes # 0.0 K/mm3 08/09/20 04:28 Blast Cells # 0.0 K/mm3 08/09/20 04:28 WBC Morphology Not Reportable 08/09/20 04:28 Hypersegmented Neuts Not Reportable 08/09/20 04:28 Hyposegmented Neuts Not Reportable 08/09/20 04:28 Hypogranular Neuts Not Reportable 08/09/20 04:28 Smudge Cells Not Reportable 08/09/20 04:28 Toxic Granulation Not Reportable 08/09/20 04:28 Toxic Vacuolation Not Reportable 08/09/20 04:28 Dohle Bodies Not Reportable 08/09/20 04:28 Pelger-Huet Anomaly Not Reportable 08/09/20 04:28 Carmel Rods Not Reportable 08/09/20 04:28 Platelet Estimate Consistent w auto 08/09/20 04:28 Clumped Platelets Not Reportable 08/09/20 04:28 Plt Clumps, EDTA Not Reportable 08/09/20 04:28 Large Platelets Not Reportable 08/09/20 04:28 Giant Platelets Not Reportable 08/09/20 04:28 Platelet Satelliting Not Reportable 08/09/20 04:28 Plt Morphology Comment Not Reportable 08/09/20 04:28 RBC Morphology Not Reportable 08/09/20 04:28 Dimorphic RBCs Not Reportable 08/09/20 04:28 Polychromasia Not Reportable 08/09/20 04:28 Hypochromasia Not Reportable 08/09/20 04:28 Poikilocytosis 1+ 08/09/20 04:28 Anisocytosis 1+ 08/09/20 04:28 Microcytosis Not Reportable 08/09/20 04:28 Macrocytosis Not Reportable 08/09/20 04:28 Spherocytes Not Reportable 08/09/20 04:28 Pappenheimer Bodies Not Reportable 08/09/20 04:28 Sickle Cells Not Reportable 08/09/20 04:28 Target Cells Not Reportable 08/09/20 04:28 Tear Drop Cells Not Reportable 08/09/20 04:28 Ovalocytes Few 08/09/20 04:28 Helmet Cells Not Reportable 08/09/20 04:28 [place] Bodies Not Reportable 08/09/20 04:28 [place] Rings Not Reportable 08/09/20 04:28 [place] Cells Not Reportable 08/09/20 04:28 Bite Cells Not Reportable 08/09/20 04:28 Crenated Cell Not Reportable 08/09/20 04:28 Elliptocytes Few 08/09/20 04:28 Acanthocytes (Spur) Not Reportable 08/09/20 04:28 Rouleaux Not Reportable 08/09/20 04:28 Hemoglobin C Crystals Not Reportable 08/09/20 04:28 Schistocytes Not Reportable 08/09/20 04:28 Malaria parasites Not Reportable 08/09/20 04:28 [place] Bodies Not Reportable 08/09/20 04:28 Hem Pathologist Commnt No 08/09/20 04:28 D-Dimer 165.37 ng/mlDDU (0-234) 08/07/20 14:19 Sodium 150 mmol/L (137-145) H 08/11/20 08:41 Potassium 3.8 mmol/L (3.6-5.0) 08/09/20 04:28 Chloride 110.1 mmol/L (98-107) H 08/11/20 08:41 Carbon Dioxide 23 mmol/L (22-30) 08/11/20 08:41 Anion Gap 21 mmol/L 08/11/20 08:41 BUN 21 mg/dL (7-17) H 08/11/20 08:41 Creatinine 0.9 mg/dL (0.6-1.2) 08/11/20 08:41 Estimated GFR > 60 ml/min 08/11/20 08:41 BUN/Creatinine Ratio 23 % 08/11/20 08:41 Glucose 131 mg/dL (65-100) H 08/11/20 08:41 Lactic Acid 1.30 mmol/L (0.7-2.0) 08/07/20 14:19 Calcium 9.0 mg/dL (8.4-10.2) 08/11/20 08:41 Phosphorus 3.90 mg/dL (2.5-4.5) 08/07/20 14:19 Magnesium 2.30 mg/dL (1.7-2.3) 08/07/20 14:19 Total Bilirubin 0.60 mg/dL (0.1-1.2) 08/11/20 08:41 AST 19 units/L (5-40) 08/11/20 08:41 ALT 11 units/L (7-56) 08/11/20 08:41 Alkaline Phosphatase 102 units/L (35-129) 08/11/20 08:41 Total Creatine Kinase 27 units/L (30-135) L 08/07/20 14:19 Troponin T < 0.010 ng/mL (0.00-0.029) 08/07/20 14:28 Total Protein 7.5 g/dL (6.3-8.2) 08/11/20 08:41 Albumin 4.0 g/dL (3.9-5) 08/11/20 08:41 Albumin/Globulin Ratio 1.1 % 08/11/20 08:41 TSH 0.435 mlU/mL (0.270-4.200) 08/07/20 14:19 Urine Color Colorless (Yellow) 08/07/20 14: Urine Turbidity Clear (Clear) 08/07/20 14: Urine pH 8.0 (5.0-7.0) H 08/07/20 14: Ur Specific Means 1.004 (1.003-1.030) 08/07/20 14:27 Urine Protein <15 mg/dl mg/dL (Negative) 08/07/20 14: Urine Glucose (UA) Neg mg/dL (Negative) 08/07/20 14:27 Urine Ketones Tr mg/dL (Negative) 08/07/20 14: Urine Blood Neg (Negative) 08/07/20 14: Urine Nitrite Neg (Negative) 08/07/20 14: Urine Bilirubin Neg (Negative) 08/07/20 14: Urine Urobilinogen < 2.0 mg/dL (<2.0) 08/07/20 14: Ur Leukocyte Esterase Neg (Negative) 08/07/20 14:27 Urine WBC (Auto) 1.0 /HPF (0.0-6.0) 08/07/20 14: Urine RBC (Auto) < 1.0 /HPF (0.0-6.0) 08/07/20 14: Urine Bacteria (Auto) 1+ /HPF (Negative) 08/07/20 14: Salicylates 0.6 mg/dL (2.8-20.0) L 08/07/20 14:19 Acetaminophen 5.0 ug/mL (10.0-30.0) L 08/07/20 14:19 Microbiology: Microbiology 08/07/20 14:19 Peripheral/Venous Blood Culture - Preliminary NO GROWTH AFTER 72 HOURS 08/07/20 14:28 Peripheral/Venous Blood Culture - Preliminary NO GROWTH AFTER 72 HOURS 08/07/20 14:27 Urine,Catheterized - Straight Catheter Urine Culture - Final Brown/IV: Voiding Method External Female Catheter Active Medications - Current Medications Current Medications: Generic Name Dose Route Start Last Admin Trade Name Freq PRN Reason Stop Dose Admin Acetaminophen 650 mg 08/08/20 00:41 Acetaminophen 325 Mg Tab PO Q4H PRN Pain MILD(1-3)/Fever >100.5/PETE Acetaminophen/Butalbital/Caffeine 1 tab 08/08/20 00:38 Butalb/Acetaminophen/Caffeine Tab PO Q6HR PRN Headache Ascorbic Acid 1,000 mg 08/08/20 10:00 08/11/20 09:15 Ascorbic Acid 500 Mg Tab PO 1,000 mg DAILY NATALIO Administration Cholecalciferol 5,000 unit 08/08/20 10:00 08/11/20 09:16 Cholecalciferol (Vit D3) 5,000 Unit Tab PO 5,000 unit DAILY NATALIO Administration Cyanocobalamin 1,000 mcg 08/08/20 10:00 08/11/20 09:16 Cyanocobalamin (Vit B-12) 1000 Mcg Tab PO 1,000 mcg DAILY NATLAIO Administration Famotidine 20 mg 08/08/20 10:00 08/11/20 09:15 Famotidine 20 Mg Tab PO 20 mg BID NATALIO Administration Hydralazine HCl 5 mg 08/10/20 23:44 08/11/20 00:13 Hydralazine 20 Mg/1 Ml Inj IV 5 mg Q4H PRN Administration Hypertension Dextrose/Sodium Chloride 1,000 mls @ 75 mls/hr 08/11/20 11:00 D5/0.45ns IV DIRECT [facility] Metoclopramide HCl 10 mg 08/08/20 00:41 Metoclopramide 10 Mg/2 Ml Inj IV Q6H PRN Nausea And Vomiting Metoprolol Tartrate 25 mg 08/08/20 10:00 08/11/20 09:15 Metoprolol Tartrate 25 Mg Tab PO 25 mg BID [facility] Administration Morphine Sulfate 2 mg 08/08/20 00:41 08/10/20 21:10 Morphine 2 Mg/1 Ml Inj IV 2 mg Q4H PRN Administration Pain, Moderate (4-6) Nifedipine 60 mg 08/11/20 11:00 Nifedipine Xl 60 Mg Tab PO Q12HR [facility] Ondansetron HCl 4 mg 08/08/20 00:41 08/08/20 15:16 Ondansetron 4 Mg/2 Ml Inj IV 4 mg Q8H PRN Administration Nausea And Vomiting Pyridoxine HCl 250 mg 08/08/20 10:00 08/11/20 09:15 Pyridoxine 50 Mg Tab PO 250 mg DAILY NATALIO Administration Sodium Chloride 10 ml 08/08/20 10:00 08/11/20 09:16 Sodium Chloride 0.9% 10 Ml Flush Syringe IV 10 ml BID NATALIO Administration Sodium Chloride 10 ml 08/08/20 00:41 Sodium Chloride 0.9% 10 Ml Flush Syringe IV PRN PRN LINE FLUSH Valsartan 160 mg 08/08/20 01:00 08/11/20 09:15 Valsartan 160mg Tab PO 160 mg BID NATALIO Administration Nutrition/Malnutrition Assess - Dietary Evaluation Nutrition/Malnutrition Findings: Nutrition Notes Start: 08/08/20 10:47 Freq: Status: Active Protocol: Document 08/10/20 10:22 ADA (Rec: 08/10/20 10:32 ADA [email or web address]) Co-Sign 08/10/20 10:22 BRUNO Nutrition Notes Initial or Follow up Reassessment Current Diagnosis Decubitus(Pressure Ulcer), Hypertension Other Pertinent Diagnosis AMS, syncope, colonic mass, hx breast CA w/ chemotherapy Current Diet Pureed diet w/ thin liquids Labs/Tests BUN 22 Pertinent Medications Vitamin B6 Vitamin B12 Vitamin D Vitamin C Height 5 ft 6 in Weight 66.7 kg [place] Body Weight (kg) 59.09 BMI 23.7 Weight Status Appropriate Subjective/Other Information F/U for KARDEX CLERK eval and diet advancement. Per KARDEX CLERK note, pt tolerates pureed diet, but recommends PEG if minimal intakes continue. Pt did not respond to questions at time of visit. Obersved breakfast tray, 0% consumed. Per chart, pt consumed 75% dinner. Percent of energy/protein needs met: 59%/46% Burn Absent Trauma Absent Difficulty In Swallowing Food Allergy No Current % PO Poor (25-49%) Minimum of two criteria Yes Energy Intake (severe) < or equal to 50% Estimated Energy Requirement > or equal to 5 days Interpretation of Weight Loss (severe) >10% in 6 months Muscle Mass Mild Depletion (non-severe) Reduced [place]ite Setter Strength Measurably Reduced (severe) #1 Nutrition Diagnosis Malnutrition Diagnosis Progress(for reassessment Continues documentation) Is patient on ventilator? No Is Patient Ambulatory and/or Out of Bed No REE-([facility]-confined to bed) 2144.264 Calculation Used for Recommendations [facility] Additional Notes Pro: 83-103 g/day (1.2-1.5 kg/ day) Fluid: 1 ml/kcal Nutrition Intervention Change Diet Order: Continue current or TF if minimal intakes continue Add Supplement/Snack (indicate name/kcal Ensure Enlive (Vanilla) BID /protein ) Provides kCal: 700 Provides Protein (gm) 40 Goal #1 Diet tolerance Goal #2 Meet at least 75% energy and protein needs via PO/ONS intakes Anticipated Discharge Needs: Unable to determine at this time Follow-Up By: 08/14/20 Additional Comments F/U for intakes, POC
[2020-08-11] MEDS ORDERED: D5W/0.45% NACL 1,000 ML IV SCH (11:00)
[2020-08-11] MEDS ORDERED: LORazepam 2 MG/ML VIAL IV PRN (11:30)
[2020-08-11] MEDS: NIFEdipine XL 60 MG TAB PO SCH ×2 (12:17→20:40)
[2020-08-11] MEDS ORDERED: hydrALAZINE 20 MG/1 ML INJ IV PRN (12:54)
[2020-08-11] MEDS ORDERED: VANCOMYCIN PHARMACY TO DOSE IV SCH (13:00)
--- NOTE | 2020-08-11 15:30 | Magnetic Resonance Report ---
MRI CERVICAL SPINE 08/11/2020 INDICATION / CLINICAL INFORMATION: cancer met. COMPARISON: None available. FINDINGS: GENERAL OBSERVATIONS: Unenhanced and enhanced MR images of the cervical spine were obtained. There is extensive abnormal increased T2-weighted signal in the cervical spinal cord extending downwa rd from the C4 level to approximately T2. Spinal cord appears to be diffusely enlarged. On the postco ntrast images, there is extensive abnormal enhancement of the leptomeninges throughout the cervical c anal, most prominently in the area of abnormal signal from C4 through T1. There is also appears to be enhancement within the spinal cord itself and several locations over this same area. This suggests l eptomeningeal carcinomatosis, with secondary extension into the spinal cord and associated spinal cor d edema. Bone marrow signal is somewhat heterogeneous. C5 vertebral body bone marrow signal is relatively hype rintense on T1 and T2-weighted images. It is unclear whether this represents focal lesion, which may be more typical of hemangioma, or is relatively spared bone marrow, with diffuse bone marrow signal a bnormality elsewhere. CRANIO-CERVICAL JUNCTION: Unremarkable. BONE MARROW: As above PARASPINAL SOFT TISSUES: No significant abnormality. IMPRESSION: Extensive abnormality involving leptomeningeal enhancement, spinal cord enhancement and spinal cord signal change as described above. Signer Name: Jose Mayo MD Signed: 08/11/2020 3:25 PM Workstation Name: Definition [id number]
--- NOTE | 2020-08-11 15:36 | Magnetic Resonance Report ---
MRI BRAIN 08/11/2020 INDICATION / CLINICAL INFORMATION: Lymphoma , and change mentation r/o carcinomotous. TECHNIQUE: Multiplanar, multisequence MR images of the brain were obtained. COMPARISON: 08/09/2020 FINDINGS: BRAIN / INTRACRANIAL CONTENTS: Unenhanced and enhanced MR images of the brain were obtained and elana red to the prior noncontrast exam from 08/09/2020. The postcontrast imaging demonstrates extensive leptomeningeal enhancement in the region of the ambie nt cistern and posterior fossa. Enhancement is seen along the surface of the brainstem, cranial nerve s, internal auditory canal,. There is also some superficial of the meningeal enhancement in the left lateral temporal lobe, and along the interhemispheric fissure. The overall appearance is most consist ent with leptomeningeal carcinomatosis. There is no evidence of acute ischemic injury. Mild ventriculomegaly is again noted. Mild chronic white matter T2 weighted hyperintensities are present. There is no evidence of hemorrhag e. There are no abnormal extra-axial fluid collections. EXTRACRANIAL: Unremarkable CRANIOCERVICAL JUNCTION: As above VASCULAR FLOW-VOIDS: No significant abnormality. IMPRESSION: Extensive leptomeningeal enhancement, consistent with leptomeningeal carcinomatosis. Signer Name: Jose Mayo MD Signed: 08/11/2020 3:31 PM Workstation Name: [id number]
[2020-08-11] MEDS ORDERED: VANCOMYCIN 1,250 MG in SODIUM CHLORIDE 0.9% 250ML 250 ML IV ONE (16:00)
[2020-08-11] MEDS: CEFEPIME/NS 2 GM/100 ML 2 GM/100 ML BAG IV SCH ×2 (16:28→21:03)
[2020-08-11] MEDS: hydrALAZINE 20 MG/1 ML INJ IV SCH ×2 (16:29→20:42)
[2020-08-11] MEDS: MORPHINE 2 MG/1 ML INJ IV PRN (20:22)
[2020-08-12] MEDS: VANCOMYCIN/NS 1 GM/250 ML 1 GM/250 ML BAG IV SCH ×2 (04:07→15:47)
[2020-08-12] MEDS: CEFEPIME/NS 2 GM/100 ML 2 GM/100 ML BAG IV SCH ×2 (05:11→12:59)
[2020-08-12] MEDS: hydrALAZINE 20 MG/1 ML INJ IV SCH ×3 (08:02→15:47)
[2020-08-12] MEDS: VALSARTAN 160MG TAB PO SCH ×2 (08:02→09:42)
[2020-08-12] MEDS: METOPROLOL TARTRATE 25 MG TAB PO SCH ×2 (08:03→09:43)
[2020-08-12] MEDS: FAMOTIDINE 20 MG TAB PO SCH ×2 (08:03→09:43)
[2020-08-12] MEDS: NIFEdipine XL 60 MG TAB PO SCH ×2 (08:03→09:44)
[2020-08-12] MEDS: PYRIDOXINE 50 MG TAB PO SCH (09:42)
[2020-08-12] MEDS: CYANOCOBALAMIN (VIT B-12) 1000 MCG TAB PO SCH (09:42)
[2020-08-12] MEDS: ASCORBIC ACID 500 MG TAB PO SCH (09:43)
[2020-08-12] MEDS: CHOLECALCIFEROL (VIT D3) 5,000 UNIT TAB PO SCH (09:44)
--- NOTE | 2020-08-12 11:31 | Progress Note ---
Assessment and Plan Assessment and plan: #Altered mental status She is confused but able to protect her airway UA showed no UTI. Chest x-ray negative for pneumonia LP could not be performed on 08/11 so she was started on empirical antibiotics MRI brain on 08/10 is negative. 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 Patient started on IV steroids. ID, neurosurgery and oncology consulted. Continue keppra. EEG pending. #Hypertensive emergency Blood pressure has improved Continue current medications #Syncopal episode Reason for admission-this could be as a result of poor intake/dehydration Started on IV hydration Patient is not tolerating p.o. due to altered mental status Maintain n.p.o. 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 #History of colonic mass Status post sigmoid resection with primary anastomosis 12/2019 Oncology consulted for brain lesions #DVT prophylaxis-Heparin #Discharge planning Not stable for discharge at this time. Discussed with patient's son today. History Interval history: 59-year-old with multiple medical problems brought in by EMS for passing out, altered sensorium and nausea and vomiting. Patient has a complicated medical history including history of breast cancer, recurrent syncope hypertensive urgency and history of presumed colon cancer, s/p sigmoidectomy with anastomosis laparoscopic lysis of adhesions. Patient is with altered sensorium. Very poor historian. Patient states that her right side is weak and especially right facial weakness which is making it difficult to eat. During my examination patient has right facial weakness but able to move all 4 extremities. Last few admissions were reviewed Patient has complex medical history. 02/15/2020 patient was diagnosed with sigmoid mass and had a sigmoidectomy and primary anastomosis. Prior to that patient had multiple surgeries including breast cancer with bilateral mastectomy and TRAM flap for the right breast and the lateral dorsalis for the left breast and followed by panniculectomy. 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 Patient is on chemotherapy. Patient has port. Because of the chemotherapy patient has been having leukopenia. Patient has poor appetite and severe weakness. 08/08/2020 Poor p.o. intake Altered sensorium Severe weakness 08/09/2020 MRI negative for stroke Severe debility Patient confused but alert Poor p.o. intake Unable to ambulate 08/10/2020 MRI negative for stroke Severe debility Patient alert but confused Poor p.o. intake Unable to ambulate 08/11. Patient seen and examined at bedside this morning. She is awake and responds yes occasionally to questions. Looks weak. MRI brain showed no stroke. Neurology has been consulted. Reviewed notes from previous. Patient is having worsening mental status. She has not been eating. Patient sodium is elevated-150. Started on hypotonic solution for now. May need lumbar puncture to rule out any meningitis or encephalitis. Lumbar puncture ordered. Started on broad-spectrum antibiotics. Tried to call son today but voicemail is full. 08/12. Patient is lethargic but responds when called. MRI brain with and without contrast still pending. Lumbar puncture could not be performed yesterday as patient's could not cooperate. Hospitalist Physical - Physical exam Narrative exam: At 11 (today VITAL SIGNS: Reviewed. GENERAL: Awake HEAD: No signs of head trauma. EYES: Pupils are equal. Extraocular motions intact. MOUTH: Oropharynx is normal. NECK: No adenopathy, no JVD. CHEST: Chest with diminished breath sounds bilaterally. No wheezes, rales, or rhonchi. CARDIAC: normal S1 and S2, without murmurs, gallops, or rubs. ABDOMEN: Soft, non tender and non distended. No rebound or guarding, and no masses palpated. Bowel Sounds normal. MUSCULOSKELETAL: No edema NEUROLOGIC EXAM: Awake but confused SKIN: No obvious lesions - Constitutional Vitals: Temp Pulse Resp BP Pulse Ox 97.2 F L 77 18 126/92 95 08/12/20 09:47 08/12/20 09:47 08/12/20 09:47 08/12/20 09:47 08/12/20 09:47 HEART Score - HEART Score Risk factors: 1-2 risk factors Troponin: Troponin T < 0.010 ng/mL (0.00-0.029) 08/07/20 14:28 Troponin: < normal limit - Critical Actions Critical Actions: 0-3 pts:0.9-1.7%risk of adverse cardiac event.Candidate for discharge Results - Labs CBC & Chem 7: 08/11/20 08:41 08/11/20 08:41 Labs: Laboratory Last Values WBC 8.7 K/mm3 (4.5-11.0) 08/11/20 08:41 RBC 4.82 M/mm3 (3.65-5.03) 08/11/20 08:41 Hgb 15.1 gm/dl (10.1-14.3) H 08/11/20 08:41 Hct 43.7 % (30.3-42.9) H 08/11/20 08:41 MCV 91 fl (79-97) 08/11/20 08:41 MCH 31 pg (28-32) 08/11/20 08:41 MCHC 35 % (30-34) H 08/11/20 08:41 RDW 14.0 % (13.2-15.2) 08/11/20 08:41 Plt Count 377 K/mm3 (140-440) 08/11/20 08:41 Lymph % (Auto) 7.3 % (13.4-35.0) L 08/11/20 08:41 [place] % (Auto) 5.2 % (0.0-7.3) 08/11/20 08:41 Eos % (Auto) 0.9 % (0.0-4.3) 08/11/20 08:41 Baso % (Auto) 0.1 % (0.0-1.8) 08/11/20 08:41 Lymph # (Auto) 0.6 K/mm3 (1.2-5.4) L 08/11/20 08:41 [place] # (Auto) 0.4 K/mm3 (0.0-0.8) 08/11/20 08:41 Eos # (Auto) 0.1 K/mm3 (0.0-0.4) 08/11/20 08:41 Baso # (Auto) 0.0 K/mm3 (0.0-0.1) 08/11/20 08:41 Add Manual Diff Complete 08/09/20 04:28 Total Counted 100 08/09/20 04:28 Seg Neutrophils % 86.5 % (40.0-70.0) H 08/11/20 08:41 Seg Neuts % (Manual) 66.0 % (40.0-70.0) 08/09/20 04:28 Lymphocytes % (Manual) 22.0 % (13.4-35.0) 08/09/20 04:28 Monocytes % (Manual) 7.0 % (0.0-7.3) 08/09/20 04:28 Eosinophils % (Manual) 5.0 % (0.0-4.3) H 08/09/20 04:28 Basophils % (Manual) 2.0 % (0.0-1.8) H 08/07/20 14:19 Metamyelocytes % 1.0 % 08/07/20 14:19 Nucleated RBC % Not Reportable 08/09/20 04:28 Seg Neutrophils # 7.5 K/mm3 (1.8-7.7) 08/11/20 08:41 Seg Neutrophils # Man 2.8 K/mm3 (1.8-7.7) 08/09/20 04:28 Band Neutrophils # 0.0 K/mm3 08/09/20 04:28 Lymphocytes # (Manual) 0.9 K/mm3 (1.2-5.4) L 08/09/20 04:28 Abs React Lymphs (Man) 0.0 K/mm3 08/09/20 04:28 Monocytes # (Manual) 0.3 K/mm3 (0.0-0.8) 08/09/20 04:28 Eosinophils # (Manual) 0.2 K/mm3 (0.0-0.4) 08/09/20 04:28 Basophils # (Manual) 0.0 K/mm3 (0.0-0.1) 08/09/20 04:28 Metamyelocytes # 0.0 K/mm3 08/09/20 04:28 Myelocytes # 0.0 K/mm3 08/09/20 04:28 Promyelocytes # 0.0 K/mm3 08/09/20 04:28 Blast Cells # 0.0 K/mm3 08/09/20 04:28 WBC Morphology Not Reportable 08/09/20 04:28 Hypersegmented Neuts Not Reportable 08/09/20 04:28 Hyposegmented Neuts Not Reportable 08/09/20 04:28 Hypogranular Neuts Not Reportable 08/09/20 04:28 Smudge Cells Not Reportable 08/09/20 04:28 Toxic Granulation Not Reportable 08/09/20 04:28 Toxic Vacuolation Not Reportable 08/09/20 04:28 Dohle Bodies Not Reportable 08/09/20 04:28 Pelger-Huet Anomaly Not Reportable 08/09/20 04:28 [place] Rods Not Reportable 08/09/20 04:28 Platelet Estimate Consistent w auto 08/09/20 04:28 Clumped Platelets Not Reportable 08/09/20 04:28 Plt Clumps, EDTA Not Reportable 08/09/20 04:28 Large Platelets Not Reportable 08/09/20 04:28 Giant Platelets Not Reportable 08/09/20 04:28 Platelet Satelliting Not Reportable 08/09/20 04:28 Plt Morphology Comment Not Reportable 08/09/20 04:28 RBC Morphology Not Reportable 08/09/20 04:28 Dimorphic RBCs Not Reportable 08/09/20 04:28 Polychromasia Not Reportable 08/09/20 04:28 Hypochromasia Not Reportable 08/09/20 04:28 Poikilocytosis 1+ 08/09/20 04:28 Anisocytosis 1+ 08/09/20 04:28 Microcytosis Not Reportable 08/09/20 04:28 Macrocytosis Not Reportable 08/09/20 04:28 Spherocytes Not Reportable 08/09/20 04:28 Pappenheimer Bodies Not Reportable 08/09/20 04:28 Sickle Cells Not Reportable 08/09/20 04:28 Target Cells Not Reportable 08/09/20 04:28 Tear Drop Cells Not Reportable 08/09/20 04:28 Ovalocytes Few 08/09/20 04:28 Helmet Cells Not Reportable 08/09/20 04:28 [place] Bodies Not Reportable 08/09/20 04:28 Anza Rings Not Reportable 08/09/20 04:28 [place] Cells Not Reportable 08/09/20 04:28 Bite Cells Not Reportable 08/09/20 04:28 Crenated Cell Not Reportable 08/09/20 04:28 Elliptocytes Few 08/09/20 04:28 Acanthocytes (Spur) Not Reportable 08/09/20 04:28 Rouleaux Not Reportable 08/09/20 04:28 Hemoglobin C Crystals Not Reportable 08/09/20 04:28 Schistocytes Not Reportable 08/09/20 04:28 Malaria parasites Not Reportable 08/09/20 04:28 [place] Bodies Not Reportable 08/09/20 04:28 Hem Pathologist Commnt No 08/09/20 04:28 D-Dimer 165.37 ng/mlDDU (0-234) 08/07/20 14:19 Sodium 150 mmol/L (137-145) H 08/11/20 08:41 Potassium 4.0 mmol/L (3.6-5.0) 08/11/20 08:41 Chloride 110.1 mmol/L (98-107) H 08/11/20 08:41 Carbon Dioxide 23 mmol/L (22-30) 08/11/20 08:41 Anion Gap 21 mmol/L 08/11/20 08:41 BUN 21 mg/dL (7-17) H 08/11/20 08:41 Creatinine 0.9 mg/dL (0.6-1.2) 08/11/20 08:41 Estimated GFR > 60 ml/min 08/11/20 08:41 BUN/Creatinine Ratio 23 % 08/11/20 08:41 Glucose 131 mg/dL (65-100) H 08/11/20 08:41 POC Glucose 160 mg/dL (70-105) H 08/11/20 16:44 Lactic Acid 1.30 mmol/L (0.7-2.0) 08/07/20 14:19 Calcium 9.0 mg/dL (8.4-10.2) 08/11/20 08:41 Phosphorus 3.90 mg/dL (2.5-4.5) 08/07/20 14:19 Magnesium 2.30 mg/dL (1.7-2.3) 08/07/20 14:19 Total Bilirubin 0.60 mg/dL (0.1-1.2) 08/11/20 08:41 AST 19 units/L (5-40) 08/11/20 08:41 ALT 11 units/L (7-56) 08/11/20 08:41 Alkaline Phosphatase 102 units/L (35-129) 08/11/20 08:41 Total Creatine Kinase 27 units/L (30-135) L 08/07/20 14:19 Troponin T < 0.010 ng/mL (0.00-0.029) 08/07/20 14:28 Total Protein 7.5 g/dL (6.3-8.2) 08/11/20 08:41 Albumin 4.0 g/dL (3.9-5) 08/11/20 08:41 Albumin/Globulin Ratio 1.1 % 08/11/20 08:41 TSH 0.435 mlU/mL (0.270-4.200) 08/07/20 14:19 Urine Color Colorless (Yellow) 08/07/20 14: Urine Turbidity Clear (Clear) 08/07/20 14: Urine pH 8.0 (5.0-7.0) H 08/07/20 14: Ur Specific [place] 1.004 (1.003-1.030) 08/07/20 14: Urine Protein <15 mg/dl mg/dL (Negative) 08/07/20 14: Urine Glucose (UA) Neg mg/dL (Negative) 08/07/20 14: Urine Ketones Tr mg/dL (Negative) 08/07/20 14: Urine Blood Neg (Negative) 08/07/20 14: Urine Nitrite Neg (Negative) 08/07/20 14: Urine Bilirubin Neg (Negative) 08/07/20 14: Urine Urobilinogen < 2.0 mg/dL (<2.0) 08/07/20 14:27 Ur Leukocyte Esterase Neg (Negative) 08/07/20 14:27 Urine WBC (Auto) 1.0 /HPF (0.0-6.0) 08/07/20 14: Urine RBC (Auto) < 1.0 /HPF (0.0-6.0) 08/07/20 14: Urine Bacteria (Auto) 1+ /HPF (Negative) 08/07/20 14:27 Salicylates 0.6 mg/dL (2.8-20.0) L 08/07/20 14:19 Acetaminophen 5.0 ug/mL (10.0-30.0) L 08/07/20 14:19 Microbiology: Microbiology 08/07/20 14:19 Peripheral/Venous Blood Culture - Preliminary NO GROWTH AFTER 4 DAYS 08/07/20 14:28 Peripheral/Venous Blood Culture - Preliminary NO GROWTH AFTER 4 DAYS Brown/IV: Voiding Method External Female Catheter Active Medications - Current Medications Current Medications: Generic Name Dose Route Start Last Admin Trade Name Freq PRN Reason Stop Dose Admin Acetaminophen 650 mg 08/08/20 00:41 Acetaminophen 325 Mg Tab PO Q4H PRN Pain MILD(1-3)/Fever >100.5 Acetaminophen/Butalbital/Caffeine 1 tab 08/08/20 00:38 Butalb/Acetaminophen/Caffeine Tab PO Q6HR PRN Headache Ascorbic Acid 1,000 mg 08/08/20 10:00 08/12/20 09:43 Ascorbic Acid 500 Mg Tab PO 1,000 mg DAILY NATALIO Administration Cholecalciferol 5,000 unit 08/08/20 10:00 08/12/20 09:44 Cholecalciferol (Vit D3) 5,000 Unit Tab PO 5,000 unit DAILY NATALIO Administration Cyanocobalamin 1,000 mcg 08/08/20 10:00 08/12/20 09:42 Cyanocobalamin (Vit B-12) 1000 Mcg Tab PO 1,000 mcg DAILY NATALIO Administration Famotidine 20 mg 08/08/20 10:00 08/12/20 09:43 Famotidine 20 Mg Tab PO 20 mg BID NATALIO Administration Hydralazine HCl 10 mg 08/11/20 16:00 08/12/20 09:43 Hydralazine 20 Mg/1 Ml Inj IV Not Given Q6H NATALIO Dextrose/Sodium Chloride 1,000 mls @ 75 mls/hr 08/11/20 11:00 08/11/20 12:19 D5/0.45ns IV 75 mls/hr DIRECT NATALIO Administration Cefepime HCl 2 gm in 100 mls @ 200 mls/hr 08/11/20 14:00 08/12/20 05:11 Cefepime/Ns 2 Gm/100 Ml IV 200 mls/hr Q8HR NATALIO Administration Protocol Vancomycin HCl 1 gm in 250 mls @ 166.667 mls/hr 08/12/20 04:00 08/12/20 04:07 Vancomycin/Ns 1 Gm/250 Ml IV 166.667 mls/hr Q12H NATALIO Administration Lorazepam 2 mg 08/11/20 11:30 08/11/20 12:39 Lorazepam 2 Mg/Ml Vial IV 2 mg Q4H PRN Administration Agitation Metoclopramide HCl 10 mg 08/08/20 00:41 Metoclopramide 10 Mg/2 Ml Inj IV Q6H PRN Nausea And Vomiting Metoprolol Tartrate 25 mg 08/08/20 10:00 08/12/20 09:43 Metoprolol Tartrate 25 Mg Tab PO 25 mg BID NATALIO Administration Morphine Sulfate 2 mg 08/08/20 00:41 08/11/20 20:22 Morphine 2 Mg/1 Ml Inj IV 2 mg Q4H PRN Administration Pain, Moderate (4-6) Nifedipine 60 mg 08/11/20 11:00 08/12/20 09:44 Nifedipine Xl 60 Mg Tab PO 60 mg Q12HR NATALIO Administration Ondansetron HCl 4 mg 08/08/20 00:41 08/08/20 15:16 Ondansetron 4 Mg/2 Ml Inj IV 4 mg Q8H PRN Administration Nausea And Vomiting Pyridoxine HCl 250 mg 08/08/20 10:00 08/12/20 09:42 Pyridoxine 50 Mg Tab PO 250 mg DAILY NATALIO Administration Sodium Chloride 10 ml 08/08/20 10:00 08/12/20 09:44 Sodium Chloride 0.9% 10 Ml Flush Syringe IV 10 ml BID NATALIO Administration Sodium Chloride 10 ml 08/08/20 00:41 Sodium Chloride 0.9% 10 Ml Flush Syringe IV PRN PRN LINE FLUSH Valsartan 160 mg 08/08/20 01:00 08/12/20 09:42 Valsartan 160mg Tab PO 160 mg BID NATALIO Administration Nutrition/Malnutrition Assess - Dietary Evaluation Nutrition/Malnutrition Findings: Nutrition Notes Start: 08/08/20 10:47 Freq: Status: Active Protocol: Document 08/10/20 10:22 ADA (Rec: 08/10/20 10:32 ADA [id number]) Co-Sign 08/10/20 10:22 BRUNO Nutrition Notes Initial or Follow up Reassessment Current Diagnosis Decubitus(Pressure Ulcer), Hypertension Other Pertinent Diagnosis AMS, syncope, colonic mass, hx breast CA w/ chemotherapy Current Diet Pureed diet w/ thin liquids Labs/Tests BUN 22 Pertinent Medications Vitamin B6 Vitamin B12 Vitamin D Vitamin C Height 5 ft 6 in Weight 66.7 kg [place] Body Weight (kg) 59.09 BMI 23.7 Weight Status Appropriate Subjective/Other Information F/U for URGENT CARE eval and diet advancement. Per URGENT CARE note, pt tolerates pureed diet, but recommends PEG if minimal intakes continue. Pt did not respond to questions at time of visit. Obersved breakfast tray, 0% consumed. Per chart, pt consumed 75% dinner. Percent of energy/protein needs met: 59%/46% Burn Absent Trauma Absent Difficulty In Swallowing Food Allergy No Current % PO Poor (25-49%) Minimum of two criteria Yes Energy Intake (severe) < or equal to 50% Estimated Energy Requirement > or equal to 5 days Interpretation of Weight Loss (severe) >10% in 6 months Muscle Mass Mild Depletion (non-severe) Reduced Grinding Operator Strength Measurably Reduced (severe) #1 Nutrition Diagnosis Malnutrition Diagnosis Progress(for reassessment Continues documentation) Is patient on ventilator? No Is Patient Ambulatory and/or Out of Bed No REE-([facility]-confined to bed) 1521.264 Calculation Used for Recommendations [facility] Additional Notes Pro: 83-103 g/day (1.2-1.5 kg/ day) Fluid: 1 ml/kcal Nutrition Intervention Change Diet Order: Continue current or TF if minimal intakes continue Add Supplement/Snack (indicate name/kcal Ensure Enlive (Vanilla) BID /protein ) Provides kCal: 700 Provides Protein (gm) 40 Goal #1 Diet tolerance Goal #2 Meet at least 75% energy and protein needs via PO/ONS intakes Anticipated Discharge Needs: Unable to determine at this time Follow-Up By: 08/14/20 Additional Comments F/U for intakes, POC
[2020-08-12] MEDS ORDERED: dexAMETHasone 20 MG in SODIUM CHLORIDE 0.9% 50 ML IV SCH (12:00)
--- NOTE | 2020-08-12 12:13 | Progress Note ---
Assessment and Plan Assessment and Plan - Patient Problems #Encephalopathy - pt. is not following command lethergic -neck rigidity -MRI brain is unremarkable Repeat MRI brain as well as Cervical MRI are remarkable for significant meningeal enhancment finding is consistent with C arcinomtous meningitis -LP could not be done due to agitation -adding to her problem is a possible toximetabolic ,infectious drug effect can not be exclueded -Patient is stage IV lymphoma with bone mets and poor intake -Suggest Broads spectrum ABx cover -MRI brain with QD is noted -Hold sedation -seizure can not be excluded -EEG is still pending - keppra Increse to 750 mg Iv BID -LP when possible -PT/ST evaluate swallow # HTN (hypertension) -Continue antihypertensives as tolerated -No Po medications -need [place] tube # [place]'s palsy ? 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 Arteaga -To follow-up with Dr. Arteaga after discharge # DVT prophylaxis -On heparin and GI prophylaxis PLAN 1- Consider LP with sedation if possible 2- Broad spectrum ABs cover 3- Hold Po and sedation for now need NG tube feeding and fluid intake 4- EEG ? seizure 5- Ammonia level is pending 6- MRI brain with QD showed findings consistent with carcinomatous meningitis 7- keppra 750 mgIv bid 8- Oncology to see 9- OVER ALL PROGNOSIS is poor will follow is poor Subjective Date of service: 08/12/20 Principal diagnosis: Severe debility and difficulty walking Interval history: she is awake, stare answar only simple question like her name move all limbs significant neck rigidity right side of lip is bleeding slightly ? bit her lip Objective - Vital Sign Vital Signs - 12hr 08/12/20 08/12/20 08/12/20 04:25 07:05 08:36 Temperature Pulse Rate 79 80 Pulse Rate [ 70 From Monitor] Respiratory 18 18 Rate Blood Pressure 132/96 Blood Pressure [Left] O2 Sat by Pulse 94 95 Oximetry 08/12/20 08/12/20 08/12/20 09:42 09:43 09:47 Temperature 97.2 F L Pulse Rate 77 77 77 Pulse Rate [ From Monitor] Respiratory 18 Rate Blood Pressure 126/92 126/92 Blood Pressure 126/92 [Left] O2 Sat by Pulse 95 Oximetry - General Apperance Constitutional: chronically ill - EENT EENT: PERRL, mucous membranes moist - Respiratory Respiratory: chest non-tender, crackles - Cardiovascular Cardiovascular: regular rate Extremities: no peripheral edema bilat - Gastrointestinal Gastrointestinal: normoactive bowel sounds - Integumentary Integumentary: normal - Neurologic Cranial nerve examination: PERRL, EOMI, intact Speech examination: intact Detailed motor examination: grossly full strength in - Laboratory Findings CBC and BMP: 08/11/20 08:41 08/11/20 08:41 Abnormal Lab Findings: Abnormal Labs 08/07/20 08/07/20 08/07/20 14:19 14:19 14:19 WBC 2.3 L Hgb Hct MCHC Lymph % (Auto) Lymph # (Auto) Seg Neutrophils % Eosinophils % (Manual) Basophils % (Manual) 2.0 H Seg Neutrophils # Man 1.3 L Lymphocytes # (Manual) 0.7 L Sodium Chloride BUN Glucose POC Glucose Total Creatine Kinase 27 L Urine pH Salicylates 0.6 L Acetaminophen 08/07/20 08/07/20 08/09/20 14:19 14:27 04:28 WBC 4.2 L Hgb Hct MCHC Lymph % (Auto) Lymph # (Auto) Seg Neutrophils % Eosinophils % (Manual) 5.0 H Basophils % (Manual) Seg Neutrophils # Man Lymphocytes # (Manual) 0.9 L Sodium Chloride BUN Glucose POC Glucose Total Creatine Kinase Urine pH 8.0 H Salicylates Acetaminophen 5.0 L 08/09/20 08/11/20 08/11/20 04:28 08:41 08:41 WBC Hgb 15.1 H Hct 43.7 H MCHC 35 H Lymph % (Auto) 7.3 L Lymph # (Auto) 0.6 L Seg Neutrophils % 86.5 H Eosinophils % (Manual) Basophils % (Manual) Seg Neutrophils # Man Lymphocytes # (Manual) Sodium 150 H Chloride 110.1 H BUN 22 H 21 H Glucose 131 H POC Glucose Total Creatine Kinase Urine pH Salicylates Acetaminophen 08/11/20 16:44 WBC Hgb Hct MCHC Lymph % (Auto) Lymph # (Auto) Seg Neutrophils % Eosinophils % (Manual) Basophils % (Manual) Seg Neutrophils # Man Lymphocytes # (Manual) Sodium Chloride BUN Glucose POC Glucose 160 H Total Creatine Kinase Urine pH Salicylates Acetaminophen
[2020-08-12] MEDS ORDERED: SODIUM BICARBONATE 325 MG TAB FEEDTUBE PRN (13:27)
[2020-08-12] MEDS ORDERED: LIPASE 10,500/PROTEASE 25,000/AMYLASE 43,750 (UNITS) DR CAP FEEDTUBE PRN (13:27)
[2020-08-12] MEDS ORDERED: SIMPLE SYRUP 15 ML FEEDTUBE PRN ×2 (13:27)
[2020-08-12] MEDS ORDERED: levETIRAcetam 750 MG in DEXTROSE 5% IN WATER 100 ML IV SCH (14:00)
[2020-08-12 14:47] LABS: Basophils % (Auto) 0.3 % (0.0-1.8); Eosinophils # (Auto) 0.1 K/mm3 (0.0-0.4); Eosinophils % (Auto) 1.3 % (0.0-4.3); Hematocrit 43.5 % (30.3-42.9); Hemoglobin 15.4 gm/dl (10.1-14.3); Lymphocytes # (Auto) 0.5 K/mm3 (1.2-5.4); Lymphocytes % (Auto) 4.9 % (13.4-35.0); Mean Corpuscular HGB Conc 35 % (30-34); Mean Corpuscular Volume 91 fl (79-97); Monocytes # (Auto) 0.7 K/mm3 (0.0-0.8); Monocytes % (Auto) 6.5 % (0.0-7.3); Platelet Count 299 K/mm3 (140-440); Red Blood Count 4.79 M/mm3 (3.65-5.03); Red Cell Distribution Width 14.3 % (13.2-15.2)
[2020-08-12 15:02] LABS: Alanine Aminotransferase 12 units/L (7-56); Albumin 4.1 g/dL (3.9-5); BUN/Creatinine Ratio 18; Blood Urea Nitrogen 14 mg/dL (7-17); Calcium 9.2 mg/dL (8.4-10.2); Hemolysis Index 8
--- NOTE | 2020-08-12 17:56 | Discharge Summary ---
Providers - Providers Date of Admission: 08/08/20 17:10 Date of discharge: 08/12/20 Attending physician: KYARA EDDY 08/08/20 09:03 Speech Therapy Evaluation and Treat [CONS] Routine Reason For Exam: L side facial droop. Assess for a diet/liquids. 08/09/20 10:00 Physical Therapy Evaluation and Treat [CONS] Urgent Comment: Reason For Exam: home vs rehab vs snf 08/10/20 17:09 Consult to Physician [CONS] Routine Comment: Consulting Provider: MERLINE GAMINO Physician Instructions: Reason For Exam: Rule out CVA, patient with severe debility 08/11/20 15:18 Consult to Dietitian/Nutrition [CONS] Routine Physician Instructions: Reason For Exam: Reason for Consult: Write/Manage Tube Feeding 08/12/20 08:09 Consult to Physician [CONS] Routine Comment: Consulting Provider: NIMA CANO Physician Instructions: Reason For Exam: Brain mets 08/12/20 12:25 Consult to Physician [CONS] Routine Comment: Consulting Provider: GHAZALA GODOY Physician Instructions: Reason For Exam: Carcinomatous meningitis Primary care physician: ENGINE ROOM OPERATOR Hospitalization Condition: Fair Hospital course: 59-year-old with a medical history of breast cancer, colon cancer, lymphoma brought in by EMS for passing out and altered sensorium and nausea and vomiting. She has a complicated medical history including history of breast cancer, recurrent syncope, hypertensive urgency and history of presumed colon cancer, s/p sigmoidectomy with anastomosis laparoscopic lysis of adhesions. She is a very poor historian so complete history could not be obtained on admission. Patient states that her right side is weak and especially right facial weakness which is making it difficult to eat. In the ED< she had right sided weakness. Patient has complex medical history. 02/15/2020 patient was diagnosed with sigmoid mass and had a sigmoidectomy and primary anastomosis. Prior to that patient had multiple surgeries including breast cancer with bilateral mastectomy and TRAM flap for the right breast and the lateral dorsalis for the left breast and followed by panniculectomy. She was also diagnosed with B cell lymphoma with mets and has been on chemotherapy. As per son, she completed last cycle a month ago. In the ED, Head CT was negative for any acute infarct. Her UA and CXR were negative. 08-08. MRI brain wo contrast was negative for any stroke. She remained awake but confused. Neurology was consulted. 08/11. Patient seen and examined at bedside this morning. She is awake and responds yes occasionally to questions. Looks weak. MRI brain showed no stroke. Neurology has been consulted. Reviewed notes from previous. Patient is having worsening mental status. She has not been eating. Patient sodium is elevated-150. Started on hypotonic solution for now. May need lumbar puncture to rule out any meningitis or encephalitis. Lumbar puncture ordered. Started on broad-spectrum antibiotics. Tried to call son today but voicemail is full. 08/12. Patient is lethargic but responds when called. 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 Lumbar puncture could not be performed yesterday as patient's could not cooperate. She remains on broad spectrum antibiotics. ID has been consulted. She has been started on dexamethasone for her brain findings and reduce possible edema. I discussed MRI brain findings with neurosurgery who advised no neurosurgery intervention - patient needs oncology evaluation and an LP. IR not available th is weekend. No oncology is available this weekend. Placed call to [facility] and spoke qwith Dr Andrade who is happy to consult on the case. Spoke with [facility] Hospitalist who has accepted patient for transfer for oncology evaluation. I have discussed with patients son (Luc) and he agrees. Currently patient remains on broad spectrum antibiotics, keppra, steroids. BP medications are currently on hold as her BP is soft. Her vitals have remained stable. Disposition: [id number]/TX-[id number] ANOTHER TYPE HLTHCARE Final Discharge Diagnosis (Prints w/discharge instructions): Acute metabolic encephalopathy 2/2 brain metastasis. Time spent for discharge: 65 mins Core Measure Documentation - Palliative Care Palliative Care/ Comfort Measures: Not Applicable - Core Measures Any of the following diagnoses?: none Exam - Physical Exam Narrative exam: At 11 (today VITAL SIGNS: Reviewed. GENERAL: Awake HEAD: No signs of head trauma. EYES: Pupils are equal. Extraocular motions intact. MOUTH: Oropharynx is normal. NECK: No adenopathy, no JVD. CHEST: Chest with diminished breath sounds bilaterally. No wheezes, rales, or rhonchi. CARDIAC: normal S1 and S2, without murmurs, gallops, or rubs. ABDOMEN: Soft, non tender and non distended. No rebound or guarding, and no masses palpated. Bowel Sounds normal. MUSCULOSKELETAL: No edema NEUROLOGIC EXAM: Awake but confused SKIN: No obvious lesions - Constitutional Vitals: Temp Pulse Resp BP Pulse Ox 97.2 F L 67 18 103/72 95 08/12/20 09:47 08/12/20 15:47 08/12/20 09:47 08/12/20 15:47 08/12/20 09:47 Plan Follow up with: PRIMARY CAREMD [Primary Care Provider] - 3-5 Days
--- NOTE | 2020-08-12 18:57 | Cat Scan Report ---
CT BRAIN: 08/12/2020 INDICATION / CLINICAL INFORMATION: evaluate cerebral edema. COMPARISON: CT brain 08/07/2020. MR brain 08/11/2020. FINDINGS: BRAIN/INTRACRANIAL STRUCTURES: Unenhanced CT images of the brain were obtained and compared to the re cent prior exams. Overall, there is been no change. Ventricular size remains somewhat prominent, suggestive of mild hydrocephalus. This is unchanged when compared to the recent prior exams. There is no evidence of intra-axial or parenchymal abnormality. There is no evidence of cerebral meera a. Should be noted that the leptomeningeal enhancement seen on the recent MRI would not be visible on no ncontrast CT. EXTRACRANIAL STRUCTURES: Unremarkable. IMPRESSION: No change when compared to prior exams. Mild ventriculomegaly. All CT scans at this location are performed using dose reduction to ALARA by means of automated expos ure control. Signer Name: Jose Mayo MD Signed: 08/12/2020 6:53 PM Workstation Name: [id number]
[2020-08-12 20:53] VITALS: BP 101/78
== END 2020-08-12 21:30 | disposition home health service (06) | DRG 54 ==
LOC: ED 13:57 → 4A 18:23 → OBSVTOIN 08-08 17:10 → 4A 08-10 02:22
PROVIDERS: ADMIT Internal Medicine; ATTEND Internal Medicine
DX: C79.31 Secondary malignant neoplasm of brain (principal); G93.41 Metabolic encephalopathy; C85.90 Non-Hodgkin lymphoma, unspecified, unspecified site; I16.1 Hypertensive emergency; R53.81 Other malaise; I10 Essential (primary) hypertension; K63.9 Disease of intestine, unspecified; G51.0 Bell's palsy; Z85.3 Personal history of malignant neoplasm of breast; Z90.13 Acquired absence of bilateral breasts and nipples; Z87.442 Personal history of urinary calculi; Z90.49 Acquired absence of other specified parts of digestive tract; Z82.49 Family history of ischemic heart disease and other diseases of the circulatory system; Z79.899 Other long term (current) drug therapy; Z85.038 Personal history of other malignant neoplasm of large intestine
CPT/HCPCS: 36415; 70450; 70551; 70553; 71045; 72156; 74177; 80053; 80320; 81001; 82140; 82550; 82962; 83735; 84100; 84145; 84443; 84484; 85007; 85025; 85379; 87040; 87086; 93005; 93880; 96374; 96375; 96376; G0378; A9575; G0480; J0360; J0692; J1100; J1953; J2060; J2270; J2405; J3370; J7042; J7050; J7120; Q9967

== ENCOUNTER 2020-08-18 15:43 | Inpatient (IN) | payer SELFPAY ==
[2020-08-18] MEDS ORDERED: ALBUTEROL 2.5 MG/3 ML NEBU IH PRN (23:00)
[2020-08-19] MEDS ORDERED: cefTRIAXone/NS 2 GM/100 ML 2 GM/100 ML BAG IV SCH
[2020-08-19] MEDS ORDERED: PHARMACY CONSULT (FOR PT FALL) PO ONE (00:03)
[2020-08-19] MEDS ORDERED: ONDANSETRON 4 MG/2 ML INJ IV PRN (00:04)
[2020-08-19] MEDS ORDERED: ACETAMINOPHEN 650 MG RECT SUPP PR PRN (00:04)
[2020-08-19] MEDS ORDERED: MORPHINE 2 MG/1 ML INJ IV ONE (00:33)
[2020-08-19] MEDS: dexAMETHasone 4 MG/ML VIAL IV SCH ×4 (00:40→17:35)
[2020-08-19 00:46] LABS: Hemoglobin 12.6 gm/dl (10.1-14.3); Mean Corpuscular HGB Conc 35 % (30-34); Mean Corpuscular Volume 91 fl (79-97); Platelet Count 158 K/mm3 (140-440); Red Blood Count 3.93 M/mm3 (3.65-5.03); Red Cell Distribution Width 14.3 % (13.2-15.2)
[2020-08-19] MEDS: AMPICILLIN/NS 2 GM/100 ML 2 GM/100 ML BAG IV SCH ×2 (01:08→06:07)
[2020-08-19 01:42] LABS: Alanine Aminotransferase 35 units/L (7-56); BUN/Creatinine Ratio 21; Blood Urea Nitrogen 21 mg/dL (7-17); Calcium 8.6 mg/dL (8.4-10.2); Hemolysis Index 4
--- NOTE | 2020-08-19 01:44 | History and Physical Report ---
History of Present Illness Date of examination: 08/18/20 Date of admission: 08/18/20 23:12 Chief complaint: neuro deficits History of present illness: 59-year-old -Qat[place] female with history of breast cancer, colon cancer, lymphoma who was admitted to [facility] ED on 08/07 with complaints of syncopal episodes, altered sensorium, nausea and vomiting. Work-up included imaging which revealed Extensive leptomeningeal enhancement, consistent with leptomeningeal carcinomatosis on MRI brain. The case was discussed with neurosu rgbillie who advised no neurosurgery intervention at this time, but rather patient needs oncology evaluation and an LP. Weekend IR and oncology coverage was not available at our facility. The case was discussed with Dr. Ramos at [facility] ([place] who agreed to accept patient for neuro oncology evaluation. Her course was complicated by acute respiratory failure, and she was intubated on 08/16, and extubated on 08/17. Patient was transferred back to our facility on 08/18 for further evaluation and management. Of note in reviewing medical records sent by [facility] it appears that the family has agreed to hospice. [facility] has agreed to accept patient but currently there are no beds available, home hospice is not an option for the patient at this time. I have placed consult to case management for assistance with hospice and end-of-life goal planning. Past History Past Medical History: cancer (Colon cancer, recent diagnosis of B-cell lymphoma, breast cancer,), hypertension, other (Recurrent syncope, Monroy's palsy, renal stones) Past Surgical History: , Other (Bilateral mastectomy with breast reconstruction surgery (2009), gastric bypass with jejunostomy, Monroy's palsy, s/p sigmoidectomy with anastomosis ) Social history: single. denies: smoking, alcohol abuse, prescription drug abuse Family history: hypertension Medications and Allergies Allergies Allergy/AdvReac Type Severity Reaction Status Date / Time hydromorphone [From Dilaudid] AdvReac Headache Verified 02/12/20 18:28 Home Medications Medication Instructions Recorded Confirmed Last Taken Type Ascorbic Acid [Vitamin C] 1,000 mg PO DAILY 02/12/20 02/12/20 02/12/20 History Cholecalciferol (Vitamin D3) 5,000 unit PO DAILY 02/12/20 02/12/20 02/12/20 History [Vitamin D3] Cyanocobalamin (Vitamin B-12) 1,000 mcg PO DAILY 02/12/20 02/12/20 02/12/20 History [Vitamin B-12] Magnesium Amino Acid Chelate 100 mg PO DAILY 02/12/20 02/12/20 02/12/20 History [Magnesium] Pyridoxine HCl (Vitamin B6) 250 mg PO DAILY 02/12/20 02/12/20 02/12/20 History [Vitamin B-6] Metoprolol [Lopressor TAB] 25 mg PO BID #60 tablet 02/17/20 Unknown Rx Ondansetron HCl [Zofran] 4 mg PO TID PRN #20 tablet 02/17/20 Unknown Rx Valsartan [Diovan] 160 mg PO BID #60 tablet 02/17/20 Unknown Rx oxyCODONE /ACETAMINOPHEN [Percocet 1 tab PO Q6H PRN #20 tablet 02/17/20 Unknown Rx 5/325 mg] Butalb/Acetamin/Caff 50-325-40 1 tab PO Q6HR PRN #10 tab 06/26/20 Unknown Rx [Fioricet] Ciprofloxacin HCl 500 mg PO BID #14 tablet 07/15/20 Unknown Rx Ondansetron [Zofran Odt] 4 mg PO Q8HR PRN #14 tab.rapdis 07/15/20 Unknown Rx oxyCODONE /ACETAMINOPHEN [Percocet 1 tab PO Q6HR PRN #14 tablet 07/15/20 Unknown Rx 5/325] Active Meds: Active Medications Acetaminophen (Acetaminophen 650 Mg Rect Supp) 650 mg NH Q4H PRN PRN Reason: Pain MILD(1-3)/Fever >100.5/PETE Albuterol (Albuterol 2.5 Mg/3 Ml Nebu) 2.5 mg IH Q4HRT PRN PRN Reason: Shortness Of Breath Dexamethasone (Dexamethasone 4 Mg/Ml Vial) 4 mg IV Q6HR NATALIO Last Admin: 08/19/20 00:40 Dose: 4 mg Documented by: Famotidine (Famotidine 20 Mg/2 Ml Inj) 20 mg IV BID NATALIO Levetiracetam 500 mg/ Dextrose 105 mls @ 400 mls/hr IV Q12HR [facility]AL[facility] Ceftriaxone Sodium (Rocephin/Ns 2 Gm/100 Ml) 2 gm in 100 mls @ 200 mls/hr IV Q12H NATALIO; Protocol Last Admin: 08/19/20 00:40 Dose: 200 mls/hr Documented by: Ampicillin Sodium (Ampicillin/Ns 2 Gm/100 Ml) 2 gm in 100 mls @ 100 mls/hr IV Q6H NATALIO; Protocol Stop: 08/20/20 19:59 Last Admin: 08/19/20 01:08 Dose: 100 mls/hr Documented by: Morphine Sulfate (Morphine 2 Mg/1 Ml Inj) 2 mg IV Q4H PRN PRN Reason: Pain , Severe (7-10) Ondansetron HCl (Ondansetron 4 Mg/2 Ml Inj) 4 mg IV Q6H PRN PRN Reason: Nausea And Vomiting Sodium Chloride (Sodium Chloride 0.9% 10 Ml Flush Syringe) 10 ml IV BID NATALIO Sodium Chloride (Sodium Chloride 0.9% 10 Ml Flush Syringe) 10 ml IV PRN PRN PRN Reason: LINE FLUSH Review of Systems All systems: negative (As noted in HPI) Exam - Physical Exam Narrative exam: Physical exam General appearance: Present: Uncomfortable, visual signs of pain, - Qat[place] adult female - EENT Eyes: Present: PERRL, EOM intact ENT: hearing intact, normal dentition - Neck Neck: Present: supple, normal ROM - Respiratory Respiratory effort: Non-labored Respiratory: Clear throughout - Cardiovascular Heart rate: 90 (bpm) Rhythm: Sinus Heart Sounds: Present: S1 & S2. Absent: rub, click - Extremities Extremities: no ischemia, pulses intact, - Peripheral Assessment Peripheral Pulses: within normal limits - Abdominal General gastrointestinal: soft, non-tender, normal bowel sounds - Integumentary Integumentary: Present: warm, dry - Musculoskeletal Musculoskeletal: Able to move all extremities, generalized weakness -Neurological Neurological: Right-sided facial weakness, alert and oriented x2-3 - Psychiatric Psychiatric: cooperative - Constitutional Vitals: Temp Pulse Resp BP Pulse Ox 97.4 F L 67 20 142/88 99 08/19/20 00:10 08/19/20 00:10 08/19/20 00:10 08/19/20 00:10 08/19/20 00:10 Results - Labs CBC & Chem 7: 08/18/20 23:55 08/18/20 23:55 Labs: Laboratory Last Values WBC 10.5 K/mm3 (4.5-11.0) 08/18/20 23: RBC 3.93 M/mm3 (3.65-5.03) 08/18/20 23: Hgb 12.6 gm/dl (10.1-14.3) 08/18/20 23: Hct 36.0 % (30.3-42.9) 08/18/20 23: MCV 91 fl (79-97) 08/18/20 23: MCH 32 pg (28-32) 08/18/20 23: MCHC 35 % (30-34) H 08/18/20 23: RDW 14.3 % (13.2-15.2) 08/18/20: Plt Count 158 K/mm3 (140-440) 08/18/20: Estimated GFR > 60 ml/min 08/18/20 23: BUN/Creatinine Ratio 21 % 08/18/20: Albumin/Globulin Ratio 1.9 % 08/18/20: - Diagnostic Impressions Diagnostic Impressions: CT Head: FINDINGS: BRAIN/INTRACRANIAL STRUCTURES: Unenhanced CT images of the brain were obtained and compared to the recent prior exams. Overall, there is been no change. Ventricular size remains somewhat prominent, suggestive of mild hydroce phalus. This is unchanged when compared to the recent prior exams. There is no evidence of intra-axial or parenchymal abnormality. There is no evidence of cerebral edema. Should be noted that the leptomeningeal enhancement seen on the recent MRI would not be visible on noncontrast CT. EXTRACRANIAL STRUCTURES: Unremarkable. IMPRESSION: No change when compared to prior exams. Mild ventriculomegaly. CT C-Spine: FINDINGS: GENERAL OBSERVATIONS: Unenhanced and enhanced MR images of the cervical spine were obtained. There is extensive abnormal increased T2-weighted signal in the cervical spinal cord extending downward from the C4 level to approximately T2. Spinal cord appears to be diffusely enlarged. On the postcontrast images, there is extensive abnormal enhancement of the leptomeninges throughout the cervical canal, most prominently in the area of abnormal signal from C4 through T1. There is also appears to be enhancement within the spinal cord itself and several locations over this same area. This suggests leptomeningeal carcinomatosis, with secondary extension into the spinal cord and associated spinal cord edema. Bone marrow signal is somewhat heterogeneous. C5 vertebral body bone marrow signal is relatively hyperintense on T1 and T2-weighted images. It is unclear whether this represents focal lesion, which may be more typical of hemangioma, or is relatively spared bone marrow, with diffuse bone marrow signal abnormality elsewhere. CRANIO-CERVICAL JUNCTION: Unremarkable. BONE MARROW: As above PARASPINAL SOFT TISSUES: No significant abnormality. IMPRESSION: Extensive abnormality involving leptomeningeal enhancement, spinal cord enhancement and spinal cord signal change as described above. MRI Brain: FINDINGS: BRAIN / INTRACRANIAL CONTENTS: Unenhanced and enhanced MR images of the brain were obtained and compared to the prior noncontrast exam from 08/09/2020. The postcontrast imaging demonstrates extensive leptomeningeal enhancement in the region of the ambient cistern and posterior fossa. Enhancement is seen along the surface of the brainstem, cranial nerves, internal auditory canal,. There is also some superficial of the meningeal enhancement in the left lateral temporal lobe, and along the interhemispheric fissure. The overall appearance is most consistent with leptomeningeal carcinomatosis. There is no evidence of acute ischemic injury. Mild ventriculomegaly is again noted. Mild chronic white matter T2 weighted hyperintensities are present. There is no evidence of hemorrhage. There are no abnormal extra-axial fluid collections. EXTRACRANIAL: Unremarkable CRANIOCERVICAL JUNCTION: As above VASCULAR FLOW- VOIDS: No significant abnormality. IMPRESSION: Extensive leptomeningeal enhancement, consistent with leptomeningeal carcinomatosis Brown/IV: Voiding Method External Female Catheter 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 Extensive leptomeningeal enhancement, consistent with leptomeningeal carcinomatosis -Repeat MRI on 08/16 shows diffuse leptomeningeal enhancement, particularly at the skull base and is compatible with metastatic disease -On IV Keppra and IV steroids -Patient transferred to [facility] for additional imaging and LP -[facility] was unable to perform LP, but did perform additional imaging, patient subsequently transferred back to [facility] ED for further evaluation and treatment -Neurology consulted -Inpatient heme-onc consulted -Supportive care Lymphoma -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 Arteaga (oncologist as outpatient) Syncope -Likely due to metastatic disease (Leptomeningeal carcinomatosis & lymphoma with mets) -Initiate fall precautions -Neuro checks -PT OT eval pending -Neuro consulted -HTN -Monitor BP -Resume home hypertensive meds when appropriate Meningitis -On IV antibiotics -LP pending -ID consulted GI and DVT PPX -On heparin -On Pepcid Advance Directives: No VTE prophylaxis?: Chemical, Mechanical Plan of care discussed with patient/family: Yes
--- NOTE | 2020-08-19 03:22 | Hem/Onc Consultation ---
History of Present Illness - History of Present Illness HEME/ONC DATA REVIEW 59YO terminally ill AA woman with NHL and mention of breast ca and colon ca, recently found ot have abn imaging concerning for leptominingeal cancer last weekend-->transferred from [facility] to [place]-->unable to do LP now transferred back for inpatient hospice recently intubated for a day DATA REVIEWED BELOW IMP: Metastatic cancer affecting leptomeninges/POLITICAL SCIENTIST thi is likley lymphoma, but could be carcinoma poor candidate for aggressive antitumor therapy REC: end of life discussion, consider transfer to inpatient hospice Laboratory Last Values WBC 10.5 K/mm3 (4.5-11.0) 08/18/20 23:55 Hgb 12.6 gm/dl (10.1-14.3) 08/18/20 23:55 Hct 36.0 % (30.3-42.9) 08/18/20 23:55 Plt Count 158 K/mm3 (140-440) 08/18/20 23:55 Creatinine 1.0 mg/dL (0.6-1.2) 08/18/20 23:55 Albumin/Globulin Ratio 1.9 % 08/18/20 23:55 Home Medications Medication Instructions Recorded Confirmed Last Taken Ascorbic Acid [Vitamin C] 1,000 mg PO DAILY 02/12/20 02/12/20 02/12/20 Cholecalciferol (Vitamin D3) 5,000 unit PO DAILY 02/12/20 02/12/20 02/12/20 [Vitamin D3] Cyanocobalamin (Vitamin B-12) 1,000 mcg PO DAILY 02/12/20 02/12/20 02/12/20 [Vitamin B-12] Magnesium Amino Acid Chelate 100 mg PO DAILY 02/12/20 02/12/20 02/12/20 [Magnesium] Pyridoxine HCl (Vitamin B6) 250 mg PO DAILY 02/12/20 02/12/20 02/12/20 [Vitamin B-6] Previous Rx's Past History Past Medical History: cancer (Colon cancer, recent diagnosis of B-cell lymphoma, breast cancer,), hypertension, other (Recurrent syncope, Monroy's palsy, renal stones) Past Surgical History: , Other (Bilateral mastectomy with breast reconstruction surgery (2009), gastric bypass with jejunostomy, Monroy's palsy, s/p sigmoidectomy with anastomosis ) Social history: single. denies: smoking, alcohol abuse, prescription drug abuse Family history: hypertension Medications and Allergies Allergies Allergy/AdvReac Type Severity Reaction Status Date / Time hydromorphone [From Dilaudid] AdvReac Headache Verified 02/12/20 18:28 Home Medications Medication Instructions Recorded Confirmed Last Taken Type Ascorbic Acid [Vitamin C] 1,000 mg PO DAILY 02/12/20 02/12/20 02/12/20 History Cholecalciferol (Vitamin D3) 5,000 unit PO DAILY 02/12/20 02/12/20 02/12/20 History [Vitamin D3] Cyanocobalamin (Vitamin B-12) 1,000 mcg PO DAILY 02/12/20 02/12/20 02/12/20 History [Vitamin B-12] Magnesium Amino Acid Chelate 100 mg PO DAILY 02/12/20 02/12/20 02/12/20 History [Magnesium] Pyridoxine HCl (Vitamin B6) 250 mg PO DAILY 02/12/20 02/12/20 02/12/20 History [Vitamin B-6] Metoprolol [Lopressor TAB] 25 mg PO BID #60 tablet 02/17/20 Unknown Rx Ondansetron HCl [Zofran] 4 mg PO TID PRN #20 tablet 02/17/20 Unknown Rx Valsartan [Diovan] 160 mg PO BID #60 tablet 02/17/20 Unknown Rx oxyCODONE /ACETAMINOPHEN [Percocet 1 tab PO Q6H PRN #20 tablet 02/17/20 Unknown Rx 5/325 mg] Butalb/Acetamin/Caff 50-325-40 1 tab PO Q6HR PRN #10 tab 06/26/20 Unknown Rx [Fioricet] Ciprofloxacin HCl 500 mg PO BID #14 tablet 07/15/20 Unknown Rx Ondansetron [Zofran Odt] 4 mg PO Q8HR PRN #14 tab.rapdis 07/15/20 Unknown Rx oxyCODONE /ACETAMINOPHEN [Percocet 1 tab PO Q6HR PRN #14 tablet 07/15/20 Unknown Rx 5/325] Active Meds: Active Medications Acetaminophen (Acetaminophen 650 Mg Rect Supp) 650 mg NH Q4H PRN PRN Reason: Pain MILD(1-3)/Fever >100.5/PETE Albuterol (Albuterol 2.5 Mg/3 Ml Nebu) 2.5 mg IH Q4HRT PRN PRN Reason: Shortness Of Breath Dexamethasone (Dexamethasone 4 Mg/Ml Vial) 4 mg IV Q6HR [facility] Last Admin: 08/19/20 00:40 Dose: 4 mg Documented by: Famotidine (Famotidine 20 Mg/2 Ml Inj) 20 mg IV BID [facility] Heparin Sodium (Porcine) (Heparin 5,000 Unit/1 Ml Vial) 5,000 unit SUB-Q BID [facility] Levetiracetam 500 mg/ Dextrose 105 mls @ 400 mls/hr IV Q12HR [facility] Ceftriaxone Sodium (Rocephin/Ns 2 Gm/100 Ml) 2 gm in 100 mls @ 200 mls/hr IV Q12H [facility]; Protocol Last Admin: 08/19/20 00:40 Dose: 200 mls/hr Documented by: Ampicillin Sodium (Ampicillin/Ns 2 Gm/100 Ml) 2 gm in 100 mls @ 100 mls/hr IV Q6H [facility]; Protocol Stop: 08/20/20 19:59 Last Admin: 08/19/20 01:08 Dose: 100 mls/hr Documented by: Morphine Sulfate (Morphine 2 Mg/1 Ml Inj) 2 mg IV Q4H PRN PRN Reason: Pain , Severe (7-10) Ondansetron HCl (Ondansetron 4 Mg/2 Ml Inj) 4 mg IV Q6H PRN PRN Reason: Nausea And Vomiting Sodium Chloride (Sodium Chloride 0.9% 10 Ml Flush Syringe) 10 ml IV BID [facility] Sodium Chloride (Sodium Chloride 0.9% 10 Ml Flush Syringe) 10 ml IV PRN PRN PRN Reason: LINE FLUSH Exam - Constitutional Vitals: Last Vital Signs Temp 97.4 F L 08/19/20 00:10 Pulse 67 08/19/20 00:10 Resp 20 08/19/20 00:10 BP 142/88 08/19/20 00:10 Pulse Ox 99 08/19/20 00:10 Results - Labs lab Results: Laboratory Results - last 24 hr 08/18/20 08/18/20 23:55 23:55 WBC 10.5 RBC 3.93 Hgb 12.6 Hct 36.0 MCV 91 MCH 32 MCHC 35 H RDW 14.3 Plt Count 158 Sodium 149 H Potassium 3.0 L Chloride 112.6 H Carbon Dioxide 21 L Anion Gap 18 BUN 21 H Creatinine 1.0 Estimated GFR > 60 BUN/Creatinine Ratio 21 Glucose 165 H Calcium 8.6 Total Bilirubin 0.50 AST 34 ALT 35 Alkaline Phosphatase 110 Total Protein 6.1 L Albumin 4.0 Albumin/Globulin Ratio 1.9
[2020-08-19 03:30] LABS: Band Neutrophils # (Manual) 0.2 K/mm3; Total Cells Counted 100
[2020-08-19 03:32] LABS: Ovalocytes Rare; Platelet Estimate Consistent w Auto
[2020-08-19] MEDS ORDERED: hydrALAZINE 20 MG/1 ML INJ IV ONE (05:55)
[2020-08-19] MEDS ORDERED: dexAMETHasone 4 MG/ML VIAL IV SCH (06:00)
[2020-08-19] MEDS: MORPHINE 2 MG/1 ML INJ IV PRN (06:33)
[2020-08-19 09:13] LABS: BUN/Creatinine Ratio 25; Blood Urea Nitrogen 20 mg/dL (7-17); Calcium 8.4 mg/dL (8.4-10.2); Hemolysis Index 9
[2020-08-19] MEDS: FAMOTIDINE 20 MG/2 ML INJ IV SCH ×2 (09:31→21:42)
[2020-08-19] MEDS: HEPARIN 5,000 UNIT/1 ML VIAL SUB-Q SCH ×2 (09:31→21:43)
[2020-08-19] MEDS ORDERED: POTASSIUM CHLORIDE ER 20 MEQ TAB PO NR (09:34)
[2020-08-19] MEDS: levETIRAcetam 500 MG in DEXTROSE 5% IN WATER 100 ML IV SCH ×2 (09:37→21:42)
--- NOTE | 2020-08-19 09:57 | Progress Note ---
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 Extensive leptomeningeal enhancement, consistent with leptomeningeal carcinomatosis -Repeat MRI on 08/16 shows diffuse leptomeningeal enhancement, particularly at the skull base and is compatible with metastatic disease -On IV Keppra and IV steroids -Patient transferred to [facility] for additional imaging and LP -[facility] was unable to perform LP, but did perform additional imaging, patient subsequently transferred back to [facility] ED for further evaluation and treatment -Neurology consulted -Inpatient heme-onc consulted -Supportive care Lymphoma -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 Arteaga (oncologist as outpatient) Syncope -Likely due to metastatic disease (Leptomeningeal carcinomatosis & lymphoma with mets) -Initiate fall precautions -Neuro checks -PT OT eval pending -Neuro consulted -HTN -Monitor BP -Resume home hypertensive meds when appropriate Meningitis -On IV antibiotics -LP pending -ID consulted GI and DVT PPX -On heparin -On Pepcid 08/19/2020 -I have seen and evaluated the patient, patient was alert and oriented, she has some occasional confusion. -I have called her son Luc and discussed the management plan. He wants her to be on hospice care. He wants her to be DNR/DNI. Patient was at [place] and she was also DNR/DNI there. From treatment she was discharged to inpatient hospice care but she presented to the emergency department. Case management is working to transfer the patient to hospice facilities. Patient is on antibiotics and discussed with the son and he wants her to be comfortable and I stopped antibiotics. Hematology oncology was consulted and recommend hospice care. History Interval history: Patient was seen and evaluated this morning Patient was alert and oriented Patient doesn't have any complaints. Hospitalist Physical - Physical exam Narrative exam: Not in cardiopulmonary distress. The patient appeared well nourished and normally developed. Vital signs as documented. Head exam is unremarkable. No scleral icterus . Neck is without jugular venous distension, thyromegaly, or carotid bruits. Lungs are clear to auscultation. Cardiac exam reveals regular rate and Rhythm. Abdominal exam reveals normal bowel sounds, nontender, no organomegaly. Extremities are nonedematous and both femoral and pedal pulses are normal. MANAGER LEGAL: Alert and oriented 3. No focal weakness. - Constitutional Vitals: Temp Pulse Resp BP Pulse Ox 97.4 F L 53 L 20 126/81 97 08/19/20 05:52 08/19/20 05:52 08/19/20 05:52 08/19/20 07:06 08/19/20 05:52 Results - Labs CBC & Chem 7: 08/18/20 23:55 08/19/20 08:17 Labs: Laboratory Last Values WBC 10.5 K/mm3 (4.5-11.0) 08/18/20 23:55 RBC 3.93 M/mm3 (3.65-5.03) 08/18/20 23:55 Hgb 12.6 gm/dl (10.1-14.3) 08/18/20 23:55 Hct 36.0 % (30.3-42.9) 08/18/20 23:55 MCV 91 fl (79-97) 08/18/20 23:55 MCH 32 pg (28-32) 08/18/20 23:55 MCHC 35 % (30-34) H 08/18/20 23:55 RDW 14.3 % (13.2-15.2) 08/18/20 23:55 Plt Count 158 K/mm3 (140-440) 08/18/20 23:55 Add Manual Diff Complete 08/18/20 23:55 Total Counted 100 08/18/20 23:55 Seg Neuts % (Manual) 87.0 % (40.0-70.0) H 08/18/20 23:55 Band Neutrophils % 2.0 % 08/18/20 23:55 Lymphocytes % (Manual) 5.0 % (13.4-35.0) L 08/18/20 23:55 Monocytes % (Manual) 5.0 % (0.0-7.3) 08/18/20 23:55 Metamyelocytes % 1.0 % 08/18/20 23:55 Nucleated RBC % Not Reportable 08/18/20 23:55 Seg Neutrophils # Man 9.1 K/mm3 (1.8-7.7) H 08/18/20 23:55 Band Neutrophils # 0.2 K/mm3 08/18/20 23:55 Lymphocytes # (Manual) 0.5 K/mm3 (1.2-5.4) L 08/18/20 23:55 Abs React Lymphs (Man) 0.0 K/mm3 08/18/20 23:55 Monocytes # (Manual) 0.5 K/mm3 (0.0-0.8) 08/18/20 23:55 Eosinophils # (Manual) 0.0 K/mm3 (0.0-0.4) 08/18/20 23:55 Basophils # (Manual) 0.0 K/mm3 (0.0-0.1) 08/18/20 23:55 Metamyelocytes # 0.1 K/mm3 08/18/20 23:55 Myelocytes # 0.0 K/mm3 08/18/20 23:55 Promyelocytes # 0.0 K/mm3 08/18/20 23:55 Blast Cells # 0.0 K/mm3 08/18/20 23:55 WBC Morphology Not Reportable 08/18/20 23:55 Hypersegmented Neuts Not Reportable 08/18/20 23:55 Hyposegmented Neuts Not Reportable 08/18/20 23:55 Hypogranular Neuts Not Reportable 08/18/20 23:55 Smudge Cells Not Reportable 08/18/20 23:55 Toxic Granulation Not Reportable 08/18/20 23:55 Toxic Vacuolation Not Reportable 08/18/20 23:55 Dohle Bodies Not Reportable 08/18/20 23:55 Pelger-Huet Anomaly Not Reportable 08/18/20 23:55 Carmel Rods Not Reportable 08/18/20 23:55 Platelet Estimate Consistent w auto 08/18/20 23:55 Clumped Platelets Not Reportable 08/18/20 23:55 Plt Clumps, EDTA Not Reportable 08/18/20 23:55 Large Platelets Not Reportable 08/18/20 23:55 Giant Platelets Not Reportable 08/18/20 23:55 Platelet Satelliting Not Reportable 08/18/20 23:55 Plt Morphology Comment Not Reportable 08/18/20 23:55 RBC Morphology Not Reportable 08/18/20 23:55 Dimorphic RBCs Not Reportable 08/18/20 23:55 Polychromasia Not Reportable 08/18/20 23:55 Hypochromasia Not Reportable 08/18/20 23:55 Poikilocytosis Not Reportable 08/18/20 23:55 Anisocytosis Not Reportable 08/18/20 23:55 Microcytosis Not Reportable 08/18/20 23:55 Macrocytosis Not Reportable 08/18/20 23:55 Spherocytes Not Reportable 08/18/20 23:55 Pappenheimer Bodies Not Reportable 08/18/20 23:55 Sickle Cells Not Reportable 08/18/20 23:55 Target Cells Not Reportable 08/18/20 23:55 Tear Drop Cells Not Reportable 08/18/20 23:55 Ovalocytes Rare 08/18/20 23:55 Helmet Cells Not Reportable 08/18/20 23:55 [employer] Bodies Not Reportable 08/18/20 23:55 Selah Rings Not Reportable 08/18/20 23:55 Jimena Cells Not Reportable 08/18/20 23:55 Bite Cells Not Reportable 08/18/20 23:55 Crenated Cell Not Reportable 08/18/20 23:55 Elliptocytes Not Reportable 08/18/20 23:55 Acanthocytes (Spur) Not Reportable 08/18/20 23:55 Rouleaux Not Reportable 08/18/20 23:55 Hemoglobin C Crystals Not Reportable 08/18/20 23:55 Schistocytes Not Reportable 08/18/20 23:55 Malaria parasites Not Reportable 08/18/20 23:55 [place]ilton Bodies Not Reportable 08/18/20 23:55 Hem Pathologist Commnt No 08/18/20 23:55 Sodium 149 mmol/L (137-145) H 08/19/20 08:17 Potassium 3.5 mmol/L (3.6-5.0) L 08/19/20 08:17 Chloride 113.9 mmol/L (98-107) H 08/19/20 08:17 Carbon Dioxide 20 mmol/L (22-30) L 08/19/20 08:17 Anion Gap 19 mmol/L 08/19/20 08:17 BUN 20 mg/dL (7-17) H 08/19/20 08:17 Creatinine 0.8 mg/dL (0.6-1.2) 08/19/20 08:17 Estimated GFR > 60 ml/min 08/19/20 08:17 BUN/Creatinine Ratio 25 % 08/19/20 08:17 Glucose 136 mg/dL (65-100) H 08/19/20 08:17 POC Glucose 121 mg/dL (70-105) H 08/19/20 05:54 Calcium 8.4 mg/dL (8.4-10.2) 08/19/20 08:17 Total Bilirubin 0.50 mg/dL (0.1-1.2) 08/18/20 23:55 AST 34 units/L (5-40) 08/18/20 23:55 ALT 35 units/L (7-56) 08/18/20 23:55 Alkaline Phosphatase 110 units/L (35-129) 08/18/20 23:55 Total Protein 6.1 g/dL (6.3-8.2) L 08/18/20 23:55 Albumin 4.0 g/dL (3.9-5) 08/18/20 23:55 Albumin/Globulin Ratio 1.9 % 08/18/20 23:55 Brown/IV: Voiding Method External Female Catheter Active Medications - Current Medications Current Medications: Generic Name Dose Route Start Last Admin Trade Name Freq PRN Reason Stop Dose Admin Acetaminophen 650 mg 08/19/20 00:04 Acetaminophen 650 Mg Rect Supp MA Q4H PRN Pain MILD(1-3)/Fever >100.5/PETE Albuterol 2.5 mg 08/18/20 23:00 Albuterol 2.5 Mg/3 Ml Nebu IH Q4HRT PRN Shortness Of Breath Dexamethasone 4 mg 08/19/20 00:08 08/19/20 06:07 Dexamethasone 4 Mg/Ml Vial IV 4 mg Q6HR NATALIO Administration Famotidine 20 mg 08/19/20 10:00 08/19/20 09:31 Famotidine 20 Mg/2 Ml Inj IV 20 mg BID NATALIO Administration Heparin Sodium (Porcine) 5,000 unit 08/19/20 10:00 08/19/20 09:31 Heparin 5,000 Unit/1 Ml Vial SUB-Q 5,000 unit BID NATALIO Administration Levetiracetam 500 mg/ Dextrose 105 mls @ 400 mls/hr 08/19/20 10:00 08/19/20 09:37 IV 400 mls/hr Q12HR NATALIO Administration Ceftriaxone Sodium 2 gm in 100 mls @ 200 mls/hr 08/19/20 00:00 08/19/20 00:40 Rocephin/Ns 2 Gm/100 Ml IV 200 mls/hr Q12H NATALIO Administration Protocol Ampicillin Sodium 2 gm in 100 mls @ 100 mls/hr 08/19/20 01:00 08/19/20 06:07 Ampicillin/Ns 2 Gm/100 Ml IV 08/20/20 19:59 100 mls/hr Q6H NATALIO Administration Protocol Morphine Sulfate 2 mg 08/19/20 01:37 08/19/20 06:33 Morphine 2 Mg/1 Ml Inj IV 2 mg Q4H PRN Administration Pain , Severe (7-10) Ondansetron HCl 4 mg 08/19/20 00:04 Ondansetron 4 Mg/2 Ml Inj IV Q6H PRN Nausea And Vomiting Potassium Chloride 40 meq 08/19/20 09:34 Potassium Chloride Er 20 Meq Tab PO 08/19/20 13:00 ONCE NR Sodium Chloride 10 ml 08/19/20 10:00 08/19/20 09:38 Sodium Chloride 0.9% 10 Ml Flush Syringe IV 10 ml BID NATALIO Administration Sodium Chloride 10 ml 08/19/20 00:04 Sodium Chloride 0.9% 10 Ml Flush Syringe IV PRN PRN LINE FLUSH
[2020-08-19] MEDS ORDERED: ACETAMINOPHEN 325 MG TAB PO PRN (10:01)
--- NOTE | 2020-08-19 10:01 | Discharge Summary ---
Providers - Providers Date of Admission: 08/18/20 23:12 Date of discharge: 08/19/20 Attending physician: LENA DUARTE MD 08/18/20 23:50 Consult to Physician [CONS] Routine Comment: Consulting Provider: MERLINE GAMINO Physician Instructions: Reason For Exam: neuro defict, est pt 08/19/20 01:38 Consult to Dietitian/Nutrition [CONS] Routine Physician Instructions: Reason For Exam: Reason for Consult: Pt needs oral supplement 08/19/20 02:03 Consult to Physician [CONS] Routine Comment: Consulting Provider: NIMA CANO Physician Instructions: Reason For Exam: leptomeningeal carcinomatosis 08/19/20 02:07 Consult to Case Management [CONS] Routine Services Needed at Discharge: Home Health Services Other Comment:: hospice end of life goal planning 08/19/20 02:09 Occupational Therapy Evaluate and Treat [CONS] Routine Comment: Reason For Exam: Neuro deficits Physical Therapy Evaluation and Treat [CONS] Routine Comment: Reason For Exam: Neuro deficits Primary care physician: [employer] Hospitalization Reason for admission: Metastatic cancer, leptomeningeal carcinomatosis Hospital course: History of present illness: 59-year-old -[place]ammarinese female with history of breast cancer, colon cancer, lymphoma who was admitted to [facility] ED on 08/07 with complaints of syncopal episodes, altered sensorium, nausea and vomiting. Work-up included imaging which revealed Extensive leptomeningeal enhancement, consistent with leptom eningeal carcinomatosis on MRI brain. The case was discussed with neurosurgery who advised no neurosurgery intervention at this time, but rather patient needs oncology evaluation and an LP. Weekend IR and oncology coverage was not available at our facility. The case was discussed with Dr. Ramos at [facility] ([place]) who agreed to accept patient for neuro oncology evaluation. Her co urse was complicated by acute respiratory failure, and she was intubated on 08/16, and extubated on 08/17. Patient was transferred back to our facility on 08/18 for further evaluation and management. Of note in reviewing medical records sent by [facility] it appears that the family has agreed to hospice. [facility] has agreed to accept patient but currently there are no beds available, home hospice is not an option for the patient at this time. I have placed consult to case management for assistance with hospice and end-of-life goal planning. 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 showed Extensive leptomeningeal enhancement, consistent with leptomeningeal carcinomatosis -Repeat MRI on 08/16 shows diffuse leptomeningeal enhancement, particularly at the skull base and is compatible with metastatic disease -On IV Keppra and IV steroids -Patient transferred to [facility] for additional imaging and LP -[facility] was unable to perform LP, but did perform additional imaging, patient subsequently transferred back to [facility] ED for further evaluation and treatment -Neurology consulted -Inpatient heme-onc consulted -Supportive care Lymphoma -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 Arteaga (oncologist as outpatient) Syncope -Likely due to metastatic disease (Leptomeningeal carcinomatosis & lymphoma with mets) -Initiate fall precautions -Neuro checks -PT OT eval pending -Neuro consulted -HTN -Monitor BP -Resume home hypertensive meds when appropriate Meningitis -On IV antibiotics -LP pending -ID consulted GI and DVT PPX -On heparin -On Pepcid 08/19/2020 -I have seen and evaluated the patient, patient was alert and oriented, she has some occasional confusion. -I have called her son Luc and discussed the management plan. He wants her to be on hospice care. He wants her to be DNR/DNI. Patient was at [facility] and she was also DNR/DNI there. From treatment she was discharged to inpatient hospice care but she presented to the emergency department. Case management is working to transfer the patient to hospice facilities. Patient is on antibiotics and discussed with the son and he wants her to be comfortable and I stopped antibiotics. Hematology oncology was consulted and recommend hospice care. 08/20/2020; patient was seen and evaluated this morning, patient states she is not feeling well. Patient was confused. I have discussed with case management and patient will go to hospice care today. Management plan was discussed with her son. Patient is terminally ill with metastatic cancer and appropriate for hospice care. Disposition: [id number] (MED FACILITY) Final Discharge Diagnosis (Prints w/discharge instructions): Metastatic cancer, breast cancer, colon cancer, lymphoma. Leptomeningeal carcinomatosis Time spent for discharge: 35-minutes - Discharge Diagnoses (1) Lymphoma Status: Acute Qualifiers: Lymphoma type: unspecified type (2) Nausea and vomiting Status: Acute Qualifiers: Vomiting type: unspecified Vomiting Intractability: non-intractable Qualified Code(s): R11.2 - Nausea with vomiting, unspecified (3) Suspected cerebrovascular accident (CVA) Status: Acute (4) Colonic mass Status: Resolved Core Measure Documentation - Palliative Care Palliative Care/ Comfort Measures: Hospice Care - Core Measures Any of the following diagnoses?: none Exam - Physical Exam Narrative exam: Not in cardiopulmonary distress. The patient appeared well nourished and normally developed. Vital signs as documented. Head exam is unremarkable. No scleral icterus . Neck is without jugular venous distension, thyromegaly, or carotid bruits. Lungs are clear to auscultation. Cardiac exam reveals regular rate and Rhythm. Abdominal exam reveals normal bowel sounds, nontender, no organomegaly. Extremities are nonedematous and both femoral and pedal pulses are normal. CORRESPONDENCE RENEW CLERK: Patient was confused. No focal weakness. - Constitutional Vitals: Temp Pulse Resp BP Pulse Ox 97.4 F L 53 L 20 126/81 97 08/19/20 05:52 08/19/20 05:52 08/19/20 05:52 08/19/20 07:06 08/19/20 05:52 Plan Activity: advance as tolerated Weight Bearing Status: Weight Bear as Tolerated Diet: advance as tolerated Follow up with: PRIMARY CAREMD [Primary Care Provider] - 7 Days
[2020-08-20] MEDS: dexAMETHasone 4 MG/ML VIAL IV SCH ×3 (00:07→12:35)
[2020-08-20] MEDS: MORPHINE 2 MG/1 ML INJ IV PRN (00:11)
[2020-08-20] MEDS ORDERED: LORazepam 2 MG/ML VIAL IV ONE (03:35)
[2020-08-20] MEDS ORDERED: hydrALAZINE 20 MG/1 ML INJ IV ONE (03:35)
[2020-08-20 05:30] LABS: Hematocrit 36.1 % (30.3-42.9); Hemoglobin 12.4 gm/dl (10.1-14.3); Mean Corpuscular HGB Conc 34 % (30-34); Mean Corpuscular Volume 92 fl (79-97); Platelet Count 136 K/mm3 (140-440); Red Blood Count 3.93 M/mm3 (3.65-5.03); Red Cell Distribution Width 14.5 % (13.2-15.2)
[2020-08-20 05:43] LABS: Alanine Aminotransferase 46 units/L (7-56); Blood Urea Nitrogen 20 mg/dL (7-17); Calcium 8.8 mg/dL (8.4-10.2); Hemolysis Index 3
[2020-08-20 05:48] LABS: BUN/Creatinine Ratio 33
[2020-08-20] MEDS: FAMOTIDINE 20 MG/2 ML INJ IV SCH (09:36)
[2020-08-20] MEDS: HEPARIN 5,000 UNIT/1 ML VIAL SUB-Q SCH (09:37)
[2020-08-20] MEDS: levETIRAcetam 500 MG in DEXTROSE 5% IN WATER 100 ML IV SCH (09:41)
[2020-08-20 11:21] LABS: Total Cells Counted 100
[2020-08-20 11:22] LABS: Large Platelets Few; Platelet Estimate Consistent w Auto; Tear Drop Cells Few
[2020-08-20 14:14] VITALS: BP 145/103
== END 2020-08-20 14:31 | disposition hospice, inpatient (51) | DRG 98 ==
LOC: 3A 15:43 → UNDOADMIN 15:43 → 3A 23:12
PROVIDERS: ADMIT Internal Medicine; ATTEND Internal Medicine
DX: G03.9 Meningitis, unspecified (principal); C70.1 Malignant neoplasm of spinal meninges; C80.0 Disseminated malignant neoplasm, unspecified; I10 Essential (primary) hypertension; Z82.49 Family history of ischemic heart disease and other diseases of the circulatory system; Z79.899 Other long term (current) drug therapy; Z85.038 Personal history of other malignant neoplasm of large intestine; Z85.3 Personal history of malignant neoplasm of breast
CPT/HCPCS: 36415; 80048; 80053; 82962; 85007; 85025; G0378; J0290; J0360; J0696; J1100; J1644; J1953; J2060; J2270